=== PATIENT | male | born 1945 | race Caucasian/White ===

== ENCOUNTER 2017-02-03 06:03 | Inpatient (IN) ==
[2017-02-03] MEDS ORDERED: *HR* LORazepam 2 MG/ML VIAL ONE (06:07)
[2017-02-03] MEDS ORDERED: Ipratropium/Albuterol Neb 3 ML ONE (06:10)
[2017-02-03] MEDS ORDERED: methylPREDNISolone 125 MG/2 ML VIAL IVP ONE (06:14)
[2017-02-03] MEDS ORDERED: *HR* LORazepam 2 MG/ML VIAL IVP ONE (06:14)
[2017-02-03] MEDS ORDERED: Ipratropium/Albuterol Neb 3 ML IH ONE (06:14)
[2017-02-03 06:21] LABS: ABG Base Excess 14.9 mEq/L (-2.0 to 3.0); ABG HCO3 46.7 mEQ/L (21-27); ABG Oxygen Saturation 99 % (95-98); ABG PH 7.24 pH Units (7.32-7.45); ABG PO2 140 mmHg (85-104)
[2017-02-03 06:22] LABS: Blood Gas FiO2 100 %
[2017-02-03 06:25] LABS: ABG PCO2 109 mmHg (35-45)
[2017-02-03] MEDS ORDERED: *HR* Rocuronium Bromide 50 MG/5 ML VIAL IVP ONE (06:56)
[2017-02-03] MEDS ORDERED: *HR* Etomidate 40 MG/20 ML VIAL IVP ONE (06:56)
[2017-02-03 06:59] LABS: Basophils # 0.1 K/mcL (0.0-0.2); Basophils % 0.3 %; Hematocrit 35.9 % (37.5-50.1); Hemoglobin 9.9 g/dL (12.9-16.9); Immature Granulocytes % 0.4 % (0-4); Mean Corpuscular HGB Conc 27.6 g/dL (31.6-35.5); Mean Corpuscular Hemoglobin 25.7 pg (28.0-33.3); Mean Corpuscular Volume 93.2 fL (83.0-100.0); Mean Platelet Volume 10.1 fL (9.4-12.4); Platelet Count 336 K/mcL (140-400); Red Blood Count 3.85 M/mcL (4.19-5.50); Red Cell Distribution Width 14.5 % (11.5-14.5)
[2017-02-03 07:01] LABS: Eosinophils # 0.5 K/mcL (0.0-0.6); Lymphocytes # 1.1 K/mcL (0.6-4.6); Lymphocytes % 6.4 %; Monocytes # 0.8 K/mcL (0.0-1.3); Monocytes % 4.7 %; Segmented Neutrophils % 85.2 %
--- NOTE | 2017-02-03 07:02 | Emergency Department Note ---
Disposition Clinical Impression: Respiratory distress, Sepsis, Community acquired pneumonia, Acute exacerbation of chronic obstructive airways disease, Acute on chronic respiratory failure with hypercapnia, Anemia Disposition: Admitted As Inpatient Condition: Fair [facility]errals: [facility] [Primary Care Provider[facility] - Forms: ED Satisfaction Letter Time of Disposition: 08:13 SOB HPI - General Chief Complaint: ED Shortness of Breath/Dyspnea Stated Complaint: LESLYE Time Seen by Provider: 02/03/17 06:13 Source: patient, EMS Limitations: no limitations Nursing Notes Reviewed: Yes Vital Signs Reviewed: Yes - History of Present Illness 72 year old male presents to the ED in respiratory distress. Patient is drowsy and in respiratory distress. Patients initial pulse ox on arrival was for ems was 70% and then placed on him on NRB with breathing treatments which brought it back up to 86%. Patients is slow to respond and appears in respiratory distress with retractions and labored. He appears disoriented. EMS states that he was experiencing diminshed breath sounds on exam. PPtinet denies any history of lung cancer, PEs, or recent MIs or strokes. He states he has a history of atrial fibrillation although we do not have a history of that in our system. He states he woke up with chest pain this morning with shortness of breath. - Related Data Home Medications Medication Instructions Recorded Confirmed Ascorbic Acid [Vitamin C] 1,200 mg PO DAILY 02/12/16 02/12/16 Baclofen [Lioresal] 10 mg PO BID 02/12/16 02/12/16 BuPROPion [Wellbutrin] 100 mg PO BID 02/12/16 02/12/16 Ergocalciferol (VITAMIN D2) 500 unit PO DAILY 02/12/16 02/12/16 [Vitamin D] Gabapentin [Neurontin] 300 mg PO TID 02/12/16 02/12/16 Hydrocodone/Acetaminophen [Vicodin 5 mg PO Q6-8H PRN 02/12/16 02/12/16 Es 7.5-300 mg Tablet] LORazepam [Ativan] 0.5 mg PO BID 02/12/16 02/12/16 Ranitidine HCl [Heartburn Relief] 100 mg PO DAILY 02/12/16 02/12/16 Trazodone HCl [TraZODone] 200 mg PO DAILY 02/12/16 02/12/16 Previous Rx's Medication Instructions Recorded Budesonide/Formoterol 160/4.5 2 puff IH BIDR #1 inhaler 02/16/16 [Symbicort 160/4.5] Levofloxacin [Levaquin] 500 mg PO DAILY #3 tablet 02/16/16 PredniSONE [Prednisone] 10 mg PO DAILY #0 02/16/16 Allergies Allergy/AdvReac Type Severity Reaction Status Date / Time No Known Allergies Allergy Verified 02/11/16 21:51 Limitations: ROS unobtainable due to patients medical condition Cardiovascular: Reports: chest pain Respiratory: Reports: dyspnea Past Medical History - Past Medical History Medical history: Reports: arthritis, atrial fibrillation, COPD Surgical history: Reports: other (ankle reconstruction surgery.) Psychiatric history: Reports: anxiety - Social History Smoking Status: Former smoker Smokeless Tobacco Status: No Alcohol use: Reports: none Drug use: Reports: none Physical Exam - General Limitations: no limitations General appearance: alert, anxious, in distress - Head Head exam: atraumatic, normocephalic, normal inspection - Eye Eye exam: Present: normal appearance, PERRL, EOMI - Expanded Eye Exam Pupils: Left: reactive - ENT ENT exam: normal exam, normal oropharynx, mucous membranes moist - Expanded ENT Exam External ear exam: Present: normal external inspection Mouth exam: Present: normal external inspection Teeth exam: Present: normal inspection Throat exam: Present: normal inspection - Neck Neck exam: Present: normal inspection, full ROM, trachea midline - Chest Chest inspection: Present: normal inspection, symmetric chest wall rise - Respiratory Respiratory exam: Present: normal lung sounds bilaterally, respiratory distress , accessory muscle use, prolonged expiratory phase - Cardiovascular Cardiovascular exam: Present: tachycardia, irregular rhythm, normal heart sounds - Abdominal Exam Abdominal exam: Present: soft, Non-Tender. Absent: tenderness, distention, guarding, rebound, rigidity - Extremities Exam Extremities exam: Present: normal inspection, full ROM. Absent: tenderness, pedal edema - Expanded Upper Extremity Exam Shoulder exam: Present: normal inspection, full ROM Arm exam: Present: normal inspection, full ROM Elbow exam: Present: normal inspection, full ROM Forearm/Wrist exam: Present: normal inspection, full ROM Hand exam: Present: normal inspection, full ROM Vascular exam: Normal: capillary refill, radial pulse - Expanded Lower Extremity Exam Hip/Pelvis exam: Present: normal inspection, full ROM Upper leg exam: Present: normal inspection, full ROM Knee exam: Present: normal inspection, full ROM Lower leg exam: Present: normal inspection, full ROM Ankle exam: Present: normal inspection, full ROM Foot/toe exam: Present: normal inspection, full ROM Neurovascular/Tendon exam: Absent: motor deficit, sensory deficit, tendon deficit - Back Exam Back exam: Present: normal inspection, full ROM. Absent: tenderness - Neurological Exam Neurological exam: Present: alert, oriented X3 - Expanded Neurological Exam Patient oriented to: Present: person, place, time Coma Scale Eye Opening: Spontaneous Coma Scale Motor Response: Obeys Commands Coma Scale Verbal Response: Oriented Coma Scale Total: 15 - Psychiatric Psychiatric exam: Present: normal affect, normal mood - Skin Skin exam: Present: warm, dry, intact, normal color Course Course Narrative: patient has failed bipap trial so we will intubate electively due to pH of 7.29 and PCO2 of 109. - Reevaluation(s) Reevaluation #1: ab was signed out to day team (Paulie/Lori) for admission to ICU and r/o PE study Time: 08:12 Vital Signs Temperature 100.8 F H 02/03/17 06:05 Pulse Rate 143 02/03/17 06:05 Respiratory Rate 31 02/03/17 06:05 Blood Pressure 186/95 02/03/17 06:05 O2 Sat by Pulse Oximetry 85 02/03/17 06:05 Temperature 100.8 F H 02/03/17 06:05 Pulse Rate 86 02/03/17 08:33 Respiratory Rate 16 02/03/17 08:33 Blood Pressure 102/53 02/03/17 08:33 O2 Sat by Pulse Oximetry 100 02/03/17 08:33 Oxygen Delivery Oxygen Delivery Ventilator Procedures - Intubation Time out performed: Yes sedative: Etomidate Mg Given: 20 paralytic: Rocuronium Mg Given: 100 Laryngoscope: other (glidescope) Assist Device Used: fiber optic device ET Tube Size: 7 ET Tube Uncuffed: No Tube Secured Depth (cm): 24 Tube Secured Location: lips Tube Placement Confirmation: visualized tube passing through cords, equal breath sounds bilaterally, no breath sounds over epigastrium Patient Tolerated Procedure: well Intubation Complications: none Shortness of Breath/Dyspnea - Lab Data Result diagrams: 02/03/17 06:48 02/03/17 06:48 Lab Results 02/03/17 02/03/17 02/03/17 Range/Units 06:15 06:48 06:48 WBC (4.3-11.1) K/mcL RBC (4.19-5.50) M/mcL Hgb (12.9-16.9) g/dL Hct (37.5-50.1) % MCV (83.0-100.0) fL MCH (28.0-33.3) pg MCHC (31.6-35.5) g/dL RDW (11.5-14.5) % Plt Count (140-400) K/mcL MPV (9.4-12.4) fL Immature Gran % (0-4) % Seg Neutrophils % % Lymphocytes % % Monocytes % % Eosinophils % % Basophils % % Neutrophils # (1.6-8.9) K/mcL Lymphocytes # (0.6-4.6) K/mcL Monocytes # (0.0-1.3) K/mcL Eosinophils # (0.0-0.6) K/mcL Basophils # (0.0-0.2) K/mcL Platelet Estimate (Normal) Polychromasia (Not Present) Hypochromasia (Not Present) Basophilic Stippling (Not Present) Stomatocytes (Not Present) PT 10.5 (9.4-12.1) Seconds INR 1.0 APTT 25.0 L (26.0-36.0) Seconds ABG pH 7.24 L (7.32-7.45) pH Units ABG pCO2 109 H* (35-45) mmHg ABG pO2 140 H (85-104) mmHg ABG HCO3 46.7 H (21-27) mEQ/L ABG Total CO2 50.0 H (20-26) mEq/L ABG O2 Saturation 99 H (95-98) % ABG Base Excess 14.9 H (-2.0 to 3.0) mEq/L Blood Gas Modality BIPAP Inspired O2 100 % Sodium (136-145) mEq/L Potassium (3.5-4.5) mEq/L Chloride (98-109) mEq/L Carbon Dioxide (19-29) mEq/L BUN (8-26) mg/dL Creatinine (0.72-1.25) mg/dL Est GFR ( Amer) (> 60) Est GFR (Non-Af Amer) (> 60) BUN/Creatinine Ratio (6-26) Glucose (70-99) mg/dL Calculated Osmolality (280-300) Calcium (8.6-10.8) mg/dL Total Bilirubin 0.3 (0.2-1.2) mg/dL Direct Bilirubin 0.1 (0.0-0.5) mg/dL Indirect Bilirubin 0.2 (0.0-1.2) mg/dL AST 15 (5-34) Units/L ALT 10 (0-55) Units/L Alkaline Phosphatase 68 (38-126) Units/L Troponin I (0-0.03) ng/mL B-Natriuretic Peptide (0-100) pg/mL Serum Total Protein 7.0 (6.0-8.3) g/dL Albumin 3.4 L (3.5-5.0) g/dL Globulin 3.6 H (2.4-3.5) g/dL Albumin/Globulin Ratio 0.9 L (1.1-2.2) Lipase 20 (8-78) Units/L 02/03/17 02/03/17 02/03/17 Range/Units 06:48 06:48 06:48 WBC 17.1 H (4.3-11.1) K/mcL RBC 3.85 L (4.19-5.50) M/mcL Hgb 9.9 L (12.9-16.9) g/dL Hct 35.9 L (37.5-50.1) % MCV 93.2 (83.0-100.0) fL MCH 25.7 L (28.0-33.3) pg MCHC 27.6 L (31.6-35.5) g/dL RDW 14.5 (11.5-14.5) % Plt Count 336 (140-400) K/mcL MPV 10.1 (9.4-12.4) fL Immature Gran % 0.4 (0-4) % Seg Neutrophils % 85.2 % Lymphocytes % 6.4 % Monocytes % 4.7 % Eosinophils % 3.0 % Basophils % 0.3 % Neutrophils # 14.8 H (1.6-8.9) K/mcL Lymphocytes # 1.1 (0.6-4.6) K/mcL Monocytes # 0.8 (0.0-1.3) K/mcL Eosinophils # 0.5 (0.0-0.6) K/mcL Basophils # 0.1 (0.0-0.2) K/mcL Platelet Estimate Normal (Normal) Polychromasia 1+ A (Not Present) Hypochromasia Present A (Not Present) Basophilic Stippling 1+ A (Not Present) Stomatocytes 1+ A (Not Present) PT (9.4-12.1) Seconds INR APTT (26.0-36.0) Seconds ABG pH (7.32-7.45) pH Units ABG pCO2 (35-45) mmHg ABG pO2 (85-104) mmHg ABG HCO3 (21-27) mEQ/L ABG Total CO2 (20-26) mEq/L ABG O2 Saturation (95-98) % ABG Base Excess (-2.0 to 3.0) mEq/L Blood Gas Modality Inspired O2 % Sodium 143 (136-145) mEq/L Potassium 4.3 (3.5-4.5) mEq/L Chloride 95 L (98-109) mEq/L Carbon Dioxide 40 H* (19-29) mEq/L BUN 12 (8-26) mg/dL Creatinine 0.82 (0.72-1.25) mg/dL Est GFR ( Amer) > 60 (> 60) Est GFR (Non-Af Amer) > 60 (> 60) BUN/Creatinine Ratio 15 (6-26) Glucose 161 H (70-99) mg/dL Calculated Osmolality 299 (280-300) Calcium 9.3 (8.6-10.8) mg/dL Total Bilirubin (0.2-1.2) mg/dL Direct Bilirubin (0.0-0.5) mg/dL Indirect Bilirubin (0.0-1.2) mg/dL AST (5-34) Units/L ALT (0-55) Units/L Alkaline Phosphatase (38-126) Units/L Troponin I (0-0.03) ng/mL B-Natriuretic Peptide 18 (0-100) pg/mL Serum Total Protein (6.0-8.3) g/dL Albumin (3.5-5.0) g/dL Globulin (2.4-3.5) g/dL Albumin/Globulin Ratio (1.1-2.2) Lipase (8-78) Units/L 04/29/17 Range/Units 06:48 WBC (4.3-11.1) K/mcL RBC (4.19-5.50) M/mcL Hgb (12.9-16.9) g/dL Hct (37.5-50.1) % MCV (83.0-100.0) fL MCH (28.0-33.3) pg MCHC (31.6-35.5) g/dL RDW (11.5-14.5) % Plt Count (140-400) K/mcL MPV (9.4-12.4) fL Immature Gran % (0-4) % Seg Neutrophils % % Lymphocytes % % Monocytes % % Eosinophils % % Basophils % % Neutrophils # (1.6-8.9) K/mcL Lymphocytes # (0.6-4.6) K/mcL Monocytes # (0.0-1.3) K/mcL Eosinophils # (0.0-0.6) K/mcL Basophils # (0.0-0.2) K/mcL Platelet Estimate (Normal) Polychromasia (Not Present) Hypochromasia (Not Present) Basophilic Stippling (Not Present) Stomatocytes (Not Present) PT (9.4-12.1) Seconds INR APTT (26.0-36.0) Seconds ABG pH (7.32-7.45) pH Units ABG pCO2 (35-45) mmHg ABG pO2 (85-104) mmHg ABG HCO3 (21-27) mEQ/L ABG Total CO2 (20-26) mEq/L ABG O2 Saturation (95-98) % ABG Base Excess (-2.0 to 3.0) mEq/L Blood Gas Modality Inspired O2 % Sodium (136-145) mEq/L Potassium (3.5-4.5) mEq/L Chloride (98-109) mEq/L Carbon Dioxide (19-29) mEq/L BUN (8-26) mg/dL Creatinine (0.72-1.25) mg/dL Est GFR ( Amer) (> 60) Est GFR (Non-Af Amer) (> 60) BUN/Creatinine Ratio (6-26) Glucose (70-99) mg/dL Calculated Osmolality (280-300) Calcium (8.6-10.8) mg/dL Total Bilirubin (0.2-1.2) mg/dL Direct Bilirubin (0.0-0.5) mg/dL Indirect Bilirubin (0.0-1.2) mg/dL AST (5-34) Units/L ALT (0-55) Units/L Alkaline Phosphatase (38-126) Units/L Troponin I 0.01 (0-0.03) ng/mL B-Natriuretic Peptide (0-100) pg/mL Serum Total Protein (6.0-8.3) g/dL Albumin (3.5-5.0) g/dL Globulin (2.4-3.5) g/dL Albumin/Globulin Ratio (1.1-2.2) Lipase (8-78) Units/L - EKG Data EKG attestation: Yes I reviewed and interpreted this EKG. EKG results narrative: atrial flutter with rate of [address] depresssions in II,III,avf, V4-6. change from 02/11/16. 0618 Attestation Statement - Attestation Attestation: I, Topher Baker MD, personally evaluated this patient and discussed their management with the resident physician. I reviewed the resident's note and agree with the documented findings, medical decision making, and plan of care. 72-year-old male presents to the emergency department by EMS with respiratory distress. He apparently woke up short of breath during the night. EMS reports his oxygen saturation was in the 70s on their arrival. He received a DuoNeb and oxygen with improvement in his oxygen saturation to the mid 80s. On arrival here his oxygen saturation is 84 on oxygen. He has alert but seems a little confused and slow to respond. He denies any chest pain and states he just cannot breathe. On examination the patient is well-developed well-nourished elderly male in moderate respiratory distress. He is alert but confused and slow to respond. Breath sounds are markedly decreased bilaterally. Heart tachycardic and regular. Abdomen soft with normal bowel sounds. No pedal edema. Labs reviewed. Chest x-ray shows pneumonia. Patient placed on BiPAP and had improvement in his heart rate and oxygen saturations have her he became progressively more lethargic and decision was made to intubate patient. He was intubated orally by Dr. Silvia without difficulty. The scallop shucker was consulted and accepted admission of the patient.
[2017-02-03 07:04] LABS: Prothrombin Time 10.5 Seconds (9.4-12.1)
[2017-02-03 07:05] LABS: BUN/Creatinine Ratio 15 (6-26); Blood Urea Nitrogen 12 mg/dL (8-26); Calcium 9.3 mg/dL (8.6-10.8); Chloride 95 mEq/L (98-109); Glucose 161 mg/dL (70-99); Osmolality,Calculated 299 (280-300); Potassium 4.3 mEq/L (3.5-4.5); Sodium 143 mEq/L (136-145); eGFR For African Americans > 60 (> 60); eGFR For Non-African Americans > 60 (> 60)
[2017-02-03 07:07] LABS: Carbon Dioxide 40 mEq/L (19-29); Neutrophils # 14.8 K/mcL (1.6-8.9)
[2017-02-03 07:08] LABS: Albumin 3.4 g/dL (3.5-5.0); Albumin/Globulin Ratio 0.9 (1.1-2.2); Bilirubin,Direct 0.1 mg/dL (0.0-0.5); Bilirubin,Indirect 0.2 mg/dL (0.0-1.2); Bilirubin,Total 0.3 mg/dL (0.2-1.2); Globulin 3.6 g/dL (2.4-3.5)
[2017-02-03] MEDS ORDERED: 0.9 % Sodium Chloride 1,000 ML ONE ×2 (07:30→08:02)
[2017-02-03] MEDS ORDERED: FentaNYL (PF) 1,000 MCG in 0.9 % Sodium Chloride 80 ML IVC SCH (07:30)
[2017-02-03] MEDS ORDERED: *HR* Etomidate 20 MG/10 ML AMPUL IVP ONE (07:39)
[2017-02-03] MEDS ORDERED: *HR* Rocuronium Bromide 100 MG/10 ML VIAL IVC ONE (07:39)
[2017-02-03 07:44] LABS: Hypochromasia Present (Not Present); Polychromasia 1+ (Not Present); Stomatocytes 1+ (Not Present)
[2017-02-03] MEDS ORDERED: *HR* Midazolam HCl 2 MG/2 ML VIAL ONE (07:44)
[2017-02-03 07:45] LABS: Basophilic Stippling 1+ (Not Present); Platelet Estimate Normal (Normal)
[2017-02-03] MEDS ORDERED: *HR* Midazolam HCl 2 MG/2 ML VIAL IVP ONE ×2 (07:52→08:17)
--- NOTE | 2017-02-03 08:08 | Emergency Department Note ---
Disposition Clinical Impression: Respiratory distress, Sepsis, Community acquired pneumonia, Acute exacerbation of chronic obstructive airways disease, Acute on chronic respiratory failure with hypercapnia, Anemia Disposition: Admitted As Inpatient Condition: Fair [facility]: [facility]Primary Care Provider[facility] - Forms: ED Satisfaction Letter SOB HPI - General Chief Complaint: ED Shortness of Breath/Dyspnea Stated Complaint: LESLYE Time Seen by Provider: 02/03/17 06:13 Source: patient, EMS Limitations: no limitations Nursing Notes Reviewed: Yes Vital Signs Reviewed: Yes - History of Present Illness 72-year-old male presents to the ER with complaints of shortness of breath. Patient was found at home to have a oxygen saturations are 70%. EMS was called by . Patient received bronchodilators on the way here which increased his O2 saturation to 80%. He was initially started on BiPAP however his work of breathing increased and patient was emergently intubated. Patient's states that he has been having elevated temperatures of 101 since last week. However his shortness of breath started this morning. He has a history of smoking but is not an active smoker. He uses oxygen at home. Initially patient was on a propofol drip, that has been transitioned to fentanyl and Versed. He has 2 large-bore IVs in his left arm. Patient's vitals are stable. - Related Data Home Medications Medication Instructions Recorded Confirmed Ascorbic Acid [Vitamin C] 1,200 mg PO DAILY 02/12/16 02/12/16 Baclofen [Lioresal] 10 mg PO BID 02/12/16 02/12/16 BuPROPion [Wellbutrin] 100 mg PO BID 02/12/16 02/12/16 Ergocalciferol (VITAMIN D2) 500 unit PO DAILY 02/12/16 02/12/16 [Vitamin D] Gabapentin [Neurontin] 300 mg PO TID 02/12/16 02/12/16 Hydrocodone/Acetaminophen [Vicodin 5 mg PO Q6-8H PRN 02/12/16 02/12/16 Es 7.5-300 mg Tablet] LORazepam [Ativan] 0.5 mg PO BID 02/12/16 02/12/16 Ranitidine HCl [Heartburn Relief] 100 mg PO DAILY 02/12/16 02/12/16 Trazodone HCl [TraZODone] 200 mg PO DAILY 02/12/16 02/12/16 Previous Rx's Medication Instructions Recorded Budesonide/Formoterol 160/4.5 2 puff IH BIDR #1 inhaler 02/16/16 [Symbicort 160/4.5] Levofloxacin [Levaquin] 500 mg PO DAILY #3 tablet 02/16/16 PredniSONE [Prednisone] 10 mg PO DAILY #0 02/16/16 Allergies Allergy/AdvReac Type Severity Reaction Status Date / Time No Known Allergies Allergy Verified 02/11/16 21:51 Limitations: ROS unobtainable due to patients medical condition Past Medical History - Past Medical History Medical history: Reports: arthritis, atrial fibrillation, COPD Surgical history: Reports: other (ankle reconstruction surgery.) Psychiatric history: Reports: anxiety - Social History Smoking Status: Former smoker Smokeless Tobacco Status: No Alcohol use: Reports: none Drug use: Reports: none Physical Exam General: Intubated and sedated HEENT: Head atraumatic, normocephalic, pupils reactive to light and accommodation. Heart: Regular rate and rhythm with no murmur Lungs: Coarse breath sounds. Abdomen: Soft abdomen with positive bowel sounds Extremities: Absent pedal edema, Neuro: Unable to conduct due to sedation Vascular: Pedal and radialpulses 2 out of 4 - General Limitations: no limitations General appearance: alert, anxious Course Course Narrative: Patient's labs showed leukocytosis of 17.7. Patient's hemoglobin is stable. PH is 7.24 with PCO2 of 109. Patient's bicarbonate is 40. Chest x-ray shows right lung infiltrate. He was started on Levaquin to treat community acquired pneumonia. Patient has not had any IV antibiotics in the last 90 days. Blood culture and sputum cultures ordered. Lactic acid ordered. Will call ICU for admission. Patient will have a CTA to rule out PE. - Reevaluation(s) Reevaluation #1: Patient was accepted by Time: 08:49 Vital Signs Temperature 100.8 F H 02/03/17 06:05 Pulse Rate 143 02/03/17 06:05 Respiratory Rate 31 02/03/17 06:05 Blood Pressure 186/95 02/03/17 06:05 O2 Sat by Pulse Oximetry 85 02/03/17 06:05 Temperature 100.8 F H 02/03/17 06:05 Pulse Rate 86 02/03/17 08:33 Respiratory Rate 16 02/03/17 08:33 Blood Pressure 102/53 02/03/17 08:33 O2 Sat by Pulse Oximetry 100 02/03/17 08:33 Oxygen Delivery Oxygen Delivery Ventilator Shortness of Breath/Dyspnea - Lab Data Result diagrams: 02/03/17 06:48 02/03/17 06:48 Lab Results 02/03/17 02/03/17 02/03/17 Range/Units 06:15 06:48 06:48 WBC (4.3-11.1) K/mcL RBC (4.19-5.50) M/mcL Hgb (12.9-16.9) g/dL Hct (37.5-50.1) % MCV (83.0-100.0) fL MCH (28.0-33.3) pg MCHC (31.6-35.5) g/dL RDW (11.5-14.5) % Plt Count (140-400) K/mcL MPV (9.4-12.4) fL Immature Gran % (0-4) % Seg Neutrophils % % Lymphocytes % % Monocytes % % Eosinophils % % Basophils % % Neutrophils # (1.6-8.9) K/mcL Lymphocytes # (0.6-4.6) K/mcL Monocytes # (0.0-1.3) K/mcL Eosinophils # (0.0-0.6) K/mcL Basophils # (0.0-0.2) K/mcL Platelet Estimate (Normal) Polychromasia (Not Present) Hypochromasia (Not Present) Basophilic Stippling (Not Present) Stomatocytes (Not Present) PT 10.5 (9.4-12.1) Seconds INR 1.0 APTT 25.0 L (26.0-36.0) Seconds ABG pH 7.24 L (7.32-7.45) pH Units ABG pCO2 109 H* (35-45) mmHg ABG pO2 140 H (85-104) mmHg ABG HCO3 46.7 H (21-27) mEQ/L ABG Total CO2 50.0 H (20-26) mEq/L ABG O2 Saturation 99 H (95-98) % ABG Base Excess 14.9 H (-2.0 to 3.0) mEq/L Blood Gas Modality BIPAP Inspired O2 100 % Sodium (136-145) mEq/L Potassium (3.5-4.5) mEq/L Chloride (98-109) mEq/L Carbon Dioxide (19-29) mEq/L BUN (8-26) mg/dL Creatinine (0.72-1.25) mg/dL Est GFR ( Amer) (> 60) Est GFR (Non-Af Amer) (> 60) BUN/Creatinine Ratio (6-26) Glucose (70-99) mg/dL Calculated Osmolality (280-300) Calcium (8.6-10.8) mg/dL Total Bilirubin 0.3 (0.2-1.2) mg/dL Direct Bilirubin 0.1 (0.0-0.5) mg/dL Indirect Bilirubin 0.2 (0.0-1.2) mg/dL AST 15 (5-34) Units/L ALT 10 (0-55) Units/L Alkaline Phosphatase 68 (38-126) Units/L Troponin I (0-0.03) ng/mL B-Natriuretic Peptide (0-100) pg/mL Serum Total Protein 7.0 (6.0-8.3) g/dL Albumin 3.4 L (3.5-5.0) g/dL Globulin 3.6 H (2.4-3.5) g/dL Albumin/Globulin Ratio 0.9 L (1.1-2.2) Lipase 20 (8-78) Units/L 02/03/17 02/03/17 02/03/17 Range/Units 06:48 06:48 06:48 WBC 17.1 H (4.3-11.1) K/mcL RBC 3.85 L (4.19-5.50) M/mcL Hgb 9.9 L (12.9-16.9) g/dL Hct 35.9 L (37.5-50.1) % MCV 93.2 (83.0-100.0) fL MCH 25.7 L (28.0-33.3) pg MCHC 27.6 L (31.6-35.5) g/dL RDW 14.5 (11.5-14.5) % Plt Count 336 (140-400) K/mcL MPV 10.1 (9.4-12.4) fL Immature Gran % 0.4 (0-4) % Seg Neutrophils % 85.2 % Lymphocytes % 6.4 % Monocytes % 4.7 % Eosinophils % 3.0 % Basophils % 0.3 % Neutrophils # 14.8 H (1.6-8.9) K/mcL Lymphocytes # 1.1 (0.6-4.6) K/mcL Monocytes # 0.8 (0.0-1.3) K/mcL Eosinophils # 0.5 (0.0-0.6) K/mcL Basophils # 0.1 (0.0-0.2) K/mcL Platelet Estimate Normal (Normal) Polychromasia 1+ A (Not Present) Hypochromasia Present A (Not Present) Basophilic Stippling 1+ A (Not Present) Stomatocytes 1+ A (Not Present) PT (9.4-12.1) Seconds INR APTT (26.0-36.0) Seconds ABG pH (7.32-7.45) pH Units ABG pCO2 (35-45) mmHg ABG pO2 (85-104) mmHg ABG HCO3 (21-27) mEQ/L ABG Total CO2 (20-26) mEq/L ABG O2 Saturation (95-98) % ABG Base Excess (-2.0 to 3.0) mEq/L Blood Gas Modality Inspired O2 % Sodium 143 (136-145) mEq/L Potassium 4.3 (3.5-4.5) mEq/L Chloride 95 L (98-109) mEq/L Carbon Dioxide 40 H* (19-29) mEq/L BUN 12 (8-26) mg/dL Creatinine 0.82 (0.72-1.25) mg/dL Est GFR ( Amer) > 60 (> 60) Est GFR (Non-Af Amer) > 60 (> 60) BUN/Creatinine Ratio 15 (6-26) Glucose 161 H (70-99) mg/dL Calculated Osmolality 299 (280-300) Calcium 9.3 (8.6-10.8) mg/dL Total Bilirubin (0.2-1.2) mg/dL Direct Bilirubin (0.0-0.5) mg/dL Indirect Bilirubin (0.0-1.2) mg/dL AST (5-34) Units/L ALT (0-55) Units/L Alkaline Phosphatase (38-126) Units/L Troponin I (0-0.03) ng/mL B-Natriuretic Peptide 18 (0-100) pg/mL Serum Total Protein (6.0-8.3) g/dL Albumin (3.5-5.0) g/dL Globulin (2.4-3.5) g/dL Albumin/Globulin Ratio (1.1-2.2) Lipase (8-78) Units/L // Range/Units 06:48 WBC (4.3-11.1) K/mcL RBC (4.19-5.50) M/mcL Hgb (12.9-16.9) g/dL Hct (37.5-50.1) % MCV (83.0-100.0) fL MCH (28.0-33.3) pg MCHC (31.6-35.5) g/dL RDW (11.5-14.5) % Plt Count (140-400) K/mcL MPV (9.4-12.4) fL Immature Gran % (0-4) % Seg Neutrophils % % Lymphocytes % % Monocytes % % Eosinophils % % Basophils % % Neutrophils # (1.6-8.9) K/mcL Lymphocytes # (0.6-4.6) K/mcL Monocytes # (0.0-1.3) K/mcL Eosinophils # (0.0-0.6) K/mcL Basophils # (0.0-0.2) K/mcL Platelet Estimate (Normal) Polychromasia (Not Present) Hypochromasia (Not Present) Basophilic Stippling (Not Present) Stomatocytes (Not Present) PT (9.4-12.1) Seconds INR APTT (26.0-36.0) Seconds ABG pH (7.32-7.45) pH Units ABG pCO2 (35-45) mmHg ABG pO2 (85-104) mmHg ABG HCO3 (21-27) mEQ/L ABG Total CO2 (20-26) mEq/L ABG O2 Saturation (95-98) % ABG Base Excess (-2.0 to 3.0) mEq/L Blood Gas Modality Inspired O2 % Sodium (136-145) mEq/L Potassium (3.5-4.5) mEq/L Chloride (98-109) mEq/L Carbon Dioxide (19-29) mEq/L BUN (8-26) mg/dL Creatinine (0.72-1.25) mg/dL Est GFR ( Amer) (> 60) Est GFR (Non-Af Amer) (> 60) BUN/Creatinine Ratio (6-26) Glucose (70-99) mg/dL Calculated Osmolality (280-300) Calcium (8.6-10.8) mg/dL Total Bilirubin (0.2-1.2) mg/dL Direct Bilirubin (0.0-0.5) mg/dL Indirect Bilirubin (0.0-1.2) mg/dL AST (5-34) Units/L ALT (0-55) Units/L Alkaline Phosphatase (38-126) Units/L Troponin I 0.01 (0-0.03) ng/mL B-Natriuretic Peptide (0-100) pg/mL Serum Total Protein (6.0-8.3) g/dL Albumin (3.5-5.0) g/dL Globulin (2.4-3.5) g/dL Albumin/Globulin Ratio (1.1-2.2) Lipase (8-78) Units/L Critical Care Time Critical Care Time: Yes Total Critical Care Time: 60 Attestation: Critical care performed: Time is exclusive of separately billable procedures. Time includes: direct patient care, patient reassessment, coordination of patient care, interpretation of data (laboratory data, radiology data, and respiratory data), review of patient's medical records, medical consultation and documentation of patient care. Procedures included in critical care time: Procedures excluded from critical care time: Endotracheal intubation Attestation Statement - Attestation Attestation: I, Topher Baker MD, personally evaluated this patient and discussed their management with the resident physician. I reviewed the resident's note and agree with the documented findings, medical decision making, and plan of care. 72-year-old male presents to the emergency department by EMS with respiratory distress. He apparently woke up short of breath during the night. EMS reports his oxygen saturation was in the 70s on their arrival. He received a DuoNeb and oxygen with improvement in his oxygen saturation to the mid 80s. On arrival here his oxygen saturation is 84 on oxygen. He has alert but seems a little confused and slow to respond. He denies any chest pain and states he just cannot breathe. On examination the patient is well-developed well-nourished elderly male in moderate respiratory distress. He is alert but confused and slow to respond. Breath sounds are markedly decreased bilaterally. Heart tachycardic and regular. Abdomen soft with normal bowel sounds. No pedal edema. Labs reviewed. Chest x-ray shows pneumonia. Patient placed on BiPAP and had improvement in his heart rate and oxygen saturations have her he became progressively more lethargic and decision was made to intubate patient. He was intubated orally by Dr. Vega without difficulty. The head cager was consulted and accepted admission of the patient.
[2017-02-03] MEDS ORDERED: Levofloxacin 750 MG/150 ML 750 MG/150 ML BAG IVPB ONE (08:18)
[2017-02-03] MEDS ORDERED: predniSONE 20 MG TABLET PO ONE (08:41)
[2017-02-03] MEDS ORDERED: Naloxone 0.4 MG/ML INJ IVP PRN (11:34)
--- NOTE | 2017-02-03 11:55 | Pulmonology History & Physical ---
Date of Encounter: 02/03/17 Time of Encounter: 11:53 Assessment and Plan (1) Acute and chronic respiratory failure Current visit: Yes Status: Acute Acute on chronic respiratory failure with hypoxia and hypercapnia is due to advanced underlying COPD and more than likely superimposed pneumonia (CT imaging study of the chest reveals patchy densities within the right chest is an to underlying emphysematous changes). Given the magnitude of hypercapnia ( PCO2 109 note pH of 7.24) this patient has chronic hypercapnia is baseline clinical feature and thus is very advanced COPD. Management to include continuation of full ventilatory support, empiric antibiotic coverage for treatment of community-acquired pneumonia, systemic steroid, bronchodilator therapy. Fentanyl and Versed infusions will be continued for provision of sedation. DVT and ulcer prophylaxis of also been ordered. I briefly updated the spouse via phone call conversation this morning. Qualifiers: Respiratory failure complication: hypoxia and hypercapnia Qualified Code(s) : J96.21 - Acute and chronic respiratory failure with hypoxia; J96.22 - Acute and chronic respiratory failure with hypercapnia Code(s): J96.20 - Acute and chronic respiratory failure, unspecified whether with hypoxia or hypercapnia SNOMED Code(s): 52907602, 71033073 History of Present Illness Chief complaint: Acute on chronic respiratory failure with hypoxemia and hypercapnia HPI: Mr. Ramires is a 72 year old male resented to the emergency room with complaints of progressive exertional and subsequent resting breathlessness and fatigue. Apparently he did have fever last week and perhaps cough and sputum production. Patient has well-established very advanced COPD utilizes home oxygen therapy among other therapies is a former [facility] reportedly no longer smoking however uncertain as to the time of cessation). Given the presentation in the emergency room earlier today, magnitude of distress and lack of response to aggressive medical treatment including noninvasive ventilatory support, the patient was subsequently intubated and placed on noninvasive ventilatory support. He was transported to the intensive care unit. I reviewed his last discharge summary dating back to 2016. Of note, the patient does receive some of his healthcare through the [facility]. Past Med Surg Social Fam HX - Past Medical History Medical history: arthritis, atrial fibrillation, COPD Psychiatric history: anxiety - Past Surgical History Surgical History: other (ankle reconstruction surgery.) - Social History Smoking Status: Former smoker Smokeless Tobacco Status: No Alcohol use: none Drug use: none - Family History Mother Hx Family Respiratory Disorders: Yes (COPD: mother, father, brother. Brother: lung cancer.) Medications and Allergies Ascorbic Acid [Vitamin C] 1,200 mg PO DAILY 02/12/16 [History] Baclofen [Lioresal] 10 mg PO BID 02/12/16 [History] BuPROPion [Wellbutrin] 100 mg PO BID 02/12/16 [History] Ergocalciferol (VITAMIN D2) [Vitamin D] 500 unit PO DAILY 02/12/16 [History] Gabapentin [Neurontin] 300 mg PO TID 02/12/16 [History] Hydrocodone/Acetaminophen [Vicodin Es 7.5-300 mg Tablet] 5 mg PO Q6-8H PRN 02/11 [History] LORazepam [Ativan] 0.5 mg PO BID 02/12/16 [History] Ranitidine HCl [Heartburn Relief] 100 mg PO DAILY 02/12/16 [History] Trazodone HCl [TraZODone] 200 mg PO DAILY 02/12/16 [History] Budesonide/Formoterol 160/4.5 [Symbicort 160/4.5] 2 puff IH BIDR #1 inhaler 08/23 [Rx] Levofloxacin [Levaquin] 500 mg PO DAILY #3 tablet 02/16/16 [Rx] PredniSONE [Prednisone] 10 mg PO DAILY #0 02/16/16 [Rx] Allergies No Known Allergies Allergy (Verified 02/11/16 21:51) ROS unobtainable: due to endotracheal tube All Systems: A 10-system review of systems was performed and is negative for pertinent findings except as documented above in the HPI. Physical Examination Vital Signs: Vital Signs, Last 4 Hours Temp Pulse Resp BP Pulse Ox 02/03/17 10:06 18 112/71 02/03/17 10:00 99.2 F 90 16 105/69 98 General appearance: no acute distress, other (Orally intubated sedated edentulous) Eyes: nonicteric ENT: oropharynx moist Neck: no JVD Auscultation: bilateral: diminished breath sounds (Severely diminished breath sound intensity throughout all lung zones) Cardiovascular: regular rate and rhythm, other (Loud P2, gallop) Gastrointestinal: normoactive bowel sounds, non-distended Integumentary: normal Extremities: no cyanosis, no edema, other (Intact pulses) Musculoskeletal: no deformities unable to assess due to mental status, other (Sedation precludes evaluation of neurologic status but reportedly fully intact by discussion with the ER physician.) Results - Laboratory Findings CBC and BMP: 02/03/17 06:48 02/03/17 06:48 ABG ABG pH 7.24 pH Units (7.32-7.45) L 02/03/17 06:15 ABG pCO2 109 mmHg (35-45) H* 02/03/17 06:15 ABG pO2 140 mmHg (85-104) H 02/03/17 06:15 ABG O2 Saturation 99 % (95-98) H 02/03/17 06:15 PT/INR, D-dimer PT 10.5 Seconds (9.4-12.1) 02/03/17 06:48 Abnormal lab findings: Abnormal lab results WBC 17.1 K/mcL (4.3-11.1) H 02/03/17 06:48 RBC 3.85 M/mcL (4.19-5.50) L 02/03/17 06:48 Hgb 9.9 g/dL (12.9-16.9) L 02/03/17 06:48 Hct 35.9 % (37.5-50.1) L 02/03/17 06:48 MCH 25.7 pg (28.0-33.3) L 02/03/17 06:48 MCHC 27.6 g/dL (31.6-35.5) L 02/03/17 06:48 Neutrophils # 14.8 K/mcL (1.6-8.9) H 02/03/17 06:48 Polychromasia 1+ (Not Present) A 02/03/17 06:48 Hypochromasia Present (Not Present) A 02/03/17 06:48 Basophilic Stippling 1+ (Not Present) A 02/03/17 06:48 Stomatocytes 1+ (Not Present) A 02/03/17 06:48 APTT 25.0 Seconds (26.0-36.0) L 02/03/17 06:48 ABG pH 7.24 pH Units (7.32-7.45) L 02/03/17 06:15 ABG pCO2 109 mmHg (35-45) H* 02/03/17 06:15 ABG pO2 140 mmHg (85-104) H 02/03/17 06:15 ABG HCO3 46.7 mEQ/L (21-27) H 02/03/17 06:15 ABG Total CO2 50.0 mEq/L (20-26) H 02/03/17 06:15 ABG O2 Saturation 99 % (95-98) H 02/03/17 06:15 ABG Base Excess 14.9 mEq/L (-2.0 to 3.0) H 02/03/17 06:15 Chloride 95 mEq/L (98-109) L 02/03/17 06:48 Carbon Dioxide 40 mEq/L (19-29) H* 02/03/17 06:48 Glucose 161 mg/dL (70-99) H 02/03/17 06:48 POC Glucose 169 (58-89) H 02/03/17 10:17 Albumin 3.4 g/dL (3.5-5.0) L 02/03/17 06:48 Globulin 3.6 g/dL (2.4-3.5) H 02/03/17 06:48 Albumin/Globulin Ratio 0.9 (1.1-2.2) L 02/03/17 06:48
[2017-02-03] MEDS: MethylPREDNISolone 40 MG/ML VIAL IVP SCH ×2 (13:14→18:16)
[2017-02-03 15:26] LABS: ABG Base Excess 14.6 mEq/L (-2.0 to 3.0); ABG HCO3 41.8 mEQ/L (21-27); ABG Oxygen Saturation 100 % (95-98); ABG PH 7.36 pH Units (7.32-7.45); ABG PO2 277 mmHg (85-104); ABG TCO2 44.1 mEq/L (20-26)
[2017-02-03 15:30] LABS: Blood Gas FiO2 100 %
[2017-02-03 15:32] LABS: ABG PCO2 74 mmHg (35-45)
[2017-02-03] MEDS: Ipratropium/Albuterol Neb 3 ML IH SCH ×2 (16:18→22:35)
[2017-02-03] MEDS: Chlorhexidine Rinse 15 ML MOUTHWASH MM SCH (21:35)
[2017-02-03] MEDS: Famotidine 20 MG TABLET PO SCH (21:35)
[2017-02-04] MEDS: MethylPREDNISolone 40 MG/ML VIAL IVP SCH ×5 (00:03→23:02)
[2017-02-04] MEDS: Ipratropium/Albuterol Neb 3 ML IH SCH ×4 (04:52→21:41)
[2017-02-04] MEDS: *HR* Enoxaparin 40 MG/0.4 ML SYRINGE SQ SCH (05:32)
[2017-02-04 06:29] LABS: Hematocrit 28.4 % (37.5-50.1); Hemoglobin 8.3 g/dL (12.9-16.9); Immature Granulocytes % 0.6 % (0-4); Lymphocytes # 0.4 K/mcL (0.6-4.6); Lymphocytes % 2.1 %; Mean Corpuscular HGB Conc 29.2 g/dL (31.6-35.5); Mean Corpuscular Hemoglobin 26.6 pg (28.0-33.3); Monocytes # 0.7 K/mcL (0.0-1.3); Monocytes % 3.6 %; Platelet Count 236 K/mcL (140-400); Red Blood Count 3.12 M/mcL (4.19-5.50); Red Cell Distribution Width 14.8 % (11.5-14.5); Segmented Neutrophils % 93.7 %
[2017-02-04] MEDS: Famotidine 20 MG TABLET PO SCH ×2 (08:53→19:43)
[2017-02-04] MEDS: Chlorhexidine Rinse 15 ML MOUTHWASH MM SCH ×2 (08:53→19:43)
[2017-02-04] MEDS: Levofloxacin 750 MG/150 ML 750 MG/150 ML BAG IVPB SCH (08:53)
--- NOTE | 2017-02-04 10:45 | Pulmonology Progress Note ---
Date of Encounter: 02/04/17 Time of Encounter: 08:00 Assessment and Plan (1) Acute and chronic respiratory failure Current Visit: Yes Status: Acute Acute on chronic respiratory failure with hypoxia and hypercapnia is due to advanced underlying COPD and more than likely superimposed pneumonia (CT imaging study of the chest reveals patchy densities within the right chest in addition to underlying emphysematous changes). Given the magnitude of hypercapnia (PCO2 109 note pH of 7.24) this patient has chronic hypercapnia at baseline and thus is very advanced COPD. Management to include continuation of full ventilatory support, empiric antibiotic coverage for treatment of community-acquired pneumonia, systemic steroid, bronchodilator therapy. Fentanyl and Versed infusions will be continued for provision of sedation. DVT and ulcer prophylaxis of also been ordered. Qualifiers: Respiratory failure complication: hypoxia and hypercapnia Qualified Code(s) : J96.21 - Acute and chronic respiratory failure with hypoxia; J96.22 - Acute and chronic respiratory failure with hypercapnia Code(s): J96.20 - Acute and chronic respiratory failure, unspecified whether with hypoxia or hypercapnia SNOMED Code(s): 44242912, 91538048 Subjective Principal diagnosis: Acute on chronic respiratory failure with hypoxia Interval history: No acute overnight events reported per discussion with nursing and respiratory therapy staff. Patient remains on full ventilatory support low FiO2 requirement. Minimal secretions are noted with suctioning. Patient is comfortable with low level sedation. I note acceptable hemodynamics and urine output. Objective PUL Vital signs: Last Vital Signs Temp 98.0 F 02/04/17 07:43 Pulse 88 02/04/17 09:00 Resp 16 02/04/17 09:00 BP 127/67 02/04/17 09:00 Pulse Ox 92 02/04/17 09:00 General appearance: no acute distress, other (Orally intubated sedated) Eyes: nonicteric Neck: no lymphadenopathy Auscultation: bilateral: diminished breath sounds (Severely diminished breath sound intensity throughout all martinez, prolonged expiratory phase.) Cardiovascular: regular rate and rhythm Gastrointestinal: normoactive bowel sounds, non-distended Extremities: no cyanosis, no edema normal mental status, non-focal exam, other (Patient does arouse and interact with caregivers during sedation reduction holiday.) Ventilator Settings Ventilator Settings: Ventilator Settings, Last 8 Hours Ventilator Mode VC+ Ventilator Mode VC+ Ventilator Mode VC+ Ventilator Mode VC+ Ventilator Mode VC+ Ventilator Mode VC+ Ventilator Mode VC+ Ventilator Mode VC+ Ventilator Mode VC+ Ventilator Mode VC+ Ventilator Tidal Volume 500 Setting Ventilator Tidal Volume 500 Setting Ventilator Tidal Volume 500 Setting Ventilator Tidal Volume 500 Setting Ventilator Tidal Volume 500 Setting Ventilator Tidal Volume 500 Setting Ventilator Tidal Volume 500 Setting Ventilator Tidal Volume 500 Setting Ventilator Tidal Volume 500 Setting Ventilator Tidal Volume 500 Setting Ventilator Respiratory Rate 16 Setting Ventilator Respiratory Rate 16 Setting Ventilator Respiratory Rate 16 Setting Ventilator Respiratory Rate 16 Setting Ventilator Respiratory Rate 16 Setting Ventilator Respiratory Rate 16 Setting Ventilator Respiratory Rate 16 Setting Ventilator Respiratory Rate 16 Setting Ventilator Respiratory Rate 16 Setting Ventilator Respiratory Rate 16 Setting Actual Respiratory Rate 16 Actual Respiratory Rate 18 Actual Respiratory Rate 18 Actual Respiratory Rate 17 Actual Respiratory Rate 16 Actual Respiratory Rate 18 Actual Respiratory Rate 16 Actual Respiratory Rate 16 Actual Respiratory Rate 16 Actual Respiratory Rate 16 Positive End Expiratory 5 Pressure Positive End Expiratory 5 Pressure Positive End Expiratory 5 Pressure Positive End Expiratory 5 Pressure Positive End Expiratory 5 Pressure Positive End Expiratory 5 Pressure Positive End Expiratory 5 Pressure Positive End Expiratory 5 Pressure Positive End Expiratory 5 Pressure Positive End Expiratory 5 Pressure Peak Inspiratory Airway 28 Pressure Peak Inspiratory Airway 22 Pressure Peak Inspiratory Airway 22 Pressure Peak Inspiratory Airway 25 Pressure Peak Inspiratory Airway 27 Pressure Peak Inspiratory Airway 30 Pressure Peak Inspiratory Airway 30 Pressure Peak Inspiratory Airway 30 Pressure Peak Inspiratory Airway 30 Pressure Peak Inspiratory Airway 32 Pressure Results - Laboratory Findings CBC and BMP: 02/04/17 06:18 02/03/17 06:48 ABG ABG pH 7.36 pH Units (7.32-7.45) D 02/03/17 09:15 ABG pCO2 74 mmHg (35-45) H* D 02/03/17 09:15 ABG pO2 277 mmHg (85-104) H 02/03/17 09:15 ABG O2 Saturation 100 % (95-98) H 02/03/17 09:15 PT/INR, D-dimer PT 10.5 Seconds (9.4-12.1) 02/03/17 06:48 Abnormal lab findings: Abnormal lab results WBC 20.3 K/mcL (4.3-11.1) H 02/04/17 06:18 RBC 3.12 M/mcL (4.19-5.50) L 02/04/17 06:18 Hgb 8.3 g/dL (12.9-16.9) L D 02/04/17 06:18 Hct 28.4 % (37.5-50.1) L 02/04/17 06:18 MCH 26.6 pg (28.0-33.3) L 02/04/17 06:18 MCHC 29.2 g/dL (31.6-35.5) L 02/04/17 06:18 RDW 14.8 % (11.5-14.5) H 02/04/17 06:18 Neutrophils # 19.0 K/mcL (1.6-8.9) H 02/04/17 06:18 Lymphocytes # 0.4 K/mcL (0.6-4.6) L 02/04/17 06:18 Polychromasia 1+ (Not Present) A 02/03/17 06:48 Hypochromasia Present (Not Present) A 02/03/17 06:48 Basophilic Stippling 1+ (Not Present) A 02/03/17 06:48 Stomatocytes 1+ (Not Present) A 02/03/17 06:48 APTT 25.0 Seconds (26.0-36.0) L 02/03/17 06:48 ABG pCO2 74 mmHg (35-45) H* D 02/03/17 09:15 ABG pO2 277 mmHg (85-104) H 02/03/17 09:15 ABG HCO3 41.8 mEQ/L (21-27) H 02/03/17 09:15 ABG Total CO2 44.1 mEq/L (20-26) H 02/03/17 09:15 ABG O2 Saturation 100 % (95-98) H 02/03/17 09:15 ABG Base Excess 14.6 mEq/L (-2.0 to 3.0) H 02/03/17 09:15 Chloride 95 mEq/L (98-109) L 02/03/17 06:48 Carbon Dioxide 40 mEq/L (19-29) H* 02/03/17 06:48 Glucose 161 mg/dL (70-99) H 02/03/17 06:48 POC Glucose 161 (58-89) H 02/03/17 15:28 Albumin 3.4 g/dL (3.5-5.0) L 02/03/17 06:48 Globulin 3.6 g/dL (2.4-3.5) H 02/03/17 06:48 Albumin/Globulin Ratio 0.9 (1.1-2.2) L 02/03/17 06:48 - Microbiology Findings Microbiology Findings: Microbiology, Last 48 Hours 02/03/17 18:19 Influenza Types A,B Antigen (REMIGIO) - Final Nasopharyngeal 02/03/17 13:20 Legionella Antigen - Final Urine,Catheterized 02/03/17 13:20 Sputum Culture - Preliminary Sputum - Clinical Findings Intake & Output: Intake & Output 02/03/17 02/04/17 02/04/17 23:59 07:59 15:59 Intake Total 50.8 / 50.8 95.6 / 95.6 Output Total 225 / 225 300 / 300 Balance -174.2 / -174.2 -204.4 / -204.4 Weight 68.2 kg Consult Discharge Plan - Plan [facility]errals: [facility] [Primary Care Provider] -
[2017-02-04] MEDS: FentaNYL (PF) 1,000 MCG in 0.9 % Sodium Chloride 80 ML IVC SCH ×4 (11:33→23:02)
--- NOTE | 2017-02-04 17:52 | Electrocardiograph Report ---
[address] [address] Test Date: 2017-02-03 Pat Name: Ba Ramires Department: 109 Room: [facility] Gender: M Consulting Actuary: : 1945 Requested By: Nghia Morrow Order Number: [id number] Reading MD: Shabnam Cruz Measurements Intervals [place] Rate: 67 P: 74 VT: 157 QRS: 14 QRSD: 93 T: 73 QT: 374 QTc: 389 Interpretive Statements SINUS RHYTHM Electronically Signed On 02-04-2017 17:50:38 EDT by Shabnam Cruz
[2017-02-05] MEDS: Ipratropium/Albuterol Neb 3 ML IH SCH ×4 (03:54→21:03)
[2017-02-05] MEDS: *HR* Enoxaparin 40 MG/0.4 ML SYRINGE SQ SCH (05:31)
[2017-02-05] MEDS: MethylPREDNISolone 40 MG/ML VIAL IVP SCH ×4 (05:31→23:55)
[2017-02-05] MEDS: FentaNYL (PF) 1,000 MCG in 0.9 % Sodium Chloride 80 ML IVC SCH ×2 (05:32→18:15)
--- NOTE | 2017-02-05 07:32 | Pulmonology Progress Note ---
Date of Encounter: 02/05/17 Time of Encounter: 07:32 Assessment and Plan (1) Acute and chronic respiratory failure Current Visit: Yes Status: Acute This is a 72-year-old gentleman with advanced COPD which appears to have an emphysematous phenotype which is been acutely exacerbated from pneumonia with the patient at risk of cure acquired organisms. Given underlying structural lung disease there is some concern for at least possibility of Pseudomonas infection. She remains on appropriate antimicrobials at this time with Levaquin the exact speciation is pending. He has very minimal ventilatory support requirements but anticipate difficult liberation from ventilator given severity of underlying emphysema. As with most end-stage COPD patient's he suffers from severe anxiety at baseline and this has been noted throughout his hospitalization while his required the ventilator although he is comfortable today to my examination. To facilitate liberation we will attempt to decrease benzodiazepine administration and supplement this with Precedex based upon mental status and respiratory mechanics we will attempt spontaneous breathing trial with possibility of PAP trial later in the day I anticipate the need to liberate the patient from ventilator tobilevel positive airway pressure support Patient has evidence of gram-negative pedro growing in sputum consistent with diagnosis of pneumonia. He has evidence of sepsis secondary to this however led pressure and hemodynamics have been stable as has urine output and he is on appropriate antimicrobials at this time we will tailor this to treat for approximately 7 days based upon clinical course I requested consultation with Palliative Care service to assisst with ongoing goals of care discussion with this patient given advanced nature of his COPD and long-term prognosis which is poor. I hoping that as he clinically improved with the next 24-48 hours he will also be able to participate in these discussions Patient is receiving DVT prophylaxis and GI prophylaxis concurrently Holding enteral feedings at present for anticipation of liberation if this is not accomplished in next 24 hours would start enteral feedings thereafter Qualifiers: Respiratory failure complication: hypoxia and hypercapnia Qualified Code(s) : J96.21 - Acute and chronic respiratory failure with hypoxia; J96.22 - Acute and chronic respiratory failure with hypercapnia (2) Acute exacerbation of chronic obstructive airways disease Current Visit: Yes Status: Acute (3) Community acquired pneumonia Current Visit: Yes Status: Acute (4) Sepsis Current Visit: Yes Status: Acute Qualifiers: Sepsis type: sepsis due to unspecified organism Qualified Code(s): A41.9 - Sepsis, unspecified organism (5) DVT prophylaxis Current Visit: No Status: Acute Subjective Principal diagnosis: Acute on chronic respiratory failure with hypoxia Interval history: No events overnight patient remains comfortable on low level of sedation but requiring ventilatory support through mechanical ventilator. Hemodynamics are stable.. No other acute nursing issues overnight Objective PUL Vital signs: Last Vital Signs Temp 98.1 F 02/05/17 04:17 Pulse 84 02/05/17 06:00 Resp 16 02/05/17 06:00 BP 135/65 02/05/17 06:00 Pulse Ox 96 02/05/17 06:00 General appearance: no acute distress, other (He is able to move extremities my command his pupils are equal round reactive to light ) Auscultation: bilateral: diminished breath sounds (Bilaterally consistent with known diagnosis of COPD I do not hear any audible wheezes) Cardiovascular: regular rate and rhythm Gastrointestinal: normoactive bowel sounds, non-tender Extremities: no edema non-focal exam Ventilator Settings Ventilator Settings: Ventilator Settings, Last 8 Hours Ventilator Mode VC+ Ventilator Mode VC+ Ventilator Mode VC+ Ventilator Mode VC+ Ventilator Mode VC+ Ventilator Mode VC+ Ventilator Mode VC+ Ventilator Mode VC+ Ventilator Mode VC+ Ventilator Mode VC+ Ventilator Mode VC+ Ventilator Tidal Volume 500 Setting Ventilator Tidal Volume 500 Setting Ventilator Tidal Volume 500 Setting Ventilator Tidal Volume 500 Setting Ventilator Tidal Volume 500 Setting Ventilator Tidal Volume 500 Setting Ventilator Tidal Volume 500 Setting Ventilator Tidal Volume 500 Setting Ventilator Tidal Volume 500 Setting Ventilator Tidal Volume 500 Setting Ventilator Tidal Volume 500 Setting Ventilator Respiratory Rate 16 Setting Ventilator Respiratory Rate 16 Setting Ventilator Respiratory Rate 16 Setting Ventilator Respiratory Rate 16 Setting Ventilator Respiratory Rate 16 Setting Ventilator Respiratory Rate 16 Setting Ventilator Respiratory Rate 16 Setting Ventilator Respiratory Rate 16 Setting Ventilator Respiratory Rate 16 Setting Ventilator Respiratory Rate 16 Setting Ventilator Respiratory Rate 16 Setting Actual Respiratory Rate 16 Actual Respiratory Rate 16 Actual Respiratory Rate 16 Actual Respiratory Rate 16 Actual Respiratory Rate 16 Actual Respiratory Rate 16 Actual Respiratory Rate 16 Actual Respiratory Rate 16 Actual Respiratory Rate 16 Actual Respiratory Rate 16 Actual Respiratory Rate 16 Positive End Expiratory 5 Pressure Positive End Expiratory 5 Pressure Positive End Expiratory 5 Pressure Positive End Expiratory 5 Pressure Positive End Expiratory 5 Pressure Positive End Expiratory 5 Pressure Positive End Expiratory 5 Pressure Positive End Expiratory 5 Pressure Positive End Expiratory 5 Pressure Positive End Expiratory 5 Pressure Positive End Expiratory 5 Pressure Peak Inspiratory Airway 28 Pressure Peak Inspiratory Airway 28 Pressure Peak Inspiratory Airway 29 Pressure Peak Inspiratory Airway 29 Pressure Peak Inspiratory Airway 29 Pressure Peak Inspiratory Airway 29 Pressure Peak Inspiratory Airway 29 Pressure Peak Inspiratory Airway 29 Pressure Peak Inspiratory Airway 27 Pressure Peak Inspiratory Airway 27 Pressure Peak Inspiratory Airway 25 Pressure Results - Laboratory Findings CBC and BMP: 02/05/17 07:21 02/05/17 07:21 ABG ABG pH 7.36 pH Units (7.32-7.45) D 02/03/17 09:15 ABG pCO2 74 mmHg (35-45) H* D 02/03/17 09:15 ABG pO2 277 mmHg (85-104) H 02/03/17 09:15 ABG O2 Saturation 100 % (95-98) H 02/03/17 09:15 PT/INR, D-dimer PT 10.5 Seconds (9.4-12.1) 02/03/17 06:48 Abnormal lab findings: Abnormal lab results WBC 20.3 K/mcL (4.3-11.1) H 02/04/17 06:18 RBC 3.12 M/mcL (4.19-5.50) L 02/04/17 06:18 Hgb 8.3 g/dL (12.9-16.9) L D 02/04/17 06:18 Hct 28.4 % (37.5-50.1) L 02/04/17 06:18 MCH 26.6 pg (28.0-33.3) L 02/04/17 06:18 MCHC 29.2 g/dL (31.6-35.5) L 02/04/17 06:18 RDW 14.8 % (11.5-14.5) H 02/04/17 06:18 Neutrophils # 19.0 K/mcL (1.6-8.9) H 02/04/17 06:18 Lymphocytes # 0.4 K/mcL (0.6-4.6) L 02/04/17 06:18 Polychromasia 1+ (Not Present) A 02/03/17 06:48 Hypochromasia Present (Not Present) A 02/03/17 06:48 Basophilic Stippling 1+ (Not Present) A 02/03/17 06:48 Stomatocytes 1+ (Not Present) A 02/03/17 06:48 APTT 25.0 Seconds (26.0-36.0) L 02/03/17 06:48 ABG pCO2 74 mmHg (35-45) H* D 02/03/17 09:15 ABG pO2 277 mmHg (85-104) H 02/03/17 09:15 ABG HCO3 41.8 mEQ/L (21-27) H 02/03/17 09:15 ABG Total CO2 44.1 mEq/L (20-26) H 02/03/17 09:15 ABG O2 Saturation 100 % (95-98) H 02/03/17 09:15 ABG Base Excess 14.6 mEq/L (-2.0 to 3.0) H 02/03/17 09:15 Chloride 95 mEq/L (98-109) L 02/03/17 06:48 Carbon Dioxide 40 mEq/L (19-29) H* 02/03/17 06:48 Glucose 161 mg/dL (70-99) H 02/03/17 06:48 POC Glucose 161 (58-89) H 02/03/17 15:28 Albumin 3.4 g/dL (3.5-5.0) L 02/03/17 06:48 Globulin 3.6 g/dL (2.4-3.5) H 02/03/17 06:48 Albumin/Globulin Ratio 0.9 (1.1-2.2) L 02/03/17 06:48 - Microbiology Findings Microbiology Findings: Microbiology, Last 48 Hours 02/03/17 13:20 Sputum Culture - Preliminary Sputum Gram Negative Pedro 02/03/17 18:19 Influenza Types A,B Antigen (REMIGIO) - Final Nasopharyngeal 02/03/17 13:20 Legionella Antigen - Final Urine,Catheterized - Clinical Findings Intake & Output: Intake & Output 02/04/17 02/04/17 02/05/17 15:59 23:59 07:59 Intake Total 350 / 350 300 / 300 200 / 200 Output Total 300 / 300 700 / 700 300 / 300 Balance 50 / 50 -400 / -400 -100 / -100 Weight 67.7 kg Consult Discharge Plan - Plan [facility]errals: [facility] [Primary Care Provider] -
[2017-02-05 07:50] LABS: ABG Base Excess 10.4 mEq/L (-2.0 to 3.0); ABG HCO3 36.5 mEQ/L (21-27); ABG Oxygen Saturation 86 % (95-98); ABG PCO2 59 mmHg (35-45); ABG PO2 51 mmHg (85-104); ABG TCO2 38.3 mEq/L (20-26)
[2017-02-05 07:51] LABS: Blood Gas FiO2 30 %
[2017-02-05 07:53] LABS: BUN/Creatinine Ratio 23 (6-26); Blood Urea Nitrogen 15 mg/dL (8-26); Calcium 8.5 mg/dL (8.6-10.8); Carbon Dioxide 30 mEq/L (19-29); Chloride 101 mEq/L (98-109); Glucose 129 mg/dL (70-99); Osmolality,Calculated 293 (280-300); Potassium 3.6 mEq/L (3.5-4.5); Sodium 140 mEq/L (136-145); eGFR For African Americans > 60 (> 60); eGFR For Non-African Americans > 60 (> 60)
[2017-02-05 08:16] LABS: Basophils % 0.1 %; Hemoglobin 9.6 g/dL (12.9-16.9); Immature Granulocytes % 0.7 % (0-4); Immature Platelets 4.6 % (1.1-6.1); Lymphocytes # 0.3 K/mcL (0.6-4.6); Lymphocytes % 1.8 %; Mean Corpuscular HGB Conc 29.1 g/dL (31.6-35.5); Mean Corpuscular Hemoglobin 26.2 pg (28.0-33.3); Mean Corpuscular Volume 90.2 fL (83.0-100.0); Mean Platelet Volume 10.8 fL (9.4-12.4); Monocytes # 0.7 K/mcL (0.0-1.3); Monocytes % 4.6 %; Neutrophils # 13.2 K/mcL (1.6-8.9); Platelet Count 266 K/mcL (140-400); Red Blood Count 3.66 M/mcL (4.19-5.50); Red Cell Distribution Width 14.8 % (11.5-14.5); Segmented Neutrophils % 92.8 %
[2017-02-05] MEDS: Famotidine 20 MG TABLET PO SCH ×2 (08:50→20:33)
[2017-02-05] MEDS: Levofloxacin 750 MG/150 ML 750 MG/150 ML BAG IVPB SCH (08:50)
[2017-02-05] MEDS: Chlorhexidine Rinse 15 ML MOUTHWASH MM SCH ×2 (08:50→20:26)
--- NOTE | 2017-02-05 13:43 | Palliative - Consult Note ---
Date of Encounter: 02/05/17 Time of Encounter: 13:00 - Assessment and Plan (1) Generalized pain Current Visit: Yes Status: Acute Assessment and plan: Remains on Fentanyl drip per ICU protocol. Monitor (2) Anxiety Current Visit: Yes Status: Acute Assessment and plan: Remains on Midolazam drip per ICU protocol. Appears calm at this time. Monitor (3) Counseling regarding advanced care planning and goals of care Current Visit: Yes Status: Acute Assessment and plan: Patient is awake and can communicate by shaking head "yes/no", however, he does become drowsy and will fall sleep during conversation. Adrienne is at bedside , she is tearful and anxious - states she wants him "off breathing machine as soon as possible". States "it scares me". She stated that pt typically independent with all ADL's and fairly active. States on home oxygen, has nebulizer, and either CPAP/Bipap as set up through [facility]. She states that he is on [facility] team at the [place], and had completed advanced directives. I have sent request for those records to be sent here for review. Discussed goals of care with future extubation - Adrienne becomes very anxious with discussion. Patient acknowledged by shaking his head, that he would think about vent support and re- intubation if necessary. Will continue conversations. (4) COPD (chronic obstructive pulmonary disease) Current Visit: No Status: Chronic Qualifiers: COPD type: unspecified COPD Qualified Code(s): J44.9 - Chronic obstructive pulmonary disease, unspecified (5) Community acquired pneumonia Current Visit: Yes Status: Acute Palliative-CN HPI - Data of Consult Consult date: 02/05/17 Requesting Physician: Nghia Morrow DO Primary Care Provider: [facility] - Consult Narrative History of present illness: Mr. Ramires is a 72 year old male with a history of COPD, who is on [facility] team at the [place], currently cared for in intensive care. He has history of COPD and 40 + pk year smoker, however, no longer smoking. He presented with shortness of breath, and had lack of response to aggressive care and noninvasive ventilatory support, so he was intubated and transferred to ICU. Currently, remains on ventilator and being treated for pneumonia with antibiotics, bronchodilators, and steroids. He did not tolerate CPAP trial this am. , Adrienne at bedside providing history. States he was recently on antibiotics for respiratory illness, and appear to be better for a period of time, then had increasing shortness of breath. seems to have difficulty at times answering questions regarding his medical history. He awakens easily, and follows simple commands. Answers yes/no questions. Denies pain or discomfort, other than ET tube. CC: Nghia Morrow, DO Past Med Surg Social Fam HX - Past Medical History Medical history: arthritis, atrial fibrillation, COPD Psychiatric history: anxiety - Past Surgical History Surgical History: other - Social History Smoking Status: Former smoker Smokeless Tobacco Status: No Alcohol use: none Drug use: none - Family History Mother Hx Family Respiratory Disorders: Yes (COPD: mother, father, brother. Brother: lung cancer.) Medications and Allergies Baclofen [Lioresal] 10 mg PO BID 02/12/16 [History] BuPROPion [Wellbutrin] 200 mg PO BID 02/12/16 [History] Gabapentin [Neurontin] 300 mg PO TID 02/12/16 [History] LORazepam [Ativan] 0.5 mg PO BID PRN 02/12/16 [History] Ranitidine HCl [Heartburn Relief] 150 mg PO BID 02/12/16 [History] Trazodone HCl [TraZODone] 200 mg PO HS 02/12/16 [History] PredniSONE [Prednisone] 10 mg PO DAILY #0 02/16/16 [Rx] Albuterol Neb [Proventil Neb] 2.5 mg IH Q6H PRN 02/03/17 [History] Albuterol Sulfate [Proair Hfa] 2 puff IH QID PRN 02/03/17 [History] Alendronate Sodium [Fosamax] 35 mg PO QWEEK 02/03/17 [History] Budesonide/Formoterol 160/4.5 [Symbicort 160/4.5] 2 puff IH BID 02/03/17 [ History] Calcium Carbonate/Vitamin D3 [Calcium 600 + Vit D Tablet] 1 tab PO TID 02/03/17 [History] Cyanocobalamin (B-12) [Vitamin B12] 1,000 mcg PO DAILY 02/03/17 [History] Docusate [Colace] 200 mg PO DAILY 02/03/17 [History] Fluticasone Propionate Nasal [Flonase] 50 mcg NS DAILY 02/03/17 [History] Guaifenesin [Mucus Relief] 400 mg PO BID 02/03/17 [History] HYDROcodone/Acet 5/325 mg [[place] 5-325 mg] 1 tab PO Q6H PRN 02/03/17 [History] Hydrophilic Cream [[place]] 1 appl TP BID 02/03/17 [History] Meloxicam [Mobic] 7.5 mg PO DAILY 02/03/17 [History] Multivitamin [Multi-Day Vitamins] 1 tab PO DAILY 02/03/17 [History] Omeprazole 20 mg PO DAILY 02/03/17 [History] Tiotropium [Spiriva] 18 mcg IH DAILY 02/03/17 [History] Allergies No Known Allergies Allergy (Verified 02/11/16 21:51) ROS unobtainable: due to endotracheal tube Palliative Care-Exam - Constitutional Vitals: Temp Pulse Resp BP Pulse Ox 98.0 F 79 16 130/63 97 02/05/17 12:08 02/05/17 13:00 02/05/17 13:00 02/05/17 13:00 02/05/17 13:00 General appearance: Present: no acute distress - Head Head Exam: Present: normal inspection, normocephalic - Eye Eye exam: Present: normal appearance, PERRL - Respiratory Respiratory exam: Present: decreased breath sounds, CTAB Additional comments: Remains on vent - Cardiovascular Cardiovascular exam: Present: +S1, +S2 - GI/Abdominal Exam GI/Abdominal exam: Present: normal bowel sounds, soft - Catheter Type: Urethral ([place]) - Extremities Exam Extremities exam: Present: normal capillary refill, normal inspection - Neurological Exam Neurological exam: Present: alert Additional comments: Awake and alert, can follow commands. Drifts back to sleep quickly. CASTRO - Skin Skin exam: Present: dry, pallor, warm Internal Medicine - CN: Reslt - Labs CBC & Chem 7: 02/05/17 07:21 02/05/17 07:21 Labs: Short CBC 02/05/17 Range/Units 07:21 WBC 14.2 H (4.3-11.1) K/mcL Hgb 9.6 L (12.9-16.9) g/dL Hct 33.0 L (37.5-50.1) % Plt Count 266 (140-400) K/mcL Neutrophils # 13.2 H (1.6-8.9) K/mcL BMP 02/05/17 07:21 Sodium 140 Potassium 3.6 Chloride 101 Carbon Dioxide 30 H BUN 15 Creatinine 0.65 L Glucose 129 H Calcium 8.5 L - ABG Interpretation ABG results: ABG ABG pH 7.40 pH Units (7.32-7.45) 02/05/17 07:40 ABG pCO2 59 mmHg (35-45) H 02/05/17 07:40 ABG pO2 51 mmHg (85-104) L 02/05/17 07:40 ABG O2 Saturation 86 % (95-98) L 02/05/17 07:40 PT/INR, D-dimer PT 10.5 Seconds (9.4-12.1) 02/03/17 06:48 Consult Discharge Plan - Plan Referrals: [facility] [Primary Care Provider] - Palliative Quality Palliative Quality: Screen for Code Status: Yes, Screen for Goals of Care: Yes, Screen for Pain: Yes, If Pain Regimen Started, Initiate Bowel Regimen: NA, Screen for Nausea/Vomitting: NA Code Status: 02/03/17 11:34 Resuscitation Status: Active [RES] Routine Comment: Resuscitation Status: Full Code
--- NOTE | 2017-02-05 15:29 | Event Note ---
Date of Encounter: 02/05/17 Time of Encounter: 15:25 Patient has been successfully extubated and is currently on bipap. Awake and alert, oriented and communicating. Discussed goals of care. At this time, pt states that he would desire re-intubation (short term) if needed. Discussed what he would want if unable to wean off vent -trach, and pt states he would need to think about this. Discussed that knowing his wishes may take some stress away from his if he is ever in a state he cannot communicate. He verbalized understanding. Code status remains as full code. Will re-visit tomorrow.
[2017-02-05] MEDS: *HR* LORazepam 2 MG/ML VIAL IVP PRN (21:25)
[2017-02-05] MEDS ORDERED: Lacri-Lube 3.5 GM TUBE BOTH EYES PRN (21:36)
[2017-02-05] MEDS ORDERED: Dexmedetomidine HCl 400 MCG/100 ML MLS IVC SCH (21:45)
[2017-02-05] MEDS: Fluticasone Propionate Nasal 50 MCG/SPRAY BOTTLE NS SCH (22:00)
[2017-02-05] MEDS: Lacri-Lube 3.5 GM TUBE BOTH EYES SCH (23:55)
[2017-02-06] MEDS: Ipratropium/Albuterol Neb 3 ML IH SCH ×4 (03:26→21:10)
[2017-02-06] MEDS: Lacri-Lube 3.5 GM TUBE BOTH EYES SCH ×2 (03:35→10:29)
[2017-02-06 04:42] LABS: Hematocrit 29.8 % (37.5-50.1); Hemoglobin 8.8 g/dL (12.9-16.9); Immature Granulocytes % 0.7 % (0-4); Lymphocytes # 0.2 K/mcL (0.6-4.6); Lymphocytes % 1.4 %; Mean Corpuscular HGB Conc 29.5 g/dL (31.6-35.5); Mean Corpuscular Volume 87.9 fL (83.0-100.0); Mean Platelet Volume 10.4 fL (9.4-12.4); Monocytes # 0.4 K/mcL (0.0-1.3); Monocytes % 2.8 %; Neutrophils # 11.8 K/mcL (1.6-8.9); Platelet Count 284 K/mcL (140-400); Red Blood Count 3.39 M/mcL (4.19-5.50); Red Cell Distribution Width 14.8 % (11.5-14.5); Segmented Neutrophils % 95.1 %
[2017-02-06] MEDS: *HR* Enoxaparin 40 MG/0.4 ML SYRINGE SQ SCH (04:42)
[2017-02-06] MEDS: MethylPREDNISolone 40 MG/ML VIAL IVP SCH ×3 (04:42→17:29)
[2017-02-06 05:08] LABS: BUN/Creatinine Ratio 31 (6-26); Blood Urea Nitrogen 19 mg/dL (8-26); Calcium 8.5 mg/dL (8.6-10.8); Carbon Dioxide 33 mEq/L (19-29); Chloride 102 mEq/L (98-109); Glucose 114 mg/dL (70-99); Osmolality,Calculated 295 (280-300); Potassium 3.9 mEq/L (3.5-4.5); Sodium 141 mEq/L (136-145); eGFR For African Americans > 60 (> 60); eGFR For Non-African Americans > 60 (> 60)
[2017-02-06 05:55] LABS: Hypersegmented Neutrophils Present (Not Present); Platelet Estimate Normal (Normal); Toxic Granulation Present (Not Present)
[2017-02-06] MEDS: Levofloxacin 750 MG/150 ML 750 MG/150 ML BAG IVPB SCH (08:48)
[2017-02-06] MEDS: Famotidine 20 MG TABLET PO SCH ×2 (08:49→21:00)
[2017-02-06] MEDS: Chlorhexidine Rinse 15 ML MOUTHWASH MM SCH ×3 (08:50→21:00)
--- NOTE | 2017-02-06 09:53 | Palliative Progress Note ---
Date of Encounter: 02/06/17 Time of Encounter: 09:45 - Assessment and plan (1) Dyspnea Current Visit: Yes Status: Acute Assessment and plan: Still c/o shortness of breath this am. Remains on IV atb/steroids/oxygen/ bronchodilators/bipap if needed. Monitor (2) Generalized pain Current Visit: Yes Status: Acute Assessment and plan: Denies any pain or discomfort. Monitor (3) Anxiety Current Visit: Yes Status: Acute Assessment and plan: Remains on low dose Precedex. Monitor (4) Counseling regarding advanced care planning and goals of care Current Visit: Yes Status: Acute Assessment and plan: Discussion with pt concerning advanced lung disease and goals of care. His , Kamryn is POA and this was completed through the [place] several years ago. Patient still desires full code and aggressive care and desires short term intubation if needed for respiratory distress. Discussed trajectory of COPD and that is unknown at what point, he would not recover from severe illness or respiratory failure. Discussed that decision in the future may include skilled nursing vent support/tracheostomy if he were unable to wean off the vent. Patient acknowledged understanding and states that he will plan on discussing with his when he is feeling better. He knows that she would struggle making decisions for him if he could not participate. I encouraged him that if she knows his wishes, may alleviate some stress from her making difficult decisions. Will continue to follow. (5) COPD (chronic obstructive pulmonary disease) Current Visit: No Status: Chronic Qualifiers: COPD type: unspecified COPD Qualified Code(s): J44.9 - Chronic obstructive pulmonary disease, unspecified (6) Community acquired pneumonia Current Visit: Yes Status: Acute - Time Spent With Patient Total time spent is greater than 50% in coordination of care (as documented) at patient's floor/unit and/or counseling patient: 25 - 35 minutes - Subjective Interval history: Moved off ICU, - Patient c/o shortness of breath this am and asking for breathing treatment. Resting well, denies any pain. Poor appetite this am. - Constitutional Vitals: Abnormal lab results WBC 12.4 K/mcL (4.3-11.1) H 02/06/17 03:11 RBC 3.39 M/mcL (4.19-5.50) L 02/06/17 03:11 Hgb 8.8 g/dL (12.9-16.9) L 02/06/17 03:11 Hct 29.8 % (37.5-50.1) L 02/06/17 03:11 MCH 26.0 pg (28.0-33.3) L 02/06/17 03:11 MCHC 29.5 g/dL (31.6-35.5) L 02/06/17 03:11 RDW 14.8 % (11.5-14.5) H 02/06/17 03:11 Neutrophils # 11.8 K/mcL (1.6-8.9) H 02/06/17 03:11 Lymphocytes # 0.2 K/mcL (0.6-4.6) L 02/06/17 03:11 Hypersegmented Neuts Present (Not Present) A 02/06/17 03:11 Toxic Granulation Present (Not Present) A 02/06/17 03:11 Polychromasia 1+ (Not Present) A 02/03/17 06:48 Hypochromasia Present (Not Present) A 02/03/17 06:48 Basophilic Stippling 1+ (Not Present) A 02/03/17 06:48 Stomatocytes 1+ (Not Present) A 02/03/17 06:48 APTT 25.0 Seconds (26.0-36.0) L 02/03/17 06:48 ABG pCO2 59 mmHg (35-45) H 02/05/17 07:40 ABG pO2 51 mmHg (85-104) L 02/05/17 07:40 ABG HCO3 36.5 mEQ/L (21-27) H 02/05/17 07:40 ABG Total CO2 38.3 mEq/L (20-26) H 02/05/17 07:40 ABG O2 Saturation 86 % (95-98) L 02/05/17 07:40 ABG Base Excess 10.4 mEq/L (-2.0 to 3.0) H 02/05/17 07:40 Carbon Dioxide 33 mEq/L (19-29) H 02/06/17 03:11 Creatinine 0.61 mg/dL (0.72-1.25) L 02/06/17 03:11 BUN/Creatinine Ratio 31 (6-26) H 02/06/17 03:11 Glucose 114 mg/dL (70-99) H 02/06/17 03:11 POC Glucose 161 (58-89) H 02/03/17 15:28 Calcium 8.5 mg/dL (8.6-10.8) L 02/06/17 03:11 Albumin 3.4 g/dL (3.5-5.0) L 02/03/17 06:48 Globulin 3.6 g/dL (2.4-3.5) H 02/03/17 06:48 Albumin/Globulin Ratio 0.9 (1.1-2.2) L 02/03/17 06:48 General appearance: Present: mild distress - Respiratory Additional comments: Breath sounds decreased throughout all lung martinez. Faint expiratory wheezes. - Cardiovascular Cardiovascular exam: Present: +S1, +S2 - GI/Abdominal GI/Abdominal exam: Present: normal bowel sounds, soft - Additional comments: Banegas patent and draining clear yellow urine - Extremities Exam Extremities exam: Present: normal capillary refill, normal inspection - Neurological Exam Neurological exam: Present: alert, oriented X3, strengths equal and symetr throughout - Skin Skin exam: Present: dry, pallor, warm Palliative Quality Palliative Quality: Screen for Code Status: Yes, Screen for Goals of Care: Yes, Screen for Pain: Yes, If Pain Regimen Started, Initiate Bowel Regimen: NA, Screen for Nausea/Vomitting: NA Code Status: 02/03/17 11:34 Resuscitation Status: Active [RES] Routine Comment: Resuscitation Status: Full Code - Labs CBC & Chem 7: 02/06/17 03:11 02/06/17 03:11 Labs: Laboratory Results - last 24 hr 02/06/17 02/06/17 03:11 03:11 WBC 12.4 H RBC 3.39 L Hgb 8.8 L Hct 29.8 L MCV 87.9 MCH 26.0 L MCHC 29.5 L RDW 14.8 H Plt Count 284 MPV 10.4 Immature Gran % 0.7 Seg Neutrophils % 95.1 Lymphocytes % 1.4 Monocytes % 2.8 Eosinophils % 0.0 Basophils % 0.0 Neutrophils # 11.8 H Lymphocytes # 0.2 L Monocytes # 0.4 Eosinophils # 0.0 Basophils # 0.0 Hypersegmented Neuts Present A Toxic Granulation Present A Platelet Estimate Normal Sodium 141 Potassium 3.9 Chloride 102 Carbon Dioxide 33 H BUN 19 Creatinine 0.61 L Est GFR ( Amer) > 60 Est GFR (Non-Af Amer) > 60 BUN/Creatinine Ratio 31 H Glucose 114 H Calculated Osmolality 295 Calcium 8.5 L - ABG Interpretation ABG results: ABG ABG pH 7.40 pH Units (7.32-7.45) 02/05/17 07:40 ABG pCO2 59 mmHg (35-45) H 02/05/17 07:40 ABG pO2 51 mmHg (85-104) L 02/05/17 07:40 ABG O2 Saturation 86 % (95-98) L 02/05/17 07:40 PT/INR, D-dimer PT 10.5 Seconds (9.4-12.1) 02/03/17 06:48 Consult Discharge Plan - Plan [facility]errals: [facility] [Primary Care Provider] -
[2017-02-06] MEDS: Fluticasone Propionate Nasal 50 MCG/SPRAY BOTTLE NS SCH (10:38)
--- NOTE | 2017-02-06 11:41 | Internal Med Progress Note ---
Date of Encounter: 02/06/17 Time of Encounter: 11:41 - Assessment and plan (1) Acute exacerbation of chronic obstructive airways disease Current Visit: Yes Status: Acute Assessment and plan: Continue steroids, scheduled and prn nebs (2) Acute and chronic respiratory failure ([id number]) Current Visit: Yes Status: Acute Assessment and plan: O2 supplement during the day Hold off on BiPAP for now, will evaluate need and schedule prn Advance diet D/C Precedex Qualifiers: Respiratory failure complication: hypercapnia Qualified Code(s): J96.22 - Acute and chronic respiratory failure with hypercapnia (3) Chronic respiratory acidosis Current Visit: Yes Status: Chronic Assessment and plan: As above (4) Sepsis Current Visit: Yes Status: Acute Assessment and plan: Secondary to maya-sensitive klebsiella Pneumonia Continue Levoflox-Day 4 Leukocytosis is improving patient is hemodynamically stable and afebrile Qualifiers: Sepsis type: sepsis due to unspecified organism Qualified Code(s): A41.9 - Sepsis, unspecified organism (5) Community acquired pneumonia Current Visit: Yes Status: Acute Assessment and plan: As above (6) Anxiety Current Visit: Yes Status: Chronic Assessment and plan: Resume home meds Continue ativan (7) Generalized pain Current Visit: Yes Status: Acute Assessment and plan: Tylenol, percocet prn - Subjective Interval history: Seen and evaluated at bedside Transferred out from ICU this morning He is being managed for sepsis, acute on chronic respiratory failure secondary to advanced COPD, and pnuemonia Patient reported being anxious because he inadvertently pulled on his Banegas Also complaining of generalized body pains - Constitutional Vitals: Temp Pulse Resp BP Pulse Ox 97.9 F 60 16 162/77 98 02/06/17 08:45 02/06/17 08:45 02/06/17 10:27 02/06/17 08:45 02/06/17 10:27 General appearance: Present: A&O X 3, pleasant, no acute distress - Head Head exam: Present: atraumatic, normocephalic - Eye Eye exam: Present: PERRL, conjuntiva pink, sclera anicteric Pupils: Present: PERRL - Neck Neck exam general surgery: Present: supple, trachea midline. Absent: lymphadenopathy - Respiratory Additional comments: Bilaterally diminished air entry NO wheezes, or rhonchi, or crackles - Cardiovascular Cardiovascular exam: Present: RRR, +S1, +S2. Absent: diastolic murmur, gallop, rubs, systolic murmur - GI/Abdominal GI/Abdominal exam: Present: normal bowel sounds, soft, no peritoneal signs. Absent: distended, tenderness - Extremities Exam Extremities exam: Present: warm, radial pulses palpable and symetrical. Absent : calf tenderness, cyanotic, pedal edema - Neurological Exam Neurological exam: Present: alert, CN II-XII intact, oriented X3, no focal deficits. Absent: pronater drift, facial droop, speech deficit - Psychiatric Psychiatric exam: Present: anxious - Skin Skin exam: Present: dry, intact Internal Medicine: Result - Labs CBC & Chem 7: 02/06/17 03:11 02/06/17 03:11 Labs: Short CBC 02/06/17 Range/Units 03:11 WBC 12.4 H (4.3-11.1) K/mcL Hgb 8.8 L (12.9-16.9) g/dL Hct 29.8 L (37.5-50.1) % Plt Count 284 (140-400) K/mcL Neutrophils # 11.8 H (1.6-8.9) K/mcL BMP 02/06/17 03:11 Sodium 141 Potassium 3.9 Chloride 102 Carbon Dioxide 33 H BUN 19 Creatinine 0.61 L Glucose 114 H Calcium 8.5 L - ABG Interpretation ABG results: ABG ABG pH 7.40 pH Units (7.32-7.45) 02/05/17 07:40 ABG pCO2 59 mmHg (35-45) H 02/05/17 07:40 ABG pO2 51 mmHg (85-104) L 02/05/17 07:40 ABG O2 Saturation 86 % (95-98) L 02/05/17 07:40 PT/INR, D-dimer PT 10.5 Seconds (9.4-12.1) 02/03/17 06:48 Consult Discharge Plan - Plan [facility]errals: [facility] [Primary Care Provider] -
[2017-02-06] MEDS ORDERED: Acetaminophen 325 MG TABLET PO PRN (12:10)
[2017-02-06] MEDS ORDERED: Acetaminophen 325 MG TABLET PO ONE (12:10)
[2017-02-06] MEDS ORDERED: *HR* Morphine 2 MG/ML SYRINGE IVP PRN (12:11)
[2017-02-06] MEDS: *HR* OxyCODONE/APAP 5/325 TABLET PO PRN ×2 (12:38→17:29)
[2017-02-06] MEDS ORDERED: Albuterol 2.5 MG/3 ML NEBULIZER AER PRN (15:22)
[2017-02-06] MEDS: *HR* LORazepam 2 MG/ML VIAL IVP PRN (16:11)
[2017-02-06] MEDS: BuPROPion SR (12 HR) 100 MG TABLET PO SCH (17:30)
[2017-02-06] MEDS: Sennosides/Docusate Sodium TABLET PO SCH (21:00)
[2017-02-07] MEDS: *HR* LORazepam 2 MG/ML VIAL IVP PRN ×3 (00:31→14:16)
[2017-02-07] MEDS: MethylPREDNISolone 40 MG/ML VIAL IVP SCH (00:31)
[2017-02-07] MEDS: *HR* OxyCODONE/APAP 5/325 TABLET PO PRN ×2 (00:31→11:29)
[2017-02-07] MEDS: Ipratropium/Albuterol Neb 3 ML IH SCH ×3 (03:38→16:12)
[2017-02-07] MEDS: BuPROPion SR (12 HR) 100 MG TABLET PO SCH (05:05)
[2017-02-07] MEDS: *HR* Enoxaparin 40 MG/0.4 ML SYRINGE SQ SCH (05:05)
[2017-02-07] MEDS: Famotidine 20 MG TABLET PO SCH (08:04)
[2017-02-07] MEDS: Chlorhexidine Rinse 15 ML MOUTHWASH MM SCH (08:07)
[2017-02-07] MEDS: Sennosides/Docusate Sodium TABLET PO SCH (08:08)
[2017-02-07] MEDS: Fluticasone Propionate Nasal 50 MCG/SPRAY BOTTLE NS SCH (08:09)
[2017-02-07 08:24] LABS: Basophils % 0.1 %; Hematocrit 32.2 % (37.5-50.1); Hemoglobin 9.5 g/dL (12.9-16.9); Immature Granulocytes % 0.6 % (0-4); Lymphocytes # 0.4 K/mcL (0.6-4.6); Lymphocytes % 2.6 %; Mean Corpuscular HGB Conc 29.5 g/dL (31.6-35.5); Mean Corpuscular Hemoglobin 25.9 pg (28.0-33.3); Mean Corpuscular Volume 87.7 fL (83.0-100.0); Mean Platelet Volume 9.8 fL (9.4-12.4); Monocytes # 0.8 K/mcL (0.0-1.3); Monocytes % 5.5 %; Neutrophils # 12.5 K/mcL (1.6-8.9); Platelet Count 319 K/mcL (140-400); Red Blood Count 3.67 M/mcL (4.19-5.50); Red Cell Distribution Width 14.7 % (11.5-14.5); Segmented Neutrophils % 91.2 %
[2017-02-07 08:36] LABS: BUN/Creatinine Ratio 25 (6-26); Blood Urea Nitrogen 18 mg/dL (8-26); Calcium 8.8 mg/dL (8.6-10.8); Carbon Dioxide 30 mEq/L (19-29); Chloride 103 mEq/L (98-109); Glucose 157 mg/dL (70-99); Osmolality,Calculated 299 (280-300); Potassium 3.8 mEq/L (3.5-4.5); Sodium 142 mEq/L (136-145); eGFR For African Americans > 60 (> 60); eGFR For Non-African Americans > 60 (> 60)
[2017-02-07] MEDS ORDERED: predniSONE 20 MG TABLET PO SCH (09:00)
[2017-02-07] MEDS ORDERED: levoFLOXacin 500 MG TABLET PO SCH (09:00)
--- NOTE | 2017-02-07 09:35 | Event Note ---
Date of Encounter: 02/07/17 Time of Encounter: 09:00 Patient states he is feeling much better, states shortness of breath is improved. Utilized and tolerating bipap at night. Patient remains full code and desires short term intubation if necessary. We have discussed trajectory of COPD and he understands he needs to discuss with his his wishes if unable to wean off ventilator. Goals of care have been established and palliative not currently managing any symptoms, will sign off. Please re-consult if needed.
--- NOTE | 2017-02-07 09:52 | Discharge Summary ---
Date of Encounter: 02/07/17 Time of Encounter: 09:51 - Discharge Diagnosis (1) Acute exacerbation of chronic obstructive airways disease Priority: Primary Status: Acute (2) Acute and chronic respiratory failure ([id number]) Priority: Primary Status: Acute Qualifiers: Respiratory failure complication: hypercapnia Qualified Code(s): J96.22 - Acute and chronic respiratory failure with hypercapnia (3) Chronic respiratory acidosis Priority: Secondary Status: Chronic (4) Sepsis Priority: Primary Status: Acute Qualifiers: Sepsis type: sepsis due to unspecified organism Qualified Code(s): A41.9 - Sepsis, unspecified organism (5) Community acquired pneumonia Priority: Primary Status: Acute (6) Anxiety Priority: Secondary Status: Chronic (7) Generalized pain Priority: Secondary Status: Chronic (8) Hypertension Priority: Secondary Status: Chronic Qualifiers: Hypertension type: essential hypertension Qualified Code(s): I10 - Essential (primary) hypertension - Discharge Medications Prescriptions: Albuterol Neb [Proventil Neb] 2.5 mg IH Q6H PRN #30 inhsol PRN Reason: Shortness Of Breath Amlodipine [Norvasc] 5 mg PO DAILY #30 tablet Levofloxacin [Levaquin] 750 mg PO DAILY #2 tablet PredniSONE See Taper PO DAILY #40 tablet Tiotropium [Spiriva] 18 mcg IH DAILY #2 inh Home Medications: Baclofen [Lioresal] 10 mg PO BID 02/12/16 [History] BuPROPion [Wellbutrin] 200 mg PO BID 02/12/16 [History] Gabapentin [Neurontin] 300 mg PO TID 02/12/16 [History] LORazepam [Ativan] 0.5 mg PO BID PRN 02/12/16 [History] Ranitidine HCl [Heartburn Relief] 150 mg PO BID 02/12/16 [History] Trazodone HCl [TraZODone] 200 mg PO HS 02/12/16 [History] Albuterol Sulfate [Proair Hfa] 2 puff IH QID PRN 02/03/17 [History] Alendronate Sodium [Fosamax] 35 mg PO QWEEK 02/03/17 [History] Budesonide/Formoterol 160/4.5 [Symbicort 160/4.5] 2 puff IH BID 02/03/17 [ History] Calcium Carbonate/Vitamin D3 [Calcium 600 + Vit D Tablet] 1 tab PO TID 02/03/17 [History] Cyanocobalamin (B-12) [Vitamin B12] 1,000 mcg PO DAILY 02/03/17 [History] Docusate [Colace] 200 mg PO DAILY 02/03/17 [History] Fluticasone Propionate Nasal [Flonase] 50 mcg NS DAILY 02/03/17 [History] Guaifenesin [Mucus Relief] 400 mg PO BID 02/03/17 [History] HYDROcodone/Acet 5/325 mg [[place] 5-325 mg] 1 tab PO Q6H PRN 02/03/17 [History] Hydrophilic Cream [Basle] 1 appl TP BID 02/03/17 [History] Meloxicam [Mobic] 7.5 mg PO DAILY 02/03/17 [History] Multivitamin [Multi-Day Vitamins] 1 tab PO DAILY 02/03/17 [History] Omeprazole 20 mg PO DAILY 02/03/17 [History] Albuterol Neb [Proventil Neb] 2.5 mg IH Q6H PRN #30 inhsol 02/07/17 [Rx] Amlodipine [Norvasc] 5 mg PO DAILY #30 tablet 02/07/17 [Rx] Levofloxacin [Levaquin] 750 mg PO DAILY #2 tablet 02/07/17 [Rx] PredniSONE See Taper PO DAILY #40 tablet 02/07/17 [Rx] Tiotropium [Spiriva] 18 mcg IH DAILY #2 inh 02/07/17 [Rx] Allergies/Adverse Reactions: Allergies No Known Allergies Allergy (Verified 02/11/16 21:51) Date of admission: 02/03/17 09:27 [facility] Consults: 02/05/17 15:26 Consult to Palliative Care [CONS] Routine Comment: Consulting Provider: Palliative Care Louise Reason for Consult: Discuss code status Call Completed: No 02/07/17 09:25 Consult to Physical Therapy [CONS] Routine Comment: Evaluate, develop and implement POC Reason for Consult: Evaluate for home health 02/07/17 09:35 Consult to Occupational Therapy [CONS] Routine Comment: Evaluate, develop and implement POC Reason for Consult: Evaluate for home health Discharging clinician: Luis Savage Anticipated date of discharge: 02/07/17 - Patient Status Disposition: Home Health Service Condition: Fair Functional capacity at discharge: independent ambulation Overall status at discharge: patient is progressing back to baseline - Discharge Instructions Follow Up With: CT,PCP [Primary Care Provider] - 02/14/17 3:00 pm - Diet and Activity Activity: resume usual activities as tolerated, wear oxygen at all times Diet: low salt diet Interval History: See below Hospital course: Mr. Ramires is a 72 year old male He was admitted for management of acute on chronic hypoxic and hypercapnic respiratory failure secondary to acute exacerbation of COPD. In addition and he was managed for sepsis secondary to community-acquired Klebsiella pneumonia. Patient is steroid dependent at home and is chronically on home oxygen. ON admission, patient was in severe respiratory distress, (CT imaging study of the chest reveals patchy densities within the right chest is an to underlying emphysematous changes). Given the magnitude of hypercapnia (PCO2 109 note pH of 7.24) this patient has chronic hypercapnia is baseline clinical feature and thus is very advanced COPD. He was intubated and managed in the ICU. he was extubated on transitioned to BiPAP Work up on admission was significant for leukocytosis with left shift, and spuum cultures grew Klebsiellia pneuminia patent has been on Levofloxacin, has completed 5 days of therapy in-patient patient is seen and evaluated at bedside today He reports status is ambulatory and also reports that he has no new complaints. He believes that his respiratory status he touches. Let baseline. Patient's vital signs are stable and labs to be unremarkable. Due to the advanced stage of patient's COPD, palliative care was consulted in this admission and after extensive discussion with patient and his , patient has remained full code. At time of discharge I have educated the patient regarding his advanced COPD and the likelihood of recurrent admissions for COPD exacerbation. He remains full code. He will be discharged to complete 2 more days of levofloxacin, prolonged prednisone taper, and to resume his home steroid inhalers albuterol and Spiriva. Follow-up with PCP and pulmonology at the CT PT/OT review recommended home PT/OT New diagnosis of HTN with persistently elevated blood pressures, started on Norvasc 5mg daily, follow up with PCP. - Time Spent with Patient Total time spent providing and/or coordinating discharge services: Greater than 30 minutes - Constitutional Vitals: Temp Pulse Resp BP Pulse Ox 97.8 F 79 14 149/90 97 02/07/17 05:13 02/07/17 05:13 02/07/17 05:13 02/07/17 05:13 02/07/17 05:13 VSS, O2 sat 92-96% on 4L O2 by NC Gen: Not in any form of distress, speaks full sentences, Neuro: AAOX3, moves all limbs spontaneously, no focal deficits, no speech abnormality or facial asymmetry HEENT: Moist mucosa, no cyanosis, RONALD Chest: Barrel chest, distant breat sounds but Clear to auscultation bilaterally , no wheezes, no rhonchi, no stridor. Heart: S1, S2, no m/g/r Abdomen: Soft, not tender, no palpably enlarged organs Extremities: No pedal edema General appearance: Present: A&O X 3, pleasant, no acute distress - VTE Documentation of Mechanical Device: Intermittent pneumatic compression device
[2017-02-07 11:33] VITALS: BP 163/101
[2017-02-07] MEDS ORDERED: amLODIPine 5 MG TABLET PO SCH (14:00)
--- NOTE | 2017-02-07 14:00 | Physician Discharge Referral ---
Home Health/Hosp Referral Info Transfer to: Home Health Attending Provider: Dr. Savage Provider in Charge Post Discharge: PCP - Diagnosis (1) Acute exacerbation of chronic obstructive airways disease Priority: Primary Status: Acute (2) Acute and chronic respiratory failure ([id number]) Priority: Primary Status: Acute (3) Chronic respiratory acidosis Priority: Secondary Status: Chronic (4) Sepsis Priority: Primary Status: Acute (5) Community acquired pneumonia Priority: Primary Status: Acute (6) Anxiety Priority: Secondary Status: Chronic (7) Generalized pain Priority: Secondary Status: Chronic (8) Hypertension Priority: Secondary Status: Chronic - Respiratory Orders Oxygen / L per min (3-4 L/minute) Smoking Cessation: Smoking cessation has been advised. For more information, call the [employer] Tobacco Quit Line at 5-586-TNRS-NOW. - Diet/Nutrition Diet/Nutrition Orders: Cardiac - Activity Activity Orders: Up ad nikki - Services Needed Following services are medically necessary services: Physical Therapy, Occupational Therapy - Transfer Medications Prescriptions: Albuterol Neb [Proventil Neb] 2.5 mg IH Q6H PRN #30 inhsol PRN Reason: Shortness Of Breath Amlodipine [Norvasc] 5 mg PO DAILY #30 tablet Levofloxacin [Levaquin] 750 mg PO DAILY #2 tablet PredniSONE See Taper PO DAILY #40 tablet Tiotropium [Spiriva] 18 mcg IH DAILY #2 inh Home Medications: Baclofen [Lioresal] 10 mg PO BID 02/12/16 [History] BuPROPion [Wellbutrin] 200 mg PO BID 02/12/16 [History] Gabapentin [Neurontin] 300 mg PO TID 02/12/16 [History] LORazepam [Ativan] 0.5 mg PO BID PRN 02/12/16 [History] Ranitidine HCl [Heartburn Relief] 150 mg PO BID 02/12/16 [History] Trazodone HCl [TraZODone] 200 mg PO HS 02/12/16 [History] Albuterol Sulfate [Proair Hfa] 2 puff IH QID PRN 02/03/17 [History] Alendronate Sodium [Fosamax] 35 mg PO QWEEK 02/03/17 [History] Budesonide/Formoterol 160/4.5 [Symbicort 160/4.5] 2 puff IH BID 02/03/17 [ History] Calcium Carbonate/Vitamin D3 [Calcium 600 + Vit D Tablet] 1 tab PO TID 02/03/17 [History] Cyanocobalamin (B-12) [Vitamin B12] 1,000 mcg PO DAILY 02/03/17 [History] Docusate [Colace] 200 mg PO DAILY 02/03/17 [History] Fluticasone Propionate Nasal [Flonase] 50 mcg NS DAILY 02/03/17 [History] Guaifenesin [Mucus Relief] 400 mg PO BID 02/03/17 [History] HYDROcodone/Acet 5/325 mg [[place] 5-325 mg] 1 tab PO Q6H PRN 02/03/17 [History] Hydrophilic Cream [Basle] 1 appl TP BID 02/03/17 [History] Meloxicam [Mobic] 7.5 mg PO DAILY 02/03/17 [History] Multivitamin [Multi-Day Vitamins] 1 tab PO DAILY 02/03/17 [History] Omeprazole 20 mg PO DAILY 02/03/17 [History] Albuterol Neb [Proventil Neb] 2.5 mg IH Q6H PRN #30 inhsol 02/07/17 [Rx] Amlodipine [Norvasc] 5 mg PO DAILY #30 tablet 02/07/17 [Rx] Levofloxacin [Levaquin] 750 mg PO DAILY #2 tablet 02/07/17 [Rx] PredniSONE See Taper PO DAILY #40 tablet 02/07/17 [Rx] Tiotropium [Spiriva] 18 mcg IH DAILY #2 inh 02/07/17 [Rx] Allergies/Adverse Reactions: Allergies No Known Allergies Allergy (Verified 02/11/16 21:51) Certification: Further, I certify that my clinical findings support that this patient is homebound (i.e. absences from home require considerable and taxing effort and are for medical reasons or anglic[facility] services or infrequently or short duration when for other reasons) because: Homebound Reason: Patient requires assistance of a person or device to safely leave home, Severity of cardiac or pulmonary status limits activity tolerance Attestation: My signature below is to certify that this patient is under my care and that I, or nurse practitioner, or a physician's night assistant working with me, has a face-to -face encounter with this patient.
== END 2017-02-07 16:20 | disposition home health service (06) | DRG 871 ==
LOC: EMEROO 06:03 → SUATTDRO 09:27 → ICNU 09:27 → 2NNU 02-06 06:33
PROVIDERS: ADMIT Specialist; ATTEND Internal Medicine

== ENCOUNTER 2017-08-12 06:18 | Inpatient (IN) ==
[2017-08-12] MEDS ORDERED: methylPREDNISolone 125 MG/2 ML VIAL IVP ONE (06:31)
[2017-08-12] MEDS ORDERED: *HR* Etomidate 20 MG/10 ML AMPUL IVP ONE (06:31)
[2017-08-12] MEDS ORDERED: Ipratropium/Albuterol Neb 3 ML IH ONE (06:31)
[2017-08-12] MEDS ORDERED: 0.9 % Sodium Chloride 1,000 ML IVC ONE ×2 (06:31→07:50)
[2017-08-12] MEDS ORDERED: *HR* Rocuronium Bromide 50 MG/5 ML VIAL IVP ONE (06:31)
--- NOTE | 2017-08-12 06:37 | Emergency Department Note ---
Disposition Clinical Impression: Acute respiratory failure with hypoxia Disposition: Still a Patient [facility]: [facility]Primary Care Provider[facility] - Forms: ED Satisfaction Letter Time of Disposition: 07:03 SOB HPI - General Chief Complaint: ED Shortness of Breath/Dyspnea Stated Complaint: LESLYE Time Seen by Provider: 08/12/17 06:31 Source: EMS Mode of arrival: EMS Limitations: altered mental status Nursing Notes Reviewed: Yes Vital Signs Reviewed: Yes - History of Present Illness 72-year-old male history of COPD presents to the ER via EMS due to respiratory distress. EMS reports they were called to his house for shortness of breath. Reports that he was 50% upon arrival. He was placed on a nonrebreather then CPAP which only improved him to the mid 80s. Upon arrival patient is being bagged. He follows no commands. Unable to provide any history. He does open his eyes spontaneously. He was noted to be around 88% despite noninvasive positive pressure ventilation. Patient was intubated upon arrival due to hypoxia and altered mental status. Please see note for details. Pt Subjective Complaint: shortness of breath Onset (ago): unknown Known history of: COPD Treatment prior to arrival: oxygen, NIPPV - Related Data Home Medications Medication Instructions Recorded Confirmed Baclofen [Lioresal] 10 mg PO BID 02/12/16 02/03/17 BuPROPion [Wellbutrin] 200 mg PO BID 02/12/16 02/03/17 Gabapentin [Neurontin] 300 mg PO TID 02/12/16 02/03/17 LORazepam [Ativan] 0.5 mg PO BID PRN 02/12/16 02/03/17 Ranitidine HCl [Heartburn Relief] 150 mg PO BID 02/12/16 02/03/17 Trazodone HCl [TraZODone] 200 mg PO HS 02/12/16 02/03/17 Albuterol Sulfate [Proair Hfa] 2 puff IH QID PRN 02/03/17 02/03/17 Alendronate Sodium [Fosamax] 35 mg PO QWEEK 02/03/17 02/03/17 Budesonide/Formoterol 160/4.5 2 puff IH BID 02/03/17 02/03/17 [Symbicort 160/4.5] Calcium Carbonate/Vitamin D3 1 tab PO TID 02/03/17 02/03/17 [Calcium 600 + Vit D Tablet] Cyanocobalamin (B-12) [Vitamin B12] 1,000 mcg PO DAILY 02/03/17 02/03/17 Docusate [Colace] 200 mg PO DAILY 02/03/17 02/03/17 Fluticasone Propionate Nasal 50 mcg NS DAILY 02/03/17 02/03/17 [Flonase] Guaifenesin [Mucus Relief] 400 mg PO BID 02/03/17 02/03/17 HYDROcodone/Acet 5/325 mg [[place] 1 tab PO Q6H PRN 02/03/17 02/03/17 5-325 mg] Hydrophilic Cream [[place]] 1 appl TP BID 02/03/17 02/03/17 Meloxicam [Mobic] 7.5 mg PO DAILY 02/03/17 02/03/17 Multivitamin [Multi-Day Vitamins] 1 tab PO DAILY 02/03/17 02/03/17 Omeprazole 20 mg PO DAILY 02/03/17 02/03/17 Previous Rx's Medication Instructions Recorded Albuterol Neb [Proventil Neb] 2.5 mg IH Q6H PRN #30 inhsol 02/07/17 Tiotropium [Spiriva] 18 mcg IH DAILY #2 inh 02/07/17 amLODIPine [Norvasc] 5 mg PO DAILY #30 tablet 02/07/17 levoFLOXacin [Levaquin] 750 mg PO DAILY #2 tablet 02/07/17 predniSONE [PredniSONE] See Taper PO DAILY #40 tablet 02/07/17 Allergies Allergy/AdvReac Type Severity Reaction Status Date / Time No Known Allergies Allergy Verified 02/11/16 21:51 Limitations: ROS unobtainable due to patients medical condition Past Medical History - Past Medical History Attestation: Yes The following information was validated with the patient. Medical history: Reports: arthritis, atrial fibrillation, COPD Surgical history: Reports: other Psychiatric history: Reports: anxiety - Social History Smoking Status: Former smoker Smokeless Tobacco Status: No Alcohol use: Reports: none Drug use: Reports: none Physical Exam - General Limitations: altered mental status General appearance: in distress - Head Head exam: atraumatic - Eye Eye exam: Present: normal appearance - ENT ENT exam: normal exam - Neck Neck exam: Present: normal inspection - Chest Chest inspection: Present: normal inspection - Respiratory Respiratory exam: Present: respiratory distress, other (Patient has diminished breath sounds bilaterally with severely limited air movement.) - Cardiovascular Cardiovascular exam: Present: normal rhythm, tachycardia, normal heart sounds - Abdominal Exam Abdominal exam: Present: soft. Absent: distention, rigidity - Extremities Exam Extremities exam: Present: normal inspection - Expanded Upper Extremity Exam Shoulder exam: Present: normal inspection Arm exam: Present: normal inspection Elbow exam: Present: normal inspection Forearm/Wrist exam: Present: normal inspection Hand exam: Present: normal inspection - Expanded Lower Extremity Exam Hip/Pelvis exam: Present: normal inspection Upper leg exam: Present: normal inspection Knee exam: Present: normal inspection Lower leg exam: Present: normal inspection Ankle exam: Present: normal inspection Foot/toe exam: Present: normal inspection - Neurological Exam Neurological exam: Present: other (Obtunded) - Expanded Neurological Exam Coma Scale Eye Opening: To Voice Coma Scale Motor Response: Withdraws to Pain Coma Scale Verbal Response: None Coma Scale Total: 8 - Skin Skin exam: Present: warm, dry, intact Course Course Narrative: Patient seen upon arrival. Patient is currently being bagged. Noted to be hypoxic around 87%. GCS of 8. Patient intubated due to hypoxic respiratory failure and airway securement. We will obtain a CT scan of his head as well as an EKG, chest x-ray as well as labs including troponin and ABG. Patient will be signed out to dayshift team pending imaging and labs. Vital Signs Temperature 98.6 F 08/12/17 06:21 Pulse Rate 123 08/12/17 06:21 Respiratory Rate 32 08/12/17 06:21 Blood Pressure 126/83 08/12/17 06:21 O2 Sat by Pulse Oximetry 95 08/12/17 06:21 Temperature 98.6 F 08/12/17 06:21 Pulse Rate 125 08/12/17 06:32 Respiratory Rate 12 08/12/17 06:32 Blood Pressure 123/70 08/12/17 06:32 O2 Sat by Pulse Oximetry 100 08/12/17 06:35 Oxygen Delivery Oxygen Delivery Ambu Bag Procedures - Intubation sedative: Etomidate Mg Given: 20 paralytic: Rocuronium Mg Given: 100 Laryngoscope: Addie ET Tube Size: 7.5 ET Tube Uncuffed: No Tube Secured Depth (cm): 23 Tube Secured Location: lips Tube Placement Confirmation: visualized tube passing through cords, equal breath sounds bilaterally, no breath sounds over epigastrium, confirmation by capnometry Patient Tolerated Procedure: well Intubation Complications: none Shortness of Breath/Dyspnea - MDM Narrative Medical decision making narrative: 72-year-old male presents to the ER in respiratory distress. Unable to provide any history. Intubated for hypoxic respiratory failure as well as altered mental status forced airway securement. Patient is signed out to dayshift team pending imaging labs and final disposition. - EKG Data EKG attestation: Yes I reviewed and interpreted this EKG. EKG results narrative: EKG demonstrates sinus tachycardia with a rate of 122. Normal axis. Normal intervals. Normal R-wave progression. ST depression in leads 2 and lead 3 likely secondary to rate and hypoxia. No gross ST elevations. Changes from prior EKG include rate and ST depressions in inferior leads. Critical Care Time Critical Care Time: Yes Total Critical Care Time: 35 Attestation: Critical care performed: Time is exclusive of separately billable procedures. Time includes: direct patient care, patient reassessment, coordination of patient care, interpretation of data (laboratory data, radiology data, and respiratory data), review of patient's medical records, medical consultation and documentation of patient care. Procedures included in critical care time: Procedures excluded from critical care time: Attestation Statement - Attestation Attestation: I, Raudel Liz DO, examined this patient [id number] and my medical decision-making was reviewed with Dr. Everett Delvalle, Resident Physician. I agree with the documented findings, disposition and treatment plan as described except to the extent set forth below. Please see my progress notes for details. 72-year-old male presents by EMS for hypoxia. Patient was supposedly well last night and had no other medical issues. This morning woke up and had a pulse ox of 50%. He does have known COPD. During transit by EMS is placed on CPAP and only had a pulse ox maintained around 80%. On arrival here he is obtunded unresponsive not following commands and had tremulous presentation with possible decerebrate posturing. Patient had examination appear to be stable lungs were diminished. Abdomen is soft nontender. Heart was tachycardic but regular. Intubation was completed at the bedside without any complication. Visualization of the tube to the cord is completed. I was present throughout the medically necessary aspects of the procedure. Patient has IV access obtained fluids to be provided Accu-Chek was corrected at 150. Patient will be evaluated and have completion course of care by the daytime physician Dr. Roe. See detailed documentation of physical exam, medical intervention, decision-making, critical care and disposition in the resident physician's note
[2017-08-12] MEDS ORDERED: Propofol 500 MG/50 ML INFUS..BTL IVC SCH (06:45)
[2017-08-12] MEDS ORDERED: Propofol 500 MG/50 ML INFUS..BTL ONE (06:56)
[2017-08-12 07:19] LABS: ABG Base Excess 13 mEq/L (-2 to 3); ABG HCO3 44 mEq/L (21-27); ABG Oxygen Saturation 100 % (95-98); ABG PCO2 97 mmHg (35-45); ABG PH 7.26 pH Units (7.32-7.45); ABG PO2 346 mmHg (85-104); ABG TCO2 47 mEq/L (20-26)
[2017-08-12] MEDS ORDERED: *HR* LORazepam 2 MG/ML VIAL IVP ONE (07:35)
[2017-08-12] MEDS ORDERED: *HR* LORazepam 2 MG/ML VIAL ONE (07:37)
[2017-08-12 07:38] LABS: Bilirubin,Urine Negative (Negative); Blood,Urine Negative (Negative); Clarity,Urine Clear (Clear); Color,Urine Yellow (Yellow); Glucose,Urine (UA) Normal (Normal); Ketones,Urine Negative (Negative); Leukocyte Esterase,Urine Negative (Negative); Nitrite,Urine Negative (Negative); Protein,Urine 30 mg/dL (Neg-Trace); Specific Gravity,Urine 1.017 (1.010-1.025); Urobilinogen,Urine Normal (Normal)
[2017-08-12 07:41] LABS: Bacteria,Urine None Seen per hpf (None-Few); Hyaline Casts,Urine None Seen per lpf (None-Few); RBC,Urine 0-3 per hpf (0-3); Squamous Epithelial Cell,Urine Moderate per lpf (None-Few); WBC,Urine 0-3 per hpf (0-3)
--- NOTE | 2017-08-12 07:49 | Emergency Department Note ---
Disposition Clinical Impression: Acute respiratory failure with hypoxia, Severe sepsis Pneumonia Qualifiers: Pneumonia type: due to unspecified organism Laterality: unspecified laterality Lung location: unspecified part of lung Qualified Code(s): J18.9 - Pneumonia, unspecified organism Disposition: Admitted As Inpatient Condition: Fair Time of Disposition: 09:29 General Adult HPI - General Chief complaint: ED Shortness of Breath/Dyspnea Stated complaint: LESLYE Time Seen by Provider: 08/12/17 06:31 Source: family Mode of arrival: EMS Limitations: altered mental status Nursing Notes Reviewed: Yes Vital Signs Reviewed: Yes - History of Present Illness HPI Narrative: Patient is a 72-year-old male with history of COPD and atrial fibrillation who presents to the emergency department by EMS this morning in acute respiratory distress. EMS reports that they received a call from the house for shortness of breath that his oxygen sat was a pretty percent on arrival and that was when the patient was being bagged prior to that had him on a nonrebreather and then on CPAP which is getting him into the 88% saturation. Patient did not follow any commands at the time of arrival is unable to provide any history is opening his eyes spontaneously. All the history that was just given was provided to me by the attending coming off shift at 7 AM. When I went in the room the patient was reintubated. I spoke with the patient's . Patient's states that the patient was perfectly fine last night watching a movie together and that he sleeps in a recliner and he is on 3 L of nasal cannula oxygen at home and takes multiple breathing treatments throughout the day for severe COPD. She states that this morning when she woke up the patient had been calling her into his room where he sleeps in a recliner and some shortness of breath she states that he was taking breathing treatments and doing a serum measures to improve his symptoms however he began to deteriorate and he called the squad. She states that this is very similar to last time that he is admitted for COPD exacerbation secondary to pneumonia on top of bronchitis one year ago. She states that he usually comes the hospital about one time per year for this. She states that he is a former smoker. States he was not complaining of any chest pain or any other recent increase in cough or sputum production or fevers or chills. Pain Scale: 0 - Related Data Home Medications Medication Instructions Recorded Confirmed Baclofen [Lioresal] 10 mg PO BID 02/12/16 02/03/17 BuPROPion [Wellbutrin] 200 mg PO BID 02/12/16 02/03/17 Gabapentin [Neurontin] 300 mg PO TID 02/12/16 02/03/17 LORazepam [Ativan] 0.5 mg PO BID PRN 02/12/16 02/03/17 Ranitidine HCl [Heartburn Relief] 150 mg PO BID 02/12/16 02/03/17 Trazodone HCl [TraZODone] 200 mg PO HS 02/12/16 02/03/17 Albuterol Sulfate [Proair Hfa] 2 puff IH QID PRN 02/03/17 02/03/17 Alendronate Sodium [Fosamax] 35 mg PO QWEEK 02/03/17 02/03/17 Budesonide/Formoterol 160/4.5 2 puff IH BID 02/03/17 02/03/17 [Symbicort 160/4.5] Calcium Carbonate/Vitamin D3 1 tab PO TID 02/03/17 02/03/17 [Calcium 600 + Vit D Tablet] Cyanocobalamin (B-12) [Vitamin B12] 1,000 mcg PO DAILY 02/03/17 02/03/17 Docusate [Colace] 200 mg PO DAILY 02/03/17 02/03/17 Fluticasone Propionate Nasal 50 mcg NS DAILY 02/03/17 02/03/17 [Flonase] Guaifenesin [Mucus Relief] 400 mg PO BID 02/03/17 02/03/17 HYDROcodone/Acet 5/325 mg [Watson 1 tab PO Q6H PRN 02/03/17 02/03/17 5-325 mg] Hydrophilic Cream [Basle] 1 appl TP BID 02/03/17 02/03/17 Meloxicam [Mobic] 7.5 mg PO DAILY 02/03/17 02/03/17 Multivitamin [Multi-Day Vitamins] 1 tab PO DAILY 02/03/17 02/03/17 Omeprazole 20 mg PO DAILY 02/03/17 02/03/17 Previous Rx's Medication Instructions Recorded Albuterol Neb [Proventil Neb] 2.5 mg IH Q6H PRN #30 inhsol 02/07/17 Tiotropium [Spiriva] 18 mcg IH DAILY #2 inh 02/07/17 amLODIPine [Norvasc] 5 mg PO DAILY #30 tablet 02/07/17 levoFLOXacin [Levaquin] 750 mg PO DAILY #2 tablet 02/07/17 predniSONE [PredniSONE] See Taper PO DAILY #40 tablet 02/07/17 Allergies Allergy/AdvReac Type Severity Reaction Status Date / Time No Known Allergies Allergy Verified 02/11/16 21:51 Limitations: ROS unobtainable due to patients medical condition Past Medical History - Past Medical History Medical history: Reports: arthritis, atrial fibrillation, COPD Surgical history: Reports: other Psychiatric history: Reports: anxiety - Social History Smoking Status: Former smoker Smokeless Tobacco Status: No Alcohol use: Reports: none Drug use: Reports: none Physical Exam CONSTITUTIONAL: The patient is on a ventilator. HEAD: Normocephalic; atraumatic. EYES: PERRL, no scleral icterus. NOSE: The nose is normal in appearance without rhinorrhea RESP: Normal chest excursion with respiration; patient has crackles in the right base; no wheezes, rhonchi, or rales CARD: Tachycardic, without murmurs, rub or gallop ABD: Non-distended; soft,without rigidity, rebound or guarding SKIN: Normal for age and race; warm and dry; no apparent lesions EXT: No LE edema - General Limitations: altered mental status General appearance: in distress Course Course Narrative: Patient is a 72-year-old male with a history of severe COPD and A. fib presenting to the emergency department via squad for shortness of breath and a pulse ox at 50% on nonrebreather. - Reevaluation(s) Reevaluation #1: atients labs show leukocytosis of 18.3, patients blood gas just done was improved from his prior his pH is now 7.31 which is improved from 7.26. PCO2 still elevated at 83. Patients chem panel was unremarkable except for an elevated carbon dioxide. His lactic acid was 2.4 calcium was 8.3. His troponin was negative and his BNP was not elevated. His urine was unremarkable. His findings and considerations diagnoses along with a picture of a pneumonia that was visualized on a CTA of his chest and also on his chest x -ray. That was negative for PE. I believe the patient's current condition and symptoms are secondary to his PNA superimposed on his severe COPD. Patient was admitted to Dr. Kaminski. Time: 09:17 Vital Signs Temperature 98.6 F 08/12/17 06:21 Pulse Rate 123 08/12/17 06:21 Respiratory Rate 32 08/12/17 06:21 Blood Pressure 126/83 08/12/17 06:21 O2 Sat by Pulse Oximetry 95 08/12/17 06:21 Temperature 98.6 F 08/12/17 06:21 Pulse Rate 110 08/12/17 07:36 Respiratory Rate 14 08/12/17 09:00 Blood Pressure 97/65 08/12/17 09:00 O2 Sat by Pulse Oximetry 100 08/12/17 09:00 Oxygen Delivery Oxygen Delivery Ventilator Medical Decision Making - Medical Records Medical records reviewed: Yes I reviewed the patient's medical records. - Lab Data Lab results reviewed: Yes I reviewed the patient's lab results. Result diagrams: 08/12/17 08:02 08/12/17 08:02 Lab Results 08/12/17 08/12/17 08/12/17 Range/Units 07:13 07:28 08:02 WBC 18.3 H (4.3-11.1) K/mcL RBC 3.32 L (4.19-5.50) M/mcL Hgb 8.8 L (12.9-16.9) g/dL Hct 32.0 L (37.5-50.1) % MCV 96.4 (83.0-100.0) fL MCH 26.5 L (28.0-33.3) pg MCHC 27.5 L (31.6-35.5) g/dL RDW 14.2 (11.5-14.5) % Plt Count 233 (140-400) K/mcL MPV 10.5 (9.4-12.4) fL Immature Gran % 0.3 (0-4) % Seg Neutrophils % 92.6 % Lymphocytes % 0.9 % Monocytes % 5.6 % Eosinophils % 0.4 % Basophils % 0.2 % Neutrophils # 17.0 H (1.6-8.9) K/mcL Lymphocytes # 0.2 L (0.6-4.6) K/mcL Monocytes # 1.0 (0.0-1.3) K/mcL Eosinophils # 0.1 (0.0-0.6) K/mcL Basophils # 0.0 (0.0-0.2) K/mcL Platelet Estimate Normal (Normal) Hypochromasia Present A (Not Present) PT (9.4-12.1) Seconds INR APTT (26.0-36.0) Seconds ABG pH 7.26 L (7.32-7.45) pH Units ABG pCO2 97 H* (35-45) mmHg ABG pO2 346 H (85-104) mmHg ABG HCO3 44 H (21-27) mEq/L ABG Total CO2 47 H (20-26) mEq/L ABG O2 Saturation 100 H (95-98) % ABG Base Excess 13 H (-2 to 3) mEq/L Sodium (136-145) mEq/L Potassium (3.5-4.5) mEq/L Chloride (98-109) mEq/L Carbon Dioxide (19-29) mEq/L BUN (8-26) mg/dL Creatinine (0.72-1.25) mg/dL Est GFR ( Amer) (> 60) Est GFR (Non-Af Amer) (> 60) BUN/Creatinine Ratio (6-26) Glucose (70-99) mg/dL Calculated Osmolality (280-300) Lactic Acid (0.5-2.2) mmol/L Calcium (8.6-10.8) mg/dL Troponin I (0-0.03) ng/mL B-Natriuretic Peptide (0-100) pg/mL Urine Color Yellow (Yellow) Urine Clarity Clear (Clear) Urine pH 7.0 (5.0-8.0) pH Units Ur Specific [place] 1.017 (1.010-1.025) Urine Protein 30 H (Neg-Trace) mg/dL Urine Glucose (UA) Normal (Normal) mg/dL Urine Ketones Negative (Negative) mg/dL Urine Blood Negative (Negative) Urine Nitrite Negative (Negative) Urine Bilirubin Negative (Negative) Urine Urobilinogen Normal (Normal) mg/dL Ur Leukocyte Esterase Negative (Negative) Urine Microscopic RBC 0-3 (0-3) per hpf Urine Microscopic WBC 0-3 (0-3) per hpf Ur Squamous Epith Cells Moderate H (None-Few) per lpf Urine Bacteria None Seen (None-Few) per hpf Hyaline Casts None Seen (None-Few) per lpf Ur Culture Indicated? NO (NO) Person Notif of Britt LOWERY 08/12/17 08/12/17 08/12/17 Range/Units 08:02 08:02 08:02 WBC (4.3-11.1) K/mcL RBC (4.19-5.50) M/mcL Hgb (12.9-16.9) g/dL Hct (37.5-50.1) % MCV (83.0-100.0) fL MCH (28.0-33.3) pg MCHC (31.6-35.5) g/dL RDW (11.5-14.5) % Plt Count (140-400) K/mcL MPV (9.4-12.4) fL Immature Gran % (0-4) % Seg Neutrophils % % Lymphocytes % % Monocytes % % Eosinophils % % Basophils % % Neutrophils # (1.6-8.9) K/mcL Lymphocytes # (0.6-4.6) K/mcL Monocytes # (0.0-1.3) K/mcL Eosinophils # (0.0-0.6) K/mcL Basophils # (0.0-0.2) K/mcL Platelet Estimate (Normal) Hypochromasia (Not Present) PT 9.9 (9.4-12.1) Seconds INR 0.9 APTT 23.2 L (26.0-36.0) Seconds ABG pH (7.32-7.45) pH Units ABG pCO2 (35-45) mmHg ABG pO2 (85-104) mmHg ABG HCO3 (21-27) mEq/L ABG Total CO2 (20-26) mEq/L ABG O2 Saturation (95-98) % ABG Base Excess (-2 to 3) mEq/L Sodium 144 (136-145) mEq/L Potassium 4.1 (3.5-4.5) mEq/L Chloride 99 (98-109) mEq/L Carbon Dioxide 37 H (19-29) mEq/L BUN 10 (8-26) mg/dL Creatinine 0.75 (0.72-1.25) mg/dL Est GFR ( Amer) > 60 (> 60) Est GFR (Non-Af Amer) > 60 (> 60) BUN/Creatinine Ratio 13 (6-26) Glucose 120 H (70-99) mg/dL Calculated Osmolality 298 (280-300) Lactic Acid 2.4 H (0.5-2.2) mmol/L Calcium 8.3 L (8.6-10.8) mg/dL Troponin I (0-0.03) ng/mL B-Natriuretic Peptide (0-100) pg/mL Urine Color (Yellow) Urine Clarity (Clear) Urine pH (5.0-8.0) pH Units Ur Specific [place] (1.010-1.025) Urine Protein (Neg-Trace) mg/dL Urine Glucose (UA) (Normal) mg/dL Urine Ketones (Negative) mg/dL Urine Blood (Negative) Urine Nitrite (Negative) Urine Bilirubin (Negative) Urine Urobilinogen (Normal) mg/dL Ur Leukocyte Esterase (Negative) Urine Microscopic RBC (0-3) per hpf Urine Microscopic WBC (0-3) per hpf Ur Squamous Epith Cells (None-Few) per lpf Urine Bacteria (None-Few) per hpf Hyaline Casts (None-Few) per lpf Ur Culture Indicated? (NO) Person Notif of Crit 08/12/17 08/12/17 Range/Units 08:02 08:02 WBC (4.3-11.1) K/mcL RBC (4.19-5.50) M/mcL Hgb (12.9-16.9) g/dL Hct (37.5-50.1) % MCV (83.0-100.0) fL MCH (28.0-33.3) pg MCHC (31.6-35.5) g/dL RDW (11.5-14.5) % Plt Count (140-400) K/mcL MPV (9.4-12.4) fL Immature Gran % (0-4) % Seg Neutrophils % % Lymphocytes % % Monocytes % % Eosinophils % % Basophils % % Neutrophils # (1.6-8.9) K/mcL Lymphocytes # (0.6-4.6) K/mcL Monocytes # (0.0-1.3) K/mcL Eosinophils # (0.0-0.6) K/mcL Basophils # (0.0-0.2) K/mcL Platelet Estimate (Normal) Hypochromasia (Not Present) PT (9.4-12.1) Seconds INR APTT (26.0-36.0) Seconds ABG pH (7.32-7.45) pH Units ABG pCO2 (35-45) mmHg ABG pO2 (85-104) mmHg ABG HCO3 (21-27) mEq/L ABG Total CO2 (20-26) mEq/L ABG O2 Saturation (95-98) % ABG Base Excess (-2 to 3) mEq/L Sodium (136-145) mEq/L Potassium (3.5-4.5) mEq/L Chloride (98-109) mEq/L Carbon Dioxide (19-29) mEq/L BUN (8-26) mg/dL Creatinine (0.72-1.25) mg/dL Est GFR ( Amer) (> 60) Est GFR (Non-Af Amer) (> 60) BUN/Creatinine Ratio (6-26) Glucose (70-99) mg/dL Calculated Osmolality (280-300) Lactic Acid (0.5-2.2) mmol/L Calcium (8.6-10.8) mg/dL Troponin I 0.03 (0-0.03) ng/mL B-Natriuretic Peptide 20 (0-100) pg/mL Urine Color (Yellow) Urine Clarity (Clear) Urine pH (5.0-8.0) pH Units Ur Specific [place] (1.010-1.025) Urine Protein (Neg-Trace) mg/dL Urine Glucose (UA) (Normal) mg/dL Urine Ketones (Negative) mg/dL Urine Blood (Negative) Urine Nitrite (Negative) Urine Bilirubin (Negative) Urine Urobilinogen (Normal) mg/dL Ur Leukocyte Esterase (Negative) Urine Microscopic RBC (0-3) per hpf Urine Microscopic WBC (0-3) per hpf Ur Squamous Epith Cells (None-Few) per lpf Urine Bacteria (None-Few) per hpf Hyaline Casts (None-Few) per lpf Ur Culture Indicated? (NO) Person Notif of Crit - Radiology Data Radiology results reviewed: Yes I reviewed the patient's radiology results. Chest X-Ray 08/12/17 06:32 IMPRESSION: Right basilar infiltrate on a background of COPD D/ / Denis Wu MD / Denis Wu MD Interpreting Provider: Denis Wu MD Head CT 08/12/17 06:34 IMPRESSION: No acute intracranial abnormality. D/ / Denis Wu MD / Denis Wu MD Interpreting Provider: Denis Wu MD Chest CTA 08/12/17 07:05 IMPRESSION: 1. No evidence of pulmonary embolism 2. Right lower lobe and right middle lobe pneumonia on a background of pulmonary emphysema D/ / Denis Wu MD / Denis Wu MD Interpreting Provider: Denis Wu MD - EKG Data EKG #1 EKG attestation: Yes I reviewed and interpreted this EKG. EKG results narrative: Patient's EKG done at 6:32 showed a sinus tachycardia with a normal axis. CO is 120, QRS is 105, QT is 326 and QTC is 398 user within normal limits. Otherwise no ST depressions or elevations and no Q waves. Critical Care Time Critical Care Time: Yes Total Critical Care Time: 70 Attestation: Critical care time was 70 minutes this patient. Attestation Statement - Attestation Attestation: Patient was seen with resident physician. I reviewed the history, physical, assessment and plan, and agree with the findings. I also personally evaluated this patient and had [id number] time with this patient. 72-year-old male was originally seen by the shift foreman team and intubated prior to our arrival. Signed out with a chief complaint of respiratory failure. Apparently the patient had been having difficulty breathing and was found by EMS with a pulse ox of 50. Upon arrival according to the shift foreman doctor, patient essentially was in respiratory failure and required intubation to maintain an appropriate oxygenation level. By the time I had seen the patient he was appropriately sedated with an ET tube intact. He was unable to provide any history obviously, in speaking with the though it sounds like he has been intubated once before for which she thinks is a COPD exacerbation. On examination endotracheal tube is intact. The lungs have equal breath sounds without appreciable wheezing. Abdominal exam is unremarkable without masses extremities show no signs of trauma nor does the head. Neurologic exam was unable to be performed secondary to the patient's sedation and intubation. ED course we reviewed the patient's old renal function to determine his ability to get a CTA of the chest. His labs had been available and they are taking over for his head CT scan. With him being intubated and I wanted get both scans done at the same time. His old renal function was good and he should tolerate the CTA well. His head scan did not show any acute abnormalities. His chest CTA did demonstrate pneumonia. Patient was started on nodule antibiotic therapies. We contacted the curriculum and instruction specialist, who agreed to accept the patient for admission. We also manage the patient's ventilator settings as well as his sedation. He received fluids. An IV antibiotics on the ED. Per criteria patient also qualifies for severe sepsis. Critical care time for this patient was 70 minutes. I agree with the resident physician assessment plan.
[2017-08-12] MEDS ORDERED: cefTRIAXone 1,000 MG in Water for inj. (sterile) 10 ML IVP ONE (07:50)
[2017-08-12] MEDS ORDERED: Levofloxacin 750 MG/150 ML 750 MG/150 ML BAG IVPB ONE (07:50)
[2017-08-12 08:13] LABS: Basophils % 0.2 %; Immature Granulocytes % 0.3 % (0-4); Mean Corpuscular HGB Conc 27.5 g/dL (31.6-35.5); Red Cell Distribution Width 14.2 % (11.5-14.5)
[2017-08-12 08:14] LABS: Eosinophils # 0.1 K/mcL (0.0-0.6); Eosinophils % 0.4 %; Hemoglobin 8.8 g/dL (12.9-16.9); Lymphocytes # 0.2 K/mcL (0.6-4.6); Lymphocytes % 0.9 %; Mean Corpuscular Hemoglobin 26.5 pg (28.0-33.3); Mean Corpuscular Volume 96.4 fL (83.0-100.0); Mean Platelet Volume 10.5 fL (9.4-12.4); Monocytes % 5.6 %; Platelet Count 233 K/mcL (140-400); Red Blood Count 3.32 M/mcL (4.19-5.50); Segmented Neutrophils % 92.6 %
[2017-08-12 08:21] LABS: INR 0.9; Prothrombin Time 9.9 Seconds (9.4-12.1)
[2017-08-12 08:24] LABS: Activated Partial Thrombo Time 23.2 Seconds (26.0-36.0)
[2017-08-12 08:26] LABS: BUN/Creatinine Ratio 13 (6-26); Blood Urea Nitrogen 10 mg/dL (8-26); Calcium 8.3 mg/dL (8.6-10.8); Carbon Dioxide 37 mEq/L (19-29); Chloride 99 mEq/L (98-109); Glucose 120 mg/dL (70-99); Osmolality,Calculated 298 (280-300); Potassium 4.1 mEq/L (3.5-4.5); Sodium 144 mEq/L (136-145); eGFR For African Americans > 60 (> 60); eGFR For Non-African Americans > 60 (> 60)
[2017-08-12 08:42] LABS: Platelet Estimate Normal (Normal)
[2017-08-12 08:43] LABS: Hypochromasia Present (Not Present)
[2017-08-12 09:01] LABS: ABG Base Excess 13 mEq/L (-2 to 3); ABG HCO3 42 mEq/L (21-27); ABG Oxygen Saturation 93 % (95-98); ABG PCO2 83 mmHg (35-45); ABG PH 7.31 pH Units (7.32-7.45); ABG PO2 79 mmHg (85-104); ABG TCO2 45 mEq/L (20-26); Blood Gas Modality VC; Blood Gas PEEP 5 cm H2O; Blood Gas Respiration Rate 14; Blood Gas VT 450 cc
--- NOTE | 2017-08-12 10:00 | Pulmonology History & Physical ---
<Tesfaye Hilario W - Last Filed: 08/12/17 11:49> Date of Encounter: 08/12/17 History of Present Illness HPI: Mr. Ramires is a 72 year old male Medications and Allergies Baclofen [Lioresal] 10 mg PO BID PRN 02/12/16 [History] Gabapentin [Neurontin] 300 mg PO TID 02/12/16 [History] LORazepam [Ativan] 0.5 mg PO BID PRN 02/12/16 [History] Trazodone HCl [TraZODone] 200 mg PO HS 02/12/16 [History] Albuterol Sulfate [Proair Hfa] 2 puff IH QID PRN 02/03/17 [History] Alendronate Sodium [Fosamax] 35 mg PO WE 02/03/17 [History] Budesonide/Formoterol 160/4.5 [Symbicort 160/4.5] 2 puff IH BID 02/03/17 [ History] Calcium Carbonate/Vitamin D3 [Calcium 600 + Vit D Tablet] 1 tab PO TID 02/03/17 [History] Cyanocobalamin (B-12) [Vitamin B12] 1,000 mcg PO DAILY 02/03/17 [History] Docusate [Colace] 200 mg PO DAILY 02/03/17 [History] Fluticasone Propionate Nasal [Flonase] 50 mcg NS BID 02/03/17 [History] Guaifenesin [Mucus Relief] 400 mg PO BID 02/03/17 [History] HYDROcodone/Acet 5/325 mg [[place] 5-325 mg] 1 tab PO Q6H PRN 02/03/17 [History] Hydrophilic Cream [[place]] 1 appl TP BID 02/03/17 [History] Meloxicam [Mobic] 7.5 mg PO DAILY 02/03/17 [History] Multivitamin [Multi-Day Vitamins] 1 tab PO DAILY 02/03/17 [History] Omeprazole 20 mg PO DAILY 02/03/17 [History] Tiotropium [Spiriva] 18 mcg IH DAILY #2 inh 02/07/17 [Rx] BuPROPion SR (12 HR) [Wellbutrin SR] 200 mg PO BID 08/12/17 [History] Buspirone HCl [Buspar] 5 mg PO BID 08/12/17 [History] Ranitidine HCl [Zantac] 150 mg PO BID 08/12/17 [History] predniSONE [PredniSONE] 10 mg PO DAILY 08/12/17 [History] 3 Allergy/AdvReac Type Severity Reaction Status Date / Time No Known Allergies Allergy Verified 02/11/16 21:51 All Systems: A 10-system review of systems was performed and is negative for pertinent findings except as documented above in the HPI. Physical Examination Vital Signs: Vital Signs, Last 4 Hours Temp Pulse Resp BP Pulse Ox 08/12/17 11:24 78 14 85/67 100 08/12/17 11:05 14 91/60 98 08/12/17 10:37 75 14 90/54 98 08/12/17 09:29 98.5 F 90 14 91/51 98 08/12/17 09:00 14 97/65 100 08/12/17 08:35 14 98/62 Results - Laboratory Findings CBC and BMP: 08/12/17 08:02 08/12/17 08:02 ABG ABG pH 7.31 pH Units (7.32-7.45) L 08/12/17 09:44 ABG pCO2 83 mmHg (35-45) H* 08/12/17 09:44 ABG pO2 79 mmHg (85-104) L D 08/12/17 09:44 ABG O2 Saturation 93 % (95-98) L 08/12/17 09:44 PT/INR, D-dimer PT 9.9 Seconds (9.4-12.1) 08/12/17 08:02 Abnormal lab findings: Abnormal lab results WBC 18.3 K/mcL (4.3-11.1) H 08/12/17 08:02 RBC 3.32 M/mcL (4.19-5.50) L 08/12/17 08:02 Hgb 8.8 g/dL (12.9-16.9) L 08/12/17 08:02 Hct 32.0 % (37.5-50.1) L 08/12/17 08:02 MCH 26.5 pg (28.0-33.3) L 08/12/17 08:02 MCHC 27.5 g/dL (31.6-35.5) L 08/12/17 08:02 Neutrophils # 17.0 K/mcL (1.6-8.9) H 08/12/17 08:02 Lymphocytes # 0.2 K/mcL (0.6-4.6) L 08/12/17 08:02 Hypochromasia Present (Not Present) A 08/12/17 08:02 APTT 23.2 Seconds (26.0-36.0) L 08/12/17 08:02 ABG pH 7.31 pH Units (7.32-7.45) L 08/12/17 09:44 ABG pCO2 83 mmHg (35-45) H* 08/12/17 09:44 ABG pO2 79 mmHg (85-104) L D 08/12/17 09:44 ABG HCO3 42 mEq/L (21-27) H 08/12/17 09:44 ABG Total CO2 45 mEq/L (20-26) H 08/12/17 09:44 ABG O2 Saturation 93 % (95-98) L 08/12/17 09:44 ABG Base Excess 13 mEq/L (-2 to 3) H 08/12/17 09:44 Carbon Dioxide 37 mEq/L (19-29) H 08/12/17 08:02 Glucose 120 mg/dL (70-99) H 08/12/17 08:02 POC Glucose 120 (58-89) H 08/12/17 09:17 Calcium 8.3 mg/dL (8.6-10.8) L 08/12/17 08:02 Urine Protein 30 mg/dL (Neg-Trace) H 08/12/17 07:28 Ur Squamous Epith Cells Moderate per lpf (None-Few) H 08/12/17 07:28 - Attending Attestation I examined this patient and my medical decision-making was reviewed with the Resident Physician. I agree with the documented findings, disposition and treatment plan as described except to the extent set forth below. We independently had [id number] contact with the patient Patient seen and examined at bedside Labs, radiology, chart personally reviewed. Management was reviewed during multidisciplinary critical care rounds. Neuropsych: Sedated on vent off the sedation patient spontaneously moves all extremities and without focal neurological deficit continue to titrate sedation for coal Rubina score of 2-3 Pulm: Acute on chronic hypoxic hypercapnic respiratory failure secondary to AECOPD secondary to community acquired pneumonia. Continue bronchodilators continue IV steroids continue antimicrobials patient on ventilator except for oxygenation and ventilation on minimal vent support continue low tidal volume ventilatory strategy monitor daily for SBT. VAP prevention bundle given Cards: No evidence of myocardial ischemia on EKG or laboratory data FEN-GI: Nothing by mouth for now PPI prophylaxis given Renal: No evidence of AK I continue to monitor urine output and electrolytes along with daily serum creatinine he is at risk for acute kidney injury will monitor this closely ID: Suspected Sepsis s/t community acquired pneumonia antimicrobials been given respiratory infectious panel pending broad-spectrum cultures have been obtained de-escalate next 24-48 hours based upon Microdata and clinical course. Patient' s has received adequate volume resuscitation in the emergency department blood pressure stable lactate within normal limits Heme/Onc: DVT prophylaxis given. Endo: Glucose Monitored Integ/MSK: Skin Care per routine ICU Nursing Protocol to prevent ulcers. Lines: All lines examined without evidence of infection: Dispo: [facility] ICU for ventilator needs CODE: Full <Donna Clayton - Last Filed: 08/12/17 16:00> Date of Encounter: 08/12/17 Time of Encounter: 10:00 Assessment and Plan (1) Acute on chronic respiratory failure with hypoxia and hypercapnia Current visit: Yes Status: Acute Likely 2/2 to acute exacerbation of COPD, in background of CAB By definition, complicated COPD with Age > 65 and Hx cardiac disease Patient has a history of prior exacerbations, with hospitalization in January 2017 and previous note (02/12/16) indicating [facility] BAP-65 Score for AECOPD based on ED values: Class IV (GCS 8, Pulse 123 on admission, Age> 65), patient met criteria for consideration of ICU care Continue duoneb Continue albuterol PRN Continue Solumedrol 40 mg IVP q8, per GOLD guidelines for a duration of 5 days Patient on ventilator, will remain on ICU for ventilation needs (2) Community acquired pneumonia Current visit: No Status: Acute CAP likely contributing to patient's AECOPD, as respiratory infections trigger of majority of exacerbations Levofloxacin 750 mg IV once daily Respiratory Infectious Panel Pending Qualifiers: Laterality: right Lung location: lower lobe of lung Qualified Code(s): J18.1 - Lobar pneumonia, unspecified organism (3) DVT prophylaxis Current visit: No Status: Acute Patient on heparin SubQ (4) Full code status Current visit: Yes Status: Acute Reviewed palliative care note in January 2017 History of Present Illness Chief complaint: Acute Respiratory Failure with Hypoxia HPI: Mr. Ramires is a 72 year old male with a PMHx of COPD 2/2 via EMS for SOB. Patient was placed on non-rebreather then, CPAP which improved oxygenation status to mid 80s. Upon arrival, patient was unable to follow commands with a GCS of 8 and intubated upon arrival due to hypoxia and altered mental status. CT of Head demonstrated No acute intracranial abnormality. CXR demonstrated right basilar infiltrate with hyperinflation of lungs. CTA of chest demonstrated right lower lobe and right middle lobe pneumonia, with no evidence of pulmonary embolism. Past Med Surg Social Fam HX - Past Medical History Medical history: arthritis, atrial fibrillation, COPD Psychiatric history: anxiety - Past Surgical History Surgical History: other - Social History Smoking Status: Former smoker Smokeless Tobacco Status: No Alcohol use: none Drug use: none - Family History Mother Hx Family Respiratory Disorders: Yes (COPD: mother, father, brother. Brother: lung cancer.) ROS unobtainable: due to endotracheal tube, due to mental status All Systems: A 10-system review of systems was performed and is negative for pertinent findings except as documented above in the HPI. Physical Examination Vital Signs: Vital Signs, Last 4 Hours Temp Pulse Resp BP Pulse Ox 08/12/17 09:29 98.5 F 90 14 91/51 98 08/12/17 09:00 14 97/65 100 08/12/17 08:35 14 98/62 General appearance: no acute distress, alert (some discomfort on suctioning) ENT: other (endoctracheal tube in place, scant clear secretions on sunctioning) Auscultation: bilateral: diminished breath sounds Cardiovascular: regular rate and rhythm Gastrointestinal: soft, non-tender, non-distended unable to assess due to mental status Results - Laboratory Findings CBC and BMP: 08/12/17 08:02 08/12/17 08:02 ABG ABG pH 7.31 pH Units (7.32-7.45) L 08/12/17 09:44 ABG pCO2 83 mmHg (35-45) H* 08/12/17 09:44 ABG pO2 79 mmHg (85-104) L D 08/12/17 09:44 ABG O2 Saturation 93 % (95-98) L 08/12/17 09:44 PT/INR, D-dimer PT 9.9 Seconds (9.4-12.1) 08/12/17 08:02 Abnormal lab findings: Abnormal lab results WBC 18.3 K/mcL (4.3-11.1) H 08/12/17 08:02 RBC 3.32 M/mcL (4.19-5.50) L 08/12/17 08:02 Hgb 8.8 g/dL (12.9-16.9) L 08/12/17 08:02 Hct 32.0 % (37.5-50.1) L 08/12/17 08:02 MCH 26.5 pg (28.0-33.3) L 08/12/17 08:02 MCHC 27.5 g/dL (31.6-35.5) L 08/12/17 08:02 Neutrophils # 17.0 K/mcL (1.6-8.9) H 08/12/17 08:02 Lymphocytes # 0.2 K/mcL (0.6-4.6) L 08/12/17 08:02 Hypochromasia Present (Not Present) A 08/12/17 08:02 APTT 23.2 Seconds (26.0-36.0) L 08/12/17 08:02 ABG pH 7.31 pH Units (7.32-7.45) L 08/12/17 09:44 ABG pCO2 83 mmHg (35-45) H* 08/12/17 09:44 ABG pO2 79 mmHg (85-104) L D 08/12/17 09:44 ABG HCO3 42 mEq/L (21-27) H 08/12/17 09:44 ABG Total CO2 45 mEq/L (20-26) H 08/12/17 09:44 ABG O2 Saturation 93 % (95-98) L 08/12/17 09:44 ABG Base Excess 13 mEq/L (-2 to 3) H 08/12/17 09:44 Carbon Dioxide 37 mEq/L (19-29) H 08/12/17 08:02 Glucose 120 mg/dL (70-99) H 08/12/17 08:02 POC Glucose 120 (58-89) H 08/12/17 09:17 Lactic Acid 2.4 mmol/L (0.5-2.2) H 08/12/17 08:02 Calcium 8.3 mg/dL (8.6-10.8) L 08/12/17 08:02 Urine Protein 30 mg/dL (Neg-Trace) H 08/12/17 07:28 Ur Squamous Epith Cells Moderate per lpf (None-Few) H 08/12/17 07:28
[2017-08-12] MEDS: FentaNYL (PF) 1,000 MCG in 0.9 % Sodium Chloride 80 ML IVC SCH (10:44)
[2017-08-12] MEDS ORDERED: Albuterol 2.5 MG/3 ML NEBULIZER IH PRN (10:49)
[2017-08-12] MEDS: Ipratropium/Albuterol Neb 3 ML IH SCH ×3 (11:05→19:55)
[2017-08-12] MEDS: MethylPREDNISolone 40 MG/ML VIAL IVP SCH (15:25)
[2017-08-12] MEDS: *HR* Heparin 5,000 UNIT/ML VIAL SQ SCH ×2 (15:25→21:03)
[2017-08-13] MEDS ORDERED: FentaNYL (PF) 1,000 MCG in 0.9 % Sodium Chloride 80 ML IVC SCH (00:30)
[2017-08-13] MEDS: Ipratropium/Albuterol Neb 3 ML IH SCH ×6 (00:31→20:07)
[2017-08-13] MEDS: MethylPREDNISolone 40 MG/ML VIAL IVP SCH ×4 (01:33→16:35)
[2017-08-13 03:45] LABS: Basophils % 0.1 %; Hematocrit 30.7 % (37.5-50.1); Mean Corpuscular Volume 94.2 fL (83.0-100.0); Red Blood Count 3.26 M/mcL (4.19-5.50); Red Cell Distribution Width 14.4 % (11.5-14.5)
[2017-08-13 03:47] LABS: Hemoglobin 8.6 g/dL (12.9-16.9); Immature Granulocytes % 0.7 % (0-4); Lymphocytes # 0.3 K/mcL (0.6-4.6); Lymphocytes % 1.3 %; Mean Corpuscular Hemoglobin 26.4 pg (28.0-33.3); Mean Platelet Volume 10.9 fL (9.4-12.4); Monocytes # 0.8 K/mcL (0.0-1.3); Monocytes % 3.4 %; Platelet Count 225 K/mcL (140-400); Segmented Neutrophils % 94.5 %
[2017-08-13 03:50] LABS: INR 1.1; Prothrombin Time 11.8 Seconds (9.4-12.1)
[2017-08-13 03:51] LABS: Ionized Calcium 1.04 mmol/L (1.15-1.35)
[2017-08-13 03:53] LABS: Activated Partial Thrombo Time 25.4 Seconds (26.0-36.0); Neutrophils # 23.2 K/mcL (1.6-8.9)
[2017-08-13 04:01] LABS: BUN/Creatinine Ratio 20 (6-26); Blood Urea Nitrogen 13 mg/dL (8-26); Calcium 8.6 mg/dL (8.6-10.8); Carbon Dioxide 33 mEq/L (19-29); Chloride 98 mEq/L (98-109); Glucose 125 mg/dL (70-99); Osmolality,Calculated 290 (280-300); Potassium 4.1 mEq/L (3.5-4.5); Sodium 139 mEq/L (136-145); eGFR For African Americans > 60 (> 60); eGFR For Non-African Americans > 60 (> 60)
[2017-08-13] MEDS: FentaNYL (PF) 1,000 MCG in 0.9 % Sodium Chloride 80 ML IVC SCH (04:16)
[2017-08-13 04:18] LABS: Hypochromasia Present (Not Present); Platelet Estimate Normal (Normal)
[2017-08-13 04:45] LABS: ABG Base Excess 12 mEq/L (-2 to 3); ABG HCO3 38 mEq/L (21-27); ABG Oxygen Saturation 97 % (95-98); ABG PCO2 58 mmHg (35-45); ABG PH 7.42 pH Units (7.32-7.45); ABG PO2 97 mmHg (85-104); ABG TCO2 39 mEq/L (20-26); Blood Gas Modality ASSIST CONTROL; Blood Gas PEEP 5 cm H2O; Blood Gas Respiration Rate 14; Blood Gas VT 450 cc
[2017-08-13] MEDS: *HR* Heparin 5,000 UNIT/ML VIAL SQ SCH ×2 (05:50→13:18)
--- NOTE | 2017-08-13 09:25 | Pulmonology Progress Note ---
<YanelisRajatTesfaye W - Last Filed: 08/13/17 10:22> Date of Encounter: 08/13/17 Objective PUL Vital signs: Last Vital Signs Temp 98.3 F 08/13/17 08:00 Pulse 95 08/13/17 09:00 Resp 14 08/13/17 09:32 BP 138/71 08/13/17 09:00 Pulse Ox 94 08/13/17 09:32 Ventilator Settings Ventilator Settings: Ventilator Settings, Last 8 Hours Ventilator Mode CPAP Ventilator Mode CPAP Ventilator Mode CPAP Ventilator Mode VC+ Ventilator Mode VC+ Ventilator Mode VC+ Ventilator Mode VC+ Ventilator Mode VC+ Ventilator Mode VC+ Ventilator Tidal Volume 450 Setting Ventilator Tidal Volume 450 Setting Ventilator Tidal Volume 450 Setting Ventilator Tidal Volume 450 Setting Ventilator Tidal Volume 450 Setting Ventilator Tidal Volume 450 Setting Ventilator Respiratory Rate 14 Setting Ventilator Respiratory Rate 14 Setting Ventilator Respiratory Rate 14 Setting Ventilator Respiratory Rate 14 Setting Ventilator Respiratory Rate 14 Setting Ventilator Respiratory Rate 14 Setting Actual Respiratory Rate 13 Actual Respiratory Rate 12 Actual Respiratory Rate 16 Actual Respiratory Rate 16 Actual Respiratory Rate 16 Positive End Expiratory 5 Pressure Positive End Expiratory 5 Pressure Positive End Expiratory 5 Pressure Positive End Expiratory 5 Pressure Positive End Expiratory 5 Pressure Positive End Expiratory 5 Pressure Positive End Expiratory 5 Pressure Positive End Expiratory 5 Pressure Peak Inspiratory Airway 11 Pressure Peak Inspiratory Airway 11 Pressure Peak Inspiratory Airway 21 Pressure Peak Inspiratory Airway 21 Pressure Peak Inspiratory Airway 20 Pressure Peak Inspiratory Airway 17 Pressure Peak Inspiratory Airway 20 Pressure Results - Laboratory Findings CBC and BMP: 08/13/17 03:08 08/13/17 03:08 ABG ABG pH 7.42 pH Units (7.32-7.45) 08/13/17 04:41 ABG pCO2 58 mmHg (35-45) H 08/13/17 04:41 ABG pO2 97 mmHg (85-104) 08/13/17 04:41 ABG O2 Saturation 97 % (95-98) 08/13/17 04:41 PT/INR, D-dimer PT 11.8 Seconds (9.4-12.1) 08/13/17 03:08 Abnormal lab findings: Abnormal lab results WBC 24.5 K/mcL (4.3-11.1) H 08/13/17 03:08 RBC 3.26 M/mcL (4.19-5.50) L 08/13/17 03:08 Hgb 8.6 g/dL (12.9-16.9) L 08/13/17 03:08 Hct 30.7 % (37.5-50.1) L 08/13/17 03:08 MCH 26.4 pg (28.0-33.3) L 08/13/17 03:08 MCHC 28.0 g/dL (31.6-35.5) L 08/13/17 03:08 Neutrophils # 23.2 K/mcL (1.6-8.9) H 08/13/17 03:08 Lymphocytes # 0.3 K/mcL (0.6-4.6) L 08/13/17 03:08 Hypochromasia Present (Not Present) A 08/13/17 03:08 APTT 25.4 Seconds (26.0-36.0) L 08/13/17 03:08 ABG pCO2 58 mmHg (35-45) H 08/13/17 04:41 ABG HCO3 38 mEq/L (21-27) H 08/13/17 04:41 ABG Total CO2 39 mEq/L (20-26) H 08/13/17 04:41 ABG Base Excess 12 mEq/L (-2 to 3) H 08/13/17 04:41 Carbon Dioxide 33 mEq/L (19-29) H 08/13/17 03:08 Creatinine 0.66 mg/dL (0.72-1.25) L 08/13/17 03:08 Glucose 125 mg/dL (70-99) H 08/13/17 03:08 POC Glucose 133 (58-89) H 08/12/17 23:40 Ionized Calcium 1.04 mmol/L (1.15-1.35) L 08/13/17 03:08 Urine Protein 30 mg/dL (Neg-Trace) H 08/12/17 07:28 Ur Squamous Epith Cells Moderate per lpf (None-Few) H 08/12/17 07:28 - Clinical Findings Intake & Output: Intake & Output 08/12/17 08/13/17 08/13/17 23:59 07:59 15:59 Intake Total 160 / 160 Output Total 475 / 475 450 / 450 Balance -455 / -455 -290 / -290 Weight 67.1 kg Consult Discharge Plan - Plan [facility]Primary Care Provider[facility] - - Attending Attestation I examined this patient and my medical decision-making was reviewed with the Resident Physician. I agree with the documented findings, disposition and treatment plan as described except to the extent set forth below. We independently had [id number] contact with the patient Patient seen and examined at bedside Labs, radiology, chart personally reviewed. Management was reviewed during multidisciplinary critical care rounds. Neuropsych: awake and alert cont to follow clinically Pulm: Acute on chronic hypoxic hypercapnic respiratory failure secondary to AECOPD secondary to community acquired pneumonia. liberated from vent doing well cont steroids/BDs/ wean fio2 to keep o2 sat >88% Cards: No evidence of myocardial ischemia on EKG or laboratory data FEN-GI: ADAT Renal: No evidence of AK I continue to monitor urine output and electrolytes along with daily serum creatinine he is at risk for acute kidney injury will monitor this closely. Remove [place] Catheter ID: Suspected Sepsis s/t community acquired pneumonia antimicrobials been given with plan to deescalate. RIP panel pending Heme/Onc: DVT prophylaxis given. Endo: Glucose Monitored Integ/MSK: Skin Care per routine ICU Nursing Protocol to prevent ulcers. Lines: All lines examined without evidence of infection: Dispo: monitor in ICU post extubation CODE: Full <Jorge Zabala - Last Filed: 08/13/17 11:30> Date of Encounter: 08/13/17 Time of Encounter: 09:22 Assessment and Plan (1) Acute and chronic respiratory failure ([id number]) Current Visit: No Status: Acute Acute respiratory failure is resolved at this time. Patient is extubated and has adequate ventilation and oxygenation on his home 3 L nasal cannula. Likely related to acute exacerbation of COPD in the setting of pneumonia. Continue treatment as below. Qualifiers: Respiratory failure complication: hypercapnia Qualified Code(s): J96.22 - Acute and chronic respiratory failure with hypercapnia (2) Pneumonia Current Visit: Yes Status: Acute Concern for community-acquired pneumonia. Likely relating the patient's declining respiratory status as discussed above. Continue Levaquin 750 mg daily. Qualifiers: Pneumonia type: due to unspecified organism Laterality: unspecified laterality Lung location: unspecified part of lung Qualified Code(s): J18.9 - Pneumonia, unspecified organism (3) Acute exacerbation of chronic obstructive airways disease Current Visit: No Status: Acute Likely related to pneumonia as discussed above. Continue scheduled breathing treatments, IV steroids. Likely transition to by mouth steroids tomorrow. We will restart Symbicort. Subjective Principal diagnosis: Respiratory failure Interval history: Patient seen and examined at bedside. Patient states that he feels much better today. He is extubated this morning without difficulty. He denies chest pain, shortness of breath, cough, congestion. Objective PUL Vital signs: Last Vital Signs Temp 98.3 F 08/13/17 08:00 Pulse 95 08/13/17 09:00 Resp 22 08/13/17 09:00 BP 138/71 08/13/17 09:00 Pulse Ox 93 08/13/17 09:00 General appearance: no acute distress ENT: oropharynx moist Effort: normal Auscultation: bilateral: diminished breath sounds Cardiovascular: regular rate and rhythm Gastrointestinal: normoactive bowel sounds, soft, non-tender, non-distended Extremities: no cyanosis, no edema, no clubbing normal mental status, non-focal exam Ventilator Settings Ventilator Settings: Ventilator Settings, Last 8 Hours Ventilator Mode CPAP Ventilator Mode CPAP Ventilator Mode CPAP Ventilator Mode VC+ Ventilator Mode VC+ Ventilator Mode VC+ Ventilator Mode VC+ Ventilator Mode VC+ Ventilator Mode VC+ Ventilator Mode VC+ Ventilator Tidal Volume 450 Setting Ventilator Tidal Volume 450 Setting Ventilator Tidal Volume 450 Setting Ventilator Tidal Volume 450 Setting Ventilator Tidal Volume 450 Setting Ventilator Tidal Volume 450 Setting Ventilator Tidal Volume 450 Setting Ventilator Respiratory Rate 14 Setting Ventilator Respiratory Rate 14 Setting Ventilator Respiratory Rate 14 Setting Ventilator Respiratory Rate 14 Setting Ventilator Respiratory Rate 14 Setting Ventilator Respiratory Rate 14 Setting Ventilator Respiratory Rate 14 Setting Actual Respiratory Rate 13 Actual Respiratory Rate 12 Actual Respiratory Rate 16 Actual Respiratory Rate 16 Actual Respiratory Rate 16 Actual Respiratory Rate 16 Positive End Expiratory 5 Pressure Positive End Expiratory 5 Pressure Positive End Expiratory 5 Pressure Positive End Expiratory 5 Pressure Positive End Expiratory 5 Pressure Positive End Expiratory 5 Pressure Positive End Expiratory 5 Pressure Positive End Expiratory 5 Pressure Positive End Expiratory 5 Pressure Peak Inspiratory Airway 11 Pressure Peak Inspiratory Airway 11 Pressure Peak Inspiratory Airway 21 Pressure Peak Inspiratory Airway 21 Pressure Peak Inspiratory Airway 20 Pressure Peak Inspiratory Airway 17 Pressure Peak Inspiratory Airway 20 Pressure Peak Inspiratory Airway 22 Pressure Results - Laboratory Findings CBC and BMP: 08/13/17 03:08 08/13/17 03:08 ABG ABG pH 7.42 pH Units (7.32-7.45) 08/13/17 04:41 ABG pCO2 58 mmHg (35-45) H 08/13/17 04:41 ABG pO2 97 mmHg (85-104) 08/13/17 04:41 ABG O2 Saturation 97 % (95-98) 08/13/17 04:41 PT/INR, D-dimer PT 11.8 Seconds (9.4-12.1) 08/13/17 03:08 Abnormal lab findings: Abnormal lab results WBC 24.5 K/mcL (4.3-11.1) H 08/13/17 03:08 RBC 3.26 M/mcL (4.19-5.50) L 08/13/17 03:08 Hgb 8.6 g/dL (12.9-16.9) L 08/13/17 03:08 Hct 30.7 % (37.5-50.1) L 08/13/17 03:08 MCH 26.4 pg (28.0-33.3) L 08/13/17 03:08 MCHC 28.0 g/dL (31.6-35.5) L 08/13/17 03:08 Neutrophils # 23.2 K/mcL (1.6-8.9) H 08/13/17 03:08 Lymphocytes # 0.3 K/mcL (0.6-4.6) L 08/13/17 03:08 Hypochromasia Present (Not Present) A 08/13/17 03:08 APTT 25.4 Seconds (26.0-36.0) L 08/13/17 03:08 ABG pCO2 58 mmHg (35-45) H 08/13/17 04:41 ABG HCO3 38 mEq/L (21-27) H 08/13/17 04:41 ABG Total CO2 39 mEq/L (20-26) H 08/13/17 04:41 ABG Base Excess 12 mEq/L (-2 to 3) H 08/13/17 04:41 Carbon Dioxide 33 mEq/L (19-29) H 08/13/17 03:08 Creatinine 0.66 mg/dL (0.72-1.25) L 08/13/17 03:08 Glucose 125 mg/dL (70-99) H 08/13/17 03:08 POC Glucose 133 (58-89) H 08/12/17 23:40 Ionized Calcium 1.04 mmol/L (1.15-1.35) L 08/13/17 03:08 Urine Protein 30 mg/dL (Neg-Trace) H 08/12/17 07:28 Ur Squamous Epith Cells Moderate per lpf (None-Few) H 08/12/17 07:28 - Clinical Findings Intake & Output: Intake & Output 08/12/17 08/13/17 08/13/17 23:59 07:59 15:59 Intake Total 20 / 20 160 / 160 Output Total 475 / 475 450 / 450 Balance -455 / -455 -290 / -290 Weight 67.1 kg
[2017-08-13] MEDS ORDERED: LEVOFLOXACIN 750 MG/150 ML IVPB SCH (09:30)
[2017-08-13] MEDS ORDERED: Baclofen 10 MG TABLET PO PRN (11:18)
[2017-08-13] MEDS ORDERED: *HR* HYDROcodone/Acet 5/325 mg TABLET PO PRN (11:18)
[2017-08-13] MEDS ORDERED: *HR* LORazepam 0.5 MG TABLET PO PRN (11:18)
[2017-08-13] MEDS ORDERED: Acetaminophen 325 MG TABLET PO PRN ×2 (11:20→15:16)
[2017-08-13] MEDS ORDERED: *HR* Morphine 2 MG/ML SYRINGE IVP PRN ×2 (12:27→15:16)
[2017-08-13 12:44] LABS: Adenovirus Not Detected (Not Detect); Bordetella Pertussis Not Detected (Not Detect); Chlamydophila pneumoniae Not Detected (Not Detect); Coronavirus 229E Not Detected (Not Detect); Coronavirus HKU1 Not Detected (Not Detect); Coronavirus NL63 Not Detected (Not Detect); Coronavirus OC43 Not Detected (Not Detect); Human Metapneumovirus Not Detected (Not Detect); Human Rhinovirus/Enterovirus Not Detected (Not Detect); Influenza A Subtype 2009 H1 Not Detected (Not Detect); Influenza A Untypeable Not Detected (Not Detect); Influenza B Not Detected (Not Detect); Mycoplasma pneumoniae Not Detected (Not Detect); Parainfluenza Virus 1 Not Detected (Not Detect); Parainfluenza Virus 2 Not Detected (Not Detect); Parainfluenza Virus 3 Not Detected (Not Detect); Parainfluenza Virus 4 Not Detected (Not Detect); Respiratory Syncytial Virus Not Detected (Not Detect)
[2017-08-13] MEDS ORDERED: Gabapentin 300 MG CAPSULE PO SCH (15:00)
--- NOTE | 2017-08-13 16:52 | Electrocardiograph Report ---
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
[2017-08-13] MEDS: Gabapentin 300 MG CAPSULE PO SCH (19:54)
[2017-08-13] MEDS: BuPROPion SR (12 HR) 100 MG TABLET PO SCH (19:54)
[2017-08-13] MEDS: Budesonide/Formoterol 160/4.5 MDI IH SCH (20:14)
[2017-08-13] MEDS ORDERED: BuPROPion SR (12 HR) 100 MG TABLET PO SCH (21:00)
[2017-08-13] MEDS ORDERED: Budesonide/Formoterol 160/4.5 MDI IH SCH (22:00)
[2017-08-14] MEDS: Ipratropium/Albuterol Neb 3 ML IH SCH ×7 (00:14→23:53)
[2017-08-14] MEDS: MethylPREDNISolone 40 MG/ML VIAL IVP SCH ×2 (00:17→10:05)
[2017-08-14] MEDS: *HR* Heparin 5,000 UNIT/ML VIAL SQ SCH ×4 (00:17→20:53)
[2017-08-14] MEDS: *HR* LORazepam 0.5 MG TABLET PO PRN ×3 (00:21→20:52)
[2017-08-14] MEDS: Baclofen 10 MG TABLET PO PRN ×2 (00:21→20:52)
[2017-08-14 07:03] LABS: Immature Granulocytes % 0.5 % (0-4); Lymphocytes % 1.1 %
[2017-08-14 07:04] LABS: Hematocrit 29.5 % (37.5-50.1); Hemoglobin 8.5 g/dL (12.9-16.9); Mean Corpuscular HGB Conc 28.8 g/dL (31.6-35.5); Mean Corpuscular Hemoglobin 26.2 pg (28.0-33.3); Monocytes # 0.4 K/mcL (0.0-1.3); Monocytes % 2.6 %; Platelet Count 230 K/mcL (140-400); Red Blood Count 3.24 M/mcL (4.19-5.50); Red Cell Distribution Width 14.5 % (11.5-14.5); Segmented Neutrophils % 95.8 %
[2017-08-14 07:07] LABS: Prothrombin Time 10.6 Seconds (9.4-12.1)
[2017-08-14 07:15] LABS: BUN/Creatinine Ratio 21 (6-26); Blood Urea Nitrogen 13 mg/dL (8-26); Calcium 8.8 mg/dL (8.6-10.8); Carbon Dioxide 36 mEq/L (19-29); Chloride 102 mEq/L (98-109); Glucose 129 mg/dL (70-99); Osmolality,Calculated 300 (280-300); Potassium 4.3 mEq/L (3.5-4.5); Sodium 144 mEq/L (136-145); eGFR For African Americans > 60 (> 60); eGFR For Non-African Americans > 60 (> 60)
[2017-08-14 08:18] LABS: Lymphocytes # 0.2 K/mcL (0.6-4.6); Neutrophils # 12.7 K/mcL (1.6-8.9)
--- NOTE | 2017-08-14 08:19 | Pulmonology Progress Note ---
<SagrarioJorge Haydee - Last Filed: 08/14/17 08:51> Date of Encounter: 08/14/17 Time of Encounter: 08:16 Assessment and Plan (1) Acute and chronic respiratory failure ([id number]) Current Visit: No Status: Acute Acute respiratory failure is resolved at this time. Patient was extubated yesterday and has adequate ventilation and oxygenation on his home 3 L nasal cannula. Likely related to acute exacerbation of COPD in the setting of pneumonia. Continue treatment as below. Qualifiers: Respiratory failure complication: hypercapnia Qualified Code(s): J96.22 - Acute and chronic respiratory failure with hypercapnia (2) Pneumonia Current Visit: Yes Status: Acute Concern for community-acquired pneumonia. Likely relating the patient's declining respiratory status as discussed above. Continue Levaquin 750 mg daily. If cultures come back negative, will discontinue antibiotics Qualifiers: Pneumonia type: due to unspecified organism Laterality: unspecified laterality Lung location: unspecified part of lung Qualified Code(s): J18.9 - Pneumonia, unspecified organism (3) Acute exacerbation of chronic obstructive airways disease Current Visit: No Status: Acute Likely related to pneumonia as discussed above. Continue scheduled breathing treatments, IV steroids. Transition to by mouth steroids today. We will restart Symbicort. Subjective Principal diagnosis: Respiratory failure Interval history: Patient seen and examined at bedside. Patient states he continues to feel much better today. He was extubated yesterday. He denies chest pain, shortness of breath, cough, congestion. Objective PUL Vital signs: Last Vital Signs Temp 98.1 F 08/14/17 04:00 Pulse 87 08/14/17 04:00 Resp 12 08/14/17 04:00 BP 133/88 08/14/17 04:00 Pulse Ox 95 08/14/17 04:00 General appearance: no acute distress ENT: oropharynx moist Effort: normal Auscultation: bilateral: clear Cardiovascular: regular rate and rhythm Gastrointestinal: normoactive bowel sounds, soft, non-tender, non-distended Extremities: no cyanosis, no edema, no clubbing normal mental status, non-focal exam Results - Laboratory Findings CBC and BMP: 08/14/17 06:45 08/14/17 06:45 ABG ABG pH 7.42 pH Units (7.32-7.45) 08/13/17 04:41 ABG pCO2 58 mmHg (35-45) H 08/13/17 04:41 ABG pO2 97 mmHg (85-104) 08/13/17 04:41 ABG O2 Saturation 97 % (95-98) 08/13/17 04:41 PT/INR, D-dimer PT 10.6 Seconds (9.4-12.1) 08/14/17 06:45 Abnormal lab findings: Abnormal lab results WBC 24.5 K/mcL (4.3-11.1) H 08/13/17 03:08 RBC 3.26 M/mcL (4.19-5.50) L 08/13/17 03:08 Hgb 8.6 g/dL (12.9-16.9) L 08/13/17 03:08 Hct 30.7 % (37.5-50.1) L 08/13/17 03:08 MCH 26.4 pg (28.0-33.3) L 08/13/17 03:08 MCHC 28.0 g/dL (31.6-35.5) L 08/13/17 03:08 Neutrophils # 23.2 K/mcL (1.6-8.9) H 08/13/17 03:08 Lymphocytes # 0.3 K/mcL (0.6-4.6) L 08/13/17 03:08 Hypochromasia Present (Not Present) A 08/13/17 03:08 APTT 25.4 Seconds (26.0-36.0) L 08/13/17 03:08 ABG pCO2 58 mmHg (35-45) H 08/13/17 04:41 ABG HCO3 38 mEq/L (21-27) H 08/13/17 04:41 ABG Total CO2 39 mEq/L (20-26) H 08/13/17 04:41 ABG Base Excess 12 mEq/L (-2 to 3) H 08/13/17 04:41 Carbon Dioxide 36 mEq/L (19-29) H 08/14/17 06:45 Creatinine 0.62 mg/dL (0.72-1.25) L 08/14/17 06:45 Glucose 129 mg/dL (70-99) H 08/14/17 06:45 POC Glucose 124 (58-89) H 08/14/17 07:57 Ionized Calcium 1.04 mmol/L (1.15-1.35) L 08/13/17 03:08 Urine Protein 30 mg/dL (Neg-Trace) H 08/12/17 07:28 Ur Squamous Epith Cells Moderate per lpf (None-Few) H 08/12/17 07:28 - Microbiology Findings Microbiology Findings: Microbiology, Last 48 Hours 08/13/17 10:40 Sputum Culture - Preliminary Sputum - Clinical Findings Intake & Output: Intake & Output 08/13/17 08/14/17 08/14/17 23:59 07:59 15:59 Intake Total 360 / 360 360 / 360 Output Total 150 / 150 800 / 800 Balance 210 / 210 -440 / -440 Weight 63.5 kg Consult Discharge Plan - Plan [facility] Care Provider[facility] - <Tesfaye Hilario W - Last Filed: 08/14/17 12:45> Date of Encounter: 08/14/17 Objective PUL Vital signs: Last Vital Signs Temp 99.6 F 08/14/17 12:00 Pulse 81 08/14/17 12:00 Resp 18 08/14/17 12:00 BP 153/84 08/14/17 12:00 Pulse Ox 97 08/14/17 12:00 Results - Laboratory Findings CBC and BMP: 08/14/17 06:45 08/14/17 06:45 ABG ABG pH 7.42 pH Units (7.32-7.45) 08/13/17 04:41 ABG pCO2 58 mmHg (35-45) H 08/13/17 04:41 ABG pO2 97 mmHg (85-104) 08/13/17 04:41 ABG O2 Saturation 97 % (95-98) 08/13/17 04:41 PT/INR, D-dimer PT 10.6 Seconds (9.4-12.1) 08/14/17 06:45 Abnormal lab findings: Abnormal lab results WBC 13.3 K/mcL (4.3-11.1) H 08/14/17 06:45 RBC 3.24 M/mcL (4.19-5.50) L 08/14/17 06:45 Hgb 8.5 g/dL (12.9-16.9) L 08/14/17 06:45 Hct 29.5 % (37.5-50.1) L 08/14/17 06:45 MCH 26.2 pg (28.0-33.3) L 08/14/17 06:45 MCHC 28.8 g/dL (31.6-35.5) L 08/14/17 06:45 Neutrophils # 12.7 K/mcL (1.6-8.9) H 08/14/17 06:45 Lymphocytes # 0.2 K/mcL (0.6-4.6) L 08/14/17 06:45 Hypochromasia Present (Not Present) A 08/14/17 06:45 APTT 25.4 Seconds (26.0-36.0) L 08/13/17 03:08 ABG pCO2 58 mmHg (35-45) H 08/13/17 04:41 ABG HCO3 38 mEq/L (21-27) H 08/13/17 04:41 ABG Total CO2 39 mEq/L (20-26) H 08/13/17 04:41 ABG Base Excess 12 mEq/L (-2 to 3) H 08/13/17 04:41 Carbon Dioxide 36 mEq/L (19-29) H 08/14/17 06:45 Creatinine 0.62 mg/dL (0.72-1.25) L 08/14/17 06:45 Glucose 129 mg/dL (70-99) H 08/14/17 06:45 POC Glucose 110 (58-89) H 08/14/17 11:14 Ionized Calcium 1.04 mmol/L (1.15-1.35) L 08/13/17 03:08 Urine Protein 30 mg/dL (Neg-Trace) H 08/12/17 07:28 Ur Squamous Epith Cells Moderate per lpf (None-Few) H 08/12/17 07:28 - Microbiology Findings Microbiology Findings: Microbiology, Last 48 Hours 08/13/17 10:40 Sputum Culture - Preliminary Sputum - Clinical Findings Intake & Output: Intake & Output 08/13/17 08/14/17 08/14/17 23:59 07:59 15:59 Intake Total 360 / 360 360 / 360 240 / 240 Output Total 150 / 150 1050 / 1050 250 / 250 Balance 210 / 210 -690 / -690 -10 / -10 Weight 63.5 kg - Attending Attestation I examined this patient and my medical decision-making was reviewed with the Resident Physician. I agree with the documented findings, disposition and treatment plan as described except to the extent set forth below. We independently had [id number] contact with the patient Patient seen and examined at bedside Labs, radiology, chart personally reviewed. Management was reviewed during multidisciplinary critical care rounds. MANAGER CARGO: Awake and alert continue to monitor Pulm: Acute on chronic hypoxic hypercarbic respiratory failure secondary to COPD exacerbation from acute pneumonia wean to nasal cannula BiPAP as needed for work of breathing continue steroids continue bronchodilators continue antimicrobials for pneumonia with outpatient pulmonary follow-up Cards: Blood pressure stable heart rate stable continue to monitor FEN-GI: Advance diet as tolerated Renal: Acceptable urine output remove Banegas catheter ID: Continue to treat for community-acquired pneumonia 7 days Heme/Onc: DVT prophylaxis given Endo: Glucose Monitored Integ/MSK: Skin Care per routine ICU Nursing Protocol to prevent ulcers. Lines: All lines examined without evidence of infection : [facility] CODE: Full
[2017-08-14 08:22] LABS: Hypochromasia Present (Not Present); Platelet Estimate Normal (Normal)
[2017-08-14] MEDS: Levofloxacin 750 MG/150 ML 750 MG/150 ML BAG IVPB SCH (09:06)
[2017-08-14] MEDS: BuPROPion SR (12 HR) 100 MG TABLET PO SCH ×2 (09:07→20:52)
[2017-08-14] MEDS: predniSONE 20 MG TABLET PO SCH (09:07)
[2017-08-14] MEDS: Gabapentin 300 MG CAPSULE PO SCH ×3 (09:08→20:52)
[2017-08-14] MEDS: *HR* HYDROcodone/Acet 5/325 mg TABLET PO PRN ×2 (09:10→20:52)
[2017-08-14] MEDS: Budesonide/Formoterol 160/4.5 MDI IH SCH ×2 (10:55→20:23)
[2017-08-15] MEDS: Ipratropium/Albuterol Neb 3 ML IH SCH ×6 (04:13→23:52)
[2017-08-15 04:36] LABS: Prothrombin Time 10.6 Seconds (9.4-12.1)
[2017-08-15 04:45] LABS: Basophils % 0.1 %; Hemoglobin 8.5 g/dL (12.9-16.9); Immature Granulocytes % 0.4 % (0-4)
[2017-08-15 04:46] LABS: BUN/Creatinine Ratio 27 (6-26); Blood Urea Nitrogen 17 mg/dL (8-26); Calcium 8.6 mg/dL (8.6-10.8); Carbon Dioxide 36 mEq/L (19-29); Chloride 104 mEq/L (98-109); Glucose 98 mg/dL (70-99); Osmolality,Calculated 300 (280-300); Potassium 3.9 mEq/L (3.5-4.5); Sodium 144 mEq/L (136-145); eGFR For African Americans > 60 (> 60); eGFR For Non-African Americans > 60 (> 60)
[2017-08-15 04:47] LABS: Hematocrit 29.4 % (37.5-50.1); Lymphocytes # 0.7 K/mcL (0.6-4.6); Lymphocytes % 5.2 %; Mean Corpuscular HGB Conc 28.9 g/dL (31.6-35.5); Mean Corpuscular Hemoglobin 26.3 pg (28.0-33.3); Mean Platelet Volume 10.9 fL (9.4-12.4); Monocytes # 1.1 K/mcL (0.0-1.3); Monocytes % 7.8 %; Neutrophils # 12.2 K/mcL (1.6-8.9); Platelet Count 272 K/mcL (140-400); Red Blood Count 3.23 M/mcL (4.19-5.50); Red Cell Distribution Width 14.6 % (11.5-14.5); Segmented Neutrophils % 86.5 %
[2017-08-15] MEDS: *HR* Heparin 5,000 UNIT/ML VIAL SQ SCH ×3 (05:36→20:43)
[2017-08-15 05:46] LABS: Hypochromasia Present (Not Present); Platelet Estimate Normal (Normal)
[2017-08-15] MEDS: BuPROPion SR (12 HR) 100 MG TABLET PO SCH ×2 (07:27→20:42)
[2017-08-15] MEDS: *HR* HYDROcodone/Acet 5/325 mg TABLET PO PRN ×3 (07:29→20:44)
[2017-08-15] MEDS: Gabapentin 300 MG CAPSULE PO SCH ×3 (07:29→20:42)
[2017-08-15] MEDS: Levofloxacin 750 MG/150 ML 750 MG/150 ML BAG IVPB SCH (07:31)
[2017-08-15] MEDS: Budesonide/Formoterol 160/4.5 MDI IH SCH ×2 (07:42→20:14)
[2017-08-15] MEDS: predniSONE 20 MG TABLET PO SCH (08:11)
--- NOTE | 2017-08-15 08:48 | Pulmonology Progress Note ---
<Jorge Zabala - Last Filed: 08/15/17 08:45> Date of Encounter: 08/15/17 Time of Encounter: 08:46 Assessment and Plan (1) Acute and chronic respiratory failure ([id number]) Current Visit: No Status: Acute Acute respiratory failure is resolved at this time. Patient was extubated 2 days ago and has adequate ventilation and oxygenation on his home 3 L nasal cannula. Likely related to acute exacerbation of COPD in the setting of pneumonia. Continue treatment as below. We got the patient up and walked around the unit and his oxygen saturation dropped and his heart rate became elevated. She is not ready for discharge at this time, we will consult PT/OT Qualifiers: Respiratory failure complication: hypercapnia Qualified Code(s): J96.22 - Acute and chronic respiratory failure with hypercapnia (2) Pneumonia Current Visit: Yes Status: Acute Concern for community-acquired pneumonia. Likely relating the patient's declining respiratory status as discussed above. Continue Levaquin 750 mg daily for 10-14 days Qualifiers: Pneumonia type: due to unspecified organism Laterality: unspecified laterality Lung location: unspecified part of lung Qualified Code(s): J18.9 - Pneumonia, unspecified organism (3) Acute exacerbation of chronic obstructive airways disease Current Visit: No Status: Acute Likely related to pneumonia as discussed above. Continue scheduled breathing treatments, IV steroids. Transition to by mouth steroids today. We will restart Symbicort. Subjective Principal diagnosis: Respiratory failure Interval history: Patient seen and examined at bedside. Patient states he continues to feel much better. He denies chest pain, shortness of breath, cough, congestion. Objective PUL Vital signs: Last Vital Signs Temp 98.5 F 08/15/17 07:41 Pulse 88 08/15/17 07:30 Resp 20 08/15/17 07:44 BP 137/76 08/15/17 07:00 Pulse Ox 90 08/15/17 07:44 General appearance: no acute distress ENT: oropharynx moist Effort: normal Auscultation: bilateral: diminished breath sounds Cardiovascular: regular rate and rhythm Gastrointestinal: normoactive bowel sounds, soft, non-tender Extremities: no cyanosis, no edema, no clubbing normal mental status, non-focal exam Results - Laboratory Findings CBC and BMP: 08/15/17 04:21 08/15/17 04:21 ABG ABG pH 7.42 pH Units (7.32-7.45) 08/13/17 04:41 ABG pCO2 58 mmHg (35-45) H 08/13/17 04:41 ABG pO2 97 mmHg (85-104) 08/13/17 04:41 ABG O2 Saturation 97 % (95-98) 08/13/17 04:41 PT/INR, D-dimer PT 10.6 Seconds (9.4-12.1) 08/15/17 04:21 Abnormal lab findings: Abnormal lab results WBC 14.1 K/mcL (4.3-11.1) H 08/15/17 04:21 RBC 3.23 M/mcL (4.19-5.50) L 08/15/17 04:21 Hgb 8.5 g/dL (12.9-16.9) L 08/15/17 04:21 Hct 29.4 % (37.5-50.1) L 08/15/17 04:21 MCH 26.3 pg (28.0-33.3) L 08/15/17 04:21 MCHC 28.9 g/dL (31.6-35.5) L 08/15/17 04:21 RDW 14.6 % (11.5-14.5) H 08/15/17 04:21 Neutrophils # 12.2 K/mcL (1.6-8.9) H 08/15/17 04:21 Hypochromasia Present (Not Present) A 08/15/17 04:21 APTT 25.4 Seconds (26.0-36.0) L 08/13/17 03:08 ABG pCO2 58 mmHg (35-45) H 08/13/17 04:41 ABG HCO3 38 mEq/L (21-27) H 08/13/17 04:41 ABG Total CO2 39 mEq/L (20-26) H 08/13/17 04:41 ABG Base Excess 12 mEq/L (-2 to 3) H 08/13/17 04:41 Carbon Dioxide 36 mEq/L (19-29) H 08/15/17 04:21 Creatinine 0.64 mg/dL (0.72-1.25) L 08/15/17 04:21 BUN/Creatinine Ratio 27 (6-26) H 08/15/17 04:21 POC Glucose 95 (58-89) H 08/15/17 07:15 Ionized Calcium 1.04 mmol/L (1.15-1.35) L 08/13/17 03:08 Urine Protein 30 mg/dL (Neg-Trace) H 08/12/17 07:28 Ur Squamous Epith Cells Moderate per lpf (None-Few) H 08/12/17 07:28 - Microbiology Findings Microbiology Findings: Microbiology, Last 48 Hours 08/13/17 10:40 Sputum Culture - Preliminary Sputum - Clinical Findings Intake & Output: Intake & Output 08/14/17 08/15/17 08/15/17 23:59 07:59 15:59 Output Total 400 / 400 200 / 200 Balance -400 / -400 -200 / -200 Weight 62.5 kg Consult Discharge Plan - Plan [facility]errals: [facility]Primary Care Provider[facility] - <Tesfaye Hilario - Last Filed: 08/15/17 15:18> Date of Encounter: 08/15/17 Objective PUL Vital signs: Last Vital Signs Temp 98.3 F 08/15/17 11:45 Pulse 95 08/15/17 15:00 Resp 20 08/15/17 15:00 BP 136/95 08/15/17 15:00 Pulse Ox 92 08/15/17 15:00 Results - Laboratory Findings CBC and BMP: 08/15/17 04:21 08/15/17 04:21 ABG ABG pH 7.42 pH Units (7.32-7.45) 08/13/17 04:41 ABG pCO2 58 mmHg (35-45) H 08/13/17 04:41 ABG pO2 97 mmHg (85-104) 08/13/17 04:41 ABG O2 Saturation 97 % (95-98) 08/13/17 04:41 PT/INR, D-dimer PT 10.6 Seconds (9.4-12.1) 08/15/17 04:21 Abnormal lab findings: Abnormal lab results WBC 14.1 K/mcL (4.3-11.1) H 08/15/17 04:21 RBC 3.23 M/mcL (4.19-5.50) L 08/15/17 04:21 Hgb 8.5 g/dL (12.9-16.9) L 08/15/17 04:21 Hct 29.4 % (37.5-50.1) L 08/15/17 04:21 MCH 26.3 pg (28.0-33.3) L 08/15/17 04:21 MCHC 28.9 g/dL (31.6-35.5) L 08/15/17 04:21 RDW 14.6 % (11.5-14.5) H 08/15/17 04:21 Neutrophils # 12.2 K/mcL (1.6-8.9) H 08/15/17 04:21 Hypochromasia Present (Not Present) A 08/15/17 04:21 APTT 25.4 Seconds (26.0-36.0) L 08/13/17 03:08 ABG pCO2 58 mmHg (35-45) H 08/13/17 04:41 ABG HCO3 38 mEq/L (21-27) H 08/13/17 04:41 ABG Total CO2 39 mEq/L (20-26) H 08/13/17 04:41 ABG Base Excess 12 mEq/L (-2 to 3) H 08/13/17 04:41 Carbon Dioxide 36 mEq/L (19-29) H 08/15/17 04:21 Creatinine 0.64 mg/dL (0.72-1.25) L 08/15/17 04:21 BUN/Creatinine Ratio 27 (6-26) H 08/15/17 04:21 POC Glucose 101 (58-89) H 08/15/17 11:15 Ionized Calcium 1.04 mmol/L (1.15-1.35) L 08/13/17 03:08 Urine Protein 30 mg/dL (Neg-Trace) H 08/12/17 07:28 Ur Squamous Epith Cells Moderate per lpf (None-Few) H 08/12/17 07:28 - Microbiology Findings Microbiology Findings: Microbiology, Last 48 Hours 08/13/17 10:40 Sputum Culture - Preliminary Sputum Gram Negative Pedro - Clinical Findings Intake & Output: Intake & Output 08/14/17 08/15/17 08/15/17 23:59 07:59 15:59 Intake Total 750 / 750 Output Total 400 / 400 200 / 200 Balance -400 / -400 -200 / -200 750 / 750 Weight 62.5 kg - Attending Attestation I examined this patient and my medical decision-making was reviewed with the Resident Physician. I agree with the documented findings, disposition and treatment plan as described except to the extent set forth below. We independently had [id number] contact with the patient 72-year-old gentleman with known chronic respiratory failure presented with acute hypoxemic hypercarbic respiratory failure requiring mechanical intubation secondary to COPD exacerbation likely related to pneumonia he is improving with steroids bronchodilators and antimicrobials. Still with significant hypoxemia with exertion related to above complicated by atelectasis in addition to above measures physical therapy and occupational therapy have been consulted and incentive spirometry out of bed to chair transfer to general medical floor with telemetry for ongoing care needs pulmonary follow-up at time of discharge this can likely [facility] at [facility] where he is followed for his primary care needs
[2017-08-15] MEDS: *HR* LORazepam 0.5 MG TABLET PO PRN ×2 (11:24→20:41)
[2017-08-16] MEDS: *HR* HYDROcodone/Acet 5/325 mg TABLET PO PRN ×3 (03:18→20:13)
[2017-08-16] MEDS: Ipratropium/Albuterol Neb 3 ML IH SCH ×6 (04:10→23:11)
[2017-08-16 04:20] LABS: Basophils % 0.1 %; Eosinophils # 0.3 K/mcL (0.0-0.6); Eosinophils % 2.3 %; Hematocrit 30.3 % (37.5-50.1); Hemoglobin 8.8 g/dL (12.9-16.9); Immature Granulocytes % 0.6 % (0-4); Lymphocytes # 1.6 K/mcL (0.6-4.6); Lymphocytes % 13.3 %; Mean Corpuscular Hemoglobin 26.3 pg (28.0-33.3); Mean Corpuscular Volume 90.7 fL (83.0-100.0); Mean Platelet Volume 10.2 fL (9.4-12.4); Monocytes # 1.1 K/mcL (0.0-1.3); Monocytes % 9.3 %; Neutrophils # 8.9 K/mcL (1.6-8.9); Platelet Count 287 K/mcL (140-400); Red Blood Count 3.34 M/mcL (4.19-5.50); Red Cell Distribution Width 14.5 % (11.5-14.5); Segmented Neutrophils % 74.4 %
[2017-08-16 04:25] LABS: Ionized Calcium 1.08 mmol/L (1.15-1.35)
[2017-08-16 04:34] LABS: BUN/Creatinine Ratio 21 (6-26); Blood Urea Nitrogen 14 mg/dL (8-26); Calcium 8.8 mg/dL (8.6-10.8); Carbon Dioxide 36 mEq/L (19-29); Chloride 101 mEq/L (98-109); Glucose 79 mg/dL (70-99); Magnesium 1.7 mg/dL (1.6-2.6); Osmolality,Calculated 297 (280-300); Phosphorous 3.3 mg/dL (2.3-4.7); Potassium 3.7 mEq/L (3.5-4.5); Sodium 144 mEq/L (136-145); eGFR For African Americans > 60 (> 60); eGFR For Non-African Americans > 60 (> 60)
[2017-08-16] MEDS: *HR* Heparin 5,000 UNIT/ML VIAL SQ SCH ×3 (05:51→21:05)
--- NOTE | 2017-08-16 07:25 | Pulmonology Progress Note ---
<Donna Clayton - Last Filed: 08/16/17 11:39> Date of Encounter: 08/16/17 Time of Encounter: 07:25 Assessment and Plan (1) Acute on chronic respiratory failure with hypoxia and hypercapnia Current Visit: Yes Status: Acute Likely 2/2 to acute exacerbation of COPD, patient's saturation down while talking to 80s By definition, complicated COPD with Age > 65 and Hx cardiac disease Hx for GOLD Guideline criteria: Patient has a prior history of 2 prior exacerbations, with hospitalization in January 2017 and previous note (02/12/16) indicating [facility]. States this was his second intubation. BAP-65 Score for AECOPD based on ED values: Class IV (GCS 8, Pulse 123 on admission, Age> 65), patient met criteria for consideration of ICU care -Continue duoneb -Continue albuterol PRN -On PO steroids : 40 mg PO prednisone daily -BIPAP Overnight qualification tonight Respiratory sputum culture return - Pseudomonas, sensitive to levofloxacin and cefepime. Continue levofloxacin (2) Community acquired pneumonia Current Visit: No Status: Acute CAP likely contributing to patient's AECOPD, as respiratory infections trigger of majority of exacerbations Levofloxacin 750 mg IV once daily Respiratory Infectious Panel returned to [facility]. [facility] Qualifiers: Laterality: right Lung location: lower lobe of lung Qualified Code(s): J18.1 - Lobar pneumonia, unspecified organism (3) DVT prophylaxis Current Visit: No Status: Acute Patient on heparin SubQ (4) Full code status Current Visit: Yes Status: Acute Reviewed palliative care note in January 2017 Subjective Principal diagnosis: Respiratory failure Interval history: Patient complaining of SOB even on mild exertion, seen to drop in O2 sat to 88% , during discussion in AM. States he needs the fan in room to alleviate SOB. Is oxgen dependent at home, with 3.5L. States he does not use BIPAP overnight. No chest pain, no abdominal pain. Objective PUL Vital signs: Last Vital Signs Temp 98.1 F 08/16/17 03:20 Pulse 94 08/16/17 03:20 Resp 14 08/16/17 04:12 BP 112/78 08/16/17 03:20 Pulse Ox 93 08/16/17 04:12 General appearance: no acute distress, appears uncomfortable Eyes: nonicteric ENT: oropharynx moist Neck: supple Effort: normal Auscultation: bilateral: diminished breath sounds Cardiovascular: regular rate and rhythm Gastrointestinal: normoactive bowel sounds, non-tender, non-distended Integumentary: normal Extremities: no cyanosis pupils equal and round mood appropriate Results - Laboratory Findings CBC and BMP: 08/16/17 04:06 08/16/17 04:06 ABG ABG pH 7.42 pH Units (7.32-7.45) 08/13/17 04:41 ABG pCO2 58 mmHg (35-45) H 08/13/17 04:41 ABG pO2 97 mmHg (85-104) 08/13/17 04:41 ABG O2 Saturation 97 % (95-98) 08/13/17 04:41 PT/INR, D-dimer PT 11.0 Seconds (9.4-12.1) 08/16/17 04:06 Abnormal lab findings: Abnormal lab results WBC 12.0 K/mcL (4.3-11.1) H 08/16/17 04:06 RBC 3.34 M/mcL (4.19-5.50) L 08/16/17 04:06 Hgb 8.8 g/dL (12.9-16.9) L 08/16/17 04:06 Hct 30.3 % (37.5-50.1) L 08/16/17 04:06 MCH 26.3 pg (28.0-33.3) L 08/16/17 04:06 MCHC 29.0 g/dL (31.6-35.5) L 08/16/17 04:06 Hypochromasia Present (Not Present) A 08/15/17 04:21 APTT 25.4 Seconds (26.0-36.0) L 08/13/17 03:08 ABG pCO2 58 mmHg (35-45) H 08/13/17 04:41 ABG HCO3 38 mEq/L (21-27) H 08/13/17 04:41 ABG Total CO2 39 mEq/L (20-26) H 08/13/17 04:41 ABG Base Excess 12 mEq/L (-2 to 3) H 08/13/17 04:41 Carbon Dioxide 36 mEq/L (19-29) H 08/16/17 04:06 Creatinine 0.66 mg/dL (0.72-1.25) L 08/16/17 04:06 POC Glucose 101 (58-89) H 08/15/17 11:15 Ionized Calcium 1.08 mmol/L (1.15-1.35) L 08/16/17 04:06 Urine Protein 30 mg/dL (Neg-Trace) H 08/12/17 07:28 Ur Squamous Epith Cells Moderate per lpf (None-Few) H 08/12/17 07:28 - Microbiology Findings Microbiology Findings: Microbiology, Last 48 Hours 08/13/17 10:40 Sputum Culture - Preliminary Sputum Gram Negative Pedro - Clinical Findings Intake & Output: Intake & Output 08/15/17 08/15/17 08/16/17 15:59 23:59 07:59 Intake Total 750 / 750 240 / 240 Output Total 720 / 720 100 / 100 Balance 750 / 750 -480 / -480 -100 / -100 Weight 62.5 kg Consult Discharge Plan - Plan [facility]errals: [facility]Primary Care Provider[facility] - <Edith Gomez S - Last Filed: 08/16/17 22:06> Date of Encounter: 08/16/17 Objective PUL Vital signs: Last Vital Signs Temp 100.2 F H 08/16/17 16:10 Pulse 97 08/16/17 16:00 Resp 18 08/16/17 16:00 BP 126/81 08/16/17 16:00 Pulse Ox 92 08/16/17 16:00 Results - Laboratory Findings CBC and BMP: 08/16/17 04:06 08/16/17 04:06 ABG ABG pH 7.42 pH Units (7.32-7.45) 08/13/17 04:41 ABG pCO2 58 mmHg (35-45) H 08/13/17 04:41 ABG pO2 97 mmHg (85-104) 08/13/17 04:41 ABG O2 Saturation 97 % (95-98) 08/13/17 04:41 PT/INR, D-dimer PT 11.0 Seconds (9.4-12.1) 08/16/17 04:06 Abnormal lab findings: Abnormal lab results WBC 12.0 K/mcL (4.3-11.1) H 08/16/17 04:06 RBC 3.34 M/mcL (4.19-5.50) L 08/16/17 04:06 Hgb 8.8 g/dL (12.9-16.9) L 08/16/17 04:06 Hct 30.3 % (37.5-50.1) L 08/16/17 04:06 MCH 26.3 pg (28.0-33.3) L 08/16/17 04:06 MCHC 29.0 g/dL (31.6-35.5) L 08/16/17 04:06 Hypochromasia Present (Not Present) A 08/15/17 04:21 APTT 25.4 Seconds (26.0-36.0) L 08/13/17 03:08 ABG pCO2 58 mmHg (35-45) H 08/13/17 04:41 ABG HCO3 38 mEq/L (21-27) H 08/13/17 04:41 ABG Total CO2 39 mEq/L (20-26) H 08/13/17 04:41 ABG Base Excess 12 mEq/L (-2 to 3) H 08/13/17 04:41 Carbon Dioxide 36 mEq/L (19-29) H 08/16/17 04:06 Creatinine 0.66 mg/dL (0.72-1.25) L 08/16/17 04:06 POC Glucose 101 (58-89) H 08/15/17 11:15 Ionized Calcium 1.08 mmol/L (1.15-1.35) L 08/16/17 04:06 Urine Protein 30 mg/dL (Neg-Trace) H 08/12/17 07:28 Ur Squamous Epith Cells Moderate per lpf (None-Few) H 08/12/17 07:28 - Microbiology Findings Microbiology Findings: Microbiology, Last 48 Hours 08/13/17 10:40 Sputum Culture - Preliminary Sputum Pseudomonas aeruginosa - Clinical Findings Intake & Output: Intake & Output 08/16/17 08/16/17 08/16/17 07:59 15:59 23:59 Output Total 100 / 100 200 / 200 Balance -100 / -100 -200 / -200 Weight 62.5 kg - Attending Attestation I saw the patient with the resident agree with History and Physical exam findings. Labs and Radiology were reviewed ELECTRONICS DEPARTMENT MANAGER: Patient is conscious oriented x3 following commands NECK : No JVD appreciated Pulmonary : Patient has chronic hypercapnic respiratory failure will need overnight BIPAP qualification recovering from COPD exacerbation to continue bronchodilators , steroids and antibiotics Cardiac : Hemodynamically stable Nutrition/GI: Patient is on regular diet Renal : Labs and output reviewed Heme onc : No acute issues ID: To continue antibiotics Musculo skeletal / skin issues : No acute issues Disposition : Transfer to medical telemetry Code status: Full Code
[2017-08-16] MEDS: Budesonide/Formoterol 160/4.5 MDI IH SCH ×2 (08:19→20:00)
[2017-08-16] MEDS: BuPROPion SR (12 HR) 100 MG TABLET PO SCH ×2 (08:41→20:08)
[2017-08-16] MEDS: predniSONE 20 MG TABLET PO SCH (08:42)
[2017-08-16] MEDS: Levofloxacin 750 MG/150 ML 750 MG/150 ML BAG IVPB SCH (08:43)
[2017-08-16] MEDS: Gabapentin 300 MG CAPSULE PO SCH ×3 (08:43→20:08)
[2017-08-16] MEDS: *HR* LORazepam 0.5 MG TABLET PO PRN ×3 (08:49→20:12)
[2017-08-17 03:02] LABS: Basophils % 0.1 %; Eosinophils # 0.3 K/mcL (0.0-0.6); Eosinophils % 3.2 %; Hematocrit 32.4 % (37.5-50.1); Hemoglobin 9.3 g/dL (12.9-16.9); Immature Granulocytes % 0.8 % (0-4); Lymphocytes # 1.4 K/mcL (0.6-4.6); Lymphocytes % 15.4 %; Mean Corpuscular HGB Conc 28.7 g/dL (31.6-35.5); Mean Corpuscular Hemoglobin 25.8 pg (28.0-33.3); Monocytes # 0.9 K/mcL (0.0-1.3); Monocytes % 9.2 %; Neutrophils # 6.6 K/mcL (1.6-8.9); Platelet Count 283 K/mcL (140-400); Red Cell Distribution Width 14.5 % (11.5-14.5); Segmented Neutrophils % 71.3 %
[2017-08-17 03:07] LABS: INR 1.1; Prothrombin Time 11.8 Seconds (9.4-12.1)
[2017-08-17 03:19] LABS: Platelet Estimate Normal (Normal); Polychromasia 1+ (Not Present)
[2017-08-17 03:27] LABS: Ionized Calcium 1.12 mmol/L (1.15-1.35)
[2017-08-17 03:37] LABS: BUN/Creatinine Ratio 19 (6-26); Blood Urea Nitrogen 13 mg/dL (8-26); Calcium 9.1 mg/dL (8.6-10.8); Carbon Dioxide 36 mEq/L (19-29); Chloride 99 mEq/L (98-109); Glucose 79 mg/dL (70-99); Magnesium 1.9 mg/dL (1.6-2.6); Osmolality,Calculated 295 (280-300); Phosphorous 3.5 mg/dL (2.3-4.7); Potassium 4.1 mEq/L (3.5-4.5); Sodium 143 mEq/L (136-145); eGFR For African Americans > 60 (> 60); eGFR For Non-African Americans > 60 (> 60)
[2017-08-17] MEDS: Ipratropium/Albuterol Neb 3 ML IH SCH ×6 (04:36→23:22)
[2017-08-17] MEDS: *HR* Heparin 5,000 UNIT/ML VIAL SQ SCH ×3 (05:03→20:32)
[2017-08-17] MEDS: Budesonide/Formoterol 160/4.5 MDI IH SCH ×2 (08:07→20:18)
[2017-08-17] MEDS: Levofloxacin 750 MG/150 ML 750 MG/150 ML BAG IVPB SCH (08:16)
[2017-08-17] MEDS: *HR* HYDROcodone/Acet 5/325 mg TABLET PO PRN ×2 (08:26→16:53)
[2017-08-17] MEDS: *HR* LORazepam 0.5 MG TABLET PO PRN ×2 (08:26→16:54)
[2017-08-17] MEDS: BuPROPion SR (12 HR) 100 MG TABLET PO SCH ×2 (08:27→20:32)
[2017-08-17] MEDS: Gabapentin 300 MG CAPSULE PO SCH ×3 (08:27→20:32)
[2017-08-17] MEDS: predniSONE 20 MG TABLET PO SCH (08:27)
--- NOTE | 2017-08-17 15:24 | Pulmonology Progress Note ---
<SavitaJorge ricks - Last Filed: 08/17/17 15:20> Date of Encounter: 08/17/17 Time of Encounter: 15:21 Assessment and Plan (1) Acute and chronic respiratory failure ([id number]) Current Visit: No Status: Acute Acute respiratory failure is resolved at this time. Patient was extubated and has adequate ventilation and oxygenation on his home 3 L nasal cannula. Likely related to acute exacerbation of COPD in the setting of pneumonia. Continue treatment as below. We got the patient up and walked around the unit and his oxygen saturation dropped and his heart rate became elevated, this continues to improve daily. He is not ready for discharge at this time, PT/OT following Qualifiers: Respiratory failure complication: hypercapnia Qualified Code(s): J96.22 - Acute and chronic respiratory failure with hypercapnia (2) Pneumonia Current Visit: Yes Status: Acute Secondary to Pseudomonas. Sensitive to Levaquin. Likely relating the patient' s declining respiratory status as discussed above. Continue Levaquin 750 mg daily Qualifiers: Pneumonia type: due to unspecified organism Laterality: unspecified laterality Lung location: unspecified part of lung Qualified Code(s): J18.9 - Pneumonia, unspecified organism (3) Acute exacerbation of chronic obstructive airways disease Current Visit: No Status: Acute Likely related to pneumonia as discussed above. Continue scheduled breathing treatments, IV steroids. Transitioned to by mouth steroids. Patient will likely benefit from an extended oral steroid taper. Continue Symbicort and short acting bronchodilators (4) Decreased appetite Current Visit: Yes Status: Acute Since admission the patient states that he has had a decreased appetite. He denies any difficulty swallowing. Possibly related to constipation as he states he normally has a bowel movement daily and has not had a bowel movement 2 days. Patient is on Dulcolax daily, will change to senna plus, is normal bowel movement tomorrow will give enema. Will also give Megace 400 mg twice a day for appetite stimulation. Subjective Principal diagnosis: Respiratory failure Interval history: Patient seen and examined at bedside. Patient states he continues to feel much better. He denies chest pain, shortness of breath, cough, congestion. He does report decreased appetite and he states he has not had a bowel movement in 2 days Objective PUL Vital signs: Last Vital Signs Temp 98.2 F 08/17/17 11:57 Pulse 108 08/17/17 13:02 Resp 20 11/10/17 13:07 BP 144/86 08/17/17 13:02 Pulse Ox 98 08/17/17 13:07 General appearance: no acute distress ENT: oropharynx moist Effort: normal Auscultation: bilateral: diminished breath sounds Cardiovascular: regular rate and rhythm Gastrointestinal: normoactive bowel sounds, soft, non-tender, other (Mildly distended) Extremities: no cyanosis, no edema, no clubbing normal mental status, non-focal exam Results - Laboratory Findings CBC and BMP: 08/17/17 02:49 08/17/17 02:49 ABG ABG pH 7.42 pH Units (7.32-7.45) 08/13/17 04:41 ABG pCO2 58 mmHg (35-45) H 08/13/17 04:41 ABG pO2 97 mmHg (85-104) 08/13/17 04:41 ABG O2 Saturation 97 % (95-98) 08/13/17 04:41 PT/INR, D-dimer PT 11.8 Seconds (9.4-12.1) 08/17/17 02:49 Abnormal lab findings: Abnormal lab results RBC 3.60 M/mcL (4.19-5.50) L 08/17/17 02:49 Hgb 9.3 g/dL (12.9-16.9) L 08/17/17 02:49 Hct 32.4 % (37.5-50.1) L 08/17/17 02:49 MCH 25.8 pg (28.0-33.3) L 08/17/17 02:49 MCHC 28.7 g/dL (31.6-35.5) L 08/17/17 02:49 Polychromasia 1+ (Not Present) A 08/17/17 02:49 Hypochromasia Present (Not Present) A 08/15/17 04:21 APTT 25.4 Seconds (26.0-36.0) L 08/13/17 03:08 ABG pCO2 58 mmHg (35-45) H 08/13/17 04:41 ABG HCO3 38 mEq/L (21-27) H 08/13/17 04:41 ABG Total CO2 39 mEq/L (20-26) H 08/13/17 04:41 ABG Base Excess 12 mEq/L (-2 to 3) H 08/13/17 04:41 Carbon Dioxide 36 mEq/L (19-29) H 08/17/17 02:49 Creatinine 0.69 mg/dL (0.72-1.25) L 08/17/17 02:49 POC Glucose 122 (58-89) H 08/16/17 11:56 Ionized Calcium 1.12 mmol/L (1.15-1.35) L 08/17/17 02:49 Urine Protein 30 mg/dL (Neg-Trace) H 08/12/17 07:28 Ur Squamous Epith Cells Moderate per lpf (None-Few) H 08/12/17 07:28 - Microbiology Findings Microbiology Findings: Microbiology, Last 48 Hours 08/13/17 10:40 Sputum Culture - Final Sputum Pseudomonas aeruginosa - Clinical Findings Intake & Output: Intake & Output 08/16/17 08/17/17 08/17/17 23:59 07:59 15:59 Intake Total 50 / 50 Output Total 600 / 600 225 / 225 50 / 50 Balance -600 / -600 -175 / -175 -50 / -50 Weight 63.6 kg - VTE Documentation of Mechanical Device: Intermittent pneumatic compression device Consult Discharge Plan - Plan [facility]errals: [facility] [Primary Care Provider] - <Edith Gomez - Last Filed: 08/17/17 21:03> Date of Encounter: 08/17/17 Objective PUL Vital signs: Last Vital Signs Temp 98.3 F 08/17/17 19:24 Pulse 92 08/17/17 19:24 Resp 18 08/17/17 20:19 BP 116/77 08/17/17 19:24 Pulse Ox 94 08/17/17 20:19 Results - Laboratory Findings CBC and BMP: 08/17/17 02:49 08/17/17 02:49 ABG ABG pH 7.42 pH Units (7.32-7.45) 08/13/17 04:41 ABG pCO2 58 mmHg (35-45) H 08/13/17 04:41 ABG pO2 97 mmHg (85-104) 08/13/17 04:41 ABG O2 Saturation 97 % (95-98) 08/13/17 04:41 PT/INR, D-dimer PT 11.8 Seconds (9.4-12.1) 08/17/17 02:49 Abnormal lab findings: Abnormal lab results RBC 3.60 M/mcL (4.19-5.50) L 08/17/17 02:49 Hgb 9.3 g/dL (12.9-16.9) L 08/17/17 02:49 Hct 32.4 % (37.5-50.1) L 08/17/17 02:49 MCH 25.8 pg (28.0-33.3) L 08/17/17 02:49 MCHC 28.7 g/dL (31.6-35.5) L 08/17/17 02:49 Polychromasia 1+ (Not Present) A 08/17/17 02:49 Hypochromasia Present (Not Present) A 08/15/17 04:21 APTT 25.4 Seconds (26.0-36.0) L 08/13/17 03:08 ABG pCO2 58 mmHg (35-45) H 08/13/17 04:41 ABG HCO3 38 mEq/L (21-27) H 08/13/17 04:41 ABG Total CO2 39 mEq/L (20-26) H 08/13/17 04:41 ABG Base Excess 12 mEq/L (-2 to 3) H 08/13/17 04:41 Carbon Dioxide 36 mEq/L (19-29) H 08/17/17 02:49 Creatinine 0.69 mg/dL (0.72-1.25) L 08/17/17 02:49 POC Glucose 122 (58-89) H 08/16/17 11:56 Ionized Calcium 1.12 mmol/L (1.15-1.35) L 08/17/17 02:49 Urine Protein 30 mg/dL (Neg-Trace) H 08/12/17 07:28 Ur Squamous Epith Cells Moderate per lpf (None-Few) H 08/12/17 07:28 - Microbiology Findings Microbiology Findings: Microbiology, Last 48 Hours 08/13/17 10:40 Sputum Culture - Final Sputum Pseudomonas aeruginosa - Clinical Findings Intake & Output: Intake & Output 08/17/17 08/17/17 08/17/17 07:59 15:59 23:59 Intake Total 50 / 50 Output Total 225 / 225 50 / 50 300 / 300 Balance -175 / -175 -50 / -50 -300 / -300 Weight 63.6 kg - Attending Attestation I saw the patient with the resident agree with History and Physical exam findings. 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
[2017-08-17] MEDS: Sennosides/Docusate Sodium TABLET PO SCH ×2 (16:54→20:33)
[2017-08-17] MEDS: Megestrol Acetate 400 MG/10 ML UDC PO SCH ×2 (16:54→20:32)
--- NOTE | 2017-08-17 17:08 | Discharge Summary ---
Date of Encounter: 08/17/17 - Discharge Diagnosis (1) Acute exacerbation of chronic obstructive airways disease Status: Acute - Discharge Medications Home Medications: Baclofen [Lioresal] 10 mg PO BID PRN 02/12/16 [History] Gabapentin [Neurontin] 300 mg PO TID 02/12/16 [History] LORazepam [Ativan] 0.5 mg PO BID PRN 02/12/16 [History] Trazodone HCl [TraZODone] 200 mg PO HS 02/12/16 [History] Albuterol Sulfate [Proair Hfa] 2 puff IH QID PRN 02/03/17 [History] Alendronate Sodium [Fosamax] 35 mg PO WE 02/03/17 [History] Budesonide/Formoterol 160/4.5 [Symbicort 160/4.5] 2 puff IH BID 02/03/17 [ History] Calcium Carbonate/Vitamin D3 [Calcium 600 + Vit D Tablet] 1 tab PO TID 02/03/17 [History] Cyanocobalamin (B-12) [Vitamin B12] 1,000 mcg PO DAILY 02/03/17 [History] Docusate [Colace] 200 mg PO DAILY 02/03/17 [History] Fluticasone Propionate Nasal [Flonase] 50 mcg NS BID 02/03/17 [History] Guaifenesin [Mucus Relief] 400 mg PO BID 02/03/17 [History] HYDROcodone/Acet 5/325 mg [[place] 5-325 mg] 1 tab PO Q6H PRN 02/03/17 [History] Hydrophilic Cream [Basle] 1 appl TP BID 02/03/17 [History] Meloxicam [Mobic] 7.5 mg PO DAILY 02/03/17 [History] Multivitamin [Multi-Day Vitamins] 1 tab PO DAILY 02/03/17 [History] Omeprazole 20 mg PO DAILY 02/03/17 [History] Tiotropium [Spiriva] 18 mcg IH DAILY #2 inh 02/07/17 [Rx] BuPROPion SR (12 HR) [Wellbutrin SR] 200 mg PO BID 08/12/17 [History] Buspirone HCl [Buspar] 5 mg PO BID 08/12/17 [History] Ranitidine HCl [Zantac] 150 mg PO BID 08/12/17 [History] predniSONE [PredniSONE] 10 mg PO DAILY 08/12/17 [History] Allergies/Adverse Reactions: 3 Allergy/AdvReac Type Severity Reaction Status Date / Time No Known Allergies Allergy Verified 02/11/16 21:51 Labs on day of discharge: Labs from last 24 hours 08/17/17 08/17/17 08/17/17 02:49 02:49 02:49 WBC 9.3 RBC 3.60 L Hgb 9.3 L Hct 32.4 L MCV 90.0 MCH 25.8 L MCHC 28.7 L RDW 14.5 Plt Count 283 MPV 10.0 Immature Gran % 0.8 Seg Neutrophils % 71.3 Lymphocytes % 15.4 Monocytes % 9.2 Eosinophils % 3.2 Basophils % 0.1 Neutrophils # 6.6 Lymphocytes # 1.4 Monocytes # 0.9 Eosinophils # 0.3 Basophils # 0.0 Platelet Estimate Normal Polychromasia 1+ A PT 11.8 INR 1.1 Sodium 143 Potassium 4.1 Chloride 99 Carbon Dioxide 36 H BUN 13 Creatinine 0.69 L Est GFR ( Amer) > 60 Est GFR (Non-Af Amer) > 60 BUN/Creatinine Ratio 19 Glucose 79 POC Glucose Calculated Osmolality 295 Calcium 9.1 Ionized Calcium 1.12 L Phosphorus 3.5 Magnesium 1.9 08/16/17 11:56 WBC RBC Hgb Hct MCV MCH MCHC RDW Plt Count MPV Immature Gran % Seg Neutrophils % Lymphocytes % Monocytes % Eosinophils % Basophils % Neutrophils # Lymphocytes # Monocytes # Eosinophils # Basophils # Platelet Estimate Polychromasia PT INR Sodium Potassium Chloride Carbon Dioxide BUN Creatinine Est GFR ( Amer) Est GFR (Non-Af Amer) BUN/Creatinine Ratio Glucose POC Glucose 122 H Calculated Osmolality Calcium Ionized Calcium Phosphorus Magnesium Date of admission: 08/12/17 08:25 Primary care physician: PCP LINDA Consults: 08/12/17 09:43 Consult to Nutrition [CONS] Routine Comment: Consulting Provider: NUTRITION Reason for Dietary Consult: MST Score Other:: sedated on vent; unable to answer questions; no family present 08/15/17 08:42 Consult to Occupational Therapy [CONS] Routine Comment: Evaluate, develop and implement POC Reason for Consult: Weakness Consult to Physical Therapy [CONS] Routine Comment: Evaluate, develop and implement POC Reason for Consult: Weakness - Patient Status Disposition: Home, Self-Care Condition: Fair - Discharge Instructions [facility] Care Provider[facility] - - Hospital Course Hospital course: Mr. Ramires is a 72 year old male - Time Spent with Patient Total time spent providing and/or coordinating discharge services: Physical Examination Vital Signs: Vital Signs, Last 4 Hours Temp Resp Pulse Ox 08/17/17 16:14 20 98 08/17/17 15:53 97.8 F 08/17/17 13:07 20 98 - VTE Documentation of Mechanical Device: Intermittent pneumatic compression device
--- NOTE | 2017-08-17 17:42 | Event Note ---
<Jorge Zabala - Last Filed: 08/17/17 17:42> Date of Encounter: 08/17/17 Time of Encounter: 17:42 Sign out was provided to the admitting hospitalist, Dr. Desai, who accepted the patient in transfer. <Edith Gomez - Last Filed: 08/17/17 21:24> Date of Encounter: 08/17/17 agree with above note
[2017-08-17] MEDS: Baclofen 10 MG TABLET PO PRN (20:32)
[2017-08-17 21:20] LABS: ABG Base Excess 7 mEq/L (-2 to 3); ABG HCO3 33 mEq/L (21-27); ABG Oxygen Saturation 94 % (95-98); ABG PCO2 52 mmHg (35-45); ABG PH 7.41 pH Units (7.32-7.45); ABG PO2 71 mmHg (85-104); ABG TCO2 34 mEq/L (20-26)
[2017-08-18] MEDS: *HR* HYDROcodone/Acet 5/325 mg TABLET PO PRN ×3 (02:54→15:58)
[2017-08-18] MEDS: *HR* LORazepam 0.5 MG TABLET PO PRN ×3 (02:54→15:58)
[2017-08-18] MEDS: Ipratropium/Albuterol Neb 3 ML IH SCH ×6 (03:41→23:43)
[2017-08-18] MEDS: *HR* Heparin 5,000 UNIT/ML VIAL SQ SCH ×3 (05:08→20:46)
[2017-08-18 06:42] LABS: Basophils % 0.1 %; Eosinophils # 0.5 K/mcL (0.0-0.6); Eosinophils % 3.4 %; Hematocrit 31.4 % (37.5-50.1); Hemoglobin 9.2 g/dL (12.9-16.9); Immature Granulocytes % 0.7 % (0-4); Lymphocytes # 1.3 K/mcL (0.6-4.6); Lymphocytes % 9.6 %; Mean Corpuscular HGB Conc 29.3 g/dL (31.6-35.5); Mean Corpuscular Volume 88.7 fL (83.0-100.0); Mean Platelet Volume 10.3 fL (9.4-12.4); Monocytes # 1.4 K/mcL (0.0-1.3); Monocytes % 10.5 %; Neutrophils # 10.1 K/mcL (1.6-8.9); Platelet Count 323 K/mcL (140-400); Red Blood Count 3.54 M/mcL (4.19-5.50); Red Cell Distribution Width 14.2 % (11.5-14.5); Segmented Neutrophils % 75.7 %
[2017-08-18 06:48] LABS: Ionized Calcium 1.16 mmol/L (1.15-1.35)
[2017-08-18 06:53] LABS: INR 1.1; Prothrombin Time 11.6 Seconds (9.4-12.1)
[2017-08-18 07:03] LABS: BUN/Creatinine Ratio 23 (6-26); Blood Urea Nitrogen 17 mg/dL (8-26); Calcium 9.1 mg/dL (8.6-10.8); Carbon Dioxide 33 mEq/L (19-29); Chloride 98 mEq/L (98-109); Glucose 88 mg/dL (70-99); Magnesium 1.8 mg/dL (1.6-2.6); Osmolality,Calculated 291 (280-300); Phosphorous 3.4 mg/dL (2.3-4.7); Potassium 3.7 mEq/L (3.5-4.5); Sodium 140 mEq/L (136-145); eGFR For African Americans > 60 (> 60); eGFR For Non-African Americans > 60 (> 60)
[2017-08-18] MEDS: Budesonide/Formoterol 160/4.5 MDI IH SCH ×2 (07:47→20:17)
[2017-08-18] MEDS: BuPROPion SR (12 HR) 100 MG TABLET PO SCH ×2 (08:33→20:45)
[2017-08-18] MEDS: Gabapentin 300 MG CAPSULE PO SCH ×3 (08:33→20:46)
[2017-08-18] MEDS: Sennosides/Docusate Sodium TABLET PO SCH ×2 (08:33→20:46)
[2017-08-18] MEDS: Levofloxacin 750 MG/150 ML 750 MG/150 ML BAG IVPB SCH (08:34)
[2017-08-18] MEDS: Megestrol Acetate 400 MG/10 ML UDC PO SCH ×2 (08:34→20:45)
--- NOTE | 2017-08-18 09:24 | Internal Med History&Physical ---
Date of Encounter: 08/18/17 Time of Encounter: 09:22 Assessment and Plan (1) Pseudomonas pneumonia Current visit: Yes Status: Acute Sputum culture grew Pseudomonas sensitive to Levaquin. Continue with Levaquin, currently at day 7. Qualifiers: Laterality: right Lung location: lower lobe of lung Qualified Code(s): J15.1 - Pneumonia due to Pseudomonas (2) Acute exacerbation of chronic obstructive airways disease Current visit: No Status: Acute Resume prednisone 40 mg daily. He will need a prolonged taper. Continue to hold Spiriva. Continue with albuterol and ipratropium inhaled every 4 hours. (3) DVT prophylaxis Current visit: No Status: Acute Heparin subcutaneous. (4) Acute on chronic respiratory failure with hypoxia and hypercapnia Current visit: Yes Status: Acute ABG from yesterday reveals chronic, compensated respiratory acidosis with normal pH of 7.41. Mild hypoxemia with PaO2 of 71. Continue with nasal cannula currently at 2 L/m while at rest and increase to 3 L /m with exertion. Check ambulatory oxygen saturation. Patient would benefit from pulmonary rehabilitation on discharge. (5) Anxiety Current visit: No Status: Chronic Continue with lorazepam. I will change her dose to his home dose of 0.5 mg 3 times a day as needed. (6) Generalized pain Current visit: No Status: Chronic Resume home medication regimen for pain. Internal Medicine - H&P: HPI Chief complaint: Shortness of breath Admitted From: Intrahospital Transfer Plans for Post Hospital Care: Home History of present illness: Mr. Ramires is a 72 year old male with past medical history significant for COPD and chronic respiratory failure on continuous home oxygen who presented to the hospital 6 days ago for evaluation of severe shortness of breath. At that time he also had productive cough. He was diagnosed with pneumonia and respiratory failure. He required intubation and mechanical ventilation and was treated in the ICU. Patient was extubated successfully 2 days ago and now is being managed on the medical floor. He continues to report moderate shortness of breath at rest which is close to his baseline, however with minimal ambulation he becomes dyspneic which is worse than his baseline. He denies any associated chest pain. He continues to have cough productive of white sputum which has reduced in volume compared to one week ago. Denies fevers chills, nausea vomiting diarrhea, reports mild constipation. A 10 point review of systems was negative except as above. Family history positive for COPD in both parents. Social history: Former smoker, quit years ago, denies alcohol abuse, and denies recreational drug use. Past Med Surg Social Fam HX - Past Medical History Medical history: arthritis, atrial fibrillation, COPD Psychiatric history: anxiety - Past Surgical History Surgical History: other - Social History Smoking Status: Former smoker Smokeless Tobacco Status: No Alcohol use: none Drug use: none - Family History Mother Hx Family Respiratory Disorders: Yes (COPD: mother, father, brother. Brother: lung cancer.) Internal Medicine - H&P: Meds Baclofen [Lioresal] 10 mg PO BID PRN 02/12/16 [History] Gabapentin [Neurontin] 300 mg PO TID 02/12/16 [History] LORazepam [Ativan] 0.5 mg PO BID PRN 02/12/16 [History] Trazodone HCl [TraZODone] 200 mg PO HS 02/12/16 [History] Albuterol Sulfate [Proair Hfa] 2 puff IH QID PRN 02/03/17 [History] Alendronate Sodium [Fosamax] 35 mg PO WE 02/03/17 [History] Budesonide/Formoterol 160/4.5 [Symbicort 160/4.5] 2 puff IH BID 02/03/17 [ History] Calcium Carbonate/Vitamin D3 [Calcium 600 + Vit D Tablet] 1 tab PO TID 02/03/17 [History] Cyanocobalamin (B-12) [Vitamin B12] 1,000 mcg PO DAILY 02/03/17 [History] Docusate [Colace] 200 mg PO DAILY 02/03/17 [History] Fluticasone Propionate Nasal [Flonase] 50 mcg NS BID 02/03/17 [History] Guaifenesin [Mucus Relief] 400 mg PO BID 02/03/17 [History] HYDROcodone/Acet 5/325 mg [[place] 5-325 mg] 1 tab PO Q6H PRN 02/03/17 [History] Hydrophilic Cream [Basle] 1 appl TP BID 02/03/17 [History] Meloxicam [Mobic] 7.5 mg PO DAILY 02/03/17 [History] Multivitamin [Multi-Day Vitamins] 1 tab PO DAILY 02/03/17 [History] Omeprazole 20 mg PO DAILY 02/03/17 [History] Tiotropium [Spiriva] 18 mcg IH DAILY #2 inh 02/07/17 [Rx] BuPROPion SR (12 HR) [Wellbutrin SR] 200 mg PO BID 08/12/17 [History] Buspirone HCl [Buspar] 5 mg PO BID 08/12/17 [History] Ranitidine HCl [Zantac] 150 mg PO BID 08/12/17 [History] predniSONE [PredniSONE] 10 mg PO DAILY 08/12/17 [History] 3 Allergy/AdvReac Type Severity Reaction Status Date / Time No Known Allergies Allergy Verified 02/11/16 21:51 All Systems PM: A 10-system review of systems was performed and is negative for pertinent findings except as documented above in the HPI. - Constitutional Vitals: Temp Pulse Resp BP Pulse Ox 97.9 F 92 15 134/66 96 08/18/17 06:48 08/18/17 06:48 08/18/17 07:50 08/18/17 06:48 08/18/17 07:50 General appearance: Present: A&O X 3, no acute distress - Eye Eye exam: Present: PERRL, conjuntiva pink, sclera anicteric Pupils: Present: PERRL - Neck Neck exam general surgery: Present: supple, trachea midline. Absent: lymphadenopathy - Respiratory Respiratory exam: Present: decreased breath sounds, rales, wheezes (Faint expiratory wheezes). Absent: accessory muscle use, rhonchi - Cardiovascular Cardiovascular exam: Present: RRR, +S1, +S2. Absent: diastolic murmur, gallop, rubs, systolic murmur - GI/Abdominal GI/Abdominal exam: Present: normal bowel sounds, soft, no peritoneal signs. Absent: distended, tenderness - Extremities Exam Extremities exam: Present: warm, radial pulses palpable and symmetrical. Absent : calf tenderness, cyanotic, pedal edema - Neurological Exam Neurological exam: Present: CN II-XII intact, oriented X3, no focal deficits. Absent: pronater drift, facial droop, speech deficit - Skin Skin exam: Present: dry, intact Internal Med - H&P Results - Labs CBC & Chem 7: 08/18/17 06:17 08/18/17 06:17 Labs: Short CBC 08/18/17 Range/Units 06:17 WBC 13.3 H (4.3-11.1) K/mcL Hgb 9.2 L (12.9-16.9) g/dL Hct 31.4 L (37.5-50.1) % Plt Count 323 (140-400) K/mcL Neutrophils # 10.1 H (1.6-8.9) K/mcL BMP 08/18/17 06:17 Sodium 140 Potassium 3.7 Chloride 98 Carbon Dioxide 33 H BUN 17 Creatinine 0.73 Glucose 88 Calcium 9.1 - ABG Interpretation ABG results: 08/12/17 08/13/17 08/17/17 09:44 04:41 21:18 ABG pH 7.31 L 7.42 7.41 ABG pCO2 83 H* 58 H 52 H ABG pO2 79 L D 97 71 L ABG HCO3 42 H 38 H 33 H ABG Total CO2 45 H 39 H 34 H ABG O2 Saturation 93 L 97 94 L ABG Base Excess 13 H 12 H 7 H - Impressions CT of the chest from 08/12/2017 personally reviewed shows right lower lobe pneumonia and emphysema. - VTE Documentation of Mechanical Device: Intermittent pneumatic compression device
[2017-08-18] MEDS ORDERED: MOM Conc 10 ML UD.LIQ PO PRN (09:42)
[2017-08-18] MEDS: predniSONE 20 MG TABLET PO SCH (11:21)
[2017-08-18] MEDS: Famotidine 20 MG TABLET PO SCH ×2 (11:21→20:45)
[2017-08-18] MEDS: traZODone 50 MG TABLET PO SCH (20:45)
[2017-08-19 03:20] LABS: Basophils % 0.1 %; Eosinophils # 0.2 K/mcL (0.0-0.6); Eosinophils % 1.2 %; Hematocrit 30.6 % (37.5-50.1); Immature Granulocytes % 0.7 % (0-4); Lymphocytes % 7.6 %; Mean Corpuscular HGB Conc 29.4 g/dL (31.6-35.5); Mean Corpuscular Hemoglobin 26.1 pg (28.0-33.3); Mean Corpuscular Volume 88.7 fL (83.0-100.0); Mean Platelet Volume 10.1 fL (9.4-12.4); Monocytes # 1.3 K/mcL (0.0-1.3); Monocytes % 10.1 %; Neutrophils # 10.7 K/mcL (1.6-8.9); Platelet Count 316 K/mcL (140-400); Red Blood Count 3.45 M/mcL (4.19-5.50); Red Cell Distribution Width 14.7 % (11.5-14.5); Segmented Neutrophils % 80.3 %
[2017-08-19 03:38] LABS: BUN/Creatinine Ratio 24 (6-26); Blood Urea Nitrogen 18 mg/dL (8-26); Calcium 9.3 mg/dL (8.6-10.8); Carbon Dioxide 31 mEq/L (19-29); Chloride 100 mEq/L (98-109); Glucose 98 mg/dL (70-99); Magnesium 1.9 mg/dL (1.6-2.6); Osmolality,Calculated 296 (280-300); Phosphorous 4.2 mg/dL (2.3-4.7); Sodium 142 mEq/L (136-145); eGFR For African Americans > 60 (> 60); eGFR For Non-African Americans > 60 (> 60)
[2017-08-19] MEDS: Ipratropium/Albuterol Neb 3 ML IH SCH ×6 (04:01→23:21)
[2017-08-19] MEDS: *HR* LORazepam 0.5 MG TABLET PO PRN ×2 (05:17→21:08)
[2017-08-19] MEDS: *HR* HYDROcodone/Acet 5/325 mg TABLET PO PRN ×3 (05:17→21:08)
[2017-08-19] MEDS: *HR* Heparin 5,000 UNIT/ML VIAL SQ SCH ×3 (05:17→21:05)
[2017-08-19] MEDS: Budesonide/Formoterol 160/4.5 MDI IH SCH ×2 (07:47→20:01)
[2017-08-19] MEDS: Levofloxacin 750 MG/150 ML 750 MG/150 ML BAG IVPB SCH (07:54)
[2017-08-19] MEDS: Sennosides/Docusate Sodium TABLET PO SCH ×2 (07:56→21:05)
[2017-08-19] MEDS: Megestrol Acetate 400 MG/10 ML UDC PO SCH ×2 (07:56→21:05)
[2017-08-19] MEDS: Gabapentin 300 MG CAPSULE PO SCH ×3 (07:56→21:05)
[2017-08-19] MEDS: predniSONE 20 MG TABLET PO SCH (07:56)
[2017-08-19] MEDS: Famotidine 20 MG TABLET PO SCH ×2 (07:56→21:05)
[2017-08-19] MEDS: BuPROPion SR (12 HR) 100 MG TABLET PO SCH ×2 (07:56→21:05)
--- NOTE | 2017-08-19 13:12 | Internal Med Progress Note ---
Date of Encounter: 08/19/17 Time of Encounter: 13:12 - Assessment and plan (1) Pseudomonas pneumonia Current Visit: Yes Status: Acute Assessment and plan: We will switch to oral Levaquin. Sputum culture grew Pseudomonas sensitive to Levaquin. Qualifiers: Laterality: right Lung location: lower lobe of lung Qualified Code(s): J15.1 - Pneumonia due to Pseudomonas (2) Acute exacerbation of chronic obstructive airways disease Current Visit: No Status: Acute Assessment and plan: Continue with Levaquin. Continue with prednisone. And held albuterol and Atrovent. (3) DVT prophylaxis Current Visit: No Status: Acute Assessment and plan: Subcutaneous heparin. (4) Acute on chronic respiratory failure with hypoxia and hypercapnia Current Visit: Yes Status: Acute Assessment and plan: Oxygen by nasal cannula 2 L/m titrate to maintain saturation above 90%. (5) Anxiety Current Visit: No Status: Chronic Assessment and plan: Continue with Ativan as needed. (6) Generalized pain Current Visit: No Status: Chronic - Subjective Interval history: He reports mild to moderate shortness of breath worse with exertion, close to his baseline associated with cough. Denies chest pain and fever. - Constitutional Vitals: Temp Pulse Resp BP Pulse Ox 97.5 F L 108 21 134/84 91 08/19/17 12:09 08/19/17 12:09 08/19/17 12:09 08/19/17 12:09 08/19/17 12:09 General appearance: Present: A&O X 3, no acute distress - Respiratory Respiratory exam: Present: CTAB, wheezes. Absent: accessory muscle use, rales, rhonchi - Cardiovascular Cardiovascular exam: Present: RRR, +S1, +S2. Absent: diastolic murmur, gallop, rubs, systolic murmur - GI/Abdominal GI/Abdominal exam: Present: normal bowel sounds, soft, no peritoneal signs. Absent: distended, tenderness - Extremities Exam Extremities exam: Present: warm, radial pulses palpable and symmetrical. Absent : calf tenderness, cyanotic, pedal edema - Skin Skin exam: Present: dry, intact Internal Medicine: Result - Labs CBC & Chem 7: 08/19/17 03:03 08/19/17 03:03 Labs: Short CBC 08/19/17 Range/Units 03:03 WBC 13.3 H (4.3-11.1) K/mcL Hgb 9.0 L (12.9-16.9) g/dL Hct 30.6 L (37.5-50.1) % Plt Count 316 (140-400) K/mcL Neutrophils # 10.7 H (1.6-8.9) K/mcL BMP 08/19/17 03:03 Sodium 142 Potassium 4.0 Chloride 100 Carbon Dioxide 31 H BUN 18 Creatinine 0.76 Glucose 98 Calcium 9.3 - ABG Interpretation ABG results: ABG ABG pH 7.41 pH Units (7.32-7.45) 08/17/17 21:18 ABG pCO2 52 mmHg (35-45) H 08/17/17 21:18 ABG pO2 71 mmHg (85-104) L 08/17/17 21:18 ABG O2 Saturation 94 % (95-98) L 08/17/17 21:18 PT/INR, D-dimer PT 11.6 Seconds (9.4-12.1) 08/18/17 06:17 - VTE Documentation of Mechanical Device: Intermittent pneumatic compression device Consult Discharge Plan - Plan Referrals: [facility] [Primary Care Provider] -
[2017-08-19] MEDS: traZODone 50 MG TABLET PO SCH (21:05)
[2017-08-20] MEDS: Ipratropium/Albuterol Neb 3 ML IH SCH ×3 (03:37→11:24)
[2017-08-20] MEDS: *HR* Heparin 5,000 UNIT/ML VIAL SQ SCH (05:40)
[2017-08-20] MEDS: Megestrol Acetate 400 MG/10 ML UDC PO SCH (07:54)
[2017-08-20] MEDS: Sennosides/Docusate Sodium TABLET PO SCH (07:55)
[2017-08-20] MEDS: BuPROPion SR (12 HR) 100 MG TABLET PO SCH (07:55)
[2017-08-20] MEDS: predniSONE 20 MG TABLET PO SCH (07:55)
[2017-08-20] MEDS: Gabapentin 300 MG CAPSULE PO SCH (07:55)
[2017-08-20] MEDS: Famotidine 20 MG TABLET PO SCH (07:55)
[2017-08-20] MEDS: *HR* LORazepam 0.5 MG TABLET PO PRN (08:03)
[2017-08-20] MEDS: *HR* HYDROcodone/Acet 5/325 mg TABLET PO PRN (08:03)
--- NOTE | 2017-08-20 08:07 | Discharge Summary ---
Date of Encounter: 08/20/17 Time of Encounter: 08:07 - Discharge Diagnosis (1) Pseudomonas pneumonia Priority: Secondary Status: Acute Qualifiers: Laterality: right Lung location: lower lobe of lung Qualified Code(s): J15.1 - Pneumonia due to Pseudomonas (2) Acute exacerbation of chronic obstructive airways disease Priority: Secondary Status: Acute (3) DVT prophylaxis Priority: Secondary Status: Acute (4) Acute on chronic respiratory failure with hypoxia and hypercapnia Priority: Primary Status: Acute (5) Anxiety Priority: Secondary Status: Chronic (6) Generalized pain Priority: Secondary Status: Chronic - Discharge Medications Prescriptions: Ipratropium/Albuterol Neb [Duoneb] 3 ml IH [id number] PRN #60 inhsol PRN Reason: Shortness Of Breath levoFLOXacin [Levaquin] 750 mg PO DAILY #4 tablet predniSONE [PredniSONE] 40 mg PO DAILY #30 tablet Home Medications: Baclofen [Lioresal] 10 mg PO BID PRN 02/12/16 [History] Gabapentin [Neurontin] 300 mg PO TID 02/12/16 [History] LORazepam [Ativan] 0.5 mg PO BID PRN 02/12/16 [History] Trazodone HCl [TraZODone] 200 mg PO HS 02/12/16 [History] Albuterol Sulfate [Proair Hfa] 2 puff IH QID PRN 02/03/17 [History] Alendronate Sodium [Fosamax] 35 mg PO WE 02/03/17 [History] Budesonide/Formoterol 160/4.5 [Symbicort 160/4.5] 2 puff IH BID 02/03/17 [ History] Calcium Carbonate/Vitamin D3 [Calcium 600 + Vit D Tablet] 1 tab PO TID 02/03/17 [History] Cyanocobalamin (B-12) [Vitamin B12] 1,000 mcg PO DAILY 02/03/17 [History] Docusate [Colace] 200 mg PO DAILY 02/03/17 [History] Fluticasone Propionate Nasal [Flonase] 50 mcg NS BID 02/03/17 [History] HYDROcodone/Acet 5/325 mg [[place] 5-325 mg] 1 tab PO Q6H PRN 02/03/17 [History] Hydrophilic Cream [[place]] 1 appl TP BID 02/03/17 [History] Meloxicam [Mobic] 7.5 mg PO DAILY 02/03/17 [History] Multivitamin [Multi-Day Vitamins] 1 tab PO DAILY 02/03/17 [History] Omeprazole 20 mg PO DAILY 02/03/17 [History] Tiotropium [Spiriva] 18 mcg IH DAILY #2 inh 02/07/17 [Rx] BuPROPion SR (12 HR) [Wellbutrin SR] 200 mg PO BID 08/12/17 [History] Buspirone HCl [Buspar] 5 mg PO BID 08/12/17 [History] Ranitidine HCl [Zantac] 150 mg PO BID 08/12/17 [History] Guaifenesin [Mucus Relief] 400 mg PO BID PRN #0 08/20/17 [Rx] Ipratropium/Albuterol Neb [Duoneb] 3 ml IH [id number] PRN #60 inhsol 08/20/17 [Rx] levoFLOXacin [Levaquin] 750 mg PO DAILY #4 tablet 08/20/17 [Rx] predniSONE [PredniSONE] 40 mg PO DAILY #30 tablet 08/20/17 [Rx] Allergies/Adverse Reactions: 3 Allergy/AdvReac Type Severity Reaction Status Date / Time No Known Allergies Allergy Verified 02/11/16 21:51 Date of admission: 08/12/17 08:25 [facility] care physician: [facility] Consults: 08/12/17 09:43 Consult to Nutrition [CONS] Routine Comment: Consulting Provider: NUTRITION Reason for Dietary Consult: MST Score Other:: sedated on vent; unable to answer questions; no family present 08/15/17 08:42 Consult to Occupational Therapy [CONS] Routine Comment: Evaluate, develop and implement POC Reason for Consult: Weakness Consult to Physical Therapy [CONS] Routine Comment: Evaluate, develop and implement POC Reason for Consult: Weakness - Patient Status Disposition: Home, Self-Care Condition: Fair Overall status at discharge: patient is progressing back to baseline - Discharge Instructions Follow Up With: [facility] [Primary Care Provider] - 08/27/17 2:30 pm (Please follow up as schedule...) Additional Instructions: Please follow-up with PCP within 7 days of discharge. - Diet and Activity Activity: increase activity as tolerated, wear oxygen at all times Diet: regular diet Hospital course: Mr. Ramires is a 72 year old male with past medical history significant for COPD who was brought to the hospital by EMS for evaluation of shortness of breath. He was initially placed on nonrebreather then BiPAP however he was unable to follow commands and he was emergently intubated due to hypoxia and altered mental status. CT of the head showed no acute intracranial abnormality. Chest x-ray demonstrated right basilar infiltrate and CT of the chest showed findings consistent with right lower lobe and right middle lobe pneumonia with no evidence of pulmonary embolism. He was transferred to the ICU and managed with mechanical ventilation. He was treated with Levaquin for pneumonia. Sputum culture grew Pseudomonas sensitive to Levaquin. He was successfully extubated but had a protracted course due to profound hypoxemia. He has been slowly improving and today his oxygenation is 94-98% on 3 L by nasal cannula and he is progressing back to his baseline. He will be prescribed a full 12 day course of Levaquin and a prednisone taper. He will be discharged home with home health. He expresses understanding and agreement with the discharge plan. He was instructed to follow-up with primary care physician within 7 days of discharge. - Time Spent with Patient Total time spent providing and/or coordinating discharge services: Greater than 30 minutes (I spent 40 minutes coordinating this discharge.) - Constitutional Vitals: Temp Pulse Resp BP Pulse Ox 98.2 F 76 18 128/73 94 08/20/17 06:55 08/20/17 06:55 08/20/17 06:55 08/20/17 06:55 08/20/17 06:55 General appearance: Present: A&O X 3, no acute distress - Respiratory Respiratory exam: Present: CTAB, wheezes. Absent: accessory muscle use, rales, rhonchi - Cardiovascular Cardiovascular exam: Present: RRR, +S1, +S2. Absent: diastolic murmur, gallop, rubs, systolic murmur - GI/Abdominal GI/Abdominal exam: Present: normal bowel sounds, soft, no peritoneal signs. Absent: distended, tenderness - Neurological Exam Neurological exam: Present: CN II-XII intact, oriented X3, no focal deficits. Absent: pronater drift, facial droop, speech deficit - VTE Documentation of Mechanical Device: Intermittent pneumatic compression device
[2017-08-20] MEDS: Budesonide/Formoterol 160/4.5 MDI IH SCH (08:20)
[2017-08-20] MEDS ORDERED: levoFLOXacin 750 MG TABLET PO SCH (09:00)
[2017-08-20 11:13] VITALS: BP 131/71
== END 2017-08-20 12:22 | disposition home or self-care (01) | DRG 208 ==
LOC: EMEROO 06:18 → ICNU 08:25 → SUATTDRO 08:25 → ICNU 09:19 → 2ANU 08-17 19:26
PROVIDERS: ADMIT Internal Medicine Hospice and Palliative Medicine; ATTEND Internal Medicine

== ENCOUNTER 2018-02-18 18:25 | Inpatient (IN) ==
[2018-02-18] MEDS ORDERED: methylPREDNISolone 125 MG/2 ML VIAL IVP ONE (18:28)
[2018-02-18] MEDS ORDERED: Ipratropium/Albuterol Neb 3 ML IH ONE (18:28)
--- NOTE | 2018-02-18 18:32 | Emergency Department Note ---
Disposition Clinical Impression: COPD exacerbation, Acute exacerbation of chronic obstructive airways disease Disposition: Admitted As Inpatient Condition: Fair Referrals: [facility] [Primary Care Provider] - Forms: ED Satisfaction Letter Time of Disposition: 19:59 SOB HPI - General Chief Complaint: ED Shortness of Breath/Dyspnea Stated Complaint: LESLYE Time Seen by Provider: 02/18/18 18:28 Source: patient, EMS Mode of arrival: EMS Limitations: no limitations Nursing Notes Reviewed: Yes Vital Signs Reviewed: Yes - History of Present Illness 73-year-old with a history COPD comes in with increasing shortness of breath. States he having trouble getting air in. Pt Subjective Complaint: shortness of breath Onset (ago): Just [employer] Consistency/Duration: constant Improves with: nothing Known history of: COPD Associated symptoms: Reports: cough Treatment prior to arrival: bronchodilator Cough Description: Involuntary Cough Frequency: Intermittent Sputum Amount: None - Related Data Home Medications Medication Instructions Recorded Confirmed Baclofen [Lioresal] 10 mg PO BID PRN 02/12/16 02/18/18 Gabapentin [Neurontin] 300 mg PO TID 02/12/16 02/18/18 LORazepam [Ativan] 0.5 mg PO BID PRN 02/12/16 02/18/18 Trazodone HCl [TraZODone] 200 mg PO HS 02/12/16 02/18/18 Albuterol Sulfate [Proair Hfa] 2 puff IH QID PRN 02/03/17 02/18/18 Alendronate Sodium [Fosamax] 35 mg PO WE 02/03/17 02/18/18 Budesonide/Formoterol 160/4.5 2 puff IH BID 02/03/17 02/18/18 [Symbicort 160/4.5] Calcium Carbonate/Vitamin D3 1 tab PO TID 02/03/17 02/18/18 [Calcium 600 + Vit D Tablet] Cyanocobalamin (B-12) [Vitamin B12] 1,000 mcg PO DAILY 02/03/17 02/18/18 Docusate [Colace] 200 mg PO DAILY 02/03/17 02/18/18 Fluticasone Propionate Nasal 50 mcg NS BID 02/03/17 02/18/18 [Flonase] HYDROcodone/Acet 5/325 mg [[place] 1 tab PO Q6H PRN 02/03/17 02/18/18 5-325 mg] Meloxicam [Mobic] 7.5 mg PO DAILY 02/03/17 02/18/18 Multivitamin [Multi-Day Vitamins] 1 tab PO DAILY 02/03/17 02/18/18 Omeprazole 20 mg PO DAILY 02/03/17 02/18/18 BuPROPion SR (12 HR) [Wellbutrin 200 mg PO BID 08/12/17 02/18/18 SR] Ranitidine HCl [Zantac] 150 mg PO BID 08/12/17 02/18/18 Previous Rx's Medication Instructions Recorded Tiotropium [Spiriva] 18 mcg IH DAILY #2 inh 02/07/17 Ipratropium/Albuterol Neb [Duoneb] 3 ml IH [id number] PRN #60 inhsol 08/20/17 Allergies Allergy/AdvReac Type Severity Reaction Status Date / Time No Known Allergies Allergy Verified 02/11/16 21:51 Constitutional: Denies: fever, chills, weakness, weight change Eyes: Denies: eye pain, eye discharge, vision change ENT ED: Denies: ear pain, throat pain, dental pain, hearing loss, epistaxis, congestion, dysphagia Cardiovascular: Denies: chest pain, palpitations, dyspnea on exertion, edema, syncope Respiratory: Reports: cough, dyspnea, wheezes. Denies: hemoptysis, stridor Gastrointestinal: Denies: abdominal pain, nausea, vomiting, diarrhea, constipation, hematemesis, melena, hematochezia Genitourinary: Denies: urgency, dysuria, frequency, hematuria Musculoskeletal: Denies: back pain, neck pain, arthralgia, myalgia Integumentary: Denies: rash, abrasion, lesions Neurological: Denies: headache, weakness, numbness, paresthesias, confusion, abnormal gait, vertigo Psychiatric: Denies: anxiety, depression, suicidal thoughts, homicidal thoughts , auditory hallucinations, visual hallucinations Endocrine: Denies: fatigue Hematological/Lymphatic: Denies: easy bleeding, easy bruising Allergic/Immunologic: Denies: facial swelling, urticaria Past Medical History - Past Medical History Medical history: Reports: arthritis, atrial fibrillation, COPD Surgical history: Reports: other Psychiatric history: Reports: anxiety - Social History Smoking Status: Former smoker Smokeless Tobacco Status: No Alcohol use: Reports: none Drug use: Reports: none Physical Exam - General Limitations: no limitations General appearance: alert - Head Head exam: atraumatic, normocephalic, normal inspection - Eye Eye exam: Present: normal appearance, PERRL, EOMI - ENT ENT exam: normal exam, normal oropharynx, mucous membranes moist - Neck Neck exam: Present: normal inspection, full ROM, trachea midline - Chest Chest inspection: Present: normal inspection, symmetric chest wall rise - Respiratory Respiratory exam: Present: wheezes, accessory muscle use, prolonged expiratory phase - Cardiovascular Cardiovascular exam: Present: regular rate, normal rhythm, normal heart sounds - Abdominal Exam Abdominal exam: Present: soft, Non-Tender. Absent: tenderness, distention, guarding, rebound, rigidity - Extremities Exam Extremities exam: Present: normal inspection, full ROM. Absent: tenderness, pedal edema - Expanded Lower Extremity Exam Neurovascular/Tendon exam: Absent: motor deficit, sensory deficit, tendon deficit Gait: observed and normal - Back Exam Back exam: Present: normal inspection, full ROM. Absent: tenderness - Neurological Exam Neurological exam: Present: alert, oriented X3 - Psychiatric Psychiatric exam: Present: normal affect, normal mood - Skin Skin exam: Present: warm, dry, intact, normal color Course - Reevaluation(s) Reevaluation #1: 73-year-old COPD comes in with increasing shortness of breath over the last couple of days. Chest x-rays negative he does have an elevated lactate 3.1 and an elevated the CBC. Time: 19:59 - Consultations Consultation #1: Discussed with Time: 21:08 Vital Signs Temperature 98.7 F 02/18/18 18:27 Pulse Rate 100 02/18/18 18:27 Respiratory Rate 32 02/18/18 18:27 Blood Pressure 150/77 02/18/18 18:27 O2 Sat by Pulse Oximetry 92 02/18/18 18:27 Temperature 98.7 F 02/18/18 18:27 Pulse Rate 82 02/18/18 20:02 Respiratory Rate 20 02/18/18 20:02 Blood Pressure 121/90 02/18/18 20:02 O2 Sat by Pulse Oximetry 92 02/18/18 20:02 Oxygen Delivery Oxygen Delivery Nasal Cannula Shortness of Breath/Dyspnea - Lab Data Lab results reviewed: Yes I reviewed the patient's lab results. Result diagrams: 02/18/18 18:54 02/18/18 18:54 Lab Results 02/18/18 02/18/18 02/18/18 Range/Units 18:54 18:54 18:54 WBC 16.6 H (4.3-11.1) K/mcL RBC 3.67 L (4.19-5.50) M/mcL Hgb 8.8 L (12.9-16.9) g/dL Hct 31.9 L (37.5-50.1) % MCV 86.9 (83.0-100.0) fL MCH 24.0 L (28.0-33.3) pg MCHC 27.6 L (31.6-35.5) g/dL RDW 15.3 H (11.5-14.5) % Plt Count 355 (140-400) K/mcL MPV 10.5 (9.4-12.4) fL Immature Gran % 0.7 (0-4) % Seg Neutrophils % 73.1 % Lymphocytes % 11.9 % Monocytes % 11.8 % Eosinophils % 2.1 % Basophils % 0.4 % Neutrophils # 12.1 H (1.6-8.9) K/mcL Lymphocytes # 2.0 (0.6-4.6) K/mcL Monocytes # 2.0 H (0.0-1.3) K/mcL Eosinophils # 0.4 (0.0-0.6) K/mcL Basophils # 0.1 (0.0-0.2) K/mcL Hypochromasia Present A (Not Present) Sodium 140 (136-145) mEq/L Potassium 4.8 (3.5-5.1) mEq/L Chloride 95 L (98-107) mEq/L Carbon Dioxide 40 H* (23-29) mEq/L BUN 17 (8-23) mg/dL Creatinine 0.74 (0.70-1.30) mg/dL Est GFR ( Amer) > 60 (> 60) Est GFR (Non-Af Amer) > 60 (> 60) BUN/Creatinine Ratio 23 (6-26) Glucose 114 H (70-105) mg/dL Calculated Osmolality 292 (280-300) Lactic Acid 3.1 H (0.5-2.2) mmol/L Calcium 9.2 (8.6-10.3) mg/dL Troponin I < 0.03 (< 0.04) ng/mL B-Natriuretic Peptide (Less than 100) pg/mL 02/18/18 02/18/18 Range/Units 18:54 20:25 WBC (4.3-11.1) K/mcL RBC (4.19-5.50) M/mcL Hgb (12.9-16.9) g/dL Hct (37.5-50.1) % MCV (83.0-100.0) fL MCH (28.0-33.3) pg MCHC (31.6-35.5) g/dL RDW (11.5-14.5) % Plt Count (140-400) K/mcL MPV (9.4-12.4) fL Immature Gran % (0-4) % Seg Neutrophils % % Lymphocytes % % Monocytes % % Eosinophils % % Basophils % % Neutrophils # (1.6-8.9) K/mcL Lymphocytes # (0.6-4.6) K/mcL Monocytes # (0.0-1.3) K/mcL Eosinophils # (0.0-0.6) K/mcL Basophils # (0.0-0.2) K/mcL Hypochromasia (Not Present) Sodium (136-145) mEq/L Potassium (3.5-5.1) mEq/L Chloride (98-107) mEq/L Carbon Dioxide (23-29) mEq/L BUN (8-23) mg/dL Creatinine (0.70-1.30) mg/dL Est GFR ( Amer) (> 60) Est GFR (Non-Af Amer) (> 60) BUN/Creatinine Ratio (6-26) Glucose (70-105) mg/dL Calculated Osmolality (280-300) Lactic Acid 0.7 (0.5-2.2) mmol/L Calcium (8.6-10.3) mg/dL Troponin I (< 0.04) ng/mL B-Natriuretic Peptide 47 (Less than 100) pg/mL - Radiology Data Radiology results reviewed: Yes I reviewed the patient's radiology results. Chest X-Ray 02/18/18 18:28 IMPRESSION: No acute process. Stable COPD changes D/ / Jorge Sanchez MD / Jorge Sanchez MD Interpreting Provider: Jorge Sanchez MD - EKG Data EKG attestation: Yes I reviewed and interpreted this EKG. EKG shows normal: Reports: sinus rhythm Rate: Reports: tachycardia Rhythm: Reports: NSR, PVC's Interpretation: Reports: no acute changes
[2018-02-18 19:18] LABS: Basophils % 0.4 %; Eosinophils % 2.1 %; Hematocrit 31.9 % (37.5-50.1); Hemoglobin 8.8 g/dL (12.9-16.9); Immature Granulocytes % 0.7 % (0-4); Lymphocytes % 11.9 %; Mean Corpuscular HGB Conc 27.6 g/dL (31.6-35.5); Mean Corpuscular Volume 86.9 fL (83.0-100.0); Mean Platelet Volume 10.5 fL (9.4-12.4); Monocytes % 11.8 %; Platelet Count 355 K/mcL (140-400); Red Blood Count 3.67 M/mcL (4.19-5.50); Red Cell Distribution Width 15.3 % (11.5-14.5); Segmented Neutrophils % 73.1 %
[2018-02-18 19:19] LABS: Basophils # 0.1 K/mcL (0.0-0.2); Eosinophils # 0.4 K/mcL (0.0-0.6); Neutrophils # 12.1 K/mcL (1.6-8.9)
[2018-02-18 19:32] LABS: Troponin I < 0.03 ng/mL (< 0.04)
[2018-02-18 19:40] LABS: BUN/Creatinine Ratio 23 (6-26); Blood Urea Nitrogen 17 mg/dL (8-23); Calcium 9.2 mg/dL (8.6-10.3); Carbon Dioxide 40 mEq/L (23-29); Chloride 95 mEq/L (98-107); Glucose 114 mg/dL (70-105); Osmolality,Calculated 292 (280-300); Potassium 4.8 mEq/L (3.5-5.1); Sodium 140 mEq/L (136-145); eGFR For African Americans > 60 (> 60); eGFR For Non-African Americans > 60 (> 60)
[2018-02-18 19:48] LABS: Hypochromasia Present (Not Present)
[2018-02-18] MEDS ORDERED: 0.9 % Sodium Chloride 500 ML IVC ONE (19:58)
[2018-02-18] MEDS ORDERED: Levofloxacin 750 MG/150 ML 750 MG/150 ML BAG IVPB ONE (19:59)
--- NOTE | 2018-02-19 01:36 | Internal Med History&Physical ---
<JaniceChico - Last Filed: 02/19/18 03:40> Date of Encounter: 02/19/18 Time of Encounter: 01:30 Internal Medicine - H&P: HPI Chief complaint: Shortness of breath History of present illness: Mr. Ramires is a 73 year old male with PMHx COPD, anxiety presents today for shortness of breath. The patient has been hospitalized multiple times for similar complaints. He reports that he recently was ill, went to [place], where he was treated with antibiotics for pneumonia. However, he does not remember the antibiotics name and reports that it did not resolve his symptom of SOB. He denies cough or sputum, denied chest pain, diaphoresis, abdominal pain, dysuria. SOB has improved since admission and after solumedrol dose. No further acute complaints. Past Med Surg Social Fam HX - Past Medical History Medical history: arthritis, atrial fibrillation, COPD Psychiatric history: anxiety, depression - Past Surgical History Surgical History: other - Social History Smoking Status: Former smoker Smokeless Tobacco Status: No Alcohol use: none Drug use: none - Family History Mother Hx Family Respiratory Disorders: Yes (COPD: mother, father, brother. Brother: lung cancer.) Internal Medicine - H&P: Meds Baclofen [Lioresal] 10 mg PO BID PRN 02/12/16 [History] Gabapentin [Neurontin] 300 mg PO TID 02/12/16 [History] LORazepam [Ativan] 0.5 mg PO BID PRN 02/12/16 [History] Trazodone HCl [TraZODone] 200 mg PO HS 02/12/16 [History] Albuterol Sulfate [Proair Hfa] 2 puff IH QID PRN 02/03/17 [History] Alendronate Sodium [Fosamax] 35 mg PO WE 02/03/17 [History] Budesonide/Formoterol 160/4.5 [Symbicort 160/4.5] 2 puff IH BID 02/03/17 [ History] Calcium Carbonate/Vitamin D3 [Calcium 600 + Vit D Tablet] 1 tab PO TID 02/03/17 [History] Cyanocobalamin (B-12) [Vitamin B12] 1,000 mcg PO DAILY 02/03/17 [History] Docusate [Colace] 200 mg PO DAILY 02/03/17 [History] Fluticasone Propionate Nasal [Flonase] 50 mcg NS BID 02/03/17 [History] HYDROcodone/Acet 5/325 mg [[place] 5-325 mg] 1 tab PO Q6H PRN 02/03/17 [History] Meloxicam [Mobic] 7.5 mg PO DAILY 02/03/17 [History] Multivitamin [Multi-Day Vitamins] 1 tab PO DAILY 02/03/17 [History] Omeprazole 20 mg PO DAILY 02/03/17 [History] Tiotropium [Spiriva] 18 mcg IH DAILY #2 inh 02/07/17 [Rx] BuPROPion SR (12 HR) [Wellbutrin SR] 200 mg PO BID 08/12/17 [History] Ranitidine HCl [Zantac] 150 mg PO BID 08/12/17 [History] Ipratropium/Albuterol Neb [Duoneb] 3 ml IH [id number] PRN #60 inhsol 08/20/17 [Rx] 3 Allergy/AdvReac Type Severity Reaction Status Date / Time No Known Allergies Allergy Verified 02/11/16 21:51 All Systems PM: A 10-system review of systems was performed and is negative for pertinent findings except as documented above in the HPI. - Constitutional Constitutional: no chills, no fever(s), no night sweats - EENT Eyes: no change in vision, no discharge, no pain, no photophobia Ears: no ear discharge, no ear pain, no tinnitus Nose, mouth and throat: no dysphagia, no nasal discharge, no neck pain, no sore throat - Cardiovascular Cardiovascular ROS IM: no chest pain, no diaphoresis, no dyspnea, no lightheadedness, no palpitations, no syncope - Respiratory Respiratory: no cough, no dyspnea, no wheezing, no excessive phlegm production - Gastrointestinal Gastrointestinal: no abdominal pain, no diarrhea, no hematemesis, no hematochezia, no melena, no nausea, no vomiting - Musculoskeletal Musculoskeletal ROS IM: no numbness, no tingling - Integumentary Integumentary IM: no rash, no unusual bruising - Neurological Neurological ROS: no confusion, no convulsions, no focal weakness, no numbness, no tingling, no tremor(s) - Hematologic/Lymphatic Hematologic/Lymphatic: no easy bruising - Constitutional Vitals: Temp Pulse Resp BP Pulse Ox 98.4 F 93 16 149/77 94 02/18/18 22:57 02/18/18 22:57 02/18/18 22:57 02/18/18 22:57 02/18/18 22:57 - Head Head exam: Present: atraumatic, normocephalic - Eye Eye exam: Present: PERRL, conjuntiva pink, sclera anicteric Pupils: Present: PERRL - Neck Neck exam general surgery: Present: supple, trachea midline. Absent: lymphadenopathy - Respiratory Respiratory exam: Present: wheezes. Absent: accessory muscle use, rales, rhonchi - Cardiovascular Cardiovascular exam: Present: RRR, +S1, +S2. Absent: diastolic murmur, gallop, rubs, systolic murmur - GI/Abdominal GI/Abdominal exam: Present: normal bowel sounds, soft, no peritoneal signs. Absent: distended, tenderness - Extremities Exam Extremities exam: Present: warm, radial pulses palpable and symmetrical. Absent : calf tenderness, cyanotic, pedal edema - Neurological Exam Neurological exam: Present: CN II-XII intact, oriented X3, no focal deficits. Absent: pronater drift, facial droop, speech deficit - Skin Skin exam: Present: dry, intact Internal Med - H&P Results - Labs CBC & Chem 7: 02/18/18 18:54 02/18/18 18:54 - Assessment and plan (1) Acute exacerbation of chronic obstructive airways disease Current Visit: Yes Status: Acute Assessment and plan: CXR negative for pneumonia. Patient denies cough, but admits recent illness with fever. Admit for observation. Treat COPD exacerbation with duoneb, steroids, and levaquin. Continuous pulse ox and cardiac monitoring Supplemental oxygen as needed with goal of oxygen saturation 88-92% (2) DVT prophylaxis Current Visit: No Status: Acute Assessment and plan: subQ Heparin (3) Anxiety Current Visit: No Status: Chronic Assessment and plan: Continue home medications - Time Spent With Patient Total time spent is greater than 50% in coordination of care (as documented) at patient's floor/unit and/or counseling patient: Greater than 35 minutes <Willy Florez - Last Filed: 02/19/18 06:12> Date of Encounter: 02/19/18 Internal Medicine - H&P: HPI History of present illness: Mr. Ramires is a 73 year old male All Systems PM: A 10-system review of systems was performed and is negative for pertinent findings except as documented above in the HPI. - Constitutional Vitals: Temp Pulse Resp BP Pulse Ox 98.5 F 92 20 124/63 95 02/19/18 02:44 02/19/18 02:44 02/19/18 04:22 02/19/18 02:44 02/19/18 04:22 Internal Med - H&P Results - Labs CBC & Chem 7: 02/18/18 18:54 02/18/18 18:54 - Attending Attestation I have seen and examined this patient independently. I have discussed with resident physician Dr. Camacho regarding the management plan. Agree with the documentation. - Assessment and plan (1) Acute exacerbation of chronic obstructive airways disease Current Visit: Yes Status: Acute (2) DVT prophylaxis Current Visit: No Status: Acute (3) Anxiety Current Visit: No Status: Chronic - Time Spent With Patient Total time spent is greater than 50% in coordination of care (as documented) at patient's floor/unit and/or counseling patient:
[2018-02-19] MEDS ORDERED: Naloxone 0.4 MG/ML INJ IVP PRN (01:48)
[2018-02-19] MEDS ORDERED: Acetaminophen 325 MG TABLET PO PRN (01:48)
[2018-02-19] MEDS ORDERED: Baclofen 10 MG TABLET PO PRN (01:52)
[2018-02-19] MEDS ORDERED: Ipratropium/Albuterol Neb 3 ML IH PRN ×2 (02:24→02:38)
[2018-02-19] MEDS: *HR* HYDROcodone/Acet 5/325 mg TABLET PO PRN ×2 (03:11→15:44)
[2018-02-19] MEDS: *HR* LORazepam 0.5 MG TABLET PO PRN ×2 (03:11→13:11)
[2018-02-19] MEDS: Ipratropium/Albuterol Neb 3 ML IH SCH ×6 (04:22→23:53)
[2018-02-19] MEDS: *HR* Heparin 5,000 UNIT/ML VIAL SQ SCH ×2 (06:04→17:15)
[2018-02-19 07:13] LABS: Red Cell Distribution Width 15.3 % (11.5-14.5)
[2018-02-19 07:14] LABS: Hematocrit 32.1 % (37.5-50.1); Hemoglobin 9.1 g/dL (12.9-16.9); Mean Corpuscular HGB Conc 28.3 g/dL (31.6-35.5); Mean Corpuscular Hemoglobin 24.5 pg (28.0-33.3); Mean Corpuscular Volume 86.3 fL (83.0-100.0); Platelet Count 352 K/mcL (140-400); Red Blood Count 3.72 M/mcL (4.19-5.50)
[2018-02-19] MEDS: Budesonide/Formoterol 160/4.5 MDI IH SCH ×2 (07:40→19:52)
[2018-02-19 07:41] LABS: BUN/Creatinine Ratio 27 (6-26); Blood Urea Nitrogen 14 mg/dL (8-23); Carbon Dioxide 36 mEq/L (23-29); Chloride 94 mEq/L (98-107); Glucose 109 mg/dL (70-105); Osmolality,Calculated 287 (280-300); Potassium 4.6 mEq/L (3.5-5.1); Sodium 138 mEq/L (136-145); eGFR For African Americans > 60 (> 60); eGFR For Non-African Americans > 60 (> 60)
[2018-02-19] MEDS: Gabapentin 300 MG CAPSULE PO SCH ×3 (08:18→22:03)
[2018-02-19] MEDS: Cyanocobalamin (B-12) 1,000 MCG TABLET PO SCH (08:18)
[2018-02-19] MEDS: Fluticasone Propionate Nasal 50 MCG/SPRAY BOTTLE NS SCH ×2 (08:18→22:03)
[2018-02-19] MEDS: BuPROPion SR (12 HR) 100 MG TABLET PO SCH ×2 (08:18→22:03)
[2018-02-19] MEDS: Famotidine 20 MG TABLET PO SCH ×2 (08:18→22:03)
[2018-02-19] MEDS: predniSONE 20 MG TABLET PO SCH (08:19)
--- NOTE | 2018-02-19 16:13 | Event Note ---
Date of Encounter: 02/19/18 Time of Encounter: 16:09 Seen and examined at bedside, patient is new to me. Information obtained from chart review and patient report. Still with complaints of shortness of breath but overall improved. He tells me is post have a outpatient CT scan ordered And requesting that began inpatient. (1) Acute exacerbation of chronic obstructive airways disease suspected with SOB and wheezing. CXR negative for pneumonia. Cont IV Levaquin, steroids and bronchodilators. Urinary antigens, resp PCR and chest CT pending (2) Anxiety Continue home medications (3) DVT prophylaxis Heparin
--- NOTE | 2018-02-19 16:35 | Electrocardiograph Report ---
[address] [address] Test Date: 2018-02-18 Pat Name: Ba Ramires Department: 104 Room: 3B Gender: M [employer]: AM : 1945 Requested By: Igor Apodaca Order Number: [id number] Reading MD: Shabnam Cruz Measurements Intervals [place] Rate: 102 P: 83 [place]: 164 QRS: 9 QRSD: 101 T: 71 QT: 313 QTc: 372 Interpretive Statements SINUS TACHYCARDIA WITH OCCASIONAL VENTRICULAR PREMATURE COMPLEXES WITH OCCASIONAL SUPRAVENTRICULAR PREMATURE COMPLEXES ABNORMAL RHYTHM ECG Electronically Signed On 02-19-2018 16:34:00 EDT by Shabnam Cruz
[2018-02-19] MEDS: levoFLOXacin 750 MG TABLET PO SCH (17:15)
[2018-02-19] MEDS: traZODone 50 MG TABLET PO SCH (22:03)
[2018-02-19 23:42] LABS: Adenovirus Not Detected (Not Detect); Coronavirus 229E Not Detected (Not Detect); Coronavirus HKU1 Not Detected (Not Detect); Coronavirus NL63 Not Detected (Not Detect); Coronavirus OC43 Not Detected (Not Detect); Human Metapneumovirus Not Detected (Not Detect); Human Rhinovirus/Enterovirus Not Detected (Not Detect); Influenza B Not Detected (Not Detect); Parainfluenza Virus 1 Not Detected (Not Detect); Parainfluenza Virus 2 Not Detected (Not Detect); Parainfluenza Virus 3 Not Detected (Not Detect); Parainfluenza Virus 4 Not Detected (Not Detect)
[2018-02-19 23:43] LABS: Bordetella Pertussis Not Detected (Not Detect); Chlamydophila pneumoniae Not Detected (Not Detect); Mycoplasma pneumoniae Not Detected (Not Detect); Respiratory Syncytial Virus Not Detected (Not Detect)
[2018-02-20] MEDS: Ipratropium/Albuterol Neb 3 ML IH SCH ×5 (04:58→20:39)
[2018-02-20] MEDS: *HR* Heparin 5,000 UNIT/ML VIAL SQ SCH ×2 (05:07→17:30)
[2018-02-20 06:12] LABS: Hematocrit 30.8 % (37.5-50.1); Mean Corpuscular HGB Conc 29.2 g/dL (31.6-35.5); Mean Corpuscular Hemoglobin 24.9 pg (28.0-33.3); Mean Corpuscular Volume 85.1 fL (83.0-100.0); Mean Platelet Volume 10.5 fL (9.4-12.4); Platelet Count 341 K/mcL (140-400); Red Blood Count 3.62 M/mcL (4.19-5.50); Red Cell Distribution Width 15.4 % (11.5-14.5)
[2018-02-20 06:26] LABS: BUN/Creatinine Ratio 24 (6-26); Blood Urea Nitrogen 14 mg/dL (8-23); Calcium 8.7 mg/dL (8.6-10.3); Carbon Dioxide 37 mEq/L (23-29); Chloride 97 mEq/L (98-107); Glucose 92 mg/dL (70-105); Osmolality,Calculated 290 (280-300); Potassium 3.7 mEq/L (3.5-5.1); Sodium 140 mEq/L (136-145); eGFR For African Americans > 60 (> 60); eGFR For Non-African Americans > 60 (> 60)
[2018-02-20] MEDS: *HR* HYDROcodone/Acet 5/325 mg TABLET PO PRN ×3 (07:45→21:44)
[2018-02-20] MEDS: Gabapentin 300 MG CAPSULE PO SCH ×3 (07:45→20:10)
[2018-02-20] MEDS: Famotidine 20 MG TABLET PO SCH ×2 (07:45→20:09)
[2018-02-20] MEDS: BuPROPion SR (12 HR) 100 MG TABLET PO SCH ×2 (07:45→20:10)
[2018-02-20] MEDS: *HR* LORazepam 0.5 MG TABLET PO PRN ×2 (07:45→20:09)
[2018-02-20] MEDS: Cyanocobalamin (B-12) 1,000 MCG TABLET PO SCH (07:45)
[2018-02-20] MEDS: predniSONE 20 MG TABLET PO SCH (07:45)
[2018-02-20] MEDS: Fluticasone Propionate Nasal 50 MCG/SPRAY BOTTLE NS SCH ×2 (07:46→20:29)
[2018-02-20] MEDS: levoFLOXacin 750 MG TABLET PO SCH (07:46)
[2018-02-20] MEDS: Budesonide/Formoterol 160/4.5 MDI IH SCH ×2 (07:54→20:39)
--- NOTE | 2018-02-20 14:00 | Internal Med Progress Note ---
Date of Encounter: 02/20/18 Time of Encounter: 13:58 - Assessment and plan (1) Acute exacerbation of chronic obstructive airways disease Current Visit: Yes Status: Acute Assessment and plan: has known COPD and wears oxygen at home. Presented with worsening shortness of breath. CXR non-acute. Chest CT with evidence of severe COPD/emphysema. Minimal improvement in shortness of breath with steroids, IV Levaquin and bronchodilators. Continue current treatment regimen. Check echo. With severe emphysema/COPD maybe prolonged (2) Anxiety Current Visit: No Status: Chronic Assessment and plan: per hx. Cont home ativan. (3) DVT prophylaxis Current Visit: No Status: Acute Assessment and plan: Heparin - Time Spent With Patient Total time spent is greater than 50% in coordination of care (as documented) at patient's floor/unit and/or counseling patient: - Subjective Interval history: Seen and examined at bedside. Patient says he is more short of breath than yesterday. Complains of severe shortness of breath with any amount of exertion. No chest pain. Has a nonproductive cough. No fevers or chills. - Constitutional Vitals: Temp Pulse Resp BP Pulse Ox 98.0 F 71 16 131/74 93 02/20/18 11:27 02/20/18 11:27 02/20/18 12:04 02/20/18 11:27 02/20/18 12:04 General appearance: Present: A&O X 3, no acute distress, underweight - Head Head exam: Present: atraumatic, normocephalic - Eye Eye exam: Present: PERRL, conjuntiva pink, sclera anicteric Pupils: Present: PERRL - Neck Neck exam general surgery: Present: supple, trachea midline. Absent: lymphadenopathy - Respiratory Respiratory exam: Present: decreased breath sounds, CTAB. Absent: accessory muscle use, rales, rhonchi, wheezes - Cardiovascular Cardiovascular exam: Present: RRR, +S1, +S2. Absent: diastolic murmur, gallop, rubs, systolic murmur - GI/Abdominal GI/Abdominal exam: Present: normal bowel sounds, soft, no peritoneal signs. Absent: distended, tenderness - Extremities Exam Extremities exam: Present: warm, radial pulses palpable and symmetrical. Absent : calf tenderness, cyanotic, pedal edema - Neurological Exam Neurological exam: Present: CN II-XII intact, oriented X3, no focal deficits. Absent: pronater drift, facial droop, speech deficit - Skin Skin exam: Present: dry, intact Internal Medicine: Result - Labs CBC & Chem 7: 02/20/18 05:52 02/20/18 05:52 Labs: Short CBC 02/20/18 Range/Units 05:52 WBC 9.4 (4.3-11.1) K/mcL Hgb 9.0 L (12.9-16.9) g/dL Hct 30.8 L (37.5-50.1) % Plt Count 341 (140-400) K/mcL BMP 02/20/18 05:52 Sodium 140 Potassium 3.7 Chloride 97 L Carbon Dioxide 37 H BUN 14 Creatinine 0.58 L Glucose 92 Calcium 8.7 - Impressions Impressions Chest CT 02/19/18 16:08 IMPRESSION: 1. No acute abnormality in the chest. 2. Severe centrilobular emphysema. D/ / Adrien Arteaga / Adrien Arteaga Interpreting Provider: Adrien Arteaga Consult Discharge Plan - Plan [facility]: [facility] [[facility] Care Provider[facility] - 02/26/18 12:30 pm
[2018-02-20] MEDS ORDERED: Saline Nasal Spray 44 ML BOTTLE NS PRN (14:16)
[2018-02-20] MEDS: traZODone 50 MG TABLET PO SCH (20:09)
[2018-02-21] MEDS: Ipratropium/Albuterol Neb 3 ML IH SCH ×7 (00:20→23:47)
[2018-02-21] MEDS: *HR* Heparin 5,000 UNIT/ML VIAL SQ SCH ×2 (05:15→18:03)
[2018-02-21 07:46] LABS: Mean Platelet Volume 10.7 fL (9.4-12.4); Red Cell Distribution Width 15.6 % (11.5-14.5)
[2018-02-21 07:47] LABS: BUN/Creatinine Ratio 24 (6-26); Blood Urea Nitrogen 15 mg/dL (8-23); Calcium 8.7 mg/dL (8.6-10.3); Carbon Dioxide 37 mEq/L (23-29); Chloride 98 mEq/L (98-107); Glucose 85 mg/dL (70-105); Hemoglobin 8.9 g/dL (12.9-16.9); Mean Corpuscular HGB Conc 28.7 g/dL (31.6-35.5); Mean Corpuscular Hemoglobin 24.9 pg (28.0-33.3); Mean Corpuscular Volume 86.8 fL (83.0-100.0); Osmolality,Calculated 292 (280-300); Platelet Count 369 K/mcL (140-400); Potassium 3.7 mEq/L (3.5-5.1); Red Blood Count 3.57 M/mcL (4.19-5.50); Sodium 141 mEq/L (136-145); eGFR For African Americans > 60 (> 60); eGFR For Non-African Americans > 60 (> 60)
[2018-02-21] MEDS: Budesonide/Formoterol 160/4.5 MDI IH SCH ×2 (07:57→20:46)
[2018-02-21] MEDS: levoFLOXacin 750 MG TABLET PO SCH (09:33)
[2018-02-21] MEDS: BuPROPion SR (12 HR) 100 MG TABLET PO SCH ×2 (09:33→21:32)
[2018-02-21] MEDS: Gabapentin 300 MG CAPSULE PO SCH ×3 (09:33→21:32)
[2018-02-21] MEDS: predniSONE 20 MG TABLET PO SCH (09:33)
[2018-02-21] MEDS: Cyanocobalamin (B-12) 1,000 MCG TABLET PO SCH (09:33)
[2018-02-21] MEDS: Famotidine 20 MG TABLET PO SCH ×2 (09:33→21:32)
[2018-02-21] MEDS: Fluticasone Propionate Nasal 50 MCG/SPRAY BOTTLE NS SCH ×2 (09:35→21:31)
[2018-02-21] MEDS: *HR* HYDROcodone/Acet 5/325 mg TABLET PO PRN ×3 (09:38→21:32)
[2018-02-21] MEDS: *HR* LORazepam 0.5 MG TABLET PO PRN (12:24)
--- NOTE | 2018-02-21 15:47 | Internal Med Progress Note ---
Date of Encounter: 02/21/18 Time of Encounter: 15:43 - Assessment and plan (1) Acute exacerbation of chronic obstructive airways disease Current Visit: Yes Status: Acute Assessment and plan: has known COPD and wears oxygen at home. Presented with worsening shortness of breath. CXR non-acute. Chest CT with evidence of severe COPD/emphysema. Minimal improvement in shortness of breath with steroids, IV Levaquin and bronchodilators. Continue current treatment regimen. Check echo. With severe emphysema/COPD maybe prolonged hospital course/recovery. Echo pending (2) Anxiety Current Visit: No Status: Chronic Assessment and plan: per hx. Cont home ativan. (3) DVT prophylaxis Current Visit: No Status: Acute Assessment and plan: Heparin - Time Spent With Patient Total time spent is greater than 50% in coordination of care (as documented) at patient's floor/unit and/or counseling patient: - Subjective Interval history: Seen and examined at bedside. Still c/o SOB but overall improved. No Chest pain. - Constitutional Vitals: Temp Pulse Resp BP Pulse Ox 98.7 F 105 17 124/62 93 02/21/18 15:26 02/21/18 15:26 02/21/18 15:26 02/21/18 15:26 02/21/18 15:26 General appearance: Present: A&O X 3, no acute distress, underweight - Head Head exam: Present: atraumatic, normocephalic - Eye Eye exam: Present: PERRL, conjuntiva pink, sclera anicteric Pupils: Present: PERRL - Neck Neck exam general surgery: Present: supple, trachea midline. Absent: lymphadenopathy - Respiratory Respiratory exam: Present: decreased breath sounds, wheezes. Absent: accessory muscle use, rales, rhonchi - Cardiovascular Cardiovascular exam: Present: RRR, +S1, +S2. Absent: diastolic murmur, gallop, rubs, systolic murmur - GI/Abdominal GI/Abdominal exam: Present: normal bowel sounds, soft, no peritoneal signs. Absent: distended, tenderness - Extremities Exam Extremities exam: Present: warm, radial pulses palpable and symmetrical. Absent : calf tenderness, cyanotic, pedal edema - Neurological Exam Neurological exam: Present: CN II-XII intact, oriented X3, no focal deficits. Absent: pronater drift, facial droop, speech deficit - Skin Skin exam: Present: dry, intact Internal Medicine: Result - Labs CBC & Chem 7: 02/21/18 06:23 02/21/18 06:23 Labs: Short CBC 02/21/18 Range/Units 06:23 WBC 7.9 (4.3-11.1) K/mcL Hgb 8.9 L (12.9-16.9) g/dL Hct 31.0 L (37.5-50.1) % Plt Count 369 (140-400) K/mcL [facility] 02/21/18 06:23 Sodium 141 Potassium 3.7 Chloride 98 Carbon Dioxide 37 H BUN 15 Creatinine 0.63 L Glucose 85 Calcium 8.7 Consult Discharge Plan - Plan Referrals: LINDA,PCP [Primary Care Provider] - 02/26/18 12:30 pm
[2018-02-21] MEDS ORDERED: Isovue-370 500 ML INFUS..BTL IV ONE (15:51)
[2018-02-21] MEDS: traZODone 50 MG TABLET PO SCH (21:31)
[2018-02-22] MEDS: Ipratropium/Albuterol Neb 3 ML IH SCH ×6 (04:17→23:23)
[2018-02-22] MEDS: *HR* Heparin 5,000 UNIT/ML VIAL SQ SCH ×2 (05:06→17:45)
[2018-02-22] MEDS: *HR* LORazepam 0.5 MG TABLET PO PRN ×2 (05:07→17:49)
[2018-02-22] MEDS: *HR* HYDROcodone/Acet 5/325 mg TABLET PO PRN ×2 (05:07→14:58)
[2018-02-22 06:02] LABS: Hematocrit 29.4 % (37.5-50.1); Hemoglobin 8.7 g/dL (12.9-16.9); Mean Corpuscular HGB Conc 29.6 g/dL (31.6-35.5); Mean Corpuscular Hemoglobin 25.6 pg (28.0-33.3); Mean Corpuscular Volume 86.5 fL (83.0-100.0); Mean Platelet Volume 10.6 fL (9.4-12.4); Platelet Count 290 K/mcL (140-400); Red Cell Distribution Width 15.6 % (11.5-14.5)
[2018-02-22 06:15] LABS: BUN/Creatinine Ratio 32 (6-26); Blood Urea Nitrogen 18 mg/dL (8-23); Calcium 8.7 mg/dL (8.6-10.3); Carbon Dioxide 34 mEq/L (23-29); Chloride 100 mEq/L (98-107); Glucose 86 mg/dL (70-105); Osmolality,Calculated 291 (280-300); Potassium 3.9 mEq/L (3.5-5.1); Sodium 140 mEq/L (136-145); eGFR For African Americans > 60 (> 60); eGFR For Non-African Americans > 60 (> 60)
[2018-02-22] MEDS: Budesonide/Formoterol 160/4.5 MDI IH SCH ×2 (08:10→20:30)
[2018-02-22] MEDS: levoFLOXacin 750 MG TABLET PO SCH (09:47)
[2018-02-22] MEDS: Cyanocobalamin (B-12) 1,000 MCG TABLET PO SCH (09:47)
[2018-02-22] MEDS: Gabapentin 300 MG CAPSULE PO SCH ×3 (09:47→19:54)
[2018-02-22] MEDS: BuPROPion SR (12 HR) 100 MG TABLET PO SCH ×2 (09:47→19:54)
[2018-02-22] MEDS: Famotidine 20 MG TABLET PO SCH ×2 (09:47→19:54)
[2018-02-22] MEDS: predniSONE 20 MG TABLET PO SCH (09:47)
[2018-02-22] MEDS: Fluticasone Propionate Nasal 50 MCG/SPRAY BOTTLE NS SCH ×2 (09:48→19:53)
[2018-02-22] MEDS ORDERED: cefTRIAXone 1,000 MG in Water for inj. (sterile) 20 ML 20 ML IVP SCH (10:00)
[2018-02-22] MEDS: Tiotropium 18 MCG inhalation IH SCH (11:45)
[2018-02-22] MEDS: Azithromycin 500 MG in D5% in Water 250 ML IVPB SCH (14:49)
--- NOTE | 2018-02-22 15:59 | Internal Med Progress Note ---
Date of Encounter: 02/22/18 Time of Encounter: 15:59 - Assessment and plan (1) Acute exacerbation of chronic obstructive airways disease Current Visit: Yes Status: Acute Assessment and plan: has known COPD and wears oxygen at home. Presented with worsening shortness of breath. CXR non-acute. Chest CT with evidence of severe COPD/emphysema. Minimal improvement in shortness of breath with steroids, IV Levaquin and bronchodilators. Change ATB to azithromycin and ceftriaxone for anti- inflammatory properties. Resume home spiriva. With severe emphysema/COPD maybe prolonged hospital course/recovery. Cont current medication regimen. (2) Anxiety Current Visit: No Status: Chronic Assessment and plan: per hx. Cont home ativan. (3) Anemia Current Visit: No Status: Acute Assessment and plan: Anemia of chronic disease. Hgb appears to be at baseline. No active bleeding. Continue intermittently monitor. Qualifiers: Other causes of anemia: chronic disease, other Qualified Code(s): D63.8 - Anemia in other chronic diseases classified elsewhere (4) DVT prophylaxis Current Visit: No Status: Acute Assessment and plan: Heparin - Time Spent With Patient Total time spent is greater than 50% in coordination of care (as documented) at patient's floor/unit and/or counseling patient: - Subjective Interval history: Seen and examined at bedside. Still c/o SOB, says he feels worse than yesterday. He feels like he is a pocket of pneumonia on his left upper lobe. Denies chest pain. - Constitutional Vitals: Temp Pulse Resp BP Pulse Ox 98.7 F 91 16 116/67 95 02/22/18 15:13 02/22/18 15:13 02/22/18 15:13 02/22/18 15:13 02/22/18 15:13 General appearance: Present: A&O X 3, no acute distress, underweight - Head Head exam: Present: atraumatic, normocephalic - Eye Eye exam: Present: PERRL, conjuntiva pink, sclera anicteric Pupils: Present: PERRL - Neck Neck exam general surgery: Present: supple, trachea midline. Absent: lymphadenopathy - Respiratory Respiratory exam: Present: decreased breath sounds. Absent: accessory muscle use, rales, rhonchi, wheezes - Cardiovascular Cardiovascular exam: Present: RRR, +S1, +S2. Absent: diastolic murmur, gallop, rubs, systolic murmur - GI/Abdominal GI/Abdominal exam: Present: normal bowel sounds, soft, no peritoneal signs. Absent: distended, tenderness - Extremities Exam Extremities exam: Present: warm, radial pulses palpable and symmetrical. Absent : calf tenderness, cyanotic, pedal edema - Neurological Exam Neurological exam: Present: CN II-XII intact, oriented X3, no focal deficits. Absent: pronater drift, facial droop, speech deficit - Skin Skin exam: Present: dry, intact Internal Medicine: Result - Labs CBC & Chem 7: 02/22/18 05:35 02/22/18 05:35 Labs: Short CBC 02/22/18 Range/Units 05:35 WBC 8.9 (4.3-11.1) K/mcL Hgb 8.7 L (12.9-16.9) g/dL Hct 29.4 L (37.5-50.1) % Plt Count 290 (140-400) K/mcL BMP 02/22/18 05:35 Sodium 140 Potassium 3.9 Chloride 100 Carbon Dioxide 34 H BUN 18 Creatinine 0.56 L Glucose 86 Calcium 8.7 - Impressions Impressions Echocardiogram 02/21/18 14:07 Impressions: LVEF 50%. Not all LV segments were well visualized, but overall LVEF appeared low normal. Normal LV chamber size and wall thickness. Mild left ventricular diastolic dysfunction. Atypical septal motion consistent with bundle branch block. Normal right ventricular structure and function. No evidence of pulmonary hypertension identified. RVSP not well obtained and could be underestimated. No significant valvular dysfunction. Findings: Study Quality * Technically sub-optimal due to poor echocardiographic windows. ECG Findings * Sinus rhythm with PVCs. Left Ventricle * LVEF 50%. Not all LV segments were well visualized, but overall LVEF appeared low normal. * Normal LV chamber size and wall thickness. * Mild left ventricular diastolic dysfunction. * Atypical septal motion consistent with bundle branch block. Right Ventricle * Normal right ventricular structure and function. Left Atrium * Mildly dilated left atrium. Right Atrium * Normal right atrial size. Aortic Valve * Aortic valve not well visualized. * No aortic regurgitation. * No aortic stenosis. Mitral Valve * Normal mitral valve structure and function. * No mitral regurgitation. * No mitral stenosis. Tricuspid Valve * Normal tricuspid valve structure and function. * Trace tricuspid regurgitation. * No evidence of pulmonary hypertension identifed. RVSP not well obtained and could be underestimated. Pulmonic Valve * Pulmonic valve not well visualized. Aorta * Normally sized aortic root. Pericardium * The pericardium appears normal. IVC * Normal IVC dimensions and inspiratory collapse. Pulmonary Artery * Normal visualized portions of the main pulmonary artery. Chest CTA 02/21/18 15:51 IMPRESSION: No CT evidence of pulmonary embolism. Stable intrathoracic findings including severe emphysema. D/ / Quiana Caputo Cha, MD / Quiana Caputo Cha, MD Interpreting Provider: Quiana Caputo Cha, MD Consult Discharge Plan - Plan Referrals: [facility],PCP [Primary Care Provider] - 02/26/18 12:30 pm
[2018-02-22] MEDS: traZODone 50 MG TABLET PO SCH (19:53)
[2018-02-23] MEDS: Ipratropium/Albuterol Neb 3 ML IH SCH ×6 (03:32→22:57)
[2018-02-23 06:01] LABS: Hematocrit 29.7 % (37.5-50.1); Hemoglobin 8.6 g/dL (12.9-16.9); Mean Corpuscular Hemoglobin 24.7 pg (28.0-33.3); Mean Corpuscular Volume 85.3 fL (83.0-100.0); Mean Platelet Volume 10.8 fL (9.4-12.4); Platelet Count 312 K/mcL (140-400); Red Blood Count 3.48 M/mcL (4.19-5.50); Red Cell Distribution Width 15.5 % (11.5-14.5)
[2018-02-23 06:21] LABS: BUN/Creatinine Ratio 28 (6-26); Blood Urea Nitrogen 15 mg/dL (8-23); Calcium 8.8 mg/dL (8.6-10.3); Carbon Dioxide 38 mEq/L (23-29); Chloride 100 mEq/L (98-107); Glucose 90 mg/dL (70-105); Osmolality,Calculated 292 (280-300); Sodium 141 mEq/L (136-145); eGFR For African Americans > 60 (> 60); eGFR For Non-African Americans > 60 (> 60)
[2018-02-23] MEDS: *HR* Heparin 5,000 UNIT/ML VIAL SQ SCH ×2 (06:21→17:20)
[2018-02-23] MEDS: *HR* LORazepam 0.5 MG TABLET PO PRN ×2 (06:25→20:14)
[2018-02-23] MEDS: *HR* HYDROcodone/Acet 5/325 mg TABLET PO PRN ×2 (06:25→14:52)
[2018-02-23] MEDS: Tiotropium 18 MCG inhalation IH SCH (07:14)
[2018-02-23] MEDS: Budesonide/Formoterol 160/4.5 MDI IH SCH ×2 (07:16→20:27)
[2018-02-23] MEDS: predniSONE 20 MG TABLET PO SCH (09:22)
[2018-02-23] MEDS: Gabapentin 300 MG CAPSULE PO SCH ×3 (09:22→20:15)
[2018-02-23] MEDS: Famotidine 20 MG TABLET PO SCH ×2 (09:22→20:15)
[2018-02-23] MEDS: BuPROPion SR (12 HR) 100 MG TABLET PO SCH ×2 (09:23→20:15)
[2018-02-23] MEDS: Cyanocobalamin (B-12) 1,000 MCG TABLET PO SCH (09:23)
[2018-02-23] MEDS: Azithromycin 500 MG in D5% in Water 250 ML IVPB SCH (09:24)
[2018-02-23] MEDS: Fluticasone Propionate Nasal 50 MCG/SPRAY BOTTLE NS SCH ×2 (09:25→20:16)
[2018-02-23] MEDS ORDERED: cefTRIAXone 1,000 MG in Water for inj. (sterile) 20 ML 10 ML IVP SCH (10:00)
--- NOTE | 2018-02-23 10:30 | Internal Med Progress Note ---
Date of Encounter: 02/23/18 Time of Encounter: 10:28 - Assessment and plan (1) Acute exacerbation of chronic obstructive airways disease Current Visit: Yes Status: Acute Assessment and plan: has known COPD and wears oxygen at home. Presented with worsening shortness of breath. CXR non-acute. Chest CT with evidence of severe COPD/emphysema. Chest CTA negative for pulmonary embolism. Minimal improvement in shortness of breath with steroids, IV Levaquin and bronchodilators. Change ATB to ceftriaxone/azithromycin for anti-inflammatory properties. Resume home spiriva. With severe emphysema/COPD maybe prolonged hospital course/recovery. Cont current medication regimen. (2) Anxiety Current Visit: No Status: Chronic Assessment and plan: per hx. Has been out of Ativan for several weeks; suspect this is contributing to SOB. Cont home ativan. (3) Anemia Current Visit: No Status: Acute Assessment and plan: Anemia of chronic disease. Hgb appears to be at baseline. No active bleeding. Continue intermittently monitor. Qualifiers: Other causes of anemia: chronic disease, other Qualified Code(s): D63.8 - Anemia in other chronic diseases classified elsewhere (4) DVT prophylaxis Current Visit: No Status: Acute Assessment and plan: Heparin - Time Spent With Patient Total time spent is greater than 50% in coordination of care (as documented) at patient's floor/unit and/or counseling patient: - Subjective Interval history: Seen and examined at bedside. Still c/o SOB but says he feels a little better than yesterday. He tells me he ran out of his Ativan several weeks ago and he thinks that is contributing to his shortness of breath at home. He is requesting an Rx at discharge. Says he is not sure if he is able to go home today due to persistent shortness of breath. He is requesting another day in the hospital. No chest pain. - Constitutional Vitals: Temp Pulse Resp BP Pulse Ox 98.3 F 80 18 112/67 97 02/23/18 08:03 02/23/18 08:03 02/23/18 08:03 02/23/18 08:03 02/23/18 09:20 General appearance: Present: A&O X 3, no acute distress, underweight - Head Head exam: Present: atraumatic, normocephalic - Eye Eye exam: Present: PERRL, conjuntiva pink, sclera anicteric Pupils: Present: PERRL - Neck Neck exam general surgery: Present: supple, trachea midline. Absent: lymphadenopathy - Respiratory Respiratory exam: Present: decreased breath sounds, rhonchi (Scattered rhonchi bilateral lower lobes posteriorly). Absent: accessory muscle use, rales, wheezes - Cardiovascular Cardiovascular exam: Present: RRR, +S1, +S2. Absent: diastolic murmur, gallop, rubs, systolic murmur - GI/Abdominal GI/Abdominal exam: Present: normal bowel sounds, soft, no peritoneal signs. Absent: distended, tenderness - Extremities Exam Extremities exam: Present: warm, radial pulses palpable and symmetrical. Absent : calf tenderness, cyanotic, pedal edema - Neurological Exam Neurological exam: Present: CN II-XII intact, oriented X3, no focal deficits. Absent: pronater drift, facial droop, speech deficit - Skin Skin exam: Present: dry, intact Internal Medicine: Result - Labs CBC & Chem 7: 02/23/18 04:44 02/23/18 04:44 Labs: Short CBC 02/23/18 Range/Units 04:44 WBC 8.7 (4.3-11.1) K/mcL Hgb 8.6 L (12.9-16.9) g/dL Hct 29.7 L (37.5-50.1) % Plt Count 312 (140-400) K/mcL [facility] 02/23/18 04:44 Sodium 141 Potassium 4.0 Chloride 100 Carbon Dioxide 38 H BUN 15 Creatinine 0.53 L Glucose 90 Calcium 8.8 Consult Discharge Plan - Plan [facility]: [facility] [Primary Care Provider[facility] - 02/26/18 12:30 pm
[2018-02-23] MEDS: traZODone 50 MG TABLET PO SCH (20:14)
[2018-02-24] MEDS: Ipratropium/Albuterol Neb 3 ML IH SCH ×2 (03:23→08:09)
[2018-02-24] MEDS: *HR* Heparin 5,000 UNIT/ML VIAL SQ SCH (06:03)
[2018-02-24] MEDS: *HR* HYDROcodone/Acet 5/325 mg TABLET PO PRN (06:06)
[2018-02-24 07:18] VITALS: BP 116/75
[2018-02-24] MEDS: Budesonide/Formoterol 160/4.5 MDI IH SCH (08:09)
--- NOTE | 2018-02-24 08:10 | Discharge Summary ---
Date of Encounter: 02/24/18 Time of Encounter: 08:07 - Discharge Diagnosis (1) Acute exacerbation of chronic obstructive airways disease Priority: Primary Status: Acute Assessment and Plan: has known COPD and wears oxygen at home. Presented with worsening shortness of breath. CXR non-acute. Chest CT with evidence of severe COPD/emphysema. Chest CTA negative for pulmonary embolism. Symptoms improved with IV ATB, steroid burst and bronchodilators. Severe emphysema/COPD contributed to prolonged hospital course/recovery. Completed 5 day course of steroid burst. Discharge home on Levaquin (to complete a total course of 7 days). Continue home inhalers. Adequately oxygenating on home O2 dose at time of discharge. Follow-up with primary career manager outpatient. (2) Anxiety Priority: Primary Status: Chronic Assessment and Plan: per hx. Has been out of Ativan for several weeks; suspect this is contributing to SOB. Rx given for Ativan to bridge him to PCP appointment (3) Anemia Priority: Secondary Status: Chronic Assessment and Plan: Anemia of chronic disease. Hgb appears to be at baseline. No active bleeding. Qualifiers: Other causes of anemia: chronic disease, other Qualified Code(s): D63.8 - Anemia in other chronic diseases classified elsewhere Hospital course: Please see assessment and plan for Hospital course Discharge discussed with: patient (Seen and examined at bedside. Patient says he feels much better today only to be discharged home. Has some shortness of breath that is worse with exertion but baseline per patient. No chest pain. Has a nonproductive cough. He is requesting Rx for Ativan to bridge him to his PCP appointment later on this month.) - Time Spent with Patient Total time spent providing and/or coordinating discharge services: - Discharge Medications Prescriptions: levoFLOXacin [Levaquin] 750 mg PO DAILY #3 tablet LORazepam [Ativan] 0.5 mg PO BID PRN 15 Days #30 tablet PRN Reason: Anxiety Home Medications: Baclofen [Lioresal] 10 mg PO BID PRN 02/12/16 [History] Gabapentin [Neurontin] 300 mg PO TID 02/12/16 [History] Trazodone HCl [TraZODone] 200 mg PO HS 02/12/16 [History] Albuterol Sulfate [Proair Hfa] 2 puff IH QID PRN 02/03/17 [History] Alendronate Sodium [Fosamax] 35 mg PO WE 02/03/17 [History] Budesonide/Formoterol 160/4.5 [Symbicort 160/4.5] 2 puff IH BID 02/03/17 [ History] Calcium Carbonate/Vitamin D3 [Calcium 600 + Vit D Tablet] 1 tab PO TID 02/03/17 [History] Cyanocobalamin (B-12) [Vitamin B12] 1,000 mcg PO DAILY 02/03/17 [History] Docusate [Colace] 200 mg PO DAILY 02/03/17 [History] Fluticasone Propionate Nasal [Flonase] 50 mcg NS BID 02/03/17 [History] HYDROcodone/Acet 5/325 mg [Aurora 5-325 mg] 1 tab PO Q6H PRN 02/03/17 [History] Meloxicam [Mobic] 7.5 mg PO DAILY 02/03/17 [History] Multivitamin [Multi-Day Vitamins] 1 tab PO DAILY 02/03/17 [History] Omeprazole 20 mg PO DAILY 02/03/17 [History] Tiotropium [Spiriva] 18 mcg IH DAILY #2 inh 02/07/17 [Rx] BuPROPion SR (12 HR) [Wellbutrin SR] 200 mg PO BID 08/12/17 [History] raNITIdine HCl [Zantac] 150 mg PO BID 08/12/17 [History] Ipratropium/Albuterol Neb [Duoneb] 3 ml IH [id number] PRN #60 inhsol 08/20/17 [Rx] LORazepam [Ativan] 0.5 mg PO BID PRN 15 Days #30 tablet 02/24/18 [Rx] levoFLOXacin [Levaquin] 750 mg PO DAILY #3 tablet 02/24/18 [Rx] Allergies/Adverse Reactions: 3 Allergy/AdvReac Type Severity Reaction Status Date / Time No Known Allergies Allergy Verified 02/11/16 21:51 Date of admission: 02/19/18 13:11 Primary care physician: PCP LINDA Discharging clinician: Denisa Stanton Anticipated date of discharge: 02/24/18 - Constitutional Vitals: Temp Pulse Resp BP Pulse Ox 98.4 F 122 19 116/75 91 02/24/18 07:17 02/24/18 07:17 02/24/18 07:17 02/24/18 07:17 02/24/18 07:17 General appearance: Present: A&O X 3, no acute distress, underweight - Head Head exam: Present: atraumatic, normocephalic - Eye Eye exam: Present: PERRL, conjuntiva pink, sclera anicteric Pupils: Present: PERRL - Neck Neck exam general surgery: Present: supple, trachea midline. Absent: lymphadenopathy - Respiratory Respiratory exam: Present: decreased breath sounds, CTAB. Absent: accessory muscle use, rales, rhonchi, wheezes - Cardiovascular Cardiovascular exam: Present: RRR, +S1, +S2. Absent: diastolic murmur, gallop, rubs, systolic murmur - GI/Abdominal GI/Abdominal exam: Present: normal bowel sounds, soft, no peritoneal signs. Absent: distended, tenderness - Extremities Exam Extremities exam: Present: warm, radial pulses palpable and symmetrical. Absent : calf tenderness, cyanotic, pedal edema - Neurological Exam Neurological exam: Present: CN II-XII intact, oriented X3, no focal deficits. Absent: pronater drift, facial droop, speech deficit - Skin Skin exam: Present: dry, intact - Patient Status Disposition: Home, Self-Care Condition: Good Functional capacity at discharge: uses cane/walker Overall status at discharge: patient is back to baseline - Discharge Instructions Instructions: Chronic Obstructive Pulmonary Disease (DC), Levofloxacin (By mouth), Anxiety (DC) [facility]: [facility] - 02/26/18 12:30 pm - Diet and Activity Activity: increase activity as tolerated Diet: advance to your usual diet
[2018-02-24] MEDS: Tiotropium 18 MCG inhalation IH SCH (08:11)
[2018-02-24] MEDS: Cyanocobalamin (B-12) 1,000 MCG TABLET PO SCH (09:49)
[2018-02-24] MEDS: Gabapentin 300 MG CAPSULE PO SCH (09:49)
[2018-02-24] MEDS: predniSONE 20 MG TABLET PO SCH (09:49)
[2018-02-24] MEDS: Fluticasone Propionate Nasal 50 MCG/SPRAY BOTTLE NS SCH (09:49)
[2018-02-24] MEDS: Famotidine 20 MG TABLET PO SCH (09:50)
[2018-02-24] MEDS: BuPROPion SR (12 HR) 100 MG TABLET PO SCH (09:50)
[2018-02-24] MEDS: *HR* LORazepam 0.5 MG TABLET PO PRN (09:50)
== END 2018-02-24 13:21 | disposition home or self-care (01) | DRG 191 ==
LOC: EMEROO 18:25 → 3BNU 18:25
PROVIDERS: ADMIT Internal Medicine; ATTEND Internal Medicine

== ENCOUNTER 2018-07-21 06:46 | Inpatient (IN) ==
[2018-07-21] MEDS ORDERED: 0.9 % Sodium Chloride 1,000 ML IVC ONE ×2 (06:51→08:21)
[2018-07-21] MEDS ORDERED: Ipratropium/Albuterol Neb 3 ML IH ONE (06:51)
--- NOTE | 2018-07-21 07:18 | Emergency Department Note ---
Disposition Clinical Impression: Acute and chronic respiratory failure Qualifiers: Respiratory failure complication: unspecified whether with hypoxia or hypercapnia Qualified Code(s): J96.20 - Acute and chronic respiratory failure, unspecified whether with hypoxia or hypercapnia Pneumonia Qualifiers: Pneumonia type: due to unspecified organism Laterality: right Lung location: lower lobe of lung Qualified Code(s): J18.1 - Lobar pneumonia, unspecified organism Sepsis Qualifiers: Sepsis type: sepsis due to unspecified organism Qualified Code(s): A41.9 - Sepsis, unspecified organism Disposition: Admitted As Inpatient Condition: Fair Forms: ED Satisfaction Letter SOB HPI - General Chief Complaint: ED Shortness of Breath/Dyspnea Stated Complaint: manuel Time Seen by Provider: 07/21/18 06:51 Source: patient, EMS Mode of arrival: EMS Limitations: no limitations Nursing Notes Reviewed: Yes Vital Signs Reviewed: Yes - History of Present Illness 73-year-old male history of COPD on 3 L continuously followed by pulmonology who presents to the ER via EMS with a complaint of shortness of breath. Patient states shortness of breath for the last 2-3 days. Upon arrival by EMS the patient was 78% on his home oxygen concentrator. He has had a nonproductive cough. States his chest hurts all over with coughing. Denies using BiPAP or CPAP at home. Denies any prior history of CAD, DVT or PE. No nausea vomiting or diarrhea. Patient received a DuoNeb treatment and Solu- Medrol in route. He was placed on BiPAP at time of arrival reporting improvement in his symptoms. The patient is adamant that he does not want to be intubated. Pt Subjective Complaint: shortness of breath, cough Onset (ago): day(s) Context: recent illness Severity: severe Consistency/Duration: constant Improves with: other (BiPAP) Worsens with: nothing Known history of: COPD Associated symptoms: Reports: chest pain, cough. Denies: fever Treatment prior to arrival: oxygen, bronchodilator Cough present: Yes Cough Description: Involuntary Cough Frequency: Intermittent Sputum production: No - Related Data Home oxygen amount: 3 liters Home Medications Medication Instructions Recorded Confirmed Baclofen [Lioresal] 10 mg PO BID PRN 02/12/16 02/18/18 Gabapentin [Neurontin] 300 mg PO TID 02/12/16 02/18/18 Trazodone HCl [TraZODone] 200 mg PO HS 02/12/16 02/18/18 Albuterol Sulfate [Proair Hfa] 2 puff IH QID PRN 02/03/17 02/18/18 Alendronate Sodium [Fosamax] 35 mg PO WE 02/03/17 02/18/18 Budesonide/Formoterol 160/4.5 2 puff IH BID 02/03/17 02/18/18 [Symbicort 160/4.5] Calcium Carbonate/Vitamin D3 1 tab PO TID 02/03/17 02/18/18 [Calcium 600 + Vit D Tablet] Cyanocobalamin (B-12) [Vitamin B12] 1,000 mcg PO DAILY 02/03/17 02/18/18 Docusate [Colace] 200 mg PO DAILY 02/03/17 02/18/18 Fluticasone Propionate Nasal 50 mcg NS BID 02/03/17 02/18/18 [Flonase] HYDROcodone/Acet 5/325 mg [[place] 1 tab PO Q6H PRN 02/03/17 02/18/18 5-325 mg] Meloxicam [Mobic] 7.5 mg PO DAILY 02/03/17 02/18/18 Multivitamin [Multi-Day Vitamins] 1 tab PO DAILY 02/03/17 02/18/18 Omeprazole 20 mg PO DAILY 02/03/17 02/18/18 BuPROPion SR (12 HR) [Wellbutrin 200 mg PO BID 08/12/17 02/18/18 SR] raNITIdine HCl [Zantac] 150 mg PO BID 08/12/17 02/18/18 Previous Rx's Medication Instructions Recorded Tiotropium [Spiriva] 18 mcg IH DAILY #2 inh 02/07/17 Ipratropium/Albuterol Neb [Duoneb] 3 ml IH [id number] PRN #60 inhsol 08/20/17 LORazepam [Ativan] 0.5 mg PO BID PRN 15 Days #30 02/24/18 tablet levoFLOXacin [Levaquin] 750 mg PO DAILY #3 tablet 02/24/18 Allergies Allergy/AdvReac Type Severity Reaction Status Date / Time No Known Allergies Allergy Verified 02/11/16 21:51 All systems ED: reviewed and negative except as stated. Constitutional: Denies: fever Cardiovascular: Reports: chest pain Respiratory: Reports: cough, dyspnea Gastrointestinal: Denies: abdominal pain, nausea, vomiting, diarrhea Past Medical History - Past Medical History Attestation: Yes The following information was validated with the patient. Source: patient Medical history: Reports: arthritis, atrial fibrillation, COPD Surgical history: Reports: other Psychiatric history: Reports: anxiety, depression - Social History Smoking Status: Former smoker Smokeless Tobacco Status: No Alcohol use: Reports: none Drug use: Reports: none Physical Exam - General Limitations: no limitations General appearance: alert, in no apparent distress - Head Head exam: atraumatic, normocephalic, normal inspection - Eye Eye exam: Present: normal appearance - ENT ENT exam: normal exam - Neck Neck exam: Present: normal inspection - Chest Chest inspection: Present: normal inspection, symmetric chest wall rise - Respiratory Respiratory exam: Present: respiratory distress, accessory muscle use, prolonged expiratory phase. Absent: wheezes, stridor - Cardiovascular Cardiovascular exam: Present: normal rhythm, tachycardia, normal heart sounds - Abdominal Exam Abdominal exam: Present: soft, Non-Tender. Absent: tenderness, distention, rigidity - Extremities Exam Extremities exam: Present: normal inspection, full ROM - Expanded Upper Extremity Exam Shoulder exam: Present: normal inspection, full ROM Arm exam: Present: normal inspection, full ROM Elbow exam: Present: normal inspection, full ROM Forearm/Wrist exam: Present: normal inspection, full ROM Hand exam: Present: normal inspection, full ROM - Expanded Lower Extremity Exam Hip/Pelvis exam: Present: normal inspection, full ROM Upper leg exam: Present: normal inspection, full ROM Knee exam: Present: normal inspection, full ROM Lower leg exam: Present: normal inspection, full ROM Ankle exam: Present: normal inspection, full ROM Foot/toe exam: Present: normal inspection, full ROM - Skin Skin exam: Present: warm, dry Course Course Narrative: Patient seen and examined. Vital signs reviewed. Plan for EKG, chest x-ray, labs, BiPAP, continue DuoNeb treatments. - Reevaluation(s) Reevaluation #1: Patient appears remarkably improved on BiPAP. He is much more alert. Vocalizing appropriately. Vital Signs Respiratory Rate 27 07/21/18 06:53 O2 Sat by Pulse Oximetry 79 07/21/18 06:53 Temperature 99.5 F 07/21/18 06:58 Pulse Rate 108 07/21/18 08:12 Respiratory Rate 20 07/21/18 08:12 Blood Pressure 121/67 07/21/18 08:12 O2 Sat by Pulse Oximetry 99 07/21/18 08:12 Oxygen Delivery Oxygen Delivery Bipap Shortness of Breath/Dyspnea - MDM Narrative Medical decision making narrative: 73-year-old male presenting with respiratory distress. Initially hypoxic which improved significantly with BiPAP. Workup consisted of EKG with sinus tachycardia. Chest x-ray demonstrating right lower lobe pneumonia. Leukocytosis of nearly 25 with an elevated lactic acid of 2.6. The patient responded well to IV fluids, BiPAP intervention. Antibiotics initiated. The patient is admitted to the hospitalist service for COPD exacerbation, pneumonia , acute on chronic respiratory failure and sepsis. - Lab Data Lab results reviewed: Yes I reviewed the patient's lab results. Result diagrams: 07/21/18 07:46 07/21/18 07:46 Lab Results 07/21/18 07/21/18 07/21/18 Range/Units 07:46 07:46 07:46 WBC 24.6 H (4.3-11.1) K/mcL RBC 3.68 L (4.19-5.50) M/mcL Hgb 8.5 L (12.9-16.9) g/dL Hct 31.1 L (37.5-50.1) % MCV 84.5 (83.0-100.0) fL MCH 23.1 L (28.0-33.3) pg MCHC 27.3 L (31.6-35.5) g/dL RDW 15.1 H (11.5-14.5) % Plt Count 421 H (140-400) K/mcL MPV 10.3 (9.4-12.4) fL Seg Neutrophils % 80.0 % Band Neutrophils % 12.0 H (0-4) % Lymphocytes % 2.0 % Monocytes % 6.0 % Neutrophils # 22.6 H (1.6-8.9) K/mcL Lymphocytes # 0.5 L (0.6-4.6) K/mcL Monocytes # 1.5 H (0.0-1.3) K/mcL Platelet Estimate Slight increase H (Normal) Hypochromasia Present A (Not Present) Ovalocytes 1+ A (Not Present) Stomatocytes 2+ A (Not Present) Sodium 142 (136-145) mEq/L Potassium 3.9 (3.5-5.1) mEq/L Chloride 98 (98-107) mEq/L Carbon Dioxide 38 H (23-29) mEq/L BUN 15 (8-23) mg/dL Creatinine 0.72 (0.70-1.30) mg/dL Est GFR ( Amer) > 60 (> 60) Est GFR (Non-Af Amer) > 60 (> 60) BUN/Creatinine Ratio 21 (6-26) Glucose 123 H (70-105) mg/dL Calculated Osmolality 296 (280-300) Lactic Acid 2.6 H (0.5-2.2) mmol/L Calcium 8.9 (8.6-10.3) mg/dL Total Bilirubin 0.2 L (0.3-1.0) mg/dL Direct Bilirubin 0.0 (0.0-0.2) mg/dL Indirect Bilirubin 0.2 (0.0-1.2) mg/dL AST 12 L (13-39) Units/L ALT 10 (7-52) Units/L Alkaline Phosphatase 61 (34-104) Units/L Troponin I < 0.03 (< 0.04) ng/mL B-Natriuretic Peptide (Less than 100) pg/mL Serum Total Protein 6.2 L (6.4-8.9) g/dL Albumin 4.0 (3.5-5.7) g/dL Globulin 2.2 L (2.4-3.5) g/dL Albumin/Globulin Ratio 1.8 (1.1-2.2) 07/21/18 Range/Units 07:46 WBC (4.3-11.1) K/mcL RBC (4.19-5.50) M/mcL Hgb (12.9-16.9) g/dL Hct (37.5-50.1) % MCV (83.0-100.0) fL MCH (28.0-33.3) pg MCHC (31.6-35.5) g/dL RDW (11.5-14.5) % Plt Count (140-400) K/mcL MPV (9.4-12.4) fL Seg Neutrophils % % Band Neutrophils % (0-4) % Lymphocytes % % Monocytes % % Neutrophils # (1.6-8.9) K/mcL Lymphocytes # (0.6-4.6) K/mcL Monocytes # (0.0-1.3) K/mcL Platelet Estimate (Normal) Hypochromasia (Not Present) Ovalocytes (Not Present) Stomatocytes (Not Present) Sodium (136-145) mEq/L Potassium (3.5-5.1) mEq/L Chloride (98-107) mEq/L Carbon Dioxide (23-29) mEq/L BUN (8-23) mg/dL Creatinine (0.70-1.30) mg/dL Est GFR ( Amer) (> 60) Est GFR (Non-Af Amer) (> 60) BUN/Creatinine Ratio (6-26) Glucose (70-105) mg/dL Calculated Osmolality (280-300) Lactic Acid (0.5-2.2) mmol/L Calcium (8.6-10.3) mg/dL Total Bilirubin (0.3-1.0) mg/dL Direct Bilirubin (0.0-0.2) mg/dL Indirect Bilirubin (0.0-1.2) mg/dL AST (13-39) Units/L ALT (7-52) Units/L Alkaline Phosphatase (34-104) Units/L Troponin I (< 0.04) ng/mL B-Natriuretic Peptide 22 (Less than 100) pg/mL Serum Total Protein (6.4-8.9) g/dL Albumin (3.5-5.7) g/dL Globulin (2.4-3.5) g/dL Albumin/Globulin Ratio (1.1-2.2) - Radiology Data Radiology results reviewed: Yes I reviewed the patient's radiology results. Chest X-Ray 07/21/18 06:51 IMPRESSION: New airspace opacity in the right lower lung most concerning for pneumonia. Recommend follow-up chest x-ray after appropriate treatment to ensure complete resolution. D/ / Cruz Atkinson MD / Cruz Atkinson MD Interpreting Provider: Cruz Atkinson MD - EKG Data EKG attestation: Yes I reviewed and interpreted this EKG. EKG results narrative: EKG demonstrates sinus tachycardia with a rate of 131. Normal axis. Normal intervals. Normal R-wave progression. No gross ST elevations or depressions. No acute ischemic findings. No significant changes from previous EKG dated 02/18. Quan - Quan Situation: Demographics, MOA Background: Presenting Complaint, Relevant PMH, Meds, & Allergies Assessment: Vital Signs, Course and respsone to treatment, Exam Concerns, Patient/Family Expectation, Pertinant Lab Results Recommendation: Barrier(s) to disposition, Recommendation based on pending studies, treatments, or consults Quan Report Given to: Dr. Shelby Glass Repor Time: 09:34
[2018-07-21] MEDS ORDERED: cefTRIAXone 1,000 MG in Water for inj. (sterile) 20 ML 10 ML IVP ONE ×2 (07:29→09:44)
[2018-07-21] MEDS ORDERED: Azithromycin 500 MG in D5% in Water 250 ML IVPB ONE (07:29)
--- NOTE | 2018-07-21 07:37 | Emergency Department Note ---
Disposition Clinical Impression: Acute and chronic respiratory failure Qualifiers: Respiratory failure complication: unspecified whether with hypoxia or hypercapnia Qualified Code(s): J96.20 - Acute and chronic respiratory failure, unspecified whether with hypoxia or hypercapnia Pneumonia Qualifiers: Pneumonia type: due to unspecified organism Laterality: right Lung location: lower lobe of lung Qualified Code(s): J18.1 - Lobar pneumonia, unspecified organism Sepsis Qualifiers: Sepsis type: sepsis due to unspecified organism Qualified Code(s): A41.9 - Sepsis, unspecified organism Disposition: Admitted As Inpatient Condition: Fair General Adult HPI - General Chief complaint: ED Shortness of Breath/Dyspnea Stated complaint: manuel Time Seen by Provider: 07/21/18 06:51 Source: patient, EMS Mode of arrival: EMS Limitations: no limitations - History of Present Illness Pain Scale: 3 - Related Data Home Medications Medication Instructions Recorded Confirmed Baclofen [Lioresal] 10 mg PO BID PRN 02/12/16 07/21/18 Gabapentin [Neurontin] 300 mg PO TID 02/12/16 07/21/18 Albuterol Sulfate [Proair Hfa] 2 puff IH QID PRN 02/03/17 07/21/18 Alendronate Sodium [Fosamax] 35 mg PO WE 02/03/17 07/21/18 Budesonide/Formoterol 160/4.5 2 puff IH BID 02/03/17 07/21/18 [Symbicort 160/4.5] Cyanocobalamin (B-12) [Vitamin B12] 1,000 mcg PO DAILY 02/03/17 07/21/18 HYDROcodone/Acet 5/325 mg [[place] 1 tab PO Q6H PRN 02/03/17 07/21/18 5-325 mg] Meloxicam [Mobic] 7.5 mg PO DAILY 02/03/17 07/21/18 Omeprazole 20 mg PO DAILY 02/03/17 07/21/18 BuPROPion SR (12 HR) [Wellbutrin 200 mg PO BID 08/12/17 07/21/18 SR] Calcium Carbonate/Vitamin D3 1 tab PO TID 07/21/18 07/21/18 [Calcium 500 + Vit D 200 Caplet] Docusate [Colace] 200 mg PO DAILY 07/21/18 07/21/18 Fluticasone Propionate Nasal 1 spray NS BID 07/21/18 07/21/18 [Flonase] Guaifenesin [Mucus Relief] 400 mg PO BID 07/21/18 07/21/18 Hydrophilic Cream [[place]] 1 appl TP BID PRN 07/21/18 07/21/18 Ipratropium/Albuterol Neb [Duoneb] 3 ml IH Q6HR PRN 07/21/18 07/21/18 Lactose-Reduced Food [Ensure 1 bottle PO BID 07/21/18 07/21/18 Liquid] Moxifloxacin HCl [Avelox] 400 mg PO DAILY 07/21/18 07/21/18 Multivitamin [One Daily 1 tab PO DAILY 07/21/18 07/21/18 Multivitamin] Ranitidine HCl [Acid Vending Route Driver] 150 mg PO BID 07/21/18 07/21/18 Trazodone HCl 200 mg PO HS 07/21/18 07/21/18 predniSONE [PredniSONE] 10 mg PO Q24H 07/21/18 07/21/18 Previous Rx's Medication Instructions Recorded LORazepam [Ativan] 0.5 mg PO BID PRN 15 Days #30 02/24/18 tablet Allergies Allergy/AdvReac Type Severity Reaction Status Date / Time No Known Allergies Allergy Verified 02/11/16 21:51 Constitutional: Denies: fever Cardiovascular: Reports: chest pain Respiratory: Reports: cough, dyspnea Gastrointestinal: Denies: abdominal pain, nausea, vomiting, diarrhea Past Medical History - Past Medical History Medical history: Reports: arthritis, atrial fibrillation, COPD Surgical history: Reports: other Psychiatric history: Reports: anxiety, depression - Social History Smoking Status: Former smoker Smokeless Tobacco Status: No Alcohol use: Reports: none Drug use: Reports: none Physical Exam - General Limitations: no limitations General appearance: alert, in no apparent distress Course Vital Signs Respiratory Rate 27 07/21/18 06:53 O2 Sat by Pulse Oximetry 79 07/21/18 06:53 Temperature 98.8 F 07/21/18 10:57 Pulse Rate 99 07/21/18 10:57 Respiratory Rate 18 07/21/18 15:51 Blood Pressure 120/65 07/21/18 10:57 O2 Sat by Pulse Oximetry 97 07/21/18 15:51 Oxygen Delivery Oxygen Delivery Bipap Medical Decision Making - Lab Data Result diagrams: 07/21/18 07:46 07/21/18 07:46 Lab Results 07/21/18 07/21/18 07/21/18 Range/Units 07:46 07:46 07:46 WBC 24.6 H (4.3-11.1) K/mcL RBC 3.68 L (4.19-5.50) M/mcL Hgb 8.5 L (12.9-16.9) g/dL Hct 31.1 L (37.5-50.1) % MCV 84.5 (83.0-100.0) fL MCH 23.1 L (28.0-33.3) pg MCHC 27.3 L (31.6-35.5) g/dL RDW 15.1 H (11.5-14.5) % Plt Count 421 H (140-400) K/mcL MPV 10.3 (9.4-12.4) fL Seg Neutrophils % 80.0 % Band Neutrophils % 12.0 H (0-4) % Lymphocytes % 2.0 % Monocytes % 6.0 % Neutrophils # 22.6 H (1.6-8.9) K/mcL Lymphocytes # 0.5 L (0.6-4.6) K/mcL Monocytes # 1.5 H (0.0-1.3) K/mcL Platelet Estimate Slight increase H (Normal) Hypochromasia Present A (Not Present) Ovalocytes 1+ A (Not Present) Stomatocytes 2+ A (Not Present) PT (9.4-12.1) Seconds INR APTT (26.0-36.0) Seconds Sodium 142 (136-145) mEq/L Potassium 3.9 (3.5-5.1) mEq/L Chloride 98 (98-107) mEq/L Carbon Dioxide 38 H (23-29) mEq/L BUN 15 (8-23) mg/dL Creatinine 0.72 (0.70-1.30) mg/dL Est GFR ( Amer) > 60 (> 60) Est GFR (Non-Af Amer) > 60 (> 60) BUN/Creatinine Ratio 21 (6-26) Glucose 123 H (70-105) mg/dL Calculated Osmolality 296 (280-300) Lactic Acid 2.6 H (0.5-2.2) mmol/L Calcium 8.9 (8.6-10.3) mg/dL Phosphorus 2.6 L (2.7-4.5) mg/dL Magnesium 1.6 (1.6-2.6) mg/dL Total Bilirubin 0.2 L (0.3-1.0) mg/dL Direct Bilirubin 0.0 (0.0-0.2) mg/dL Indirect Bilirubin 0.2 (0.0-1.2) mg/dL AST 12 L (13-39) Units/L ALT 10 (7-52) Units/L Alkaline Phosphatase 61 (34-104) Units/L Troponin I < 0.03 (< 0.04) ng/mL B-Natriuretic Peptide (Less than 100) pg/mL Serum Total Protein 6.2 L (6.4-8.9) g/dL Albumin 4.0 (3.5-5.7) g/dL Globulin 2.2 L (2.4-3.5) g/dL Albumin/Globulin Ratio 1.8 (1.1-2.2) 07/21/18 07/21/18 07/21/18 Range/Units 07:46 08:52 12:23 WBC (4.3-11.1) K/mcL RBC (4.19-5.50) M/mcL Hgb (12.9-16.9) g/dL Hct (37.5-50.1) % MCV (83.0-100.0) fL MCH (28.0-33.3) pg MCHC (31.6-35.5) g/dL RDW (11.5-14.5) % Plt Count (140-400) K/mcL MPV (9.4-12.4) fL Seg Neutrophils % % Band Neutrophils % (0-4) % Lymphocytes % % Monocytes % % Neutrophils # (1.6-8.9) K/mcL Lymphocytes # (0.6-4.6) K/mcL Monocytes # (0.0-1.3) K/mcL Platelet Estimate (Normal) Hypochromasia (Not Present) Ovalocytes (Not Present) Stomatocytes (Not Present) PT (9.4-12.1) Seconds INR APTT (26.0-36.0) Seconds Sodium (136-145) mEq/L Potassium (3.5-5.1) mEq/L Chloride (98-107) mEq/L Carbon Dioxide (23-29) mEq/L BUN (8-23) mg/dL Creatinine (0.70-1.30) mg/dL Est GFR ( Amer) (> 60) Est GFR (Non-Af Amer) (> 60) BUN/Creatinine Ratio (6-26) Glucose (70-105) mg/dL Calculated Osmolality (280-300) Lactic Acid 1.4 0.9 (0.5-2.2) mmol/L Calcium (8.6-10.3) mg/dL Phosphorus (2.7-4.5) mg/dL Magnesium (1.6-2.6) mg/dL Total Bilirubin (0.3-1.0) mg/dL Direct Bilirubin (0.0-0.2) mg/dL Indirect Bilirubin (0.0-1.2) mg/dL AST (13-39) Units/L ALT (7-52) Units/L Alkaline Phosphatase (34-104) Units/L Troponin I (< 0.04) ng/mL B-Natriuretic Peptide 22 (Less than 100) pg/mL Serum Total Protein (6.4-8.9) g/dL Albumin (3.5-5.7) g/dL Globulin (2.4-3.5) g/dL Albumin/Globulin Ratio (1.1-2.2) 07/21/18 Range/Units 12:23 WBC (4.3-11.1) K/mcL RBC (4.19-5.50) M/mcL Hgb (12.9-16.9) g/dL Hct (37.5-50.1) % MCV (83.0-100.0) fL MCH (28.0-33.3) pg MCHC (31.6-35.5) g/dL RDW (11.5-14.5) % Plt Count (140-400) K/mcL MPV (9.4-12.4) fL Seg Neutrophils % % Band Neutrophils % (0-4) % Lymphocytes % % Monocytes % % Neutrophils # (1.6-8.9) K/mcL Lymphocytes # (0.6-4.6) K/mcL Monocytes # (0.0-1.3) K/mcL Platelet Estimate (Normal) Hypochromasia (Not Present) Ovalocytes (Not Present) Stomatocytes (Not Present) PT 11.8 (9.4-12.1) Seconds INR 1.0 APTT 24.8 L (26.0-36.0) Seconds Sodium (136-145) mEq/L Potassium (3.5-5.1) mEq/L Chloride (98-107) mEq/L Carbon Dioxide (23-29) mEq/L BUN (8-23) mg/dL Creatinine (0.70-1.30) mg/dL Est GFR ( Amer) (> 60) Est GFR (Non-Af Amer) (> 60) BUN/Creatinine Ratio (6-26) Glucose (70-105) mg/dL Calculated Osmolality (280-300) Lactic Acid (0.5-2.2) mmol/L Calcium (8.6-10.3) mg/dL Phosphorus (2.7-4.5) mg/dL Magnesium (1.6-2.6) mg/dL Total Bilirubin (0.3-1.0) mg/dL Direct Bilirubin (0.0-0.2) mg/dL Indirect Bilirubin (0.0-1.2) mg/dL AST (13-39) Units/L ALT (7-52) Units/L Alkaline Phosphatase (34-104) Units/L Troponin I (< 0.04) ng/mL B-Natriuretic Peptide (Less than 100) pg/mL Serum Total Protein (6.4-8.9) g/dL Albumin (3.5-5.7) g/dL Globulin (2.4-3.5) g/dL Albumin/Globulin Ratio (1.1-2.2) Attestation Statement - Attestation Attestation: Resident Attestation: I examined this patient and my medical decision making was reviewed with the Resident Physician. I agree with the documented findings, disposition and treatment plan as described except to the extent set forth below. We independently had [id number] contact with the patient. Resident Dr. Delvalle Patient presented via EMS for evaluation shortness of breath. Patient has COPD with home oxygen requirement. Home concentrator. Patient uses approximately 3 times a day. Patient symptoms worse over the last several days. Patient reports subjective fevers, cough, green sputum production. The patient was initially found with pulse ox's in the mid 70s. The patient was given 125 mg of Solu-Medrol prior to arrival and one breathing treatment. In the ER, initially placed on BiPAP and given further breathing treatments. Workup in regards to possible pneumonia. Blood cultures and lactate have been sent. Patient with tachypnea. Moderate respiratory distress. Mild diaphoresis. Lungs with decreased air entry bilaterally. Regular rhythm, tachycardia. No significant swelling in the extremities. Bedside chest x-ray has concern for right lower lobe pneumonia. Patient was placed on antibiotics. Patient will require admission. Please see resident note for further details and disposition.
[2018-07-21 08:14] LABS: Mean Corpuscular Hemoglobin 23.1 pg (28.0-33.3); Mean Platelet Volume 10.3 fL (9.4-12.4); Red Cell Distribution Width 15.1 % (11.5-14.5)
[2018-07-21 08:16] LABS: Hematocrit 31.1 % (37.5-50.1); Hemoglobin 8.5 g/dL (12.9-16.9); Mean Corpuscular HGB Conc 27.3 g/dL (31.6-35.5); Mean Corpuscular Volume 84.5 fL (83.0-100.0); Platelet Count 421 K/mcL (140-400); Red Blood Count 3.68 M/mcL (4.19-5.50)
[2018-07-21 08:35] LABS: Troponin I < 0.03 ng/mL (< 0.04)
[2018-07-21 08:40] LABS: Lymphocytes # 0.5 K/mcL (0.6-4.6); Monocytes # 1.5 K/mcL (0.0-1.3); Neutrophils # 22.6 K/mcL (1.6-8.9)
[2018-07-21 08:41] LABS: Alanine Aminotransferase 10 Units/L (7-52); Albumin/Globulin Ratio 1.8 (1.1-2.2); Alkaline Phosphatase 61 Units/L (34-104); Aspartate Amino Transferase 12 Units/L (13-39); BUN/Creatinine Ratio 21 (6-26); Bilirubin,Indirect 0.2 mg/dL (0.0-1.2); Bilirubin,Total 0.2 mg/dL (0.3-1.0); Blood Urea Nitrogen 15 mg/dL (8-23); Calcium 8.9 mg/dL (8.6-10.3); Carbon Dioxide 38 mEq/L (23-29); Chloride 98 mEq/L (98-107); Globulin 2.2 g/dL (2.4-3.5); Glucose 123 mg/dL (70-105); Hypochromasia Present (Not Present); Osmolality,Calculated 296 (280-300); Potassium 3.9 mEq/L (3.5-5.1); Sodium 142 mEq/L (136-145); Total Protein 6.2 g/dL (6.4-8.9); eGFR For Non-African Americans > 60 (> 60)
[2018-07-21 08:42] LABS: Ovalocytes 1+ (Not Present); Stomatocytes 2+ (Not Present)
[2018-07-21] MEDS ORDERED: Naloxone 0.4 MG/ML INJ IVP PRN (09:38)
--- NOTE | 2018-07-21 09:59 | Internal Med History&Physical ---
Date of Encounter: 07/21/18 Time of Encounter: 09:53 Internal Medicine - H&P: HPI Chief complaint: Shortness of breath Admitted From: Home Plans for Post Hospital Care: Home History of present illness: Mr. Ramires is a 73 year old male with history of Severe centrilobular emphysema on 3 L home oxygen and anxiety presented to the emergency department with shortness of breath. Patient has had multiple hospitalization for similar symptoms in the past. He reports that his shortness of breath started about a week ago and has been progressively worsening. Breathing was extremely difficult on admission morning so decided to come to the emergency department for further care. His shortness of breath is also associated with wheezing and cough with minimal productive sputum. He describes his sputum as white, about 1 tablespoon per day denies hemoptysis. He denies sick contacts, was last hospitalized a few months ago, no recent antibiotic use, no recent travel and is compliant with all his medications. He reports that he uses his home oxygen almost 24 hours per day. Cannot recall aggravating factors but his shortness of breath is improved with rest and oxygen. He denies fever, chills, chest pain, palpitations, nausea, vomiting, diarrhea, syncope, loss of consciousness, prolonged immobilization, leg swelling, calf tenderness. While in the ED basic labs showed leukocytosis of 24.6 with bandemia 12%. Lactic acid of 2.5. He was hypoxic and tachypneic and tachycardic so he was given antibiotics and sepsis protocol was initiated in the ED. He was endorsed for further management of acute on chronic respiratory failure. I had a long discussion with the patient about his CODE STATUS. We discussed mechanical ventilation, intubation, CPR in depth. He wishes to be DNR CCA DNI. Nurse witnessed conversation. Past Med Surg Social Fam HX - Past Medical History Medical history: arthritis, atrial fibrillation, COPD Psychiatric history: anxiety, depression - Past Surgical History Surgical History: other Additional surgical history: L ankle rebuild - Social History Smoking Status: Former smoker Smokeless Tobacco Status: No Alcohol use: none Drug use: none - Family History Mother Hx Family Respiratory Disorders: Yes (COPD: mother, father, brother. Brother: lung cancer.) Internal Medicine - H&P: Meds Baclofen [Lioresal] 10 mg PO BID PRN 02/12/16 [History] Gabapentin [Neurontin] 300 mg PO TID 02/12/16 [History] Trazodone HCl [TraZODone] 200 mg PO HS 02/12/16 [History] Albuterol Sulfate [Proair Hfa] 2 puff IH QID PRN 02/03/17 [History] Alendronate Sodium [Fosamax] 35 mg PO WE 02/03/17 [History] Budesonide/Formoterol 160/4.5 [Symbicort 160/4.5] 2 puff IH BID 02/03/17 [ History] Calcium Carbonate/Vitamin D3 [Calcium 600 + Vit D Tablet] 1 tab PO TID 02/03/17 [History] Cyanocobalamin (B-12) [Vitamin B12] 1,000 mcg PO DAILY 02/03/17 [History] Docusate [Colace] 200 mg PO DAILY 02/03/17 [History] Fluticasone Propionate Nasal [Flonase] 50 mcg NS BID 02/03/17 [History] HYDROcodone/Acet 5/325 mg [[place] 5-325 mg] 1 tab PO Q6H PRN 02/03/17 [History] Meloxicam [Mobic] 7.5 mg PO DAILY 02/03/17 [History] Multivitamin [Multi-Day Vitamins] 1 tab PO DAILY 02/03/17 [History] Omeprazole 20 mg PO DAILY 02/03/17 [History] Tiotropium [Spiriva] 18 mcg IH DAILY #2 inh 02/07/17 [Rx] BuPROPion SR (12 HR) [Wellbutrin SR] 200 mg PO BID 08/12/17 [History] raNITIdine HCl [Zantac] 150 mg PO BID 08/12/17 [History] Ipratropium/Albuterol Neb [Duoneb] 3 ml IH [id number] PRN #60 inhsol 08/20/17 [Rx] LORazepam [Ativan] 0.5 mg PO BID PRN 15 Days #30 tablet 02/24/18 [Rx] levoFLOXacin [Levaquin] 750 mg PO DAILY #3 tablet 02/24/18 [Rx] 3 Allergy/AdvReac Type Severity Reaction Status Date / Time No Known Allergies Allergy Verified 02/11/16 21:51 All Systems PM: review of systems was performed and is negative for pertinent findings except as documented above in the HPI. - Constitutional Vitals: Temp Pulse Resp BP Pulse Ox 99.5 F 108 20 121/67 99 07/21/18 06:58 07/21/18 08:12 07/21/18 08:12 07/21/18 08:12 07/21/18 08:12 Exam: General: Patient is alert, oriented, in mild distress, can speak in 3 word sentences Head: atraumatic, normocephalic, Eye: normal appearance, PERRL, no scleral icterus, no conjunctival injection ENT: mucous membranes moist, normal external ear exam Neck: normal inspection, trachea midline, full ROM, no carotid bruits Chest: Barrel chest, symmetric chest rise Respiratory: On BiPAP, decreased breath sounds in all lung martinez, occasional wheezing in the anterior chest, coarse crackles in the right posterior lung field infrascapularly Cardiovascular: Tachycardic s1 and s2 No clicks, rubs, gallops, or murmors. Abdomen: Bowel sounds present normoactive x-4 quadrants. Abdomen is soft, nondistended. no Epigastric tenderness. No guarding or rebound. No organomegaly noted musculoskeletal: Spontaneously moving all extremities. no edema, no calf tenderness Skin: warm, dry, intact. Neuro: Alert and oriented x4. Sensation light touch intact. Cranial nerves 2- 12 is intact. Not aphasic, no focal deficit Psych: Patient's affect is normal Internal Med - H&P Results - Labs CBC & Chem 7: 07/21/18 07:46 07/21/18 07:46 - EKG Data -: EKG Interpreted by Myself (sinus tachycardia, PVC, QT489, MELVA) - Assessment and plan (1) Acute and chronic respiratory failure with hypoxia Current Visit: Yes Status: Acute Assessment and plan: Acute on chronic respiratory failure with hypoxia secondary to right lower lobe pneumonia White count 24.6 with bandemia 12% lacitic acid 2.6 elevated Bicarb 38- most likely from chronic respiratory acidosis Has minimal secretions was started on BiPAP with improvement of his respiratory status Was given ceftriaxone and Zithromax in the ED we will continue Abx Urine antigens Respiratory viral panel Blood cultures x2 Sputum culture Magnesium and phosphorus stat CTA ordered (tachycardic, hypoxic)- will follow results Pro calcitonin continues pulse ox keep sats >92% telemetry monitoring vitals as per protocol aspiration, fall precaution (2) Sepsis Current Visit: Yes Status: Acute Assessment and plan: Patient presented with leukocytosis 24.6, [id number]%, tachycardia 132 Chest x-ray positive for right lower lobe pneumonia Lactic acid 2.6 Respiratory viral panel Blood cultures x2 Sputum culture rest of management as above Qualifiers: Sepsis type: sepsis due to unspecified organism Qualified Code(s): A41.9 - Sepsis, unspecified organism (3) Community acquired pneumonia Current Visit: No Status: Acute Assessment and plan: Chest x-ray with right lower lobe opacity 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 Recommend follow-up chest x-ray after appropriate treatment to ensure complete resolution. Qualifiers: Laterality: right Lung location: lower lobe of lung Qualified Code(s): J18.1 - Lobar pneumonia, unspecified organism (4) Emphysema of lung Current Visit: Yes Status: Acute Assessment and plan: Severe centrilobular emphysema Continue Symbicort ipratropium and Xopenex Q4h Solumedrol 40 mg Q8H CTA IMPRESSION: No CT evidence of pulmonary embolism. Stable intrathoracic findings including severe emphysema. CT chest on 02/20/2018 IMPRESSION: 1. No acute abnormality in the chest. 2. Severe centrilobular emphysema. Qualifiers: Emphysema type: centrilobular Qualified Code(s): J43.2 - Centrilobular emphysema (5) COPD exacerbation Current Visit: No Status: Acute Assessment and plan: secondary to RLL PNA management as per above (6) Anemia Current Visit: No Status: Chronic Assessment and plan: chronic normocytic anemia baseline H/H 8-9 currently at baseline monitor H/H Qualifiers: Other causes of anemia: chronic disease, other Qualified Code(s): D63.8 - Anemia in other chronic diseases classified elsewhere (7) Anxiety Current Visit: No Status: Chronic Assessment and plan: continue home dose ativan BID (8) Counseling regarding advanced care planning and goals of care Current Visit: No Status: Acute Assessment and plan: I had a long discussion with the patient about his CODE STATUS. We discussed mechanical ventilation, intubation, CPR in depth. He wishes to be DNR CCA DNI. Nurse witnessed conversation palliative consult (9) DVT prophylaxis Current Visit: Yes Status: Acute Assessment and plan: lovenox - Time Spent With Patient Total time spent is greater than 50% in coordination of care (as documented) at patient's floor/unit and/or counseling patient:
[2018-07-21] MEDS ORDERED: Levalbuterol Neb 0.63 MG/3 ML IH SCH (10:00)
[2018-07-21] MEDS ORDERED: Isovue-370 500 ML INFUS..BTL IV ONE (10:10)
[2018-07-21 10:17] LABS: Magnesium 1.6 mg/dL (1.6-2.6); Phosphorous 2.6 mg/dL (2.7-4.5)
[2018-07-21] MEDS: Ipratropium Neb 0.5 MG NEBULIZER IH SCH ×4 (11:14→23:49)
[2018-07-21] MEDS: Budesonide/Formoterol 160/4.5 1 PUFF INH IH SCH ×2 (11:25→20:37)
[2018-07-21 12:45] LABS: Prothrombin Time 11.8 Seconds (9.4-12.1)
[2018-07-21 12:48] LABS: Activated Partial Thrombo Time 24.8 Seconds (26.0-36.0)
[2018-07-21] MEDS: *HR* LORazepam 0.5 MG TABLET PO PRN (13:12)
[2018-07-21] MEDS: Levalbuterol Neb 0.63 MG/3 ML IH SCH ×4 (13:35→23:49)
[2018-07-21] MEDS: MethylPREDNISolone 40 MG/ML VIAL IVP SCH ×2 (18:31→21:55)
[2018-07-21] MEDS: *HR* Heparin 5,000 UNIT/ML VIAL SQ SCH (18:33)
[2018-07-21] MEDS: 0.9 % Sodium Chloride 1,000 ML IVC SCH (21:58)
[2018-07-22] MEDS: *HR* Heparin 5,000 UNIT/ML VIAL SQ SCH ×3 (00:21→19:04)
[2018-07-22] MEDS: MethylPREDNISolone 40 MG/ML VIAL IVP SCH ×3 (00:21→19:04)
[2018-07-22] MEDS: Ipratropium Neb 0.5 MG NEBULIZER IH SCH ×6 (04:07→23:40)
[2018-07-22] MEDS: Levalbuterol Neb 0.63 MG/3 ML IH SCH ×6 (04:07→23:40)
[2018-07-22 04:32] LABS: Hematocrit 26.7 % (37.5-50.1); Hemoglobin 7.4 g/dL (12.9-16.9); Mean Corpuscular HGB Conc 27.7 g/dL (31.6-35.5); Mean Corpuscular Hemoglobin 22.9 pg (28.0-33.3); Mean Corpuscular Volume 82.7 fL (83.0-100.0); Mean Platelet Volume 10.5 fL (9.4-12.4); Platelet Count 378 K/mcL (140-400); Red Blood Count 3.23 M/mcL (4.19-5.50); Red Cell Distribution Width 15.3 % (11.5-14.5)
[2018-07-22 04:48] LABS: BUN/Creatinine Ratio 26 (6-26); Blood Urea Nitrogen 13 mg/dL (8-23); Calcium 8.7 mg/dL (8.6-10.3); Carbon Dioxide 35 mEq/L (23-29); Chloride 102 mEq/L (98-107); Glucose 131 mg/dL (70-105); Osmolality,Calculated 296 (280-300); Potassium 4.1 mEq/L (3.5-5.1); Sodium 142 mEq/L (136-145); eGFR For Non-African Americans > 60 (> 60)
[2018-07-22 05:43] LABS: Bilirubin,Urine Negative (Negative); Blood,Urine Negative (Negative); Clarity,Urine Clear (Clear); Color,Urine Yellow (Yellow); Glucose,Urine (UA) Normal (Normal); Ketones,Urine Negative (Negative); Leukocyte Esterase,Urine Negative (Negative); Nitrite,Urine Negative (Negative); Protein,Urine Trace mg/dL (Neg-Trace); Specific Gravity,Urine 1.013 (1.010-1.025); Urobilinogen,Urine Normal (Normal)
[2018-07-22 05:45] LABS: Bacteria,Urine None Seen per hpf (None-Few); Hyaline Casts,Urine None Seen per lpf (None-Few); RBC,Urine 0-3 per hpf (0-3); Squamous Epithelial Cell,Urine None Seen per lpf (None-Few)
[2018-07-22 05:48] LABS: Lymphocytes # 0.7 K/mcL (0.6-4.6); Monocytes # 2.1 K/mcL (0.0-1.3); Neutrophils # 31.7 K/mcL (1.6-8.9)
[2018-07-22 05:49] LABS: Platelet Estimate Normal (Normal)
[2018-07-22 05:57] LABS: Amphetamine Screen,Urine Negative ng/mL (Cutoff=1000); Barbiturate Screen,Urine Negative ng/mL (Cutoff=200)
[2018-07-22 05:58] LABS: Benzodiazepines Screen,Urine Negative ng/mL (Cutoff=300); Cannabinoid Screen,Urine Negative ng/mL (Cutoff = 50); Cocaine Screen,Urine Negative ng/mL (Cutoff= 300); Opiate Screen,Urine Negative ng/mL (Cutoff=300); Phencyclidine Screen,Urine Negative ng/mL (Cutoff=25)
[2018-07-22] MEDS: Budesonide/Formoterol 160/4.5 1 PUFF INH IH SCH ×2 (07:40→19:44)
[2018-07-22] MEDS ORDERED: cefTRIAXone 2,000 MG in Water for inj. (sterile) 20 ML 20 ML IVP SCH (09:00)
[2018-07-22] MEDS: *HR* LORazepam 0.5 MG TABLET PO PRN ×2 (10:39→19:13)
[2018-07-22] MEDS: *HR* HYDROcodone/Acet 5/325 mg TABLET PO PRN ×2 (10:39→19:13)
[2018-07-22] MEDS: Cyanocobalamin (B-12) 1,000 MCG TABLET PO SCH (10:39)
[2018-07-22] MEDS: 0.9 % Sodium Chloride 1,000 ML IVC SCH (10:53)
[2018-07-22] MEDS: Azithromycin 500 MG in D5% in Water 250 ML IVPB SCH (10:56)
--- NOTE | 2018-07-22 11:13 | Electrocardiograph Report ---
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
[2018-07-22 13:04] LABS: Adenovirus Not Detected (Not Detect); Bordetella Pertussis Not Detected (Not Detect); Chlamydophila pneumoniae Not Detected (Not Detect); Coronavirus 229E Not Detected (Not Detect); Coronavirus HKU1 Not Detected (Not Detect); Coronavirus NL63 Not Detected (Not Detect); Coronavirus OC43 Not Detected (Not Detect); Human Metapneumovirus Not Detected (Not Detect); Human Rhinovirus/Enterovirus Not Detected (Not Detect); Influenza A Subtype 2009 H1 Not Detected (Not Detect); Influenza A Untypeable Not Detected (Not Detect); Influenza B Not Detected (Not Detect); Mycoplasma pneumoniae Not Detected (Not Detect); Parainfluenza Virus 1 Not Detected (Not Detect); Parainfluenza Virus 2 Not Detected (Not Detect); Parainfluenza Virus 3 Not Detected (Not Detect); Parainfluenza Virus 4 Not Detected (Not Detect); Respiratory Syncytial Virus Not Detected (Not Detect)
--- NOTE | 2018-07-22 15:04 | Internal Med Progress Note ---
<Tj Chaudhari - Last Filed: 07/22/18 15:33> Hospitalist Progress Note - Encounter Date of Encounter: 07/22/18 - Exam Vitals: Temp Pulse Resp BP Pulse Ox 98.4 F 101 17 130/77 96 07/22/18 15:14 07/22/18 15:14 07/22/18 15:14 07/22/18 15:14 07/22/18 15:14 - Assessment and Plan (1) Acute and chronic respiratory failure with hypoxia Current Visit: Yes Status: Acute (2) Anemia Current Visit: No Status: Chronic (3) Sepsis Current Visit: Yes Status: Acute (4) Community acquired pneumonia Current Visit: No Status: Acute (5) Counseling regarding advanced care planning and goals of care Current Visit: No Status: Acute (6) Anxiety Current Visit: No Status: Chronic (7) COPD exacerbation Current Visit: No Status: Acute (8) Emphysema of lung Current Visit: Yes Status: Acute (9) DVT prophylaxis Current Visit: Yes Status: Acute - Time Spent with Patient Total time spent is greater than 50% in coordination of care (as documented) at patient's floor/unit and/or counseling patient: Internal Medicine: Result - Labs CBC & Chem 7: 07/22/18 03:28 07/22/18 03:28 Labs: Short CBC 07/22/18 Range/Units 03:28 WBC 35.2 H* (4.3-11.1) K/mcL Hgb 7.4 L (12.9-16.9) g/dL Hct 26.7 L (37.5-50.1) % Plt Count 378 (140-400) K/mcL Neutrophils # 31.7 H (1.6-8.9) K/mcL BMP 07/22/18 03:28 Sodium 142 Potassium 4.1 Chloride 102 Carbon Dioxide 35 H BUN 13 Creatinine 0.50 L Glucose 131 H Calcium 8.7 Urine 07/22/18 Range/Units 05:35 Urine Color Yellow (Yellow) Urine Clarity Clear (Clear) Urine pH 8.0 (5.0-8.0) pH Units Ur Specific [place] 1.013 (1.010-1.025) Urine Protein Trace (Neg-Trace) mg/dL Urine Glucose (UA) Normal (Normal) mg/dL - ABG Interpretation ABG results: PT/INR, D-dimer PT 11.8 Seconds (9.4-12.1) 07/21/18 12:23 Consult Discharge Plan - Plan [facility]: [facility]Primary Care Provider[facility] - - Attending Attestation I examined this patient and my medical decision-making was reviewed with the Resident Physician on 07/22/18. I agree with the documented findings, disposition and treatment plan as described except to the extent set forth below. Mr Ramires is currently admitted for acute exac COPD and acute on chronic respiratory failure. He remains moderate to high risk due to potential for worsening clinical status. Mr Ramires is breathing OK at this time. No fever or chills. Still on higher FIO2 than baseline. Says his breathing is somewhat better than yesterday. No CP. No GI issues. Exam alert Comfortable in bed Mucus membranes dry Heart distant Lungs diminished - no wheeze abd soft No edema I/P 1. Acute on chronic resp failure 2. Acute exac COPD Further diagnoses and plan as above. <Sirena Edwards - Last Filed: 07/22/18 20:48> Hospitalist Progress Note - Encounter Date of Encounter: 07/22/18 Time of Encounter: 10:05 - Subjective Interval History: Mr. Ramires was seen at bedside this morning. He presented one day ago due to worsening shortness of breath even with his 3 liters of home oxygen. At admission he met sepsis protocol. His chest xray showed new patchy opacity in the right lower lobes. Preliminary blood cultures currently shows no growth. He was in bed on 5 liters of oxygen this morning. He was afebrile but remained tachycardic. White count is elevated at 35 today but is on steroids. This morning he complains of chronic back pain and diffuse joint pain. He denies nausea, emesis, chest pain, blurry vision, fever or chills. - Exam Vitals: Temp Pulse Resp BP Pulse Ox 98.6 F 100 18 141/82 97 07/22/18 11:26 07/22/18 11:26 07/22/18 11:26 07/22/18 11:26 07/22/18 11:26 Exam: Constitutional: Alert, in no acute distress, on nasal canula HEENT: Normocephalic, atraumatic, moist mucus membranes Heart: Normal, regular rate and rhythm, no murmurs Lungs: Decreased air transfer at all lung lobes, no wheezing or crackles Abdomen: Soft, normal bowel sounds, non tender Extremities: No edema of lower extremity or upper extremities, warm, nontender Skin: Skin warm and dry, no lesions, no rashes, no jaundice Psych: thought content congruent, appropriate affect Neurological: Alert and oriented x 3 - Assessment and Plan (1) Anemia Current Visit: No Status: Chronic Assessment and Plan: Chronic normocytic anemia, likely due to inflammatory cause from RA baseline H/H 8-9 currently at baseline No sign of acute bleed, denies hematochezia Plan: Iron studies in the morning Continue to monitor for any hematochezia 1 unit blood transfusion today CBC in the morning (2) Sepsis Current Visit: Yes Status: Acute Assessment and Plan: Patient presented with leukocytosis 24.6, bandemia 12%, tachycardia 132 on admission Today WBC 35.2, bands 4% and heart rate 100 Chest x-ray positive for right lower lobe pneumonia Lactic acid 2.6, repeat was 0.9 yesterday Plan: Respiratory viral panel negative Blood cultures x2 preliminary negative Sputum culture pending Continue rocephin and zithromax, day 2 (3) Community acquired pneumonia Current Visit: No Status: Acute Assessment and Plan: Chest x-ray with right lower lobe opacity 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 Recommend follow-up chest x-ray after appropriate treatment to ensure complete resolution. Plan: Continue zithromax and rocephin day 2 Continue symbicort to prevent COPD exacerbation Continue IV prednisone 40 mg Q12 (4) Counseling regarding advanced care planning and goals of care Current Visit: No Status: Acute Assessment and Plan: Palliative saw Mr. Ramires today and he has changed his code status from DNR CCA DNI to full code. He understands his risks and benefits and the discussion was made in the presence of field reviewer. (5) Anxiety Current Visit: No Status: Chronic Assessment and Plan: Continue home dose ativan BID (6) COPD exacerbation Current Visit: No Status: Acute Assessment and Plan: Exacerbation secondary to right lower lobe pneumonia. Could be due to aspiration, speech consulted. Plan: Continue same management as Pneumonia Wean oxygen (7) Acute and chronic respiratory failure with hypoxia Current Visit: Yes Status: Acute Assessment and Plan: Acute on chronic respiratory failure with hypoxia secondary to right lower lobe pneumonia White count 35.2 with bandemia 4% today, reduced from 12% yesterday lacitic acid 2.6, repeat 0.9 elevated Bicarb 38- most likely from chronic respiratory acidosis and remained elevated at 35 today Plan: CTA negative for PE but shows enlarging right hilar lymph node Continue ceftriaxone and zithromax, day 2 Continue supplemental oxygen Continue prednisone Speech consulted for concern for aspiration evaluation (8) Emphysema of lung Current Visit: Yes Status: Acute Assessment and Plan: Severe centrilobular emphysema CTA IMPRESSION (07/21/18): No CT evidence of pulmonary embolism. Stable intrathoracic findings including severe emphysema. CT chest on 02/20/2018 IMPRESSION: 1. No acute abnormality in the chest. 2. Severe centrilobular emphysema. Plan: Continue Symbicort ipratropium and Xopenex Q4h Solumedrol 40 mg Q8H Continue zithromax and rocephin (9) DVT prophylaxis Current Visit: Yes Status: Acute Assessment and Plan: lovenox - Time Spent with Patient Total time spent is greater than 50% in coordination of care (as documented) at patient's floor/unit and/or counseling patient: Internal Medicine: Result - Labs CBC & Chem 7: 07/22/18 03:28 07/22/18 03:28 Labs: Short CBC 07/22/18 Range/Units 03:28 WBC 35.2 H* (4.3-11.1) K/mcL Hgb 7.4 L (12.9-16.9) g/dL Hct 26.7 L (37.5-50.1) % Plt Count 378 (140-400) K/mcL Neutrophils # 31.7 H (1.6-8.9) K/mcL BMP 07/22/18 03:28 Sodium 142 Potassium 4.1 Chloride 102 Carbon Dioxide 35 H BUN 13 Creatinine 0.50 L Glucose 131 H Calcium 8.7 Urine 07/22/18 Range/Units 05:35 Urine Color Yellow (Yellow) Urine Clarity Clear (Clear) Urine pH 8.0 (5.0-8.0) pH Units Ur Specific [place] 1.013 (1.010-1.025) Urine Protein Trace (Neg-Trace) mg/dL Urine Glucose (UA) Normal (Normal) mg/dL - ABG Interpretation ABG results: PT/INR, D-dimer PT 11.8 Seconds (9.4-12.1) 07/21/18 12:23 <Tj Chaudhari - Last Filed: 07/22/18 15:33> (2) Anemia Qualifiers: Other causes of anemia: chronic disease, other Qualified Code(s): D63.8 - Anemia in other chronic diseases classified elsewhere (3) Sepsis Qualifiers: Sepsis type: sepsis due to unspecified organism Qualified Code(s): A41.9 - Sepsis, unspecified organism (4) Community acquired pneumonia Qualifiers: Laterality: right Lung location: lower lobe of lung Qualified Code(s): J18.1 - Lobar pneumonia, unspecified organism (8) Emphysema of lung Qualifiers: Emphysema type: centrilobular Qualified Code(s): J43.2 - Centrilobular emp hysema <Sirena Edwards - Last Filed: 07/22/18 20:48> (1) Anemia Qualifiers: Other causes of anemia: chronic disease, other (2) Sepsis Qualifiers: Sepsis type: sepsis due to unspecified organism Qualified Code(s): A41.9 - Sepsis, unspecified organism (3) Community acquired pneumonia Qualifiers: Laterality: right Lung location: lower lobe of lung Qualified Code(s): J18.1 - Lobar pneumonia, unspecified organism (8) Emphysema of lung Qualifiers: Emphysema type: centrilobular Qualified Code(s): J43.2 - Centrilobular emphysema
--- NOTE | 2018-07-22 15:13 | Palliative - Consult Note ---
Date of Encounter: 07/22/18 Time of Encounter: 13:00 - Assessment and Plan (1) Debility Current Visit: Yes Status: Acute Assessment and plan: Patient reports he is not at his baseline for mobility. PT/OT consult ordered. (2) Acute exacerbation of chronic obstructive airways disease Current Visit: No Status: Acute Assessment and plan: Patient reports breathing has drastically improved this hospital stay. Continue management per primary team. (3) Community acquired pneumonia Current Visit: No Status: Acute Assessment and plan: Ceftriaxone IV per primary team. Qualifiers: Laterality: right Lung location: lower lobe of lung Qualified Code(s): J18.1 - Lobar pneumonia, unspecified organism (4) Counseling regarding advanced care planning and goals of care Current Visit: No Status: Acute Assessment and plan: Conducted in depth goals of care discussion. Patient currently has [facility] nurses 1 time per week, in addition to [facility] services. Also receives home visits from [facility] as needed. Lives home with his and cat. DME currently in home: Nebulizer, oxygen, and lift chair. Denies further DME needs at this time. Discussed eligibility for hospice services; verbalized understanding of option and benefits. Desires to continue thinking about this in the future. Advised patient on ways to get services set up if decides post hospital stay; verbalized understanding. Confirmed CODE STATUS; Chaplidestinee Whaley present during discussion and witnessed patient reporting he has changed his mind and is ok with Intubation and CPR. Patient immediately got on phone with whom reported being pleased with his decision to be ok with CPR/Intubation. CODE STATUS changed in computer. Palliative-CN HPI - Data of Consult Patient: new to practice Consult date: 07/22/18 Requesting Physician: Tj Chaudhari DO Primary Care Provider: [facility]CP [place] - Consult Narrative Palliative Care/Comfort Measures: Palliative care Reason for consult: End stage COPD History of present illness: Mr. Ramires is a 73 year old male Arrived to [facility] on 07/21/18 for shortness of breath, dyspnea. PMH: Arthritis , A-fib, COPD, Anxiety, and depression. Chest x-ray showing: New airspace opacity in the right lower lung most concerning for pneumonia. EKG: Sinus tachycardia, PVCs, and Minimal ST depression. Patient admitted and medically managed for: Acute and chronic respiratory failure, pneumonia, and Sepsis. CT scan performed showing: No acute pulmonary embolism; Airspace opacities in the right middle lobe and right lower lobe likely represent pneumonia; Enlarging right hilar lymph node is reactive; and Emphysema. Palliative care consult for End stage COPD. Patient sitting up in bed upon arrival for assessment. Patient is alert and oriented times 3. Denies pain, dyspnea, anxiety, nausea, and vomiting. No family present at bedside; however, at the completion of assessment, patient notified his of results of conversation. CC: Tj Chaudhari, - Time Spent with Patient Time: Total time spent is greater than 50% in coordination of care (as documented) at patient's floor/unit and/or counseling patient: 25 - 35 minutes Past Med Surg Social Fam HX - Past Medical History Medical history: arthritis, atrial fibrillation, COPD Psychiatric history: anxiety, depression - Past Surgical History Surgical History: other Additional surgical history: L ankle rebuild - Social History Smoking Status: Former smoker Smokeless Tobacco Status: No Alcohol use: none Drug use: none - Family History Mother Hx Family Respiratory Disorders: Yes (COPD: mother, father, brother. Brother: lung cancer.) Medications and Allergies Baclofen [Lioresal] 10 mg PO BID PRN 02/12/16 [History] Gabapentin [Neurontin] 300 mg PO TID 02/12/16 [History] Albuterol Sulfate [Proair Hfa] 2 puff IH QID PRN 02/03/17 [History] Alendronate Sodium [Fosamax] 35 mg PO WE 02/03/17 [History] Budesonide/Formoterol 160/4.5 [Symbicort 160/4.5] 2 puff IH BID 02/03/17 [ History] Cyanocobalamin (B-12) [Vitamin B12] 1,000 mcg PO DAILY 02/03/17 [History] HYDROcodone/Acet 5/325 mg [[place] 5-325 mg] 1 tab PO Q6H PRN 02/03/17 [History] Meloxicam [Mobic] 7.5 mg PO DAILY 02/03/17 [History] Omeprazole 20 mg PO DAILY 02/03/17 [History] BuPROPion SR (12 HR) [Wellbutrin SR] 200 mg PO BID 08/12/17 [History] LORazepam [Ativan] 0.5 mg PO BID PRN 15 Days #30 tablet 02/24/18 [Rx] Calcium Carbonate/Vitamin D3 [Calcium 500 + Vit D 200 Caplet] 1 tab PO TID 07/21 [History] Docusate [Colace] 200 mg PO DAILY 07/21/18 [History] Fluticasone Propionate Nasal [Flonase] 1 spray NS BID 07/21/18 [History] Guaifenesin [Mucus Relief] 400 mg PO BID 07/21/18 [History] Hydrophilic Cream [Triad] 1 appl TP BID PRN 07/21/18 [History] Ipratropium/Albuterol Neb [Duoneb] 3 ml IH Q6HR PRN 07/21/18 [History] Lactose-Reduced Food [Ensure Liquid] 1 bottle PO BID 07/21/18 [History] Moxifloxacin HCl [Avelox] 400 mg PO DAILY 07/21/18 [History] Multivitamin [One Daily Multivitamin] 1 tab PO DAILY 07/21/18 [History] Ranitidine HCl [Acid Program Writer] 150 mg PO BID 07/21/18 [History] Trazodone HCl 200 mg PO HS 07/21/18 [History] predniSONE [PredniSONE] 10 mg PO Q24H 07/21/18 [History] 3 Allergy/AdvReac Type Severity Reaction Status Date / Time No Known Allergies Allergy Verified 02/11/16 21:51 - Constitutional Constitutional ROS PAL: no frequent falls, no weight loss - EENT Ears, nose, mouth, throat: no dry mouth - Cardiovascular Cardiovascular ROS: no chest pain - Respiratory Respiratory: dyspnea, dyspnea on exertion, change in phlegm color - Gastrointestinal Gastrointestinal: no change in bowel habits - Genitourinary Genitourinary ROS male: no difficulty urinating - Neurological Neurological ROS: no confusion - Psychiatric Psychiatric general PM: no anxiety, no confusion, no memory loss Palliative Care-Exam - Constitutional Vitals: Temp Pulse Resp BP Pulse Ox 98.6 F 100 18 141/82 97 07/22/18 11:26 07/22/18 11:26 07/22/18 11:26 07/22/18 11:26 07/22/18 11:26 General appearance: Present: cooperative, no acute distress. Absent: mild distress - Head Head Exam: Present: normal inspection, normocephalic - Eye Eye exam: Present: EOMI, PERRL, conjuntiva pink - ENT ENT exam: Present: mucous membranes dry - Expanded ENT Exam Mouth Exam: Absent: drooling Throat exam: Present: normal inspection - Neck Neck exam: Present: full ROM, normal inspection - Respiratory Respiratory exam: Present: accessory muscle use, rhonchi, wheezes. Absent: respiratory distress - Cardiovascular Cardiovascular exam: Present: +S1, +S2 - GI/Abdominal Exam GI/Abdominal exam: Present: normal bowel sounds, soft. Absent: tenderness - Rectal Rectal Exam: Present: deferred - Extremities Exam Extremities exam: Present: normal inspection. Absent: calf tenderness, pedal edema, tenderness - Neurological Exam Neurological exam: Present: alert, oriented X3, strengths equal and symetr throughout. Absent: altered - Expanded Neurological Exam Patient oriented to: Present: person, place, time Coma Scale Eye Opening: Spontaneous Coma Scale Motor Response: Obeys Commands Coma Scale Verbal Response: Oriented Coma Scale Total: 15 - Psychiatric Psychiatric exam: Present: normal affect, normal mood - Skin Skin exam: Present: dry, intact, warm Internal Medicine - CN: Reslt - Labs CBC & Chem 7: 07/22/18 03:28 07/22/18 03:28 Labs: Short CBC 07/22/18 Range/Units 03:28 WBC 35.2 H* (4.3-11.1) K/mcL Hgb 7.4 L (12.9-16.9) g/dL Hct 26.7 L (37.5-50.1) % Plt Count 378 (140-400) K/mcL Neutrophils # 31.7 H (1.6-8.9) K/mcL BMP 07/22/18 03:28 Sodium 142 Potassium 4.1 Chloride 102 Carbon Dioxide 35 H BUN 13 Creatinine 0.50 L Glucose 131 H Calcium 8.7 Urine 07/22/18 Range/Units 05:35 Urine Color Yellow (Yellow) Urine Clarity Clear (Clear) Urine pH 8.0 (5.0-8.0) pH Units Ur Specific Wheeler 1.013 (1.010-1.025) Urine Protein Trace (Neg-Trace) mg/dL Urine Glucose (UA) Normal (Normal) mg/dL - ABG Interpretation ABG results: PT/INR, D-dimer PT 11.8 Seconds (9.4-12.1) 07/21/18 12:23 Consult Discharge Plan - Plan [facility]errals: [facility] [Primary Care Provider] - Palliative Quality Palliative Quality: Screen for Code Status: Yes, Screen for Goals of Care: Yes, Screen for Pain: Yes, If Pain Regimen Started, Initiate Bowel Regimen: NA, Screen for Nausea/Vomitting: Yes Code Status: 07/22/18 14:11 FULL [Resuscitation Status: Active] [RES] Routine Comment: Pt reports he changed his mind and agrees. Resuscitation Status: Full Code
[2018-07-22] MEDS: Gabapentin 300 MG CAPSULE PO SCH ×2 (19:03→21:19)
[2018-07-22] MEDS: BuPROPion SR (12 HR) 100 MG TABLET PO SCH (21:19)
[2018-07-22] MEDS: Famotidine 20 MG TABLET PO SCH (21:19)
[2018-07-22] MEDS: traZODone 50 MG TABLET PO SCH (21:19)
[2018-07-23] MEDS ORDERED: 0.9 % Sodium Chloride 250 ML ONE (00:54)
[2018-07-23] MEDS: *HR* Heparin 5,000 UNIT/ML VIAL SQ SCH ×3 (00:59→16:35)
[2018-07-23] MEDS: Fluticasone Propionate Nasal 50 MCG/SPRAY BOTTLE NS SCH ×3 (01:00→21:58)
[2018-07-23] MEDS: Ipratropium Neb 0.5 MG NEBULIZER IH SCH ×3 (04:00→10:57)
[2018-07-23] MEDS: Levalbuterol Neb 0.63 MG/3 ML IH SCH ×3 (04:00→10:57)
[2018-07-23 05:46] LABS: Basophils % 0.1 %; Mean Platelet Volume 10.5 fL (9.4-12.4); Red Cell Distribution Width 15.1 % (11.5-14.5)
[2018-07-23 05:48] LABS: Hematocrit 27.7 % (37.5-50.1); Hemoglobin 7.9 g/dL (12.9-16.9); Immature Granulocytes % 0.6 % (0-4); Lymphocytes # 0.3 K/mcL (0.6-4.6); Lymphocytes % 1.6 %; Mean Corpuscular HGB Conc 28.5 g/dL (31.6-35.5); Mean Corpuscular Hemoglobin 23.9 pg (28.0-33.3); Mean Corpuscular Volume 83.9 fL (83.0-100.0); Monocytes # 0.6 K/mcL (0.0-1.3); Monocytes % 3.2 %; Neutrophils # 18.3 K/mcL (1.6-8.9); Platelet Count 310 K/mcL (140-400); Segmented Neutrophils % 94.5 %
[2018-07-23] MEDS: MethylPREDNISolone 40 MG/ML VIAL IVP SCH ×2 (05:53→17:01)
[2018-07-23 06:08] LABS: % Iron Saturation 3 % (20-55); BUN/Creatinine Ratio 24 (6-26); Blood Urea Nitrogen 12 mg/dL (8-23); Calcium 8.4 mg/dL (8.6-10.3); Carbon Dioxide 32 mEq/L (23-29); Chloride 105 mEq/L (98-107); Glucose 116 mg/dL (70-105); Iron 11 mcg/dL (65-175); Osmolality,Calculated 293 (280-300); Potassium 4.6 mEq/L (3.5-5.1); Sodium 141 mEq/L (136-145); Transferrin 262 mg/dL (203-362); eGFR For Non-African Americans > 60 (> 60)
[2018-07-23 06:11] LABS: Hypochromasia Present (Not Present); Microcytosis Present (Not Present); Platelet Estimate Normal (Normal); Stomatocytes 1+ (Not Present)
[2018-07-23 06:25] LABS: Ferritin 21 ng/mL (20-250)
[2018-07-23] MEDS: Budesonide/Formoterol 160/4.5 1 PUFF INH IH SCH ×2 (07:36→21:53)
[2018-07-23] MEDS: Cyanocobalamin (B-12) 1,000 MCG TABLET PO SCH (07:51)
[2018-07-23] MEDS: *HR* HYDROcodone/Acet 5/325 mg TABLET PO PRN ×3 (07:51→16:59)
[2018-07-23] MEDS: Famotidine 20 MG TABLET PO SCH ×2 (07:52→21:55)
[2018-07-23] MEDS: Gabapentin 300 MG CAPSULE PO SCH ×3 (07:52→21:55)
[2018-07-23] MEDS: *HR* LORazepam 0.5 MG TABLET PO PRN ×3 (07:54→16:59)
[2018-07-23] MEDS: BuPROPion SR (12 HR) 100 MG TABLET PO SCH ×2 (07:54→21:55)
[2018-07-23] MEDS: cefTRIAXone 1,000 MG in Water for inj. (sterile) 20 ML 10 ML IVP SCH (07:55)
--- NOTE | 2018-07-23 13:01 | Internal Med Progress Note ---
<Sirena Edwards - Last Filed: 07/23/18 12:56> Hospitalist Progress Note - Encounter Date of Encounter: 07/23/18 Time of Encounter: 08:00 - Subjective Interval History: Mr. Ramires was seen at bedside this morning. His vitals stayed stable overnight , remained afebrile. This morning he is comfortable in bed. He states he is feeling much better since his admission. His breathing has improved. He noted he still has difficulty moving around without his heart rate from jumping. Today he denies, nausea, emesis, chest pain, blurry vision, fever or chills. - Exam Vitals: Temp Pulse Resp BP Pulse Ox 98.6 F 82 16 141/72 96 07/23/18 06:49 07/23/18 06:49 07/23/18 06:49 07/23/18 06:49 07/23/18 06:49 Exam: Constitutional: Alert, in no acute distress, on nasal canula HEENT: Normocephalic, atraumatic, moist mucus membranes Heart: Normal, regular rate and rhythm, no murmurs Lungs: Decreased air transfer at all lung lobes, no wheezing or crackles Abdomen: Soft, normal bowel sounds, non tender Extremities: No edema of lower extremity or upper extremities, warm, nontender Skin: Skin warm and dry, no lesions, no rashes, no jaundice Psych: thought content congruent, appropriate affect Neurological: Alert and oriented x 3 - Assessment and Plan (1) Community acquired pneumonia Current Visit: No Status: Acute Assessment and Plan: Chest x-ray with right lower lobe opacity Management as per above [employer]IST evaluation today noted no concern for aspiration with thin liquids CXR 07/21- IMPRESSION: New airspace opacity in the right lower lung most concerning for pneumonia. Recommend follow-up chest x-ray after appropriate treatment to ensure complete resolution. Plan: Continue zithromax and rocephin day 3 Continue symbicort to prevent COPD exacerbation Continue IV prednisone 40 mg Q12 (2) Anemia Current Visit: No Status: Chronic Assessment and Plan: Chronic normocytic anemia, iron deficiency anemia. Iron level 11 and % saturation is 11 likely due to inflammatory cause from RA baseline H/H 8-9 currently at baseline No sign of acute bleed, denies hematochezia s/p 1 unit blood transfusion yesterday, responded well to it Plan: IV iron today Continue to monitor for any hematochezia CBC in the morning Deconditioning PT/OT pending (3) Sepsis Current Visit: Yes Status: Resolved Assessment and Plan: Patient presented with leukocytosis 24.6, bandemia 12%, tachycardia 132 on admission Today WBC 19.4, and heart rate 82 Chest x-ray positive for right lower lobe pneumonia Lactic acid 2.6, repeat was 0.9 yesterday Plan: Respiratory viral panel negative Blood cultures x2 preliminary negative Sputum culture due to epithelial cells was not performed Continue rocephin and zithromax, day 3 (4) Counseling regarding advanced care planning and goals of care Current Visit: No Status: Acute Assessment and Plan: Palliative saw Mr. Ramires yesterday and he has changed his code status from DNR CCA DNI to full code. He understands his risks and benefits and the discussion was made in the presence of fastener technologist. (5) Anxiety Current Visit: No Status: Chronic Assessment and Plan: Continue home dose ativan BID (6) COPD exacerbation Current Visit: No Status: Acute Assessment and Plan: Exacerbation secondary to right lower lobe pneumonia. Could be due to aspiration , speech consulted. Plan: Continue same management as Pneumonia Wean oxygen (7) Acute and chronic respiratory failure with hypoxia Current Visit: Yes Status: Acute Assessment and Plan: Acute on chronic respiratory failure with hypoxia secondary to right lower lobe pneumonia White count 19.4, no bands lacitic acid 2.6, repeat 0.9 yesterday Bicarb today 32, returning down and most likely due to metabolic compensation Plan: CTA negative for PE but shows enlarging right hilar lymph node Continue ceftriaxone and zithromax, day 3 Continue supplemental oxygen Continue prednisone, 40 mg IV BID [employer]IST, no risk of aspiration with think liquid Regular diet (8) Emphysema of lung Current Visit: Yes Status: Acute Assessment and Plan: Severe centrilobular emphysema CTA IMPRESSION (07/21/18): No CT evidence of pulmonary embolism. Stable intrathoracic findings including severe emphysema. CT chest on 02/20/2018 IMPRESSION: 1. No acute abnormality in the chest. 2. Severe centrilobular emphysema. Plan: Continue Symbicort Duoneb Q6H Solumedrol 40 mg IV BID Continue zithromax and rocephin, day 3 (9) DVT prophylaxis Current Visit: Yes Status: Acute Assessment and Plan: lovenox - Time Spent with Patient Total time spent is greater than 50% in coordination of care (as documented) at patient's floor/unit and/or counseling patient: less than 15 minutes Plan of Care Discussed with: patient Internal Medicine: Result - Labs CBC & Chem 7: 07/23/18 05:25 07/23/18 05:25 Labs: Short CBC 07/23/18 Range/Units 05:25 WBC 19.4 H (4.3-11.1) K/mcL Hgb 7.9 L (12.9-16.9) g/dL Hct 27.7 L (37.5-50.1) % Plt Count 310 (140-400) K/mcL Neutrophils # 18.3 H (1.6-8.9) K/mcL BMP 07/23/18 05:25 Sodium 141 Potassium 4.6 Chloride 105 Carbon Dioxide 32 H BUN 12 Creatinine 0.50 L Glucose 116 H Calcium 8.4 L - ABG Interpretation ABG results: PT/INR, D-dimer PT 11.8 Seconds (9.4-12.1) 07/21/18 12:23 Consult Discharge Plan - Plan [facility]errals: [facility] [Primary Care Provider] - <Mary Jo Diaz - Last Filed: 07/23/18 18:08> Hospitalist Progress Note - Encounter Date of Encounter: 07/23/18 - Exam Vitals: Temp Pulse Resp BP Pulse Ox 98.9 F 84 16 152/79 95 07/23/18 15:53 07/23/18 15:53 07/23/18 15:53 07/23/18 15:53 07/23/18 16:01 - Assessment and Plan (1) Anemia Current Visit: No Status: Chronic (2) Sepsis Current Visit: Yes Status: Acute (3) Community acquired pneumonia Current Visit: No Status: Acute (4) Counseling regarding advanced care planning and goals of care Current Visit: No Status: Acute (5) Anxiety Current Visit: No Status: Chronic (6) COPD exacerbation Current Visit: No Status: Acute (7) Acute and chronic respiratory failure with hypoxia Current Visit: Yes Status: Acute (8) Emphysema of lung Current Visit: Yes Status: Acute (9) DVT prophylaxis Current Visit: Yes Status: Acute - Time Spent with Patient Total time spent is greater than 50% in coordination of care (as documented) at patient's floor/unit and/or counseling patient: Internal Medicine: Result - Labs CBC & Chem 7: 07/23/18 05:25 07/23/18 05:25 Labs: Short CBC 07/23/18 Range/Units 05:25 WBC 19.4 H (4.3-11.1) K/mcL Hgb 7.9 L (12.9-16.9) g/dL Hct 27.7 L (37.5-50.1) % Plt Count 310 (140-400) K/mcL Neutrophils # 18.3 H (1.6-8.9) K/mcL BMP 07/23/18 05:25 Sodium 141 Potassium 4.6 Chloride 105 Carbon Dioxide 32 H BUN 12 Creatinine 0.50 L Glucose 116 H Calcium 8.4 L - ABG Interpretation ABG results: PT/INR, D-dimer PT 11.8 Seconds (9.4-12.1) 07/21/18 12:23 - Attending Attestation I examined this patient and my medical decision-making was reviewed with the Resident Physician Dr. Edwards. I agree with the documented findings, disposition and treatment plan as described except to the extent set forth below. Mr. Ramires is a 73 year old male with history of Severe centrilobular emphysema on 3 L home oxygen and anxiety patient admitted here for acute COPD exacerbation , acute on chronic hypoxic respiratory failure with pneumonia. Patient was started on IV steroids and empirical antibiotic. His symptoms improved, currently on 4 lit oxygen. Denied any CP. Gen: A, A, O x 3 Chest: moderate wheezing, diminished breath sounds bilateral Heart: S1S2+ RRR a/p 1. Acute on chronic hypoxic respiratory failure 2. Acute COPD exacerbation 3. Acute pneumonia - mostly bacterial continue empirical antibiotic start tapering steroids continue Duoneb and oxygen 4. Acute on chronic iron deficiency anemia started on IV infusions need outpatient follow-up with the [facility]. <JerrySirena - Last Filed: 07/23/18 12:56> (1) Community acquired pneumonia Qualifiers: Laterality: right Lung location: lower lobe of lung Qualified Code(s): J18.1 - Lobar pneumonia, unspecified organism (2) Anemia Qualifiers: Other causes of anemia: chronic disease, other (3) Sepsis Qualifiers: Sepsis type: sepsis due to unspecified organism Qualified Code(s): A41.9 - Sepsis, unspecified organism (8) Emphysema of lung Qualifiers: Emphysema type: centrilobular Qualified Code(s): J43.2 - Centrilobular emphysema <Mary Jo Diaz - Last Filed: 07/23/18 18:08> (1) Anemia Qualifiers: Other causes of anemia: chronic disease, other (2) Sepsis Qualifiers: Sepsis type: sepsis due to unspecified organism Qualified Code(s): A41.9 - Sepsis, unspecified organism (3) Community acquired pneumonia Qualifiers: Laterality: right Lung location: lower lobe of lung Qualified Code(s): J18.1 - Lobar pneumonia, unspecified organism (8) Emphysema of lung Qualifiers: Emphysema type: centrilobular Qualified Code(s): J43.2 - Centrilobular emphysema
[2018-07-23] MEDS: Azithromycin 500 MG in D5% in Water 250 ML IVPB SCH (13:22)
--- NOTE | 2018-07-23 13:42 | Palliative Progress Note ---
Date of Encounter: 07/23/18 Time of Encounter: 11:00 - Assessment and plan (1) Debility Current Visit: Yes Status: Acute Assessment and plan: PT/OT consult ordered. Patient reports has been able to move around room some, but heart rate increases. (2) Acute exacerbation of chronic obstructive airways disease Current Visit: No Status: Acute Assessment and plan: Management per primary team. Continue Duonebs, Oxygen and steroids. (3) Community acquired pneumonia Current Visit: No Status: Acute Assessment and plan: Continue Ceftriaxone IV per primary team. Qualifiers: Laterality: right Lung location: lower lobe of lung Qualified Code(s): J18.1 - Lobar pneumonia, unspecified organism (4) Counseling regarding advanced care planning and goals of care Current Visit: No Status: Acute Assessment and plan: Confirmed CODE STATUS; patient continues to desire to be FULL CODE. Patient desires to continue aggressive treatment with family in agreement per patient report. Goals of care established; CODE STATUS established. Palliative care to sign off. - Time Spent With Patient Total time spent is greater than 50% in coordination of care (as documented) at patient's floor/unit and/or counseling patient: - Subjective Interval history: Patient sitting up at bedside upon arrival for assessment. Patient is alert and oriented times 3. Reports chronic pain, but describes as tolerable, reports [place] helping. Reports chronic anxiety; Ativan helping. Patient denies nausea and vomiting. Patient reports dyspnea/breathing much improved. No family present at bedside. Reports is coming soon. - Constitutional Vitals: Abnormal lab results WBC 19.4 K/mcL (4.3-11.1) H 07/23/18 05:25 RBC 3.30 M/mcL (4.19-5.50) L 07/23/18 05:25 Hgb 7.9 g/dL (12.9-16.9) L 07/23/18 05:25 Hct 27.7 % (37.5-50.1) L 07/23/18 05:25 MCH 23.9 pg (28.0-33.3) L 07/23/18 05:25 MCHC 28.5 g/dL (31.6-35.5) L 07/23/18 05:25 RDW 15.1 % (11.5-14.5) H 07/23/18 05:25 Metamyelocytes % 2.0 % (0) H 07/22/18 03:28 Neutrophils # 18.3 K/mcL (1.6-8.9) H 07/23/18 05:25 Lymphocytes # 0.3 K/mcL (0.6-4.6) L 07/23/18 05:25 Hypochromasia Present (Not Present) A 07/23/18 05:25 Microcytosis Present (Not Present) A 07/23/18 05:25 Ovalocytes 1+ (Not Present) A 07/21/18 07:46 Stomatocytes 1+ (Not Present) A 07/23/18 05:25 APTT 24.8 Seconds (26.0-36.0) L 07/21/18 12:23 Carbon Dioxide 32 mEq/L (23-29) H 07/23/18 05:25 Creatinine 0.50 mg/dL (0.70-1.30) L 07/23/18 05:25 Glucose 116 mg/dL (70-105) H 07/23/18 05:25 Calcium 8.4 mg/dL (8.6-10.3) L 07/23/18 05:25 Phosphorus 2.6 mg/dL (2.7-4.5) L 07/21/18 07:46 Iron 11 mcg/dL (65-175) L 07/23/18 05:25 % Saturation 3 % (20-55) L 07/23/18 05:25 Total Bilirubin 0.2 mg/dL (0.3-1.0) L 07/21/18 07:46 AST 12 Units/L (13-39) L 07/21/18 07:46 Serum Total Protein 6.2 g/dL (6.4-8.9) L 07/21/18 07:46 Globulin 2.2 g/dL (2.4-3.5) L 07/21/18 07:46 General appearance: Present: cooperative, no acute distress - Head Head exam: Present: atraumatic, normal inspection - Eye Eye exam: Present: normal appearance, PERRL. Absent: periorbital swelling, periorbital tenderness Pupils: Present: normal accommodation, PERRL - ENT ENT exam: Present: mucous membranes moist, normal external ear exam - Neck Neck exam: Present: full ROM, normal inspection - Respiratory Respiratory exam: Present: accessory muscle use, CTAB. Absent: decreased breath sounds - Cardiovascular Cardiovascular exam: Present: +S1, +S2 - GI/Abdominal GI/Abdominal exam: Present: normal bowel sounds, soft. Absent: tenderness - Rectal Rectal exam: Present: deferred - Extremities Exam Extremities exam: Present: full ROM, normal inspection. Absent: calf tenderness , pedal edema - Back Exam Back exam: Present: full ROM, normal inspection - Neurological Exam Neurological exam: Present: alert, oriented X3, strengths equal and symetr throughout. Absent: altered - Psychiatric Psychiatric exam: Present: normal affect, normal mood - Skin Skin exam: Present: intact, warm Palliative Quality Palliative Quality: Screen for Code Status: Yes, Screen for Goals of Care: Yes, Screen for Pain: Yes, If Pain Regimen Started, Initiate Bowel Regimen: NA, Screen for Nausea/Vomitting: Yes Code Status: 07/22/18 14:11 FULL [Resuscitation Status: Active] [RES] Routine Comment: Pt reports he changed his mind and agrees. Resuscitation Status: Full Code - Labs CBC & Chem 7: 07/23/18 05:25 07/23/18 05:25 Labs: Laboratory Results - last 24 hr 07/22/18 07/22/18 07/23/18 20:30 21:59 05:25 WBC RBC Hgb Hct MCV MCH MCHC RDW Plt Count MPV Immature Gran % Seg Neutrophils % Lymphocytes % Monocytes % Eosinophils % Basophils % Neutrophils # Lymphocytes # Monocytes # Eosinophils # Basophils # Platelet Estimate Hypochromasia Microcytosis Stomatocytes Sodium Potassium Chloride Carbon Dioxide BUN Creatinine Est GFR ( Amer) Est GFR (Non-Af Amer) BUN/Creatinine Ratio Glucose Calculated Osmolality Lactic Acid 0.5 Calcium Iron 11 L % Saturation 3 L Transferrin 262 Ferritin 21 Blood Type A POSITIVE Antibody Screen NEGATIVE Crossmatch See Detail 07/23/18 07/23/18 05:25 05:25 WBC 19.4 H RBC 3.30 L Hgb 7.9 L Hct 27.7 L MCV 83.9 MCH 23.9 L MCHC 28.5 L RDW 15.1 H Plt Count 310 MPV 10.5 Immature Gran % 0.6 Seg Neutrophils % 94.5 Lymphocytes % 1.6 Monocytes % 3.2 Eosinophils % 0.0 Basophils % 0.1 Neutrophils # 18.3 H Lymphocytes # 0.3 L Monocytes # 0.6 Eosinophils # 0.0 Basophils # 0.0 Platelet Estimate Normal Hypochromasia Present A Microcytosis Present A Stomatocytes 1+ A Sodium 141 Potassium 4.6 Chloride 105 Carbon Dioxide 32 H BUN 12 Creatinine 0.50 L Est GFR ( Amer) > 60 Est GFR (Non-Af Amer) > 60 BUN/Creatinine Ratio 24 Glucose 116 H Calculated Osmolality 293 Lactic Acid Calcium 8.4 L Iron % Saturation Transferrin Ferritin Blood Type Antibody Screen Crossmatch - ABG Interpretation ABG results: PT/INR, D-dimer PT 11.8 Seconds (9.4-12.1) 07/21/18 12:23 Consult Discharge Plan - Plan Referrals: [facility] [Primary Care Provider] -
[2018-07-23] MEDS: Ipratropium/Albuterol Neb 3 ML IH SCH ×2 (16:02→21:53)
[2018-07-23] MEDS: Lactobacillus 1 EACH CAP.SPRINK PO SCH (21:55)
[2018-07-23] MEDS: Baclofen 10 MG TABLET PO PRN (21:55)
[2018-07-23] MEDS: traZODone 50 MG TABLET PO SCH (21:55)
[2018-07-24] MEDS: *HR* Heparin 5,000 UNIT/ML VIAL SQ SCH ×3 (01:05→16:01)
[2018-07-24] MEDS: Ipratropium/Albuterol Neb 3 ML IH SCH ×4 (03:33→22:26)
[2018-07-24 04:20] LABS: Red Cell Distribution Width 15.2 % (11.5-14.5)
[2018-07-24 04:22] LABS: Basophils % 0.1 %; Hematocrit 28.2 % (37.5-50.1); Hemoglobin 8.2 g/dL (12.9-16.9); Immature Granulocytes % 0.5 % (0-4); Lymphocytes # 0.5 K/mcL (0.6-4.6); Lymphocytes % 3.5 %; Mean Corpuscular HGB Conc 29.1 g/dL (31.6-35.5); Mean Corpuscular Volume 82.7 fL (83.0-100.0); Mean Platelet Volume 10.6 fL (9.4-12.4); Monocytes # 0.8 K/mcL (0.0-1.3); Monocytes % 5.4 %; Neutrophils # 13.1 K/mcL (1.6-8.9); Platelet Count 300 K/mcL (140-400); Red Blood Count 3.41 M/mcL (4.19-5.50); Segmented Neutrophils % 90.5 %
[2018-07-24 04:41] LABS: BUN/Creatinine Ratio 30 (6-26); Blood Urea Nitrogen 15 mg/dL (8-23); Calcium 8.7 mg/dL (8.6-10.3); Carbon Dioxide 34 mEq/L (23-29); Chloride 103 mEq/L (98-107); Glucose 107 mg/dL (70-105); Osmolality,Calculated 295 (280-300); Potassium 4.2 mEq/L (3.5-5.1); Sodium 142 mEq/L (136-145); eGFR For Non-African Americans > 60 (> 60)
[2018-07-24 04:56] LABS: Hypochromasia Present (Not Present); Platelet Estimate Normal (Normal); Polychromasia 1+ (Not Present)
[2018-07-24] MEDS: MethylPREDNISolone 40 MG/ML VIAL IVP SCH (05:33)
[2018-07-24] MEDS: *HR* HYDROcodone/Acet 5/325 mg TABLET PO PRN ×2 (05:37→15:17)
[2018-07-24] MEDS: *HR* LORazepam 0.5 MG TABLET PO PRN ×2 (05:37→16:01)
[2018-07-24] MEDS: Iron Sucrose Complex 200 MG in 0.9 % Sodium Chloride 100 ML IVPB SCH (08:34)
[2018-07-24] MEDS: cefTRIAXone 1,000 MG in Water for inj. (sterile) 20 ML 10 ML IVP SCH (08:35)
[2018-07-24] MEDS: Famotidine 20 MG TABLET PO SCH ×2 (08:36→19:34)
[2018-07-24] MEDS: Cyanocobalamin (B-12) 1,000 MCG TABLET PO SCH (08:36)
[2018-07-24] MEDS: Lactobacillus 1 EACH CAP.SPRINK PO SCH ×2 (08:37→19:34)
[2018-07-24] MEDS: Azithromycin 250 MG TABLET PO SCH (08:37)
[2018-07-24] MEDS: Gabapentin 300 MG CAPSULE PO SCH ×3 (08:37→19:34)
[2018-07-24] MEDS: BuPROPion SR (12 HR) 100 MG TABLET PO SCH ×2 (08:37→19:34)
[2018-07-24] MEDS: Fluticasone Propionate Nasal 50 MCG/SPRAY BOTTLE NS SCH ×2 (08:39→19:34)
[2018-07-24] MEDS: Budesonide/Formoterol 160/4.5 1 PUFF INH IH SCH ×2 (10:35→22:26)
--- NOTE | 2018-07-24 13:58 | Internal Med Progress Note ---
<Sirena Edwards - Last Filed: 07/24/18 13:52> Hospitalist Progress Note - Encounter Date of Encounter: 07/24/18 Time of Encounter: 09:00 - Subjective Interval History: Mr. Ramires was seen at bedside this morning. His vitals stayed stable overnight and he remained afebrile. This morning he is comfortable in bed and notes he is feeling much better than the past a few days. He stated he continues to have difficulty breathing but has not been using a spirometer and I encouraged him to use it. His breathing has improved. Today he denies, nausea, emesis, chest pain, blurry vision, fever or chills. - Exam Vitals: Temp Pulse Resp BP Pulse Ox 98.5 F 70 16 142/70 90 07/24/18 07:14 07/24/18 07:14 07/24/18 10:35 07/24/18 07:14 07/24/18 10:35 Exam: Constitutional: Alert, in no acute distress, on nasal canula HEENT: Normocephalic, atraumatic, moist mucus membranes Heart: Normal, regular rate and rhythm, no murmurs Lungs: Decreased air transfer at all lung lobes, no wheezing or crackles Abdomen: Soft, normal bowel sounds, non tender Extremities: No edema of lower extremity or upper extremities, warm, nontender Skin: Skin warm and dry, no lesions, no rashes, no jaundice Psych: thought content congruent, appropriate affect Neurological: Alert and oriented x 3 - Assessment and Plan (1) Community acquired pneumonia Current Visit: No Status: Acute Assessment and Plan: Chest x-ray with right lower lobe opacity Management as per above BLOCK[employer] evaluation yesterday noted no concern for aspiration with thin liquids CXR 07/21- IMPRESSION: New airspace opacity in the right lower lung most concerning for pneumonia. Recommend follow-up chest x-ray after appropriate treatment to ensure complete resolution. Plan: Continue zithromax and rocephin day 4 Continue symbicort to prevent COPD exacerbation Decreased prednisone from 40 mg IV BID to 40 mg PO (2) Anemia Current Visit: No Status: Chronic Assessment and Plan: Chronic normocytic anemia, iron deficiency anemia. Iron level 11 and % saturation is 11 likely due to inflammatory cause from RA baseline H/H 8-9 currently at baseline No sign of acute bleed, denies hematochezia s/p 1 unit blood transfusion yesterday, responded well to it Plan: IV infusion day 2 Continue to monitor for any hematochezia CBC in the morning Deconditioning PT/OT pending (3) Sepsis Current Visit: Yes Status: Acute Assessment and Plan: Patient presented with leukocytosis 24.6, bandemia 12%, tachycardia 132 on admission Today WBC 14.5 today, 19.4 yesterday and heart rate 83-70 Lactic acid 2.6, repeat was 0.9 Chest x-ray positive for right lower lobe pneumonia Plan: Respiratory viral panel negative Blood cultures x2 preliminary negative Sputum culture due to epithelial cells was not performed Continue rocephin and zithromax, day 4 (4) Counseling regarding advanced care planning and goals of care Current Visit: No Status: Acute Assessment and Plan: Palliative saw Mr. Ramires two days ago and he has changed his code status from DNR CCA DNI to full code. He understands his risks and benefits and the discussion was made in the presence of dancing teacher. (5) Anxiety Current Visit: No Status: Chronic Assessment and Plan: Continue home dose ativan BID (6) COPD exacerbation Current Visit: No Status: Acute Assessment and Plan: Exacerbation secondary to right lower lobe pneumonia. Could be due to aspiration , speech consulted. Plan: Continue same management as Pneumonia (zosyn and azithromycin) Wean oxygen (7) Acute and chronic respiratory failure with hypoxia Current Visit: Yes Status: Acute Assessment and Plan: Acute on chronic respiratory failure with hypoxia secondary to right lower lobe pneumonia White count 14.5 today and yesterday was 19.4, no bands lacitic acid 2.6, repeat 0.5 two days ago Bicarb today 34, returning down and most likely due to metabolic compensation Plan: CTA negative for PE but shows enlarging right hilar lymph node Continue ceftriaxone and zithromax, day 4 Continue supplemental oxygen Continue prednisone, 40 mg PO daily 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 Stable intrathoracic findings including severe emphysema. CT chest on 02/20/2018 IMPRESSION: 1. No acute abnormality in the chest. 2. Severe centrilobular emphysema. Plan: Continue Symbicort Continue incentive spirometry Duoneb Q6H Solumedrol 40 mg PO daily Continue zithromax and rocephin, day 4 (9) DVT prophylaxis Current Visit: Yes Status: Acute Assessment and Plan: lovenox - Time Spent with Patient Total time spent is greater than 50% in coordination of care (as documented) at patient's floor/unit and/or counseling patient: less than 15 minutes Plan of Care Discussed with: patient Internal Medicine: Result - Labs CBC & Chem 7: 07/24/18 03:40 07/24/18 03:40 Labs: Short CBC 07/24/18 Range/Units 03:40 WBC 14.5 H (4.3-11.1) K/mcL Hgb 8.2 L (12.9-16.9) g/dL Hct 28.2 L (37.5-50.1) % Plt Count 300 (140-400) K/mcL Neutrophils # 13.1 H (1.6-8.9) K/mcL BMP 07/24/18 03:40 Sodium 142 Potassium 4.2 Chloride 103 Carbon Dioxide 34 H BUN 15 Creatinine 0.50 L Glucose 107 H Calcium 8.7 - ABG Interpretation ABG results: PT/INR, D-dimer PT 11.8 Seconds (9.4-12.1) 07/21/18 12:23 Consult Discharge Plan - Plan [facility]errals: [facility]Primary Care Provider[facility] - <Mary Jo Diaz - Last Filed: 07/24/18 14:57> Hospitalist Progress Note - Encounter Date of Encounter: 07/24/18 - Exam Vitals: Temp Pulse Resp BP Pulse Ox 98.5 F 70 16 142/70 90 07/24/18 07:14 07/24/18 07:14 07/24/18 10:35 07/24/18 07:14 07/24/18 10:35 - Assessment and Plan (1) Anemia Current Visit: No Status: Chronic (2) Sepsis Current Visit: Yes Status: Acute (3) Community acquired pneumonia Current Visit: No Status: Acute (4) Counseling regarding advanced care planning and goals of care Current Visit: No Status: Acute (5) Anxiety Current Visit: No Status: Chronic (6) COPD exacerbation Current Visit: No Status: Acute (7) Acute and chronic respiratory failure with hypoxia Current Visit: Yes Status: Acute (8) Emphysema of lung Current Visit: Yes Status: Acute (9) DVT prophylaxis Current Visit: Yes Status: Acute - Time Spent with Patient Total time spent is greater than 50% in coordination of care (as documented) at patient's floor/unit and/or counseling patient: Internal Medicine: Result - Labs CBC & Chem 7: 07/24/18 03:40 07/24/18 03:40 Labs: Short CBC 07/24/18 Range/Units 03:40 WBC 14.5 H (4.3-11.1) K/mcL Hgb 8.2 L (12.9-16.9) g/dL Hct 28.2 L (37.5-50.1) % Plt Count 300 (140-400) K/mcL Neutrophils # 13.1 H (1.6-8.9) K/mcL BMP 07/24/18 03:40 Sodium 142 Potassium 4.2 Chloride 103 Carbon Dioxide 34 H BUN 15 Creatinine 0.50 L Glucose 107 H Calcium 8.7 - ABG Interpretation ABG results: PT/INR, D-dimer PT 11.8 Seconds (9.4-12.1) 07/21/18 12:23 - Attending Attestation I examined this patient and my medical decision-making was reviewed with the Resident Physician Dr. Edwards. I agree with the documented findings, disposition and treatment plan as described except to the extent set forth below. Mr. Ramires is a 73 year old male with history of Severe centrilobular emphysema on 3 L home oxygen and anxiety patient admitted here for acute COPD exacerbation , acute on chronic hypoxic respiratory failure with pneumonia. Patient was started on IV steroids and empirical antibiotic. His symptoms improved, currently on 4 lit oxygen. Denied any CP. Gen: A, A, O x 3 Chest: moderate wheezing, diminished breath sounds bilateral Heart: S1S2+ RRR a/p 1. Acute on chronic hypoxic respiratory failure 2. Acute COPD exacerbation 3. Acute pneumonia - mostly bacterial continue empirical antibiotic start tapering steroids continue Duoneb and oxygen 4. Acute on chronic iron deficiency anemia Cont IV Iron infusions x 3 doses need outpatient follow-up with the [facility] Possible d/c home in AM <Sirena Edwards - Last Filed: 07/24/18 13:52> (1) Community acquired pneumonia Qualifiers: Laterality: right Lung location: lower lobe of lung Qualified Code(s): J18.1 - Lobar pneumonia, unspecified organism (2) Anemia Qualifiers: Other causes of anemia: chronic disease, other (3) Sepsis Qualifiers: Sepsis type: sepsis due to unspecified organism Qualified Code(s): A41.9 - Sepsis, unspecified organism (8) Emphysema of lung Qualifiers: Emphysema type: centrilobular Qualified Code(s): J43.2 - Centrilobular emphysema <Mary Jo Diaz - Last Filed: 07/24/18 14:57> (1) Anemia Qualifiers: Other causes of anemia: chronic disease, other (2) Sepsis Qualifiers: Sepsis type: sepsis due to unspecified organism Qualified Code(s): A41.9 - Sepsis, unspecified organism (3) Community acquired pneumonia Qualifiers: Laterality: right Lung location: lower lobe of lung Qualified Code(s): J18.1 - Lobar pneumonia, unspecified organism (8) Emphysema of lung Qualifiers: Emphysema type: centrilobular Qualified Code(s): J43.2 - Centrilobular emphysema
[2018-07-24] MEDS: Saline Nasal Spray 44 ML BOTTLE NS PRN (15:18)
[2018-07-24] MEDS: Baclofen 10 MG TABLET PO PRN (19:34)
[2018-07-24] MEDS: traZODone 50 MG TABLET PO SCH (19:34)
[2018-07-25] MEDS: *HR* LORazepam 0.5 MG TABLET PO PRN ×3 (00:27→20:16)
[2018-07-25] MEDS: *HR* HYDROcodone/Acet 5/325 mg TABLET PO PRN ×3 (00:27→16:02)
[2018-07-25] MEDS: *HR* Heparin 5,000 UNIT/ML VIAL SQ SCH ×4 (00:28→23:51)
[2018-07-25] MEDS: BuPROPion SR (12 HR) 100 MG TABLET PO SCH ×2 (08:40→20:16)
[2018-07-25] MEDS: Famotidine 20 MG TABLET PO SCH ×2 (08:40→20:16)
[2018-07-25] MEDS: Lactobacillus 1 EACH CAP.SPRINK PO SCH ×2 (08:40→20:16)
[2018-07-25] MEDS: cefTRIAXone 1,000 MG in Water for inj. (sterile) 20 ML 10 ML IVP SCH (08:40)
[2018-07-25] MEDS: Gabapentin 300 MG CAPSULE PO SCH ×3 (08:40→20:16)
[2018-07-25] MEDS: Azithromycin 250 MG TABLET PO SCH (08:40)
[2018-07-25] MEDS: Fluticasone Propionate Nasal 50 MCG/SPRAY BOTTLE NS SCH ×2 (08:40→20:13)
[2018-07-25] MEDS: Cyanocobalamin (B-12) 1,000 MCG TABLET PO SCH (08:40)
[2018-07-25] MEDS ORDERED: predniSONE 20 MG TABLET PO SCH (09:00)
[2018-07-25] MEDS: Iron Sucrose Complex 200 MG in 0.9 % Sodium Chloride 100 ML IVPB SCH (09:30)
[2018-07-25] MEDS: Ipratropium/Albuterol Neb 3 ML IH SCH ×5 (10:35→23:17)
[2018-07-25] MEDS: Budesonide/Formoterol 160/4.5 1 PUFF INH IH SCH ×2 (10:35→19:48)
[2018-07-25 11:41] LABS: Basophils % 0.1 %; Eosinophils # 0.3 K/mcL (0.0-0.6); Eosinophils % 2.1 %; Hematocrit 31.6 % (37.5-50.1); Hemoglobin 8.7 g/dL (12.9-16.9); Immature Platelets 4.4 % (1.1-6.1); Lymphocytes # 1.1 K/mcL (0.6-4.6); Mean Corpuscular HGB Conc 27.5 g/dL (31.6-35.5); Mean Corpuscular Hemoglobin 23.6 pg (28.0-33.3); Mean Corpuscular Volume 85.9 fL (83.0-100.0); Mean Platelet Volume 11.2 fL (9.4-12.4); Monocytes # 1.2 K/mcL (0.0-1.3); Monocytes % 8.8 %; Neutrophils # 10.7 K/mcL (1.6-8.9); Platelet Count 260 K/mcL (140-400); Red Blood Count 3.68 M/mcL (4.19-5.50); Red Cell Distribution Width 15.4 % (11.5-14.5)
[2018-07-25 11:47] LABS: BUN/Creatinine Ratio 29 (6-26); Blood Urea Nitrogen 16 mg/dL (8-23); Calcium 9.1 mg/dL (8.6-10.3); Carbon Dioxide 35 mEq/L (23-29); Chloride 104 mEq/L (98-107); Glucose 80 mg/dL (70-105); Osmolality,Calculated 298 (280-300); Potassium 3.5 mEq/L (3.5-5.1); Sodium 144 mEq/L (136-145); eGFR For Non-African Americans > 60 (> 60)
[2018-07-25 13:09] LABS: Platelet Estimate Normal (Normal)
[2018-07-25] MEDS ORDERED: Cyanocobalamin (B-12) 1,000 MCG TABLET PO ONE (14:36)
[2018-07-25] MEDS ORDERED: *HR* HYDROcodone/Acet 5/325 mg TABLET PO ONE (14:36)
[2018-07-25] MEDS ORDERED: *HR* Water for inj. (Sterile) 20 ML VIAL IV ONE (14:36)
[2018-07-25] MEDS ORDERED: Azithromycin 250 MG TABLET PO ONE (14:36)
[2018-07-25] MEDS ORDERED: Famotidine 20 MG TABLET PO ONE (14:36)
[2018-07-25] MEDS ORDERED: predniSONE 20 MG TABLET PO ONE (14:36)
[2018-07-25] MEDS ORDERED: Lactobacillus 1 EACH CAP.SPRINK PO ONE (14:36)
[2018-07-25] MEDS ORDERED: Gabapentin 300 MG CAPSULE PO ONE (14:36)
[2018-07-25] MEDS ORDERED: CefTRIAXone 1,000 MG VIAL IVP ONE (14:36)
[2018-07-25] MEDS ORDERED: BuPROPion SR (12 HR) 100 MG TABLET PO ONE (14:36)
[2018-07-25] MEDS ORDERED: *HR* LORazepam 0.5 MG TABLET PO ONE (14:36)
[2018-07-25] MEDS ORDERED: Ipratropium/Albuterol Neb 3 ML IH ONE ×2 (14:36)
[2018-07-25] MEDS ORDERED: *HR* Heparin 5,000 UNIT/ML VIAL IVP ONE (14:36)
[2018-07-25] MEDS: Saline Nasal Spray 44 ML BOTTLE NS PRN ×2 (16:22→20:12)
--- NOTE | 2018-07-25 17:34 | Internal Med Progress Note ---
<Sirena Edwards - Last Filed: 07/25/18 17:30> Hospitalist Progress Note - Encounter Date of Encounter: 07/25/18 Time of Encounter: 09:10 - Subjective Interval History: Mr. Ramires was seen at bedside this morning. His vitals stayed stable overnight and he remained afebrile. This morning he complained of ongoing productive cough but notes the sputum is now clear rather than yellow cough. He has not been using the spirometer so I urged him to use it. Additionally I encouraged him to expel out the phlegm. He is still requiring 4 L of oxygen. Elicits complain around his ribs, which is reproducible upon palpation. He denies, jose sea, emesis, chest pain, blurry vision, fever, chills, or abdominal pain - Exam Vitals: Temp Pulse Resp BP Pulse Ox 99 F 103 24 123/79 92 07/25/18 16:46 07/25/18 16:46 07/25/18 16:24 07/25/18 16:46 07/25/18 16:46 Exam: Constitutional: Alert, in no acute distress, on nasal canula HEENT: Normocephalic, atraumatic, moist mucus membranes Heart: Normal, regular rate and rhythm, no murmurs Lungs: Decreased air transfer at all lung lobes, no wheezing or crackles Abdomen: Soft, normal bowel sounds, non tender Extremities: No edema of lower extremity or upper extremities, warm, nontender Chest wall: tenderness at bilateral costophrenic angles, barrel chest Skin: Skin warm and dry, no lesions, no rashes, no jaundice Psych: thought content congruent, appropriate affect Neurological: Alert and oriented x 3 - Assessment and Plan (1) Community acquired pneumonia Current Visit: No Status: Acute Assessment and Plan: Chest x-ray with right lower lobe opacity Productive cough, now clear in color Requiring the same amount of oxygen as home 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 Recommend follow-up chest x-ray after appropriate treatment to ensure complete resolution. Plan: Continue zithromax and rocephin day 5 Continue symbicort to prevent COPD exacerbation Continue 40 mg PO Prednisone Urged to sit up in a chair Continue to use a spirometer (2) Anemia Current Visit: No Status: Chronic Assessment and Plan: Chronic normocytic anemia, iron deficiency anemia. Iron level 11 and % saturation is 11 likely due to inflammatory cause from RA or poor oral intake Baseline H/H 8-9 Today 8.7 No sign of acute bleed, denies hematochezia s/p 1 unit blood transfusion yesterday, responded well to it Plan: Venofer IV infusion day 3 Continue to monitor for any hematochezia CBC in the morning Continue B12 Notes drinking a lot of milk so counseled on dietary modification (3) Sepsis Current Visit: Yes Status: Resolved Assessment and Plan: Patient presented with leukocytosis 24.6, bandemia 12%, tachycardia 132 on admission Today WBC 13.5 today Lactic acid 2.6, repeat was 0.5 on 07/22/18 Chest x-ray positive for right lower lobe pneumonia Plan: Respiratory viral panel negative Blood cultures x2 preliminary negative Sputum culture due to presence of epithelial cells was not performed Continue rocephin and azithromycin day 5 (4) Counseling regarding advanced care planning and goals of care Current Visit: No Status: Acute Assessment and Plan: Palliative saw Mr. Ramires two days ago and he has changed his code status from DNR CCA DNI to full code. He understands his risks and benefits and the discussion was made in the presence of block press operator. 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 ruled out concern for aspiration Plan: Continue same management as Pneumonia Continue DuoNeb and Symbicort Wean oxygen (7) Acute and chronic respiratory failure with hypoxia Current Visit: Yes Status: Acute Assessment and Plan: Acute on chronic respiratory failure with hypoxia secondary to right lower lobe pneumonia White count 13.4 today and yesterday was 19.4, no bands Lactic acid 2.6, repeat 0.5 two days ago Bicarb today 35, most likely due to metabolic compensation CTA on admission negative for PE but shows enlarging right hilar lymph node Plan: Continue ceftriaxone and zithromax, day 5 Continue DuoNeb and Symbicort Continue supplemental oxygen Continue prednisone, 40 mg PO daily 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 Stable intrathoracic findings including severe emphysema. CT chest on 02/20/2018 IMPRESSION: 1. No acute abnormality in the chest. 2. Severe centrilobular emphysema. Plan: Continue Symbicort Continue incentive spirometry Duoneb Q6H Prednisone 40 mg PO daily Continue zithromax and rocephin, day 5 (9) DVT prophylaxis Current Visit: Yes Status: Acute Assessment and Plan: lHeparin SQ (10) Diarrhea Current Visit: Yes Status: Acute Assessment and Plan: Complained of 2 episodes of diarrhea Notes they are not watery Plan: Continue probiotics - Time Spent with Patient Total time spent is greater than 50% in coordination of care (as documented) at patient's floor/unit and/or counseling patient: less than 15 minutes Plan of Care Discussed with: patient Internal Medicine: Result - Labs CBC & Chem 7: 07/25/18 04:39 07/25/18 04:36 Labs: Short CBC 07/25/18 Range/Units 04:39 WBC 13.4 H (4.3-11.1) K/mcL Hgb 8.7 L (12.9-16.9) g/dL Hct 31.6 L (37.5-50.1) % Plt Count 260 (140-400) K/mcL Neutrophils # 10.7 H (1.6-8.9) K/mcL BMP 07/25/18 04:36 Sodium 144 Potassium 3.5 Chloride 104 Carbon Dioxide 35 H BUN 16 Creatinine 0.55 L Glucose 80 Calcium 9.1 - ABG Interpretation ABG results: PT/INR, D-dimer PT 11.8 Seconds (9.4-12.1) 07/21/18 12:23 Consult Discharge Plan - Plan [facility]errals: [facility] [Primary Care Provider] - <Mary Jo Diaz - Last Filed: 07/25/18 18:02> Hospitalist Progress Note - Exam Vitals: Temp Pulse Resp BP Pulse Ox 99 F 103 24 123/79 92 07/25/18 16:46 07/25/18 16:46 07/25/18 16:24 07/25/18 16:46 07/25/18 16:46 - Assessment and Plan (1) Anemia Current Visit: No Status: Chronic (2) Sepsis Current Visit: Yes Status: Resolved (3) Community acquired pneumonia Current Visit: No Status: Acute (4) Counseling regarding advanced care planning and goals of care Current Visit: No Status: Acute (5) Anxiety Current Visit: No Status: Chronic (6) COPD exacerbation Current Visit: No Status: Acute (7) Acute and chronic respiratory failure with hypoxia Current Visit: Yes Status: Acute (8) Emphysema of lung Current Visit: Yes Status: Acute (9) DVT prophylaxis Current Visit: Yes Status: Acute (10) Diarrhea Current Visit: Yes Status: Acute - Time Spent with Patient Total time spent is greater than 50% in coordination of care (as documented) at patient's floor/unit and/or counseling patient: Internal Medicine: Result - Labs CBC & Chem 7: 07/25/18 04:39 07/25/18 04:36 Labs: Short CBC 07/25/18 Range/Units 04:39 WBC 13.4 H (4.3-11.1) K/mcL Hgb 8.7 L (12.9-16.9) g/dL Hct 31.6 L (37.5-50.1) % Plt Count 260 (140-400) K/mcL Neutrophils # 10.7 H (1.6-8.9) K/mcL BMP 07/25/18 04:36 Sodium 144 Potassium 3.5 Chloride 104 Carbon Dioxide 35 H BUN 16 Creatinine 0.55 L Glucose 80 Calcium 9.1 - ABG Interpretation ABG results: PT/INR, D-dimer PT 11.8 Seconds (9.4-12.1) 07/21/18 12:23 - Attending Attestation I examined this patient and my medical decision-making was reviewed with the Resident Physician Dr. Edwards. I agree with the documented findings, disposition and treatment plan as described except to the extent set forth below. Mr. Ramires is a 73 year old male with history of Severe centrilobular emphysema on 3 L home oxygen and anxiety patient admitted here for acute COPD exacerbation, acute on chronic hypoxic respiratory failure with pneumonia. Patient was started on IV steroids and empirical antibiotic. His symptoms improved, currently on 4 lit oxygen. Denied any CP. However he c/o more shortness of breath today Gen: A, A, O x 3 Chest: moderate wheezing, diminished breath sounds bilateral Heart: S1S2+ RRR a/p 1. Acute on chronic hypoxic respiratory failure 2. Acute COPD exacerbation 3. Acute pneumonia - mostly bacterial continue empirical antibiotic will inc steroids dose due to his worsening SOB continue Duoneb and oxygen 4. Acute on chronic iron deficiency anemia Cont IV Iron infusions x 3 doses need outpatient follow-up with the [facility]. <Sirena Edwards - Last Filed: 07/25/18 17:30> (1) Community acquired pneumonia Qualifiers: Laterality: right Lung location: lower lobe of lung Qualified Code(s): J18.1 - Lobar pneumonia, unspecified organism (2) Anemia Qualifiers: Other causes of anemia: chronic disease, other (3) Sepsis Qualifiers: Sepsis type: sepsis due to unspecified organism Qualified Code(s): A41.9 - Sepsis, unspecified organism (8) Emphysema of lung Qualifiers: Emphysema type: centrilobular Qualified Code(s): J43.2 - Centrilobular emphysema <Mary Jo Diaz - Last Filed: 07/25/18 18:02> (1) Anemia Qualifiers: Other causes of anemia: chronic disease, other (2) Sepsis Qualifiers: Sepsis type: sepsis due to unspecified organism Qualified Code(s): A41.9 - Sepsis, unspecified organism (3) Community acquired pneumonia Qualifiers: Laterality: right Lung location: lower lobe of lung Qualified Code(s): J18.1 - Lobar pneumonia, unspecified organism (8) Emphysema of lung Qualifiers: Emphysema type: centrilobular Qualified Code(s): J43.2 - Centrilobular emphysema
[2018-07-25] MEDS: traZODone 50 MG TABLET PO SCH (20:16)
[2018-07-25] MEDS: predniSONE 20 MG TABLET PO SCH (20:16)
[2018-07-26] MEDS: Ipratropium/Albuterol Neb 3 ML IH SCH ×6 (03:31→22:57)
[2018-07-26 04:15] LABS: Immature Granulocytes % 0.4 % (0-4)
[2018-07-26 04:16] LABS: Basophils % 0.1 %; Hematocrit 31.9 % (37.5-50.1); Lymphocytes # 0.3 K/mcL (0.6-4.6); Lymphocytes % 4.1 %; Mean Corpuscular HGB Conc 28.2 g/dL (31.6-35.5); Mean Corpuscular Hemoglobin 24.1 pg (28.0-33.3); Mean Corpuscular Volume 85.3 fL (83.0-100.0); Mean Platelet Volume 11.2 fL (9.4-12.4); Monocytes # 0.2 K/mcL (0.0-1.3); Monocytes % 3.1 %; Neutrophils # 7.1 K/mcL (1.6-8.9); Platelet Count 251 K/mcL (140-400); Red Blood Count 3.74 M/mcL (4.19-5.50); Red Cell Distribution Width 15.2 % (11.5-14.5); Segmented Neutrophils % 92.3 %
[2018-07-26 04:32] LABS: BUN/Creatinine Ratio 24 (6-26); Blood Urea Nitrogen 12 mg/dL (8-23); Calcium 8.9 mg/dL (8.6-10.3); Carbon Dioxide 39 mEq/L (23-29); Chloride 100 mEq/L (98-107); Glucose 118 mg/dL (70-105); Osmolality,Calculated 297 (280-300); Potassium 4.3 mEq/L (3.5-5.1); Sodium 143 mEq/L (136-145); eGFR For Non-African Americans > 60 (> 60)
[2018-07-26 06:10] LABS: Hypochromasia Present (Not Present); Platelet Estimate Normal (Normal)
[2018-07-26] MEDS: Budesonide/Formoterol 160/4.5 1 PUFF INH IH SCH ×2 (07:20→20:26)
[2018-07-26] MEDS: *HR* Heparin 5,000 UNIT/ML VIAL SQ SCH ×2 (08:33→17:46)
[2018-07-26] MEDS: predniSONE 20 MG TABLET PO SCH ×2 (08:33→17:44)
[2018-07-26] MEDS: Cyanocobalamin (B-12) 1,000 MCG TABLET PO SCH (08:33)
[2018-07-26] MEDS: Famotidine 20 MG TABLET PO SCH ×2 (08:33→21:02)
[2018-07-26] MEDS: Fluticasone Propionate Nasal 50 MCG/SPRAY BOTTLE NS SCH ×2 (08:33→21:02)
[2018-07-26] MEDS: Gabapentin 300 MG CAPSULE PO SCH ×3 (08:34→21:02)
[2018-07-26] MEDS: cefTRIAXone 1,000 MG in Water for inj. (sterile) 20 ML 10 ML IVP SCH (08:34)
[2018-07-26] MEDS: Lactobacillus 1 EACH CAP.SPRINK PO SCH ×2 (08:34→21:02)
[2018-07-26] MEDS: Azithromycin 250 MG TABLET PO SCH (08:34)
[2018-07-26] MEDS: BuPROPion SR (12 HR) 100 MG TABLET PO SCH ×2 (08:54→21:02)
[2018-07-26] MEDS: *HR* LORazepam 0.5 MG TABLET PO PRN ×2 (08:54→21:02)
[2018-07-26] MEDS: *HR* HYDROcodone/Acet 5/325 mg TABLET PO PRN ×3 (08:54→21:28)
[2018-07-26] MEDS: Saline Nasal Spray 44 ML BOTTLE NS PRN ×2 (08:55→15:19)
--- NOTE | 2018-07-26 14:52 | Internal Med Progress Note ---
<Sirena Edwards - Last Filed: 07/26/18 14:49> Hospitalist Progress Note - Encounter Date of Encounter: 07/26/18 Time of Encounter: 09:30 - Subjective Interval History: Mr. Ramires was seen at bedside this morning. His vitals stayed stable overnight and he remained afebrile. This morning he noted improvements of his symptoms but felt he was not ready to go home because he is still having clear productive cough and ongoing shortness of breath. Additionally I encouraged him to expel out the phlegm and continue using the spirometer. He is still requiring 4 L of oxygen. He denies, nausea, emesis, chest pain, blurry vision, fever, chills, chest pain or abdominal pain. - Exam Vitals: Temp Pulse Resp BP Pulse Ox 98.9 F 98 19 130/72 93 07/26/18 11:36 07/26/18 11:36 07/26/18 11:36 07/26/18 11:36 07/26/18 11:36 Exam: Constitutional: Alert, in no acute distress, on nasal canula HEENT: Normocephalic, atraumatic, moist mucus membranes Heart: Normal, regular rate and rhythm, no murmurs Lungs: Decreased air transfer at all lung lobes, no wheezing or crackles Abdomen: Soft, normal bowel sounds, non tender Extremities: No edema of lower extremity or upper extremities, warm, nontender Chest wall: barrel chest Skin: Skin warm and dry, no lesions, no rashes, no jaundice Psych: thought content congruent, appropriate affect Neurological: Alert and oriented x 3 - Assessment and Plan (1) Community acquired pneumonia Current Visit: No Status: Acute Assessment and Plan: Chest x-ray with right lower lobe opacity Productive cough, now clear in color Requiring the same amount of oxygen as home SENIOR FUNCTIONAL ANALYST evaluation yesterday noted no concern for aspiration with thin liquids CXR 07/21- IMPRESSION: New airspace opacity in the right lower lung most concerning for pneumonia. Recommend follow-up chest x-ray after appropriate treatment to ensure complete resolution. Plan: Continue zithromax and rocephin day 6 Continue symbicort to prevent COPD exacerbation Continue 40 mg PO BID Prednisone Urged to sit up in a chair Continue to use a spirometer (2) Anemia Current Visit: No Status: Chronic Assessment and Plan: Chronic normocytic anemia, iron deficiency anemia. Iron level 11 and % saturation is 11 likely due to inflammatory cause from RA or poor oral intake Baseline H/H 8-9 Today 8.7 No sign of acute bleed, denies hematochezia s/p 1 unit blood transfusion yesterday, responded well to it Plan: Received Venofer for 3 days, stopped today Continue to monitor for any hematochezia CBC in the morning Continue B12 Notes drinking a lot of milk so counseled on dietary modification (3) Sepsis Current Visit: Yes Status: Resolved Assessment and Plan: Patient presented with leukocytosis 24.6, bandemia 12%, tachycardia 132 on admission Today WBC 7.7 today Lactic acid 2.6, repeat was 0.5 on 07/22/18 Chest x-ray positive for right lower lobe pneumonia Plan: Respiratory viral panel negative Blood cultures x2 preliminary negative Sputum culture due to presence of epithelial cells was not performed Continue rocephin and azithromycin day 6 (4) Counseling regarding advanced care planning and goals of care Current Visit: No Status: Acute Assessment and Plan: Palliative saw Mr. Ramires two days ago and he has changed his code status from DNR CCA DNI to full code. He understands his risks and benefits and the discussion was made in the presence of infant babysitter. (5) Anxiety Current Visit: No Status: Chronic Assessment and Plan: Continue home dose ativan BID (6) COPD exacerbation Current Visit: No Status: Acute Assessment and Plan: History of emphysema and previous history of pneumonia Exacerbation secondary to right lower lobe pneumonia SENIOR FUNCTIONAL ANALYST evaluation ruled out concern for aspiration Plan: Continue same management as Pneumonia Continue DuoNeb and Symbicort Wean oxygen (7) Acute and chronic respiratory failure with hypoxia Current Visit: Yes Status: Acute Assessment and Plan: Acute on chronic respiratory failure with hypoxia secondary to right lower lobe pneumonia White count 13.4 today and yesterday was 19.4, no bands Lactic acid 2.6, repeat 0.5 two days ago Bicarb today 39, most likely due to metabolic compensation CTA on admission negative for PE but shows enlarging right hilar lymph node Plan: Continue ceftriaxone and zithromax, day 6 Continue DuoNeb and Symbicort Continue supplemental oxygen Continue prednisone, 40 mg PO BID daily SENIOR FUNCTIONAL ANALYST, no risk of aspiration with think liquid Regular diet (8) Emphysema of lung Current Visit: Yes Status: Acute Assessment and Plan: Severe centrilobular emphysema CTA IMPRESSION (07/21/18): No CT evidence of pulmonary embolism. Stable intrathoracic findings including severe emphysema. CT chest on 02/20/2018 IMPRESSION: 1. No acute abnormality in the chest. 2. Severe centrilobular emphysema. Plan: Continue Symbicort Continue incentive spirometry Duoneb Q6H Prednisone 40 mg PO BID daily Continue zithromax and rocephin, day 6 (9) DVT prophylaxis Current Visit: Yes Status: Acute Assessment and Plan: lHeparin SQ (10) Diarrhea Current Visit: Yes Status: Acute Assessment and Plan: Complained of 2 episodes of diarrhea Notes they are not watery Plan: Continue probiotics - Time Spent with Patient Total time spent is greater than 50% in coordination of care (as documented) at patient's floor/unit and/or counseling patient: less than 15 minutes Plan of Care Discussed with: patient Internal Medicine: Result - Labs CBC & Chem 7: 07/26/18 03:20 07/26/18 03:20 Labs: Short CBC 07/26/18 Range/Units 03:20 WBC 7.7 (4.3-11.1) K/mcL Hgb 9.0 L (12.9-16.9) g/dL Hct 31.9 L (37.5-50.1) % Plt Count 251 (140-400) K/mcL Neutrophils # 7.1 (1.6-8.9) K/mcL BMP 07/26/18 03:20 Sodium 143 Potassium 4.3 Chloride 100 Carbon Dioxide 39 H BUN 12 Creatinine 0.49 L Glucose 118 H Calcium 8.9 - ABG Interpretation ABG results: PT/INR, D-dimer PT 11.8 Seconds (9.4-12.1) 07/21/18 12:23 Consult Discharge Plan - Plan Instructions: Chronic Obstructive Pulmonary Disease (DC), Sepsis (DC), Chronic Hypertension (DC), Anemia (GEN), Anxiety (DC), Pneumonia (DC) [facility]errals: [facility] [Primary Care Provider[facility] - <Mary Jo Diaz - Last Filed: 07/26/18 15:07> Hospitalist Progress Note - Exam Vitals: Temp Pulse Resp BP Pulse Ox 98.9 F 98 19 130/72 93 07/26/18 11:36 07/26/18 11:36 07/26/18 11:36 07/26/18 11:36 07/26/18 11:36 - Assessment and Plan (1) Anemia Current Visit: No Status: Chronic (2) Sepsis Current Visit: Yes Status: Resolved (3) Community acquired pneumonia Current Visit: No Status: Acute (4) Counseling regarding advanced care planning and goals of care Current Visit: No Status: Acute (5) Anxiety Current Visit: No Status: Chronic (6) COPD exacerbation Current Visit: No Status: Acute (7) Acute and chronic respiratory failure with hypoxia Current Visit: Yes Status: Acute (8) Emphysema of lung Current Visit: Yes Status: Acute (9) DVT prophylaxis Current Visit: Yes Status: Acute (10) Diarrhea Current Visit: Yes Status: Acute - Time Spent with Patient Total time spent is greater than 50% in coordination of care (as documented) at patient's floor/unit and/or counseling patient: Internal Medicine: Result - Labs CBC & Chem 7: 07/26/18 03:20 07/26/18 03:20 Labs: Short CBC 07/26/18 Range/Units 03:20 WBC 7.7 (4.3-11.1) K/mcL Hgb 9.0 L (12.9-16.9) g/dL Hct 31.9 L (37.5-50.1) % Plt Count 251 (140-400) K/mcL Neutrophils # 7.1 (1.6-8.9) K/mcL BMP 07/26/18 03:20 Sodium 143 Potassium 4.3 Chloride 100 Carbon Dioxide 39 H BUN 12 Creatinine 0.49 L Glucose 118 H Calcium 8.9 - ABG Interpretation ABG results: PT/INR, D-dimer PT 11.8 Seconds (9.4-12.1) 07/21/18 12:23 - Attending Attestation I examined this patient and my medical decision-making was reviewed with the Resident Physician Dr. Edwards. I agree with the documented findings, disposition and treatment plan as described except to the extent set forth below. Mr. Ramires is a 73 year old male with history of Severe centrilobular emphysema on 3 L home oxygen and anxiety patient admitted here for acute COPD exacerbatio n, acute on chronic hypoxic respiratory failure with pneumonia. Patient was started on IV steroids and empirical antibiotic. His symptoms improved, currently on 4 lit oxygen. Denied any CP. with increasing steroids, his SOB is much better today Gen: A, A, O x 3 Chest: moderate wheezing, diminished breath sounds bilateral Heart: S1S2+ RRR a/p 1. Acute on chronic hypoxic respiratory failure 2. Acute COPD exacerbation 3. Acute pneumonia - mostly bacterial continue empirical antibiotic cont Prednisone 40mg BID one more day continue Duoneb and oxygen 4. Acute on chronic iron deficiency anemia Finished 3 doses IV Iron stared on PO Iron supplements need outpatient follow-up with the G.I. <Sirena Edwards - Last Filed: 07/26/18 14:49> (1) Community acquired pneumonia Qualifiers: Laterality: right Lung location: lower lobe of lung Qualified Code(s): J18.1 - Lobar pneumonia, unspecified organism (2) Anemia Qualifiers: Other causes of anemia: chronic disease, other (3) Sepsis Qualifiers: Sepsis type: sepsis due to unspecified organism Qualified Code(s): A41.9 - Sepsis, unspecified organism (8) Emphysema of lung Qualifiers: Emphysema type: centrilobular Qualified Code(s): J43.2 - Centrilobular emphysema <Mary Jo Diaz - Last Filed: 07/26/18 15:07> (1) Anemia Qualifiers: Other causes of anemia: chronic disease, other (2) Sepsis Qualifiers: Sepsis type: sepsis due to unspecified organism Qualified Code(s): A41.9 - Sepsis, unspecified organism (3) Community acquired pneumonia Qualifiers: Laterality: right Lung location: lower lobe of lung Qualified Code(s): J18.1 - Lobar pneumonia, unspecified organism (8) Emphysema of lung Qualifiers: Emphysema type: centrilobular Qualified Code(s): J43.2 - Centrilobular emphysema
[2018-07-26] MEDS: traZODone 50 MG TABLET PO SCH (21:02)
[2018-07-27] MEDS: *HR* Heparin 5,000 UNIT/ML VIAL SQ SCH ×2 (01:05→09:32)
[2018-07-27 03:52] LABS: Basophils % 0.1 %; Eosinophils % 0.1 %; Hematocrit 28.6 % (37.5-50.1); Hemoglobin 8.4 g/dL (12.9-16.9); Immature Granulocytes % 0.7 % (0-4); Lymphocytes # 0.6 K/mcL (0.6-4.6); Lymphocytes % 6.7 %; Mean Corpuscular HGB Conc 29.4 g/dL (31.6-35.5); Mean Corpuscular Hemoglobin 24.2 pg (28.0-33.3); Mean Corpuscular Volume 82.4 fL (83.0-100.0); Mean Platelet Volume 10.5 fL (9.4-12.4); Monocytes # 0.5 K/mcL (0.0-1.3); Monocytes % 5.8 %; Neutrophils # 7.6 K/mcL (1.6-8.9); Platelet Count 225 K/mcL (140-400); Red Blood Count 3.47 M/mcL (4.19-5.50); Red Cell Distribution Width 15.7 % (11.5-14.5); Segmented Neutrophils % 86.6 %
[2018-07-27] MEDS: Ipratropium/Albuterol Neb 3 ML IH SCH ×3 (03:57→11:25)
[2018-07-27] MEDS: Budesonide/Formoterol 160/4.5 1 PUFF INH IH SCH (07:22)
[2018-07-27 07:53] VITALS: BP 140/81
[2018-07-27] MEDS: predniSONE 20 MG TABLET PO SCH (09:29)
[2018-07-27] MEDS: *HR* LORazepam 0.5 MG TABLET PO PRN (09:29)
[2018-07-27] MEDS: *HR* HYDROcodone/Acet 5/325 mg TABLET PO PRN (09:29)
[2018-07-27] MEDS: Famotidine 20 MG TABLET PO SCH (09:30)
[2018-07-27] MEDS: Gabapentin 300 MG CAPSULE PO SCH (09:30)
[2018-07-27] MEDS: BuPROPion SR (12 HR) 100 MG TABLET PO SCH (09:30)
[2018-07-27] MEDS: Saline Nasal Spray 44 ML BOTTLE NS PRN (09:30)
[2018-07-27] MEDS: Lactobacillus 1 EACH CAP.SPRINK PO SCH (09:30)
[2018-07-27] MEDS: Cyanocobalamin (B-12) 1,000 MCG TABLET PO SCH (09:30)
[2018-07-27] MEDS: cefTRIAXone 1,000 MG in Water for inj. (sterile) 20 ML 10 ML IVP SCH (09:30)
[2018-07-27] MEDS: Fluticasone Propionate Nasal 50 MCG/SPRAY BOTTLE NS SCH (09:31)
--- NOTE | 2018-07-27 09:56 | Discharge Summary ---
<Sirena Edwards - Last Filed: 07/27/18 10:09> - NOTES TO OUTPATIENT PROVIDER Notes to Outpatient Provider: Mr. Ramires presented to the ED due shortness of breath. He was noted to have right lower lobe pneumonia. He has been treated with azithromycin and ceftrixone. His symptoms have improved. He was found to have iron deficiency anemia and receive IV iron. May require iron supplements outpatient. Date of Encounter: 07/27/18 Time of Encounter: 09:00 - Discharge Diagnosis (1) Community acquired pneumonia Priority: Primary Status: Acute Qualifiers: Laterality: right Lung location: lower lobe of lung Qualified Code(s): J18.1 - Lobar pneumonia, unspecified organism (2) Anemia Priority: Secondary Status: Chronic Qualifiers: Other causes of anemia: chronic disease, other Qualified Code(s): D63.8 - Anemia in other chronic diseases classified elsewhere (3) Sepsis Priority: Secondary Status: Resolved Qualifiers: Sepsis type: sepsis due to unspecified organism Qualified Code(s): A41.9 - Sepsis, unspecified organism (4) Counseling regarding advanced care planning and goals of care Priority: Secondary Status: Acute (5) Anxiety Priority: Secondary Status: Chronic (6) COPD exacerbation Priority: Secondary Status: Acute (7) Acute and chronic respiratory failure with hypoxia Priority: Secondary Status: Acute (8) Emphysema of lung Priority: Secondary Status: Chronic Qualifiers: Emphysema type: centrilobular Qualified Code(s): J43.2 - Centrilobular emphysema (9) DVT prophylaxis Priority: Secondary Status: Acute Hospital course: Mr. Ramires is a 73 year old male who presented to the ED due to shortness of breath. He has history of severe centrilobular emphysema and is on 3 liters of oxygen at home. At presentation he met sepsis criteria and was treated appropriated. He had a chest CTA which ruled out any pulmonary embolism but shoed right lower lobe pneumonia. He also had a speech evaluation to rule out risk of aspiration. He had no issues with swallowing. He was anemic and after iron studies it was noted his iron level was low and received IV iron as well as 1 unit of blood. He was noted to have a right hilar lymph node. Since his admission he was treated with azithromycin and ceftriaxone for community acquired pneumonia. He has completed his medication regimen. He will continue his home regimen for emphysema. Discharge discussed with: patient - Time Spent with Patient Total time spent providing and/or coordinating discharge services: - Discharge Medications Prescriptions: Lactobacillus [Culturelle] 1 each PO BID 5 Days #10 cap.sprink predniSONE [PredniSONE] 10 mg PO DAILY 8 Days #20 tablet Home Medications: RX: Baclofen [Lioresal] 10 mg PO BID PRN 02/12/16 [History] RX: Gabapentin [Neurontin] 300 mg PO TID 02/12/16 [History] RX: Albuterol Sulfate [Proair Hfa] 2 puff IH QID PRN 02/03/17 [History] RX: Alendronate Sodium [Fosamax] 35 mg PO WE 02/03/17 [History] RX: Budesonide/Formoterol 160/4.5 [Symbicort 160/4.5] 2 puff IH BID 02/03/17 [History] RX: Cyanocobalamin (B-12) [Vitamin B12] 1,000 mcg PO DAILY 02/03/17 [History] RX: HYDROcodone/Acet 5/325 mg [[place] 5-325 mg] 1 tab PO Q6H PRN 02/03/17 [History] RX: Meloxicam [Mobic] 7.5 mg PO DAILY 02/03/17 [History] RX: Omeprazole 20 mg PO DAILY 02/03/17 [History] RX: BuPROPion SR (12 HR) [Wellbutrin SR] 200 mg PO BID 08/12/17 [History] RX: LORazepam [Ativan] 0.5 mg PO BID PRN 15 Days #30 tablet 02/24/18 [Rx] RX: Calcium Carbonate/Vitamin D3 [Calcium 500-Vit D3 200 Caplet] 1 tab PO TID 07/21/18 [History] RX: Docusate [Colace] 200 mg PO DAILY 07/21/18 [History] RX: Fluticasone Propionate Nasal [Flonase] 1 spray NS BID 07/21/18 [History] RX: Guaifenesin [Mucus Relief] 400 mg PO BID 07/21/18 [History] RX: Hydrophilic Cream [Triad] 1 appl TP BID PRN 07/21/18 [History] RX: Ipratropium/Albuterol Neb [Duoneb] 3 ml IH Q6HR PRN 07/21/18 [History] RX: Lactose-Reduced Food [Ensure Liquid] 1 bottle PO BID 07/21/18 [History] RX: Moxifloxacin HCl [Avelox] 400 mg PO DAILY 07/21/18 [History] RX: Multivitamin [One Daily Multivitamin] 1 tab PO DAILY 07/21/18 [History] RX: Ranitidine HCl [Acid Hardboard Supervisor] 150 mg PO BID 07/21/18 [History] RX: Trazodone HCl 200 mg PO HS 07/21/18 [History] RX: predniSONE [PredniSONE] 10 mg PO Q24H 07/21/18 [History] Lactobacillus [Culturelle] 1 each PO BID 5 Days #10 cap.sprink 07/27/18 [Rx] predniSONE [PredniSONE] 10 mg PO DAILY 8 Days #20 tablet 07/27/18 [Rx] Allergies/Adverse Reactions: Allergy/AdvReac Type Severity Reaction Status Date / Time No Known Allergies Allergy Verified 02/11/16 21:51 Date of admission: 07/21/18 14:36 [facility] care physician: [facility] Consults: 07/21/18 09:49 Consult to Palliative Care [CONS] Routine Comment: Consulting Provider: Palliative Care [place] Reason for Consult: patient is DNR CCA DNI has end stage COPD Call Completed: No 07/22/18 21:38 Consult to Nutrition [CONS] Routine Comment: ENSURE TIDWM Consulting Provider: NUTRITION Reason for Dietary Consult: PO Supplementation Discharging clinician: Sirena Edwards Anticipated date of discharge: 07/27/18 - Constitutional Vitals: Temp Pulse Resp BP Pulse Ox 98.2 F 87 18 140/81 94 07/27/18 07:48 07/27/18 07:48 07/27/18 07:48 07/27/18 07:48 07/27/18 07:48 General appearance: Present: cooperative, A&O X 3, pleasant, no acute distress Exam: Constitutional: Alert, in no acute distress, on nasal canula HEENT: Normocephalic, atraumatic, moist mucus membranes Heart: Normal, regular rate and rhythm, no murmurs Lungs: Decreased air transfer at all lung lobes, no wheezing or crackles Abdomen: Soft, normal bowel sounds, non tender Extremities: No edema of lower extremity or upper extremities, warm, nontender Chest wall: tenderness at bilateral costophrenic angles, barrel chest Skin: Skin warm and dry, no lesions, no rashes, no jaundice Psych: thought content congruent, appropriate affect Neurological: Alert and oriented x 3 - Head Head exam: Present: atraumatic, normocephalic - Eye Eye exam: Present: EOMI, normal appearance, sclera anicteric. Absent: conjunctival injection - ENT ENT exam: Present: mucous membranes moist - Neck Neck exam general surgery: Present: full ROM, trachea midline - Respiratory Respiratory exam: Absent: respiratory distress, stridor, wheezes Additional comments: Decreased air transfer, unchanged since admission - Cardiovascular Cardiovascular exam: Present: RRR, +S1, +S2 - GI/Abdominal GI/Abdominal exam: Present: normal bowel sounds, soft. Absent: distended, firm - Extremities Exam Extremities exam: Present: full ROM, normal inspection, warm. Absent: pedal edema, tenderness - Psychiatric Psychiatric exam: Present: normal affect, normal mood - Skin Skin exam: Present: dry, intact, warm. Absent: rash - Patient Status Disposition: Home, Self-Care Condition: Fair Overall status at discharge: patient is progressing back to baseline - Discharge Instructions Instructions: Prednisone (By mouth), Probiotic (By mouth), Chronic Obstructive Pulmonary Disease (DC), Sepsis (DC), Chronic Hypertension (DC), Anemia (GEN), Anxiety (DC), Pneumonia (DC) Follow Up With: [facility] [Primary Care Provider] - (please call for appointment within 1 week of d/c from hospital. ) - Diet and Activity Activity: increase activity as tolerated Diet: advance to your usual diet <Mary Jo Diaz - Last Filed: 07/27/18 17:23> - Discharge Diagnosis (1) Anemia Status: Chronic Qualifiers: Other causes of anemia: chronic disease, other Qualified Code(s): D63.8 - Anemia in other chronic diseases classified elsewhere (2) Sepsis Status: Resolved Qualifiers: Sepsis type: sepsis due to unspecified organism Qualified Code(s): A41.9 - Sepsis, unspecified organism (3) Community acquired pneumonia Status: Acute Qualifiers: Laterality: right Lung location: lower lobe of lung Qualified Code(s): J18.1 - Lobar pneumonia, unspecified organism (4) Counseling regarding advanced care planning and goals of care Status: Acute (5) Anxiety Status: Chronic (6) COPD exacerbation Status: Acute (7) Acute and chronic respiratory failure with hypoxia Status: Acute (8) Emphysema of lung Status: Chronic Qualifiers: Emphysema type: centrilobular Qualified Code(s): J43.2 - Centrilobular emphysema (9) DVT prophylaxis Status: Resolved Hospital course: Mr. Ramires is a 73 year old male - Time Spent with Patient Total time spent providing and/or coordinating discharge services: Date of admission: 07/21/18 14:36 Primary care physician: [facility] Consults: 07/21/18 09:49 Consult to Palliative Care [CONS] Routine Comment: Consulting Provider: Palliative Care [place] Reason for Consult: patient is DNR CCA DNI has end stage COPD Call Completed: No 07/22/18 21:38 Consult to Nutrition [CONS] Routine Comment: ENSURE TIDWM Consulting Provider: NUTRITION Reason for Dietary Consult: PO Supplementation - Constitutional Vitals: Temp Pulse Resp BP Pulse Ox 98.2 F 87 18 140/81 94 07/27/18 07:48 07/27/18 07:48 07/27/18 11:27 07/27/18 07:48 07/27/18 11:27 - Attending Attestation I examined this patient and my medical decision-making was reviewed with the Resident Physician Dr. Edwards. I agree with the documented findings, disposition and treatment plan as described except to the extent set forth below. Mr. Ramires is a 73 year old male with history of Severe centrilobular emphysema on 3 L home oxygen and anxiety patient admitted here for acute COPD e xacerbation, acute on chronic hypoxic respiratory failure with pneumonia. Patient was started on IV steroids and empirical antibiotic. His symptoms improved, currently on 4 lit oxygen. Denied any CP. with increasing steroids, his SOB is much better today Gen: A, A, O x 3 Chest: moderate wheezing, diminished breath sounds bilateral Heart: S1S2+ RRR a/p 1. Acute on chronic hypoxic respiratory failure 2. Acute COPD exacerbation 3. Acute pneumonia - mostly bacterial continue empirical antibiotic start tapering steroids.. He does take Prednisone 10mg at home continue Duoneb and oxygen 4. Acute on chronic iron deficiency anemia Finished 3 doses IV Iron stared on PO Iron supplements need outpatient follow-up with the G.I. Medically stable to d/c home today
--- NOTE | 2018-07-27 12:43 | Physician Discharge Referral ---
Home Health/Hosp Referral Info Transfer to: Home Health Provider in Charge Post Discharge: PCP - Diagnosis (1) Community acquired pneumonia Priority: Primary Status: Acute (2) Anemia Priority: Secondary Status: Chronic (3) Sepsis Priority: Secondary Status: Resolved (4) Counseling regarding advanced care planning and goals of care Priority: Secondary Status: Acute (5) Anxiety Priority: Secondary Status: Chronic (6) COPD exacerbation Priority: Secondary Status: Acute (7) Acute and chronic respiratory failure with hypoxia Priority: Secondary Status: Acute (8) Emphysema of lung Priority: Secondary Status: Chronic (9) DVT prophylaxis Priority: Secondary Status: Resolved - Respiratory Orders Oxygen / L per min (3) Smoking Cessation: Smoking cessation has been advised. For more information, call the [employer] Tobacco Quit Line at 7-766-JSHY-NOW. - Diet/Nutrition Diet/Nutrition Orders: Regular - Services Needed Following services are medically necessary services: Home Health Aide - Transfer Medications Prescriptions: Lactobacillus [Culturelle] 1 each PO BID 5 Days #10 cap.sprink Home Medications: Baclofen [Lioresal] 10 mg PO BID PRN 02/12/16 [History] Gabapentin [Neurontin] 300 mg PO TID 02/12/16 [History] Albuterol Sulfate [Proair Hfa] 2 puff IH QID PRN 02/03/17 [History] Alendronate Sodium [Fosamax] 35 mg PO WE 02/03/17 [History] Budesonide/Formoterol 160/4.5 [Symbicort 160/4.5] 2 puff IH BID 02/03/17 [History] Cyanocobalamin (B-12) [Vitamin B12] 1,000 mcg PO DAILY 02/03/17 [History] HYDROcodone/Acet 5/325 mg [[place] 5-325 mg] 1 tab PO Q6H PRN 02/03/17 [History] Meloxicam [Mobic] 7.5 mg PO DAILY 02/03/17 [History] Omeprazole 20 mg PO DAILY 02/03/17 [History] BuPROPion SR (12 HR) [Wellbutrin SR] 200 mg PO BID 08/12/17 [History] LORazepam [Ativan] 0.5 mg PO BID PRN 15 Days #30 tablet 02/24/18 [Rx] Calcium Carbonate/Vitamin D3 [Calcium 500-Vit D3 200 Caplet] 1 tab PO TID 07/21/18 [History] Docusate [Colace] 200 mg PO DAILY 07/21/18 [History] Fluticasone Propionate Nasal [Flonase] 1 spray NS BID 07/21/18 [History] Guaifenesin [Mucus Relief] 400 mg PO BID 07/21/18 [History] Hydrophilic Cream [Triad] 1 appl TP BID PRN 07/21/18 [History] Ipratropium/Albuterol Neb [Duoneb] 3 ml IH Q6HR PRN 07/21/18 [History] Lactose-Reduced Food [Ensure Liquid] 1 bottle PO BID 07/21/18 [History] Moxifloxacin HCl [Avelox] 400 mg PO DAILY 07/21/18 [History] Multivitamin [One Daily Multivitamin] 1 tab PO DAILY 07/21/18 [History] Ranitidine HCl [Acid Icu Nurse] 150 mg PO BID 07/21/18 [History] Trazodone HCl 200 mg PO HS 07/21/18 [History] predniSONE [PredniSONE] 10 mg PO Q24H 07/21/18 [History] Lactobacillus [Culturelle] 1 each PO BID 5 Days #10 cap.sprink 07/27/18 [Rx] Allergies/Adverse Reactions: Allergy/AdvReac Type Severity Reaction Status Date / Time No Known Allergies Allergy Verified 02/11/16 21:51 Certification: Further, I certify that my clinical findings support that this patient is homebound (i.e. absences from home require considerable and taxing effort and are for medical reasons or church services or infrequently or short duration when for other reasons) because: Homebound Reason: Leaving home requires considerable and taxing effort due to condition Attestation: My signature below is to certify that this patient is under my care and that I, or nurse practitioner, or a physician's assistant pastry chef working with me, has a [id number] encounter with this patient.
--- NOTE | 2018-07-27 22:09 | Electrocardiograph Report ---
[address] [address] Test Date: 2018-07-22 Pat Name: Ba Ramires Department: 111 Room: 2NE16 Gender: M Car Dispatcher: [facility] : 1945 Requested By: Mannie Camacho Order Number: [id number] Reading MD: Gama Gli Measurements Intervals [place] Rate: 106 P: 81 [place]: 161 QRS: 5 QRSD: 94 T: 66 QT: 317 QTc: 379 Interpretive Statements SINUS TACHYCARDIA WITH OCCASIONAL SUPRAVENTRICULAR PREMATURE COMPLEXES LOW QRS VOLTAGE IN EXTREMITY LEADS NONSPECIFIC T WAVE ABNORMALITY Electronically Signed On 07-27-2018 22:07:51 EDT by Gama Gil
== END 2018-07-27 14:37 | disposition home or self-care (01) | DRG 871 ==
LOC: 2NENU 06:46 → EMEROOARM 06:46 → 2NENU 10:26 → SUATTDRO 14:36
PROVIDERS: ADMIT Internal Medicine; ATTEND Family Medicine

== ENCOUNTER 2019-08-16 23:24 | Inpatient (IN) ==
[2019-08-17 00:30] LABS: ABG Base Excess 13 mEq/L (-2 to 3); ABG HCO3 42 mEq/L (21-27); ABG Oxygen Saturation 97 % (95-98); ABG PCO2 94 mmHg (35-45); ABG PH 7.26 pH Units (7.32-7.45); ABG PO2 111 mmHg (85-104); ABG TCO2 45 mEq/L (20-26)
[2019-08-17 00:31] LABS: Basophils % 0.2 %; Immature Granulocytes % 0.7 % (0-4); Lymphocytes % 2.1 %; Red Cell Distribution Width 16.9 % (11.5-14.5)
[2019-08-17 00:33] LABS: Eosinophils # 0.2 K/mcL (0.0-0.6); Eosinophils % 0.9 %; Hemoglobin 6.7 g/dL (12.9-16.9); Lymphocytes # 0.5 K/mcL (0.6-4.6); Mean Corpuscular HGB Conc 26.8 g/dL (31.6-35.5); Mean Corpuscular Hemoglobin 21.9 pg (28.0-33.3); Mean Corpuscular Volume 81.7 fL (83.0-100.0); Mean Platelet Volume 9.7 fL (9.4-12.4); Monocytes % 9.1 %; Neutrophils # 18.5 K/mcL (1.6-8.9); Platelet Count 346 K/mcL (140-400); Red Blood Count 3.06 M/mcL (4.19-5.50); White Blood Count 21.3 K/mcL (4.3-11.1)
[2019-08-17] MEDS ORDERED: Ipratropium/Albuterol Neb 3 ML IH ONE (00:33)
[2019-08-17] MEDS ORDERED: methylPREDNISolone 125 MG/2 ML VIAL IVP ONE (00:33)
[2019-08-17] MEDS ORDERED: Albuterol 2.5 MG/3 ML NEBULIZER IH ONE (00:33)
[2019-08-17 00:36] LABS: Monocytes # 1.9 K/mcL (0.0-1.3)
[2019-08-17] MEDS ORDERED: cefTRIAXone 1,000 MG in Water for inj. (sterile) 10 ML IVP ONE (00:48)
[2019-08-17] MEDS ORDERED: Azithromycin 250 MG TABLET PO ONE (00:48)
[2019-08-17] MEDS ORDERED: 0.9 % Sodium Chloride 500 ML IVC ONE (00:55)
[2019-08-17 00:57] LABS: Anisocytosis 1+ (Not Present); Hypochromasia Present (Not Present)
[2019-08-17 00:58] LABS: Alanine Aminotransferase 9 Units/L (7-52); Albumin 3.6 g/dL (3.5-5.7); Albumin/Globulin Ratio 1.3 (1.1-2.2); Alkaline Phosphatase 75 Units/L (34-104); Aspartate Amino Transferase 11 Units/L (13-39); BUN/Creatinine Ratio 28 (6-26); Bilirubin,Total 0.2 mg/dL (0.3-1.0); Blood Urea Nitrogen 16 mg/dL (8-23); Calcium 8.7 mg/dL (8.6-10.3); Carbon Dioxide 36 mEq/L (23-29); Chloride 98 mEq/L (98-107); Globulin 2.7 g/dL (2.4-3.5); Glucose 134 mg/dL (70-105); Osmolality,Calculated 295 (280-300); Platelet Estimate Normal (Normal); Sodium 141 mEq/L (136-145); Total Protein 6.3 g/dL (6.4-8.9); eGFR For African Americans > 60 (> 60); eGFR For Non-African Americans > 60 (> 60)
[2019-08-17 01:04] LABS: Troponin I 0.04 ng/mL (< 0.04)
[2019-08-17] MEDS ORDERED: 0.9 % Sodium Chloride 1,000 ML IVC ONE (01:07)
[2019-08-17 01:24] LABS: Bilirubin,Urine Negative (Negative); Blood,Urine Negative (Negative); Clarity,Urine Clear (Clear); Color,Urine Yellow (Yellow); Glucose,Urine (UA) Normal (Normal); Ketones,Urine Negative (Negative); Leukocyte Esterase,Urine Negative (Negative); Nitrite,Urine Negative (Negative); PH,Urine 5.5 pH Units (5.0-8.0); Protein,Urine 30 mg/dL (Neg-Trace); Specific Gravity,Urine > 1.030 (1.010-1.025); Urobilinogen,Urine Normal (Normal)
[2019-08-17 01:26] LABS: Bacteria,Urine None Seen per hpf (None-Few); Hyaline Casts,Urine None Seen per lpf (None-Few); Squamous Epithelial Cell,Urine Many per lpf (None-Few); WBC,Urine 0-3 per hpf (0-3)
[2019-08-17] MEDS ORDERED: Naloxone 0.4 MG/ML INJ IVP PRN (03:28)
[2019-08-17] MEDS: Ipratropium/Albuterol Neb 3 ML IH SCH ×4 (04:33→22:23)
[2019-08-17 05:12] LABS: ABG Base Excess 11 mEq/L (-2 to 3); ABG HCO3 40 mEq/L (21-27); ABG Oxygen Saturation 94 % (95-98); ABG PCO2 81 mmHg (35-45); ABG PO2 81 mmHg (85-104); ABG TCO2 42 mEq/L (20-26)
[2019-08-17] MEDS: Budesonide/Formoterol 160/4.5 1 PUFF INH IH SCH ×2 (08:02→22:23)
[2019-08-17] MEDS: BuPROPion SR (12 HR) 100 MG TABLET PO SCH ×2 (08:37→20:08)
[2019-08-17] MEDS: Cyanocobalamin (B-12) 1,000 MCG TABLET PO SCH (08:38)
[2019-08-17] MEDS: Gabapentin 300 MG CAPSULE PO SCH ×3 (08:38→20:08)
[2019-08-17 09:42] LABS: Basophils % 0.1 %; Monocytes % 0.8 %; Red Cell Distribution Width 16.4 % (11.5-14.5)
[2019-08-17 09:45] LABS: Hematocrit 29.9 % (37.5-50.1); Hemoglobin 8.1 g/dL (12.9-16.9); Immature Granulocytes % 0.7 % (0-4); Lymphocytes # 0.1 K/mcL (0.6-4.6); Lymphocytes % 0.5 %; Mean Corpuscular HGB Conc 27.1 g/dL (31.6-35.5); Mean Corpuscular Hemoglobin 23.4 pg (28.0-33.3); Mean Corpuscular Volume 86.4 fL (83.0-100.0); Mean Platelet Volume 10.4 fL (9.4-12.4); Monocytes # 0.2 K/mcL (0.0-1.3); Neutrophils # 18.2 K/mcL (1.6-8.9); Platelet Count 351 K/mcL (140-400); Red Blood Count 3.46 M/mcL (4.19-5.50); Segmented Neutrophils % 97.9 %; White Blood Count 18.6 K/mcL (4.3-11.1)
[2019-08-17 09:46] LABS: Prothrombin Time 11.8 Seconds (9.4-12.1)
[2019-08-17 09:50] LABS: Amphetamine Screen,Urine Negative ng/mL (Cutoff=1000); Barbiturate Screen,Urine Negative ng/mL (Cutoff=200); Benzodiazepines Screen,Urine Negative ng/mL (Cutoff=200); Cannabinoid Screen,Urine Negative ng/mL (Cutoff = 50); Cocaine Screen,Urine Negative ng/mL (Cutoff= 300); Opiate Screen,Urine Positive ng/mL (Cutoff=300); Phencyclidine Screen,Urine Negative ng/mL (Cutoff=25)
[2019-08-17 10:01] LABS: % Iron Saturation 10 % (20-55); BUN/Creatinine Ratio 20 (6-26); Blood Urea Nitrogen 10 mg/dL (8-23); Calcium 8.5 mg/dL (8.6-10.3); Carbon Dioxide 36 mEq/L (23-29); Chloride 100 mEq/L (98-107); Glucose 156 mg/dL (70-105); Iron 36 mcg/dL (65-175); Osmolality,Calculated 296 (280-300); Potassium 4.6 mEq/L (3.5-5.1); Sodium 142 mEq/L (136-145); Transferrin 263 mg/dL (203-362); eGFR For African Americans > 60 (> 60); eGFR For Non-African Americans > 60 (> 60)
[2019-08-17] MEDS ORDERED: 0.9 % Sodium Chloride 250 ML ONE (10:09)
[2019-08-17 10:10] LABS: Anisocytosis 1+ (Not Present); Hypochromasia Present (Not Present); Platelet Estimate Normal (Normal)
[2019-08-17 10:26] LABS: Ferritin 10 ng/mL (20-250)
[2019-08-17] MEDS: Piperacillin/Tazobactam 3.375 GM in 0.9 % Sodium Chloride Mini Bag 100 ML IVPB SCH ×3 (13:08→23:42)
[2019-08-17] MEDS: *HR* HYDROcodone/Acet 5/325 mg TABLET PO PRN (18:22)
[2019-08-17] MEDS: traZODone 50 MG TABLET PO SCH (20:08)
[2019-08-18] MEDS ORDERED: cefTRIAXone 1,000 MG in Water for inj. (sterile) 10 ML IVP SCH (02:00)
[2019-08-18] MEDS: Azithromycin 500 MG in 0.9 % Sodium Chloride 250 ML IVPB SCH (03:43)
[2019-08-18] MEDS: *HR* HYDROcodone/Acet 5/325 mg TABLET PO PRN ×3 (03:49→20:22)
[2019-08-18] MEDS: Ipratropium/Albuterol Neb 3 ML IH SCH ×5 (04:04→20:24)
[2019-08-18 04:45] LABS: Basophils % 0.1 %; Immature Granulocytes % 0.4 % (0-4); Lymphocytes % 6.3 %
[2019-08-18 04:46] LABS: Eosinophils % 0.3 %; Hematocrit 32.3 % (37.5-50.1); Hemoglobin 9.5 g/dL (12.9-16.9); Lymphocytes # 0.9 K/mcL (0.6-4.6); Mean Corpuscular HGB Conc 29.4 g/dL (31.6-35.5); Mean Corpuscular Hemoglobin 24.4 pg (28.0-33.3); Mean Corpuscular Volume 82.8 fL (83.0-100.0); Mean Platelet Volume 10.4 fL (9.4-12.4); Monocytes # 1.5 K/mcL (0.0-1.3); Neutrophils # 11.1 K/mcL (1.6-8.9); Platelet Count 337 K/mcL (140-400); Red Cell Distribution Width 16.6 % (11.5-14.5); Segmented Neutrophils % 81.9 %; White Blood Count 13.5 K/mcL (4.3-11.1)
[2019-08-18 05:02] LABS: BUN/Creatinine Ratio 20 (6-26); Blood Urea Nitrogen 10 mg/dL (8-23); Calcium 8.8 mg/dL (8.6-10.3); Carbon Dioxide 37 mEq/L (23-29); Chloride 101 mEq/L (98-107); Glucose 79 mg/dL (70-105); Osmolality,Calculated 292 (280-300); Sodium 142 mEq/L (136-145); eGFR For African Americans > 60 (> 60); eGFR For Non-African Americans > 60 (> 60)
[2019-08-18 05:34] LABS: Anisocytosis 1+ (Not Present); Hypochromasia Present (Not Present)
[2019-08-18 05:35] LABS: Platelet Estimate Normal (Normal)
[2019-08-18] MEDS: Piperacillin/Tazobactam 3.375 GM in 0.9 % Sodium Chloride Mini Bag 100 ML IVPB SCH ×3 (08:45→23:08)
[2019-08-18] MEDS: BuPROPion SR (12 HR) 100 MG TABLET PO SCH ×2 (08:45→20:22)
[2019-08-18] MEDS: Cyanocobalamin (B-12) 1,000 MCG TABLET PO SCH (08:46)
[2019-08-18] MEDS: Gabapentin 300 MG CAPSULE PO SCH ×3 (08:46→20:22)
[2019-08-18] MEDS: Budesonide/Formoterol 160/4.5 1 PUFF INH IH SCH ×2 (10:31→20:24)
[2019-08-18] MEDS ORDERED: Saline Nasal Spray 44 ML BOTTLE NS PRN (11:51)
[2019-08-18] MEDS ORDERED: *HR* LORazepam 2 MG/ML VIAL IVP ONE (12:25)
[2019-08-18] MEDS: Pantoprazole 40 MG VIAL IVP SCH (17:24)
[2019-08-18] MEDS ORDERED: methylPREDNISolone 125 MG/2 ML VIAL IVP STA (17:25)
[2019-08-18] MEDS: traZODone 50 MG TABLET PO SCH (20:22)
[2019-08-18] MEDS: MethylPREDNISolone 40 MG/ML VIAL IVP SCH (23:07)
[2019-08-19] MEDS: Ipratropium/Albuterol Neb 3 ML IH SCH ×7 (00:01→23:43)
[2019-08-19 01:25] LABS: Basophils % 0.2 %; Hemoglobin 10.5 g/dL (12.9-16.9); Immature Granulocytes % 0.5 % (0-4); Lymphocytes # 0.3 K/mcL (0.6-4.6); Lymphocytes % 2.3 %; Mean Corpuscular HGB Conc 29.2 g/dL (31.6-35.5); Mean Corpuscular Hemoglobin 24.2 pg (28.0-33.3); Mean Corpuscular Volume 83.1 fL (83.0-100.0); Mean Platelet Volume 10.4 fL (9.4-12.4); Monocytes # 0.1 K/mcL (0.0-1.3); Monocytes % 0.9 %; Neutrophils # 10.6 K/mcL (1.6-8.9); Platelet Count 359 K/mcL (140-400); Red Blood Count 4.33 M/mcL (4.19-5.50); Red Cell Distribution Width 16.9 % (11.5-14.5); Segmented Neutrophils % 96.1 %; White Blood Count 11.1 K/mcL (4.3-11.1)
[2019-08-19 01:47] LABS: BUN/Creatinine Ratio 24 (6-26); Blood Urea Nitrogen 11 mg/dL (8-23); Calcium 9.3 mg/dL (8.6-10.3); Carbon Dioxide 34 mEq/L (23-29); Chloride 96 mEq/L (98-107); Glucose 109 mg/dL (70-105); Osmolality,Calculated 292 (280-300); Potassium 4.2 mEq/L (3.5-5.1); Sodium 141 mEq/L (136-145); eGFR For African Americans > 60 (> 60); eGFR For Non-African Americans > 60 (> 60)
[2019-08-19] MEDS: Azithromycin 500 MG in 0.9 % Sodium Chloride 250 ML IVPB SCH (03:04)
[2019-08-19] MEDS: Pantoprazole 40 MG VIAL IVP SCH ×2 (05:04→16:36)
[2019-08-19] MEDS: Budesonide/Formoterol 160/4.5 1 PUFF INH IH SCH ×2 (07:43→20:55)
[2019-08-19] MEDS: MethylPREDNISolone 40 MG/ML VIAL IVP SCH ×3 (07:48→23:52)
[2019-08-19] MEDS: BuPROPion SR (12 HR) 100 MG TABLET PO SCH ×2 (07:49→20:15)
[2019-08-19] MEDS: Piperacillin/Tazobactam 3.375 GM in 0.9 % Sodium Chloride Mini Bag 100 ML IVPB SCH (07:50)
[2019-08-19] MEDS: *HR* HYDROcodone/Acet 5/325 mg TABLET PO PRN ×3 (07:50→23:51)
[2019-08-19] MEDS: Cyanocobalamin (B-12) 1,000 MCG TABLET PO SCH (07:50)
[2019-08-19] MEDS: Gabapentin 300 MG CAPSULE PO SCH ×3 (07:51→20:15)
[2019-08-19] MEDS ORDERED: Fluticasone Propionate Nasal 50 MCG/SPRAY BOTTLE NS SCH (09:00)
[2019-08-19] MEDS ORDERED: Baclofen 10 MG TABLET PO PRN (10:03)
[2019-08-19] MEDS: *HR* LORazepam 0.5 MG TABLET PO PRN ×3 (10:49→20:15)
[2019-08-19] MEDS: Diltiazem CD (24hr) 180 MG CAPSULE PO SCH (11:24)
[2019-08-19] MEDS ORDERED: *HR* Metoprolol 5 MG/5 ML VIAL IVP ONE (11:29)
[2019-08-19] MEDS: levoFLOXacin 750 MG TABLET PO SCH (14:30)
[2019-08-19] MEDS ORDERED: Ipratropium/Albuterol Neb 3 ML IH PRN (16:00)
[2019-08-19] MEDS: traZODone 50 MG TABLET PO SCH (20:15)
[2019-08-19] MEDS: GuaiFENesin Liq 200 MG/10 ML UDC PO SCH (20:15)
[2019-08-19] MEDS: Fluticasone Propionate Nasal 50 MCG/SPRAY BOTTLE NS SCH (20:16)
[2019-08-19] MEDS ORDERED: NON-FORMULARY MEDICATION 1 EACH EACH (Lactose-Reduced Food [Ensure Liquid] 1 BOTTLE) PO SCH (21:00)
[2019-08-20 03:06] LABS: Red Cell Distribution Width 17.3 % (11.5-14.5)
[2019-08-20 03:08] LABS: Hematocrit 36.8 % (37.5-50.1); Hemoglobin 10.4 g/dL (12.9-16.9); Immature Granulocytes % 0.4 % (0-4); Lymphocytes # 0.3 K/mcL (0.6-4.6); Lymphocytes % 3.3 %; Mean Corpuscular HGB Conc 28.3 g/dL (31.6-35.5); Mean Corpuscular Volume 84.8 fL (83.0-100.0); Monocytes # 0.3 K/mcL (0.0-1.3); Monocytes % 3.4 %; Neutrophils # 7.6 K/mcL (1.6-8.9); Platelet Count 350 K/mcL (140-400); Red Blood Count 4.34 M/mcL (4.19-5.50); Segmented Neutrophils % 92.9 %; White Blood Count 8.2 K/mcL (4.3-11.1)
[2019-08-20 03:24] LABS: BUN/Creatinine Ratio 25 (6-26); Blood Urea Nitrogen 14 mg/dL (8-23); Calcium 9.5 mg/dL (8.6-10.3); Carbon Dioxide 36 mEq/L (23-29); Chloride 97 mEq/L (98-107); Glucose 131 mg/dL (70-105); Osmolality,Calculated 292 (280-300); Potassium 4.3 mEq/L (3.5-5.1); Sodium 140 mEq/L (136-145); eGFR For African Americans > 60 (> 60); eGFR For Non-African Americans > 60 (> 60)
[2019-08-20 03:34] LABS: Anisocytosis 1+ (Not Present); Hypochromasia Present (Not Present); Platelet Estimate Normal (Normal)
[2019-08-20] MEDS ORDERED: NON-FORMULARY MEDICATION 1 EACH EACH (Alendronate Sodium [Fosamax] 35 MG) PO SCH (03:37)
[2019-08-20] MEDS: Ipratropium/Albuterol Neb 3 ML IH SCH ×6 (03:57→23:30)
[2019-08-20] MEDS: Pantoprazole 40 MG VIAL IVP SCH ×2 (05:44→16:00)
[2019-08-20] MEDS: Budesonide/Formoterol 160/4.5 1 PUFF INH IH SCH ×2 (07:13→19:46)
[2019-08-20] MEDS: GuaiFENesin Liq 200 MG/10 ML UDC PO SCH ×2 (08:01→21:39)
[2019-08-20] MEDS: Gabapentin 300 MG CAPSULE PO SCH ×3 (08:02→21:40)
[2019-08-20] MEDS: Multivit/Ca/Min/Fe/FA 1 TAB TABLET PO SCH (08:02)
[2019-08-20] MEDS: Diltiazem CD (24hr) 180 MG CAPSULE PO SCH (08:02)
[2019-08-20] MEDS: Famotidine 20 MG TABLET PO SCH (08:02)
[2019-08-20] MEDS: *HR* HYDROcodone/Acet 5/325 mg TABLET PO PRN ×3 (08:02→21:40)
[2019-08-20] MEDS: BuPROPion SR (12 HR) 100 MG TABLET PO SCH ×2 (08:02→21:40)
[2019-08-20] MEDS: Cyanocobalamin (B-12) 1,000 MCG TABLET PO SCH (08:02)
[2019-08-20] MEDS: levoFLOXacin 750 MG TABLET PO SCH (08:02)
[2019-08-20] MEDS: (Roflumilast [Daliresp] 500 MCG) PO SCH (08:03)
[2019-08-20] MEDS: Fluticasone Propionate Nasal 50 MCG/SPRAY BOTTLE NS SCH ×2 (08:04→21:45)
[2019-08-20] MEDS: MethylPREDNISolone 40 MG/ML VIAL IVP SCH (08:05)
[2019-08-20] MEDS ORDERED: Diltiazem CD (24hr) 180 MG CAPSULE PO SCH (09:00)
[2019-08-20] MEDS: *HR* LORazepam 0.5 MG TABLET PO PRN ×2 (11:08→21:40)
[2019-08-20] MEDS: traZODone 50 MG TABLET PO SCH (21:40)
[2019-08-21] MEDS: Ipratropium/Albuterol Neb 3 ML IH SCH ×3 (03:41→10:55)
[2019-08-21] MEDS: Pantoprazole 40 MG VIAL IVP SCH (05:18)
[2019-08-21 06:48] LABS: Lymphocytes % 11.3 %; Segmented Neutrophils % 73.2 %
[2019-08-21 06:49] LABS: Basophils % 0.1 %; Eosinophils # 0.1 K/mcL (0.0-0.6); Eosinophils % 0.8 %; Hematocrit 34.9 % (37.5-50.1); Hemoglobin 10.2 g/dL (12.9-16.9); Immature Granulocytes % 0.9 % (0-4); Lymphocytes # 0.9 K/mcL (0.6-4.6); Mean Corpuscular HGB Conc 29.2 g/dL (31.6-35.5); Mean Corpuscular Hemoglobin 23.9 pg (28.0-33.3); Mean Corpuscular Volume 81.7 fL (83.0-100.0); Mean Platelet Volume 9.9 fL (9.4-12.4); Monocytes # 1.1 K/mcL (0.0-1.3); Monocytes % 13.7 %; Neutrophils # 5.7 K/mcL (1.6-8.9); Platelet Count 300 K/mcL (140-400); Red Blood Count 4.27 M/mcL (4.19-5.50); White Blood Count 7.8 K/mcL (4.3-11.1)
[2019-08-21 06:59] LABS: BUN/Creatinine Ratio 29 (6-26); Blood Urea Nitrogen 14 mg/dL (8-23); Calcium 9.4 mg/dL (8.6-10.3); Carbon Dioxide 39 mEq/L (23-29); Chloride 97 mEq/L (98-107); Glucose 96 mg/dL (70-105); Osmolality,Calculated 294 (280-300); Potassium 3.7 mEq/L (3.5-5.1); Sodium 142 mEq/L (136-145); eGFR For African Americans > 60 (> 60); eGFR For Non-African Americans > 60 (> 60)
[2019-08-21] MEDS: Budesonide/Formoterol 160/4.5 1 PUFF INH IH SCH (07:28)
[2019-08-21 08:23] LABS: Anisocytosis 1+ (Not Present); Hypochromasia Present (Not Present); Platelet Estimate Normal (Normal)
[2019-08-21] MEDS: (Roflumilast [Daliresp] 500 MCG) PO SCH (08:43)
[2019-08-21] MEDS ORDERED: predniSONE 20 MG TABLET PO SCH (09:00)
[2019-08-21] MEDS: Cyanocobalamin (B-12) 1,000 MCG TABLET PO SCH (09:08)
[2019-08-21] MEDS: levoFLOXacin 750 MG TABLET PO SCH (09:08)
[2019-08-21] MEDS: GuaiFENesin Liq 200 MG/10 ML UDC PO SCH (09:08)
[2019-08-21] MEDS: Multivit/Ca/Min/Fe/FA 1 TAB TABLET PO SCH (09:08)
[2019-08-21] MEDS: BuPROPion SR (12 HR) 100 MG TABLET PO SCH (09:10)
[2019-08-21] MEDS: Famotidine 20 MG TABLET PO SCH (09:10)
[2019-08-21] MEDS: Gabapentin 300 MG CAPSULE PO SCH (09:10)
[2019-08-21] MEDS: *HR* HYDROcodone/Acet 5/325 mg TABLET PO PRN (09:10)
[2019-08-21] MEDS: Diltiazem CD (24hr) 180 MG CAPSULE PO SCH (09:10)
[2019-08-21] MEDS: Fluticasone Propionate Nasal 50 MCG/SPRAY BOTTLE NS SCH (09:11)
[2019-08-21] MEDS: *HR* LORazepam 0.5 MG TABLET PO PRN (09:29)
[2019-08-21 11:26] VITALS: BP 144/91
== END 2019-08-21 15:01 | disposition home health service (06) | DRG 871 ==
LOC: 2NNU 23:24 → EMEROOARM 23:24 → 2NNU 08-17 03:50 → SUATTDRO 08-17 06:10
PROVIDERS: ADMIT Internal Medicine; ATTEND Internal Medicine

== ENCOUNTER 2019-09-27 15:22 | Inpatient (IN) ==
[2019-09-27] MEDS ORDERED: cefTRIAXone 1,000 MG in Water for inj. (sterile) 10 ML IVP ONE (15:29)
[2019-09-27] MEDS ORDERED: methylPREDNISolone 125 MG/2 ML VIAL IVP ONE (15:29)
[2019-09-27] MEDS ORDERED: Azithromycin 500 MG in 0.9 % Sodium Chloride 250 ML IVPB ONE (15:29)
[2019-09-27] MEDS ORDERED: Ipratropium/Albuterol Neb 3 ML IH ONE (15:30)
[2019-09-27 16:01] LABS: Basophils % 0.1 %; Red Cell Distribution Width 21.2 % (11.5-14.5)
[2019-09-27 16:03] LABS: Hematocrit 36.7 % (37.5-50.1); Hemoglobin 10.1 g/dL (12.9-16.9); Immature Granulocytes % 0.3 % (0-4); Lymphocytes # 0.3 K/mcL (0.6-4.6); Lymphocytes % 3.1 %; Mean Corpuscular HGB Conc 27.5 g/dL (31.6-35.5); Mean Corpuscular Hemoglobin 26.2 pg (28.0-33.3); Mean Corpuscular Volume 95.1 fL (83.0-100.0); Mean Platelet Volume 11.4 fL (9.4-12.4); Monocytes # 0.3 K/mcL (0.0-1.3); Monocytes % 2.4 %; Platelet Count 233 K/mcL (140-400); Red Blood Count 3.86 M/mcL (4.19-5.50); Segmented Neutrophils % 94.1 %; White Blood Count 10.7 K/mcL (4.3-11.1)
[2019-09-27 16:07] LABS: INR 0.8; Neutrophils # 10.1 K/mcL (1.6-8.9); Prothrombin Time 9.5 Seconds (9.4-12.1)
[2019-09-27 16:10] LABS: Activated Partial Thrombo Time 24.3 Seconds (26.0-36.0)
[2019-09-27 16:28] LABS: Anisocytosis 2+ (Not Present); Hypochromasia Present (Not Present); Macrocytosis Present (Not Present); Platelet Estimate Normal (Normal)
[2019-09-27 16:30] LABS: BUN/Creatinine Ratio 20 (6-26); Blood Urea Nitrogen 10 mg/dL (8-23); Calcium 9.1 mg/dL (8.6-10.3); Carbon Dioxide > 45 mEq/L (23-29); Chloride 93 mEq/L (98-107); Glucose 137 mg/dL (70-105); Osmolality,Calculated 297 (280-300); Potassium 4.7 mEq/L (3.5-5.1); Sodium 143 mEq/L (136-145); Troponin I 0.04 ng/mL (< 0.04); eGFR For African Americans > 60 (> 60); eGFR For Non-African Americans > 60 (> 60)
[2019-09-27] MEDS ORDERED: Aspirin 81 MG TAB.CHEW PO STA (16:32)
[2019-09-27] MEDS ORDERED: Ondansetron ODT 4 MG TAB.RAPDIS SL PRN (17:16)
[2019-09-27] MEDS ORDERED: Naloxone 0.4 MG/ML INJ IVP PRN (17:16)
[2019-09-27] MEDS ORDERED: Ondansetron 4 MG/2 ML VIAL IVP PRN (17:16)
[2019-09-27] MEDS: Ipratropium/Albuterol Neb 3 ML IH SCH ×2 (18:13→19:51)
[2019-09-27] MEDS ORDERED: Isovue-370 500 ML BOTTLE IVP ONE (18:15)
[2019-09-27 19:45] LABS: VBG HCO3 46 mEq/L (21-27); VBG PCO2 82 mmHg (41-51); VBG PH 7.36 pH Units (7.32-7.42); VBG PO2 67 mmHg (25-50)
[2019-09-27] MEDS: *HR* LORazepam 0.5 MG TABLET PO SCH (21:56)
[2019-09-27] MEDS: Gabapentin 300 MG CAPSULE PO SCH (21:56)
[2019-09-27] MEDS: *HR* HYDROcodone/Acet 5/325 mg TABLET PO PRN (21:56)
[2019-09-27 23:12] LABS: Adenovirus Not Detected (Not Detect); Bordetella Pertussis Not Detected (Not Detect); Chlamydophila pneumoniae Not Detected (Not Detect); Coronavirus 229E Not Detected (Not Detect); Coronavirus HKU1 Not Detected (Not Detect); Coronavirus NL63 Not Detected (Not Detect); Coronavirus OC43 Not Detected (Not Detect); Human Metapneumovirus Not Detected (Not Detect); Human Rhinovirus/Enterovirus Not Detected (Not Detect); Influenza A Subtype 2009 H1 Not Detected (Not Detect); Influenza A Untypeable Not Detected (Not Detect); Influenza B Not Detected (Not Detect); Mycoplasma pneumoniae Not Detected (Not Detect); Parainfluenza Virus 1 Not Detected (Not Detect); Parainfluenza Virus 2 Not Detected (Not Detect); Parainfluenza Virus 3 Not Detected (Not Detect); Parainfluenza Virus 4 Not Detected (Not Detect); Respiratory Syncytial Virus Not Detected (Not Detect)
[2019-09-27] MEDS: MethylPREDNISolone 40 MG/ML VIAL IVP SCH (23:15)
[2019-09-28] MEDS: Ipratropium/Albuterol Neb 3 ML IH SCH ×6 (00:25→19:44)
[2019-09-28 03:49] LABS: Hemoglobin 10.5 g/dL (12.9-16.9); Immature Granulocytes % 0.4 % (0-4); Lymphocytes # 0.1 K/mcL (0.6-4.6); Lymphocytes % 3.1 %; Mean Corpuscular HGB Conc 28.4 g/dL (31.6-35.5); Mean Corpuscular Hemoglobin 25.9 pg (28.0-33.3); Mean Corpuscular Volume 91.4 fL (83.0-100.0); Monocytes # 0.1 K/mcL (0.0-1.3); Monocytes % 1.1 %; Neutrophils # 4.3 K/mcL (1.6-8.9); Platelet Count 204 K/mcL (140-400); Red Blood Count 4.05 M/mcL (4.19-5.50); Red Cell Distribution Width 20.8 % (11.5-14.5); Segmented Neutrophils % 95.4 %
[2019-09-28 03:50] LABS: White Blood Count 4.5 K/mcL (4.3-11.1)
[2019-09-28 04:10] LABS: BUN/Creatinine Ratio 27 (6-26); Blood Urea Nitrogen 13 mg/dL (8-23); Carbon Dioxide 42 mEq/L (23-29); Chloride 95 mEq/L (98-107); Glucose 154 mg/dL (70-105); Osmolality,Calculated 295 (280-300); Potassium 4.5 mEq/L (3.5-5.1); Sodium 141 mEq/L (136-145); eGFR For African Americans > 60 (> 60); eGFR For Non-African Americans > 60 (> 60)
[2019-09-28 04:18] LABS: Anisocytosis 2+ (Not Present); Hypochromasia Present (Not Present); Platelet Estimate Normal (Normal); Stomatocytes 1+ (Not Present)
[2019-09-28] MEDS: MethylPREDNISolone 40 MG/ML VIAL IVP SCH ×3 (07:41→23:50)
[2019-09-28] MEDS: Azithromycin 500 MG in 0.9 % Sodium Chloride 250 ML IVPB SCH (07:41)
[2019-09-28] MEDS: *HR* LORazepam 0.5 MG TABLET PO SCH ×3 (07:41→20:14)
[2019-09-28] MEDS: Gabapentin 300 MG CAPSULE PO SCH ×3 (07:41→20:14)
[2019-09-28] MEDS: *HR* HYDROcodone/Acet 5/325 mg TABLET PO PRN ×3 (07:44→20:14)
[2019-09-28] MEDS ORDERED: Cefepime HCl 2,000 MG in Water for inj. (sterile) 20 ML IVP SCH (08:57)
[2019-09-28] MEDS ORDERED: Mag Hydrox/Al Hydrox/Simeth 30 ML UDC PO PRN (13:58)
[2019-09-28] MEDS: Fluticasone Propionate Nasal 50 MCG/SPRAY BOTTLE NS SCH (14:44)
[2019-09-28] MEDS: Piperacillin/Tazobactam 3.375 GM in 0.9 % Sodium Chloride Mini Bag 100 ML IVPB SCH ×3 (15:54→23:50)
[2019-09-28] MEDS: *HR* Heparin 5,000 UNIT/ML VIAL SQ SCH (17:32)
[2019-09-28] MEDS ORDERED: Morphine Sulfate 2 MG/ML SYRINGE IVP ONE (18:06)
[2019-09-29] MEDS: Ipratropium/Albuterol Neb 3 ML IH SCH ×6 (00:19→19:47)
[2019-09-29] MEDS: *HR* Heparin 5,000 UNIT/ML VIAL SQ SCH ×2 (05:07→17:52)
[2019-09-29] MEDS: *HR* HYDROcodone/Acet 5/325 mg TABLET PO PRN ×2 (05:40→21:43)
[2019-09-29] MEDS: MethylPREDNISolone 40 MG/ML VIAL IVP SCH (07:46)
[2019-09-29] MEDS: *HR* LORazepam 0.5 MG TABLET PO SCH ×3 (07:46→19:54)
[2019-09-29] MEDS: Gabapentin 300 MG CAPSULE PO SCH ×3 (07:46→19:54)
[2019-09-29] MEDS: Azithromycin 500 MG in 0.9 % Sodium Chloride 250 ML IVPB SCH (07:47)
[2019-09-29] MEDS: Piperacillin/Tazobactam 3.375 GM in 0.9 % Sodium Chloride Mini Bag 100 ML IVPB SCH ×3 (07:49→23:42)
[2019-09-29] MEDS: Fluticasone Propionate Nasal 50 MCG/SPRAY BOTTLE NS SCH (08:09)
[2019-09-29] MEDS: Morphine Sulfate ER (12 HR) 15 MG TABLET.ER PO SCH (15:15)
[2019-09-30] MEDS: Ipratropium/Albuterol Neb 3 ML IH SCH ×4 (00:01→10:26)
[2019-09-30] MEDS: Morphine Sulfate ER (12 HR) 15 MG TABLET.ER PO SCH (03:23)
[2019-09-30] MEDS: *HR* Heparin 5,000 UNIT/ML VIAL SQ SCH (05:30)
[2019-09-30 06:41] LABS: BUN/Creatinine Ratio 34 (6-26); Blood Urea Nitrogen 20 mg/dL (8-23); Calcium 9.1 mg/dL (8.6-10.3); Carbon Dioxide 40 mEq/L (23-29); Chloride 97 mEq/L (98-107); Glucose 93 mg/dL (70-105); Osmolality,Calculated 300 (280-300); Sodium 144 mEq/L (136-145); eGFR For African Americans > 60 (> 60); eGFR For Non-African Americans > 60 (> 60)
[2019-09-30] MEDS: Gabapentin 300 MG CAPSULE PO SCH (08:12)
[2019-09-30] MEDS: *HR* LORazepam 0.5 MG TABLET PO SCH (08:12)
[2019-09-30] MEDS: Azithromycin 500 MG in 0.9 % Sodium Chloride 250 ML IVPB SCH (08:13)
[2019-09-30] MEDS: Fluticasone Propionate Nasal 50 MCG/SPRAY BOTTLE NS SCH (08:15)
[2019-09-30] MEDS ORDERED: predniSONE 20 MG TABLET PO SCH (09:00)
[2019-09-30 11:23] VITALS: BP 153/84
[2019-09-30] MEDS ORDERED: levoFLOXacin 750 MG TABLET PO ONE (11:30)
== END 2019-09-30 15:08 | disposition home or self-care (01) | DRG 190 ==
LOC: EMEROOARM 15:22 → 3BNU 15:22
PROVIDERS: ADMIT Internal Medicine; ATTEND Internal Medicine

== ENCOUNTER 2019-10-17 09:24 | Inpatient (IN) ==
[2019-10-17] MEDS ORDERED: Haloperidol Oral Conc 10 MG/5 ML UDC PO PRN (12:41)
[2019-10-17] MEDS: Morphine Sulfate Oral CONC 10 MG/0.5 ML ORAL.SYG PO PRN ×4 (13:23→23:01)
[2019-10-17] MEDS: Gabapentin 300 MG CAPSULE PO SCH ×2 (15:32→20:55)
[2019-10-17] MEDS ORDERED: Baclofen 10 MG TABLET PO PRN (15:44)
[2019-10-17] MEDS: *HR* LORazepam Oral Conc 2 MG/ML PO PRN ×2 (15:53→23:01)
[2019-10-17] MEDS: Haloperidol Oral Conc 10 MG/5 ML UDC PO SCH (20:54)
[2019-10-17] MEDS: BuPROPion SR (12 HR) 100 MG TABLET PO SCH (20:54)
[2019-10-17] MEDS: Sennosides/Docusate Sodium TABLET PO SCH (20:55)
[2019-10-17] MEDS ORDERED: traZODone 50 MG TABLET PO SCH (21:00)
[2019-10-17] MEDS: Ipratropium/Albuterol Neb 3 ML IH PRN (21:23)
[2019-10-17] MEDS: Triamcinolone Acet 0.1% CRM 15 GM TUBE TP SCH (22:02)
[2019-10-18] MEDS: Morphine Sulfate Oral CONC 10 MG/0.5 ML ORAL.SYG PO PRN ×6 (03:13→17:51)
[2019-10-18] MEDS: Ipratropium/Albuterol Neb 3 ML IH PRN (03:18)
[2019-10-18] MEDS: *HR* LORazepam Oral Conc 2 MG/ML PO PRN ×3 (06:50→17:51)
[2019-10-18] MEDS: Fluticasone Propionate Nasal 50 MCG/SPRAY BOTTLE NS SCH (08:00)
[2019-10-18] MEDS: BuPROPion SR (12 HR) 100 MG TABLET PO SCH ×2 (08:36→19:45)
[2019-10-18] MEDS: Sennosides/Docusate Sodium TABLET PO SCH ×2 (08:37→19:45)
[2019-10-18] MEDS: Diltiazem CD (24hr) 180 MG CAPSULE PO SCH (08:37)
[2019-10-18] MEDS: Haloperidol Oral Conc 10 MG/5 ML UDC PO SCH ×3 (08:37→19:45)
[2019-10-18] MEDS: Gabapentin 300 MG CAPSULE PO SCH (08:37)
[2019-10-18] MEDS: Triamcinolone Acet 0.1% CRM 15 GM TUBE TP SCH ×2 (14:49→19:46)
[2019-10-19] MEDS: Morphine Sulfate Oral CONC 10 MG/0.5 ML ORAL.SYG PO PRN ×7 (01:22→23:58)
[2019-10-19] MEDS: *HR* LORazepam Oral Conc 2 MG/ML PO PRN ×6 (02:01→23:58)
[2019-10-19] MEDS: Haloperidol Oral Conc 10 MG/5 ML UDC PO SCH ×3 (08:04→23:57)
[2019-10-19] MEDS: BuPROPion SR (12 HR) 100 MG TABLET PO SCH ×2 (08:05→23:00)
[2019-10-19] MEDS: Fluticasone Propionate Nasal 50 MCG/SPRAY BOTTLE NS SCH (08:05)
[2019-10-19] MEDS: Sennosides/Docusate Sodium TABLET PO SCH ×2 (08:05→23:00)
[2019-10-19] MEDS: Triamcinolone Acet 0.1% CRM 15 GM TUBE TP SCH ×2 (08:05→23:57)
[2019-10-19] MEDS: Diltiazem CD (24hr) 180 MG CAPSULE PO SCH (08:05)
[2019-10-20 00:15] VITALS: BP 118/57
[2019-10-20] MEDS: Morphine Sulfate Oral CONC 10 MG/0.5 ML ORAL.SYG PO PRN (04:49)
[2019-10-20] MEDS: *HR* LORazepam Oral Conc 2 MG/ML PO PRN (04:49)
== END 2019-10-20 07:12 | disposition expired | DRG 951 ==
LOC: 2ANU 10:53
PROVIDERS: ADMIT Internal Medicine Hospice and Palliative Medicine; ATTEND Internal Medicine Hospice and Palliative Medicine